=== PATIENT | female | born 1950 | race Caucasian/White ===

== ENCOUNTER → 2019-09-20 14:15 | Outpatient (BNVA) | payer MEDICARE, SELFPAY | PROVIDERS: Family Provider Nurse Practitioner; PCP Nurse Practitioner; Referring Provider Internal Medicine; Visit Provider Specialist | DX: Z86.73 Personal history of transient ischemic attack (TIA), and cerebral infarction without residual deficits (principal); F17.210 Nicotine dependence, cigarettes, uncomplicated | CPT/HCPCS: 99205; 99215 ==

== ENCOUNTER → 2019-10-05 11:17 | Outpatient (BNVA) | payer MEDICARE, SELFPAY | PROVIDERS: Family Provider Nurse Practitioner; PCP Nurse Practitioner; Visit Provider Nurse Practitioner Psychiatric/Mental Health | DX: F33.1 Major depressive disorder, recurrent, moderate (principal); F41.1 Generalized anxiety disorder; F17.210 Nicotine dependence, cigarettes, uncomplicated | CPT/HCPCS: 99213 ==

== ENCOUNTER → 2019-12-28 08:11 | Outpatient (BNVA) | payer MEDICARE, SELFPAY | PROVIDERS: Family Provider Nurse Practitioner; PCP Nurse Practitioner; Visit Provider Nurse Practitioner Psychiatric/Mental Health | DX: F33.1 Major depressive disorder, recurrent, moderate (principal); F41.1 Generalized anxiety disorder; F17.210 Nicotine dependence, cigarettes, uncomplicated | CPT/HCPCS: 99213 ==

== ENCOUNTER → 2020-02-29 12:55 | Outpatient (BNVA) | payer MEDICARE, SELFPAY | PROVIDERS: Family Provider Nurse Practitioner; PCP Nurse Practitioner; Visit Provider Nurse Practitioner Family | DX: N39.0 Urinary tract infection, site not specified (principal) | CPT/HCPCS: 81000 ==

== ENCOUNTER 2020-03-09 08:04 | Outpatient (CLI) | payer MEDICARE, SELFPAY ==
[2020-03-09] MEDS: iohexol 300 mg/mL 50 mL Btl PO (08:47)
--- NOTE | 2020-03-09 10:30 | CT_ITS ---
WS: [id number] CT ABDOMEN PELVIS TECHNIQUE: Noncontrast CT of the abdomen and pelvis with coronal and sagittal reformatted images. CLINICAL INFORMATION: prolapsed bladder COMPARISON: CTA 6 16,019 DLP: 1036.[address] scans at [facility] use at least one of these dose optimization techniques: automat ed exposure control; mA and/or kV adjustment per patient size (includes targeted exams where dose is matched to clinical indication); or iterative reconstruction. FINDINGS: Noncontrast liver is normal. Normal noncontrast gallbladder. Noncontrast spleen is normal. Lung bases are well aerated. Fatty atrophy of the pancreas. Adrenal glands are normal. No hydronephrosis in eit her kidney. Mild aortic calcification. Fat-containing umbilical hernia. A few sigmoid diverticuli. No evidence of acute diverticulitis. Scattered stool in the colon. A few prominent inguinal nodes nonspecific but likely reactive largest right inguinal region measuri ng 15 mm. Mild bladder prolapse. No significant bladder wall thickening. No evidence of bladder outle t obstruction. CT/CT abdomen pelvis wo con [id number] IMPRESSION: 1. Bladder is normal in appearance. No significant wall thickening. Minimal bl adder prolapse. No evidence of bladder outlet obstruction. 2. No other significant findings.
== END 2020-03-09 08:05 | disposition home or self-care (01) ==
LOC: RADWPI 08:07
PROVIDERS: Family Provider Family Medicine; PCP Family Medicine; Visit Provider Family Medicine
DX: N81.10 Cystocele, unspecified (principal)
CPT/HCPCS: 74176; Q9967

== ENCOUNTER → 2020-03-28 07:55 | Outpatient (BNVA) | payer MEDICARE, SELFPAY | PROVIDERS: Family Provider Family Medicine; PCP Family Medicine; Visit Provider Nurse Practitioner Psychiatric/Mental Health | DX: F33.1 Major depressive disorder, recurrent, moderate (principal); F41.1 Generalized anxiety disorder; F17.210 Nicotine dependence, cigarettes, uncomplicated | CPT/HCPCS: 99213 ==

== ENCOUNTER → 2020-04-02 13:53 | Outpatient (BNVA) | payer MEDICARE, SELFPAY | PROVIDERS: Family Provider Family Medicine; PCP Family Medicine; Visit Provider Nurse Practitioner Family | DX: Z87.440 Personal history of urinary (tract) infections (principal) | CPT/HCPCS: 81001 ==

== ENCOUNTER → 2020-04-30 09:16 | Outpatient (BNVA) | payer MEDICARE, SELFPAY | PROVIDERS: Family Provider Family Medicine; PCP Family Medicine; Visit Provider Nurse Practitioner Psychiatric/Mental Health | DX: F33.1 Major depressive disorder, recurrent, moderate (principal); F41.1 Generalized anxiety disorder; F17.210 Nicotine dependence, cigarettes, uncomplicated | CPT/HCPCS: 99213 ==

== ENCOUNTER → 2020-05-28 08:13 | Outpatient (BNVA) | payer MEDICARE, SELFPAY | PROVIDERS: Family Provider Family Medicine; PCP Family Medicine; Visit Provider Nurse Practitioner Psychiatric/Mental Health | DX: F33.1 Major depressive disorder, recurrent, moderate (principal); F41.1 Generalized anxiety disorder; F17.210 Nicotine dependence, cigarettes, uncomplicated | CPT/HCPCS: 99213 ==

== ENCOUNTER → 2020-07-18 14:12 | Outpatient (BNVA) | payer MEDICARE, SELFPAY | PROVIDERS: Family Provider Family Medicine; PCP Family Medicine; Visit Provider Family Medicine Adult Medicine | DX: H05.20 Unspecified exophthalmos (principal); I63.512 Cerebral infarction due to unspecified occlusion or stenosis of left middle cerebral artery; E11.69 Type 2 diabetes mellitus with other specified complication; E78.5 Hyperlipidemia, unspecified; E11.65 Type 2 diabetes mellitus with hyperglycemia; Z98.62 Peripheral vascular angioplasty status; I10 Essential (primary) hypertension | CPT/HCPCS: 80053; 80061; 83036; 84443; 85025 ==

== ENCOUNTER → 2020-09-20 09:09 | Outpatient (BNVA) | payer MEDICARE, SELFPAY | PROVIDERS: Family Provider Family Medicine; PCP Family Medicine; Visit Provider Nurse Practitioner Psychiatric/Mental Health | DX: F33.1 Major depressive disorder, recurrent, moderate (principal); F41.1 Generalized anxiety disorder; F17.210 Nicotine dependence, cigarettes, uncomplicated | CPT/HCPCS: 99213 ==

== ENCOUNTER → 2020-12-05 13:22 | Outpatient (BNVA) | payer MEDICARE, SELFPAY | PROVIDERS: Family Provider Family Medicine; PCP Family Medicine; Visit Provider Family Medicine Adult Medicine | DX: E11.65 Type 2 diabetes mellitus with hyperglycemia (principal); I10 Essential (primary) hypertension; R94.4 Abnormal results of kidney function studies; E11.69 Type 2 diabetes mellitus with other specified complication; E78.5 Hyperlipidemia, unspecified; I63.512 Cerebral infarction due to unspecified occlusion or stenosis of left middle cerebral artery | CPT/HCPCS: 80053; 80061; 83036 ==

== ENCOUNTER → 2021-01-02 07:29 | Outpatient (BNVA) | payer MEDICARE, SELFPAY | PROVIDERS: Family Provider Family Medicine; PCP Family Medicine; Visit Provider Nurse Practitioner Psychiatric/Mental Health | DX: F33.1 Major depressive disorder, recurrent, moderate (principal); F41.1 Generalized anxiety disorder; F17.210 Nicotine dependence, cigarettes, uncomplicated | CPT/HCPCS: 99214 ==

== ENCOUNTER 2021-02-12 06:56 | Outpatient (CLI) | payer MEDICARE, SELFPAY ==
--- NOTE | 2021-02-12 07:15 | USCV_ITS ---
Santa Baez Age: 70 Gender: F : 1950 Exam Date: 02/12/2021 07:15 Ordering Phys: Eileen Escamilla MD ([email or web address]) Technologist: HEATHER Exam Location: [facility] – [place] Indication: STENOSIS Risk Factors: Previous Vascular Surgery: Right Brachial BP: / Left Brachial BP: / Right Left Velocity (cm/s) Spectral Plaque Velocity (cm/s) Spectral Plaque Syst/Diast Broadening Syst/Diast Broadening 62.80/ 9.90 Prox CCA 77.20 / 9.90 60.60/ 15.40 Mid CCA 76.10 / 12.10 76.10/ 14.30 Distal CCA 61.70 / 17.60 95.90/ 18.70 Prox ICA 110.30/ 25.40 104.70/25.40 Mid ICA 132.30/ 25.40 99.20/ 22.10 Distal ICA 110.30/ 22.10 102.50 ECA 115.80 1.73 ICA/CCA 1.74 Antegrade Vertebral Antegrade 55.10/ 17.60 cm/s 25.10/ 4.30 cm/s Tri Subclavian Tri FINDINGS Mild to moderate heterogeneous plaques at the right bifurcation and proximal internal carotid artery Moderate heterogeneous plaques of the left bifurcation and internal carotid artery Antegrade flow in the vertebral arteries bilaterally Normal Doppler flow velocities in the external carotid and subclavian arteries bilaterally CONCLUSIONS Moderate heterogeneous plaques of the left bifurcation and internal carotid artery with the Doppler features, consistent with less than 50% stenosis Mild to moderate heterogeneous plaques at the right bifurcation and proximal internal carotid artery with Doppler features, consistent with less than 50% stenosis. Intimal thickening in the common carotid arteries bilaterally Compared to the study from 08/05/2019, there may not be a significant change Dr Ahmet Brandon MD [facility] (Electronically Signed) Final Date: 12 February 2021 23:04 S
--- NOTE | 2021-02-12 08:00 | USCV_ITS ---
Santa Baez Age: 70 Gender: F : 1950 Exam Date: 02/12/2021 07:49 Ordering Phys: Eileen Escamilla MD ([email or web address]) Technologist: HEATHER [place]am [place] [facility] [place]ication: BP: / HR: 59 Rhythm: Sinus Technical Quality: Good MEASUREMENTS (Male / Female) Normal Values 2D ECHO LV Diastolic Diameter PLAX 4.5 cm 4.2 - 5.9 / 3.9 - 5.3 cm LV Systolic Diameter PLAX 3.3 cm LV Chamber Size 4.5 cm IVS Diastolic Thickness 1.2 cm 0.6 - 1.0 / 0.6 - 0.9 cm IVS Systolic Thickness 1.4 cm LVPW Diastolic Thickness 1.2 cm 0.6 - 1.0 / 0.6 - 0.9 cm LVPW Systolic Thickness 1.5 cm RV Chamber Size 2.3 cm LVOT Diameter 2.0 cm LV Ejection Fraction 2D Teich 52.7 % LV Ejection Fraction MOD 2C 51.5 % LV Ejection Fraction 2C AL 60.1 % LA Diameter 2.4 cm LA Width 3.8 cm LA Height 4.5 cm RA Width 3.1 cm RA Height 4.4 cm M-MODE LV Diastolic Diameter MM 7.1 cm 4.2 - 5.9 / 3.9 - 5.3 cm LV Systolic Diameter MM 5.0 cm LV Ejection Fraction MM Teich 55.5 % IVS Diastolic Thickness MM 1.0 cm 0.6 - 1.0 / 0.6 - 0.9 cm IVS Systolic Thickness MM 1.3 cm LVPW Diastolic Thickness MM 0.7 cm 0.6 - 1.0 / 0.6 - 0.9 cm LVPW Systolic Thickness MM 1.3 cm Aortic Annulus Diameter 3.3 cm LA Ao Ratio MM 1.0 MV E Point Septal Separation 0.3 cm DOPPLER AV Peak Velocity 258.3 cm/s LVOT Peak Velocity 96.0 cm/s AV Area Cont Eq vti 1.3 cm squared AV Area Cont Eq pk 1.2 cm squared MV Area PHT 2.6 cm squared Mitral E to A Ratio 0.8 MV E' Velocity 36.5 cm/s Mitral E to MV E' Ratio 10.9 Mitral E to LV E' Lateral Ratio 12.3 Mitral E to LV E' Septal Ratio 9.8 TV Peak E Velocity 63.0 cm/s Right Atrial Pressure 8.0 mmHg PV Peak Velocity 67.0 cm/s RV Acceleration Time 0.1 s RV Ejection Time 0.4 s RV AcT/ET 0.4 FINDINGS Left Ventricle Normal left ventricular cavity size. Normal left ventricular systolic function. No regional wall motion abnormalities. Left ventricular ejection fraction is estimated at 55 %. Grade I/IV diastolic dysfunction (abnormal relaxation filling pattern), normal to mildly elevated filling pressures. Right Ventricle The right ventricle is normal in size and function. RVSP could not be calculated due to incomplete tricuspid regurgitation velocity profile. Right Atrium The right atrium is normal in size. Left Atrium The left atrium is normal in size. Mitral Valve Structurally normal mitral valve without significant stenosis or prolapse. There is no mitral regurgitation. Aortic Valve Moderate aortic valve calcification. Moderate aortic valve stenosis, mean gradient 12.2 mmHg, GABRIELLA 1.3 cm squared. Moderate aortic valve regurgitation. Tricuspid Valve Structurally normal tricuspid valve without significant stenosis or regurgitation. Pulmonic Valve Structurally normal pulmonic valve without significant stenosis. There is no pulmonic regurgitation. Pericardium Normal pericardium without effusion. Aorta Normal ascending aorta dimension. CONCLUSIONS 1-Normal left ventricular cavity size. Normal left ventricular systolic function. No regional wall motion abnormalities. Left ventricular ejection fraction is estimated at 55 %. Grade I/IV diastolic dysfunction (abnormal relaxation filling pattern), normal to mildly elevated filling pressures. 2-Moderate aortic valve calcification. Moderate aortic valve stenosis, mean gradient 12.2 mmHg, GABRIELLA 1.3 cm squared. Moderate aortic valve regurgitation. 3-Structurally normal mitral valve without significant stenosis or prolapse. There is no mitral regurgitation. 4-There is no pericardial effusion. 5-Right atrial pressure is around 5 mm of mercury. 6-No significant change since the prior echocardiogram study of 01/05/2019. Eileen Escamilla MD (Electronically Signed) Final Date: 13 February 2021 19:09 S
--- NOTE | 2021-02-12 08:45 | USCV_ITS ---
BaezSanta Age: 70 Gender: F : 1950 Exam Date: 02/12/2021 07:32 Ordering Phys: Eileen Escamilla MD Technologist: HEATHER Exam Location: [facility] [place] Indication: AAA HISTORY: Diameter (cm) AP x Transverse x Length Velocity (cm/s) Waveform Prox Aorta: 2.16 x 2.19 x 2.09 31.90 Mid Aorta: 1.71 x 1.97 x 1.71 57.50 Distal Aorta: 1.84 x 2.10 x 2.00 55.40 Right Iliac Prox: 0.70 x 0.88 x 70.00 Left Iliac Prox: 0.94 x 1.25 x 74.20 Stent Prox Landing x x Aneurysmal Sac Max x x Lt Lat Sac Dim Rt Lat Sac Dim Stent Dist Landing x x Right Iliac Stent x x Left Iliac Stent x x Right Renal Art Left Renal Art FINDINGS: Mild to moderate diffuse plaques in the abdominal aorta Normal Doppler flow velocities CONCLUSIONS 1. Mild to moderate diffuse plaques in the abdominal aorta. 2. Normal abdominal aortic and common iliac artery dimensions with no evidence of aneurysm 3. No significant stenosis in the aortic or proximal common iliac arteries, based on the above findings Dr Ahmet Brandon MD [facility] (Electronically Signed) Final Date: 12 February 2021 23:09 S
== END 2021-02-12 06:57 | disposition home or self-care (01) ==
LOC: RAD 06:57
PROVIDERS: PCP Family Medicine Adult Medicine; Visit Provider Internal Medicine Cardiovascular Disease
DX: I71.4 Abdominal aortic aneurysm, without rupture (principal); I35.0 Nonrheumatic aortic (valve) stenosis; I65.23 Occlusion and stenosis of bilateral carotid arteries
CPT/HCPCS: 93306; 93880; 93978

== ENCOUNTER → 2021-04-03 08:06 | Outpatient (BNVA) | payer MEDICARE, SELFPAY | PROVIDERS: PCP Family Medicine Adult Medicine; Visit Provider Nurse Practitioner Psychiatric/Mental Health | DX: F33.1 Major depressive disorder, recurrent, moderate (principal); F41.1 Generalized anxiety disorder; F17.210 Nicotine dependence, cigarettes, uncomplicated | CPT/HCPCS: 99214 ==

== ENCOUNTER → 2021-04-20 14:55 | Outpatient (BNVA) | payer MEDICARE, SELFPAY | PROVIDERS: PCP Family Medicine Adult Medicine; Visit Provider Registered Nurse Neonatal Intensive Care | DX: Z20.822 Contact with and (suspected) exposure to COVID-19 (principal); R68.83 Chills (without fever); R05 Cough; F17.210 Nicotine dependence, cigarettes, uncomplicated | CPT/HCPCS: 87635 ==

== ENCOUNTER → 2021-05-01 07:39 | Outpatient (BNVA) | payer MEDICARE, SELFPAY | PROVIDERS: PCP Family Medicine Adult Medicine; Visit Provider Nurse Practitioner Psychiatric/Mental Health | DX: F33.1 Major depressive disorder, recurrent, moderate (principal); F41.1 Generalized anxiety disorder; F17.210 Nicotine dependence, cigarettes, uncomplicated; W57.XXXA Bitten or stung by nonvenomous insect and other nonvenomous arthropods, initial encounter | CPT/HCPCS: 99214 ==

== ENCOUNTER → 2021-06-05 15:37 | Outpatient (BNVA) | payer MEDICARE, SELFPAY | PROVIDERS: PCP Family Medicine Adult Medicine; Visit Provider Family Medicine Adult Medicine | DX: E11.65 Type 2 diabetes mellitus with hyperglycemia (principal); I10 Essential (primary) hypertension; E78.5 Hyperlipidemia, unspecified | CPT/HCPCS: 80053; 83036; 85025 ==

== ENCOUNTER → 2021-06-12 07:47 | Outpatient (BNVA) | payer MEDICARE, SELFPAY | PROVIDERS: PCP Family Medicine Adult Medicine; Visit Provider Nurse Practitioner Psychiatric/Mental Health | DX: F33.1 Major depressive disorder, recurrent, moderate (principal); F41.1 Generalized anxiety disorder; F17.210 Nicotine dependence, cigarettes, uncomplicated; W57.XXXA Bitten or stung by nonvenomous insect and other nonvenomous arthropods, initial encounter | CPT/HCPCS: 99214 ==

== ENCOUNTER 2021-06-25 15:47 | Emergency (ER) | payer MEDICARE, SELFPAY ==
[2021-06-25 15:59] VITALS: BP 145/75; PULSE 83; RESP 14; TEMP 36.2; O2SAT 95; BMI 25.8
--- NOTE | 2021-06-25 17:09 | W.ED.URI ---
HPI - URI/Sore Throat General: Chief Complaint: Upper Respiratory Infection Stated Complaint: Cough, SOB, Achy Time Seen by Provider: 06/25/21 17:09 History of Present Illness: HPI Narrative: 71-year-old female comes in today with complaints of body aches, cough and nasal congestion since the end of April. Patient was first seen at the end of April at urgent care and had a Covid test that was negative. Patient was then followed by primary care physician in the middle of May and was treated with 1 round of steroids and antibiotic. Patient followed up with her primary care a little over 1 week ago and was recommended to use some Mucinex to help remove congestion from the lungs. Patient then talked to her physician today and was recommended to come to the ER due to her persistent symptoms. Patient appears well. Patient appears no acute distress. Patient reports some chest congestion and some pain with deep breathing. Patient also reports some pain into her neck and left shoulder. Patient reports some tenderness to the to her coccyx also. Patient has a history of COPD, type 2 diabetes, hypertension, hyperlipidemia, nicotine dependence, and major depression. Review of Systems General: Reports: 10 or more systems reviewed and unremarkable except in HPI and below Const: Reports: malaise Resp: Reports: dyspnea and non-productive cough Musc: Reports: other (Muscle aches) PFS ED PFSH: Medical History (Updated 06/25/21 @ 19:11 by MEGAN Haytt) Acute viral syndrome Aortic stenosis Bronchitis Bulging eyes Chest pain at rest Chronic diarrhea COPD (chronic obstructive pulmonary disease) case management patient Cramps of left lower extremity Diabetes type 2, uncontrolled Essential tremor Generalized anxiety disorder HTN (hypertension) Hyperlipidemia due to type 2 diabetes mellitus Lower abdominal pain Major depressive disorder, recurrent episode, moderate with anxious distress Mixed stress and urge urinary incontinence Nicotine dependence, cigarettes, uncomplicated Peripheral Vascular Disease Psychiatric care Vaginal atrophy Surgical History Hx of angioplasty S/P hysterectomy S/P tonsillectomy Family History Other Diabetes Hypertension Stroke Denies family history of CAD (coronary artery disease) Social History Alcohol intake: never Adopted: No Caregiver/support person: No Lives independently: No Household members: spouse Marital status: Current occupational status: retired Physical Exam Const: COMMON NORMALS: no acute distress and patient oriented x3 GENERAL APPEARANCE: cooperative HENMT: COMMON NORMALS: normocephalic, TM's normal bilaterally and Normal external nose present HEAD & SCALP: normal to inspection and normocephalic NOSE: Normal external nose present TYMPANIC MEMBRANE: TM's normal bilaterally MOUTH: Normal oral and palatal mucosa present THROAT: posterior oropharynx normal Eye: GENERAL EYE: appearance normal, both eyes and all related structures Neck/C-Spine: COMMON NORMALS: full ROM Lymph: LYMPHATIC: no lymphadenopathy noted Chest: COMMONS NORMALS: normal inspection of the chest Resp: COMMON NORMALS: normal respiratory effort EFFORT & INSPECTION: Yes able to speak in complete sentences AUSCULTATION: wheezes and diminished lung sounds Cardio: COMMON NORMALS: regular rate and regular rhythm RATE: regular rate RHYTHM: regular rhythm GI: COMMON NORMALS: non-tender : COMMON NORMALS: Yes no CVA tenderness BLADDER/KIDNEY EXAM: Yes no CVA tenderness Back/Pelvis: COMMON NORMALS: no CVA tenderness and thoracic and lumbar spine normal to inspection Extremity: COMMON NORMALS: normal to inspection Neuro: COMMON NORMALS: patient oriented x3 and moves all extremities Psych: COMMON NORMALS: mental status grossly normal and cooperative Skin: COMMON NORMALS: no rashes or lesions noted GENERAL SKIN EXAM: no rashes or lesions noted Course Vital Signs: Vital signs: Vital Signs Temperature 97.1 F L 06/25/21 15:59 Pulse Rate 83 06/25/21 15:59 Respiratory Rate 14 06/25/21 15:59 Blood Pressure 145/75 06/25/21 15:59 Pulse Oximetry 95 06/25/21 15:59 MDM - URI/Sore Throat MDM Narrative: Medical decision making narrative: Patient came in today for complaints of persistent respiratory infection. Patient reports that since the end of April she has had some cough and congestion. Patient was treated in May with a round of Bactrim and prednisone. Patient does have a history of COPD. On exam patient has some wheezing and crackles in the lung enrique throughout. Patient does continue to smoke when questioned. Skin is warm and dry. Vital signs are normal. Abdomen soft nontender. Patient does have an area of skin breakdown to the cleft of the buttock that appears to be intertrigo. Differential diagnosis includes exacerbation of COPD, pneumonia, CHF. Chest x-ray was unremarkable. CBC and CMP was unremarkable. Influenza test was negative. Patient had a Covid test in the office and it was negative. Troponin test was at 19 although patient does seem to run a slightly above normal troponin with the last one being 16. I believe patient probably has persistent COPD symptoms due to her chronic nicotine use. Discussed with her ways continue smoking cessation. Patient states that she was trying really hard. We will treat her intertrigo to the cleft of her buttocks with hydrocortisone for discomfort and Chlortrimazole to cover any fungal or yeast. Patient appeared well without any signs of significant distress and was discharged to home for follow-up with primary care. We will put patient on Levaquin to cover any Pseudomonas that may be causing persistent COPD symptoms we will also repeat a prednisone over 7 days. Patient was agreeable to plan and will follow up with primary care for further instruction. Lab Data: Labs: Lab Results 06/25/21 06/25/21 06/25/21 17:40 17:40 17:40 WBC 8.3 10^3/uL 10^3/ uL (4.0-10.0) RBC 3.85 10^6/uL L 10 ^6/uL (4.1-5.3) Hgb 12.2 g/dL g/dL (11.5-15.3) Hct 36.4 % L % (37.0-47.0) MCV 94.5 fl fl (81-99) MCH 31.7 pg pg (28.0-34.0) MCHC 33.5 g/dL g/dL (30.0-36.0) RDW 12.4 % % (12.1-15.1) Plt Count 183 10^3/cmm 10^3 /cmm (130-400) MPV 10.6 fL H fL (7.4-10.4) Neut % (Auto) 62.2 % % Lymph % (Auto) 24.6 % % [place] % (Auto) 10.5 % % Eos % (Auto) 1.6 % % Baso % (Auto) 0.7 % % Neut # (Auto) 5.15 10^3/uL 10^3 /uL (1.8-7.7) Lymph # (Auto) 2.0 10^3/uL 10^3/ uL (0.8-4.8) [place] # (Auto) 0.9 10^3/uL 10^3/ uL (0.2-0.9) Eos # (Auto) 0.1 10^3/uL 10^3/ uL (0.0-0.8) Baso # (Auto) 0.1 10^3/uL 10^3/ uL (0.0-0.1) Nucleated RBC % (a uto) 0 % % Nucleated RBCs # 0.0 /100WBC /100W BC Sodium 137 mmol/L mmol/L (136-145) Potassium 4.1 mmol/L mmol/L (3.5-5.1) Chloride 103 mmol/L mmol/L (98-107) Carbon Dioxide 25 mmol/L mmol/L (22-29) Anion Gap 13.1 (5-19) BUN 9 mg/dL mg/dL (8-23) Creatinine 0.8 mg/dL mg/dL (0.5-0.9) GFR Calculation Not Reportable Glucose 207 mg/dL H mg/dL (65-115) Calculated Osmolal ity 289 mOsm/kg mOsm/ kg (285-295) Calcium 8.1 mg/dL L mg/dL (8.5-10.5) Total Bilirubin 0.2 mg/dL mg/dL (0.15-1.2) AST 12 U/L U/L (0-32) ALT 14 U/L U/L (0-33) Alkaline Phosphata se 111 IU/L H IU/L (35-105) Troponin T Baselin e 19 ng/L H ng/L (0-10) Total Protein 5.5 g/dL L g/dL (6.6-8.7) Albumin 3.3 g/dL L g/dL (3.5-5.2) Globulin 2.2 g/dL g/dL (1.3-4.6) Influenza Type A A g Influenza Type B A g 06/25/21 17:40 WBC RBC Hgb Hct MCV MCH MCHC RDW Plt Count MPV Neut % (Auto) Lymph % (Auto) [place] % (Auto) Eos % (Auto) Baso % (Auto) Neut # (Auto) Lymph # (Auto) [place] # (Auto) Eos # (Auto) Baso # (Auto) Nucleated RBC % (a uto) Nucleated RBCs # Sodium Potassium Chloride Carbon Dioxide Anion Gap BUN Creatinine GFR Calculation Glucose Calculated Osmolal ity Calcium Total Bilirubin AST ALT Alkaline Phosphata se Troponin T Baselin e Total Protein Albumin Globulin Influenza Type A A g Negative (Negative) Influenza Type B A g Negative (Negative) EKG Data^: EKG 1: Attestation: I personally reviewed and interpreted this EKG as follows: (174, EKG shows a sinus rhythm with a regular rate of 65 bpm. Artifact is present on the EKG. No obvious ST elevation or ectopy is noted. Computer reports some moderate ST depression.) Discharge Plan Discharge Patient Disposition: Home Clinical Impression: Acute exacerbation of chronic obstructive pulmonary disease, Intertrigo Condition: Stable Prescriptions: New prednisone 20 mg tablet 20 mg PO BID 7 Days Qty: 14 RF: 0 hydrocortisone 1 % cream 1 applic topical BID PRN (Reason: skin irritation) Qty: 28.35 RF: 0 levofloxacin 500 mg tablet 500 mg PO Q24H 7 Days Qty: 7 RF: 0 clotrimazole 1 % cream 1 applic topical BID 28 Days Qty: 30 RF: 0 No Action aspirin 325 mg tablet 325 mg PO DAILY Qty: 100 RF: 3 estradiol 0.01 % (0.1 mg/gram) cream 1 appful vaginal DAILY Qty: 42.5 RF: 5 valsartan 80 mg tablet 80 mg PO DAILY Qty: 90 RF: 3 propranolol 10 mg tablet 10 mg PO BID Qty: 90 RF: 3 varenicline [Chantix] 0.5 mg tablet 0.5 mg PO BID Qty: 60 RF: 2 guaifenesin 1,200 mg tablet extended release 12hr 1,200 mg PO BID Qty: 60 RF: 5 triamcinolone acetonide 55 mcg aerosol,spray 2 spray intranasal DAILY 14 Days Qty: 16.9 RF: 0 promethazine-DM 6.25-15 mg/5 mL syrup 5 ml PO Q6H Qty: 118 RF: 0 glipizide 5 mg tablet 5 mg PO BID Qty: 60 RF: 5 albuterol sulfate [Ventolin HFA] 90 mcg/actuation HFA aerosol inhaler 2 puff INHALATION Q6H PRN (Reason: shortness of breath or wheezing) Qty: 8.5 RF: 3 budesonide-formoterol [Symbicort] 160-4.5 mcg/actuation HFA aerosol inhaler 2 puff inhalation BID Qty: 10.2 RF: 0 clonazepam 1 mg tablet 1 mg PO BID Qty: 60 RF: 3 hydroxyzine pamoate 50 mg capsule 50 mg PO BID PRN (Reason: anxiety) Qty: 60 RF: 3 mirtazapine [Remeron] 30 mg tablet 30 mg PO DIRECTED Qty: 30 RF: 6 furosemide 20 mg tablet 20 mg PO DAILY PRN (Reason: edema) Qty: 90 RF: 2 Discharge Orders: Discharge ED (Routine); Ordered 06/25/21 Ordered By: Junior Cage Referrals: Marv Andrews MD [Primary Care Provider] - Discharge Diet: Usual diet Discharge Activity: Increase activity as tolerated Patient Instructions: COPD (Chronic Obstructive Pulmonary Disease) (ED), Opioid Safety Activity Restrictions/Additional Instructions: Continue working on smoking cessation. Drink plenty of water. Take medications as directed. You will lose levofloxacin 500 mg daily for the next 7 days. You will use prednisone 20 mg twice daily for the next 7 days. Continue with inhalers as directed. To the skin irritation on the cleft of the buttocks you will use hydrocortisone twice a day as needed for skin irritation and pain, you will use clotrimazole cream twice daily for the next 4 weeks or until the area is healed. Stop the hydrocortisone when the skin irritation and pain is resolved. Follow-up with primary care in 1 week for recheck. Coding Level of Care Code ED Business Solutions Architect for Tim Fwd Exam Comprehensive
--- NOTE | 2021-06-25 17:22 | XRR_ITS ---
PROCEDURE INFORMATION: Exam: XR Chest Exam date and time: 06/25/2021 5:22 PM Age: 71 years old Clinical indication: Cough and shortness of breath; Smoker's cough; Additional info: Cough congestion TECHNIQUE: Imaging protocol: XR of the chest. Views: 2 views. COMPARISON: CR Chest 1 [place] [id number] 08/04/2019 8:10 PM FINDINGS: Lungs: Unremarkable. No consolidation. Pleural spaces: Unremarkable. No pleural effusion. No pneumothorax. Heart/Mediastinum: Unremarkable. No cardiomegaly. Bones/joints: Unremarkable. XR/XR chest 2V* [id number] IMPRESSION: No acute findings. Radiation Dose CTDIVOL = (mGy): DLP = (mGy-cm)
[2021-06-25 17:53] LABS: Basophils # 0.1 10^3/uL (0.0-0.1); Basophils % 0.7 %; Eosinophils # 0.1 10^3/uL (0.0-0.8); Eosinophils % 1.6 %; Hematocrit 36.4 % (37.0-47.0); Hemoglobin 12.2 g/dL (11.5-15.3); Lymphocytes % 24.6 %; Mean Corpuscular HGB Conc 33.5 g/dL (30.0-36.0); Mean Corpuscular Hemoglobin 31.7 pg (28.0-34.0); Mean Corpuscular Volume 94.5 fl (81-99); Mean Platelet Volume 10.6 fL (7.4-10.4); Monocytes # 0.9 10^3/uL (0.2-0.9); Monocytes % 10.5 %; Neutrophils # 5.15 10^3/uL (1.8-7.7); Neutrophils % 62.2 %; Nucleated Red Blood Cells % 0 %; Platelet Count 183 10^3/cmm (130-400); Red Blood Count 3.85 10^6/uL (4.1-5.3); Red Cell Distribution Width 12.4 % (12.1-15.1); White Blood Count 8.3 10^3/uL (4.0-10.0)
[2021-06-25 18:11] LABS: Troponin(5th) Baseline 19 ng/L (0-10)
[2021-06-25 18:12] LABS: Alanine Aminotransferase 14 U/L (0-33); Albumin Level 3.3 g/dL (3.5-5.2); Alkaline Phosphatase 111 IU/L (35-105); Anion Gap 13.1 (5-19); Aspartate Amino Transferase 12 U/L (0-32); Blood Urea Nitrogen 9 mg/dL (8-23); Calcium 8.1 mg/dL (8.5-10.5); Carbon Dioxide 25 mmol/L (22-29); Chloride 103 mmol/L (98-107); Globulin 2.2 g/dL (1.3-4.6); Glucose 207 mg/dL (65-115); Osmolality Calculated 289 mOsm/kg (285-295); Potassium 4.1 mmol/L (3.5-5.1); Sodium 137 mmol/L (136-145); Total Bilirubin 0.2 mg/dL (0.15-1.2); Total Protein 5.5 g/dL (6.6-8.7)
[2021-06-25 18:48] LABS: Influenza A by IFA Negative (Negative); Influenza B by IFA Negative (Negative)
[2021-06-25] MEDS: dexamethasone 10 mg/mL INJ IM (19:45)
[2021-06-25] MEDS: levoFLOXacin 500 mg Tablet PO (20:25)
[2021-06-25 20:26] VITALS: PULSE 82; RESP 16; O2SAT 98
== END 2021-06-25 20:30 | disposition home or self-care (01) ==
PROVIDERS: Emergency Provider Nurse Practitioner Family; PCP Family Medicine Adult Medicine
DX: J44.1 Chronic obstructive pulmonary disease with (acute) exacerbation (principal); L30.4 Erythema intertrigo; Z79.82 Long term (current) use of aspirin; F17.200 Nicotine dependence, unspecified, uncomplicated
CPT/HCPCS: 71046; 80053; 84484; 85025; 87804; 96372; 99283; J1100

== ENCOUNTER → 2021-07-31 14:05 | Outpatient (BNVA) | payer MEDICARE, SELFPAY | PROVIDERS: PCP Family Medicine Adult Medicine; Visit Provider Nurse Practitioner Psychiatric/Mental Health | DX: F33.1 Major depressive disorder, recurrent, moderate (principal); F41.1 Generalized anxiety disorder; F17.210 Nicotine dependence, cigarettes, uncomplicated; W57.XXXA Bitten or stung by nonvenomous insect and other nonvenomous arthropods, initial encounter | CPT/HCPCS: 99214 ==

== ENCOUNTER → 2021-10-23 08:11 | Outpatient (BNVA) | payer MEDICARE, SELFPAY | PROVIDERS: PCP Family Medicine Adult Medicine; Visit Provider Nurse Practitioner Psychiatric/Mental Health | DX: F33.1 Major depressive disorder, recurrent, moderate (principal); W57.XXXA Bitten or stung by nonvenomous insect and other nonvenomous arthropods, initial encounter; F41.1 Generalized anxiety disorder; F17.210 Nicotine dependence, cigarettes, uncomplicated | CPT/HCPCS: 99214 ==

== ENCOUNTER 2021-10-23 15:03 | Emergency (ER) | payer MEDICARE, SELFPAY ==
[2021-10-23 15:12] VITALS: BP 153/74; PULSE 83; RESP 18; TEMP 36.2; O2SAT 93; BMI 27.7
--- NOTE | 2021-10-23 15:29 | CTR_ITS ---
PROCEDURE INFORMATION: Exam: CT Abdomen And Pelvis With Contrast Exam date and time: 10/23/2021 3:29 PM Age: 71 years old Clinical indication: Abdominal pain; Left; Prior surgery; Surgery date: 6+ months; Surgery type: Bladder sling, hysterectomy; Patient HX: Bilateral flank pain; Additional info: Eval for infection TECHNIQUE: Imaging protocol: Computed tomography of the abdomen and pelvis with contrast. Radiation optimization: All CT scans at this facility use at least one of these dose optimization techniques: automated exposure control; mA and/or kV adjustment per patient size (includes targeted exams where dose is matched to clinical indication); or iterative reconstruction. Contrast material: OMNI 300; Contrast volume: 95 ml; Contrast route: INTRAVENOUS (IV); COMPARISON: CT abdomen pelvis wo con [id number] 03/09/2020 9:48 AM RADIATION DOSE METRICS: Total DLP (mGy-cm): 1534.25 FINDINGS: Liver: Normal. No mass. Gallbladder and bile ducts: Normal. No calcified stones. No ductal dilation. Pancreas: Normal. No ductal dilation. Spleen: Normal. No splenomegaly. Adrenal glands: Normal. No mass. Kidneys and ureters: Normal. No hydronephrosis. Stomach and bowel: Moderate stool in the proximal and transverse colon. The stomach and small bowel are unremarkable. No obstruction. Appendix: The appendix is visualized and is normal. Intraperitoneal space: Unremarkable. No free air. No significant fluid collection. Vasculature: Atherosclerotic calcifications. Lymph nodes: Unremarkable. No enlarged lymph nodes. Urinary bladder: Unremarkable as visualized. Reproductive: The uterus and ovaries are absent. Bones/joints: Degenerative lumbar spine. No fracture. Soft tissues: Unremarkable. Other findings: No aneurysm or dissection. CT/CT abdomen pelvis w con* [id number] IMPRESSION: 1. No acute abnormality identified in the abdomen or pelvis. 2. Stool burden in the proximal and transverse colon could indicate constipation in the right clinical setting.
--- NOTE | 2021-10-23 15:40 | XR_ITS ---
WS: [id number] Pelvis, AP view, 10/23/2021 Clinical Data: lateral chest pain Comparison: None. Findings: No fractures or dislocations are seen. The SI joints and pubic symphysis are intact. The soft tissues are not remarkable. There is degenerative change of the lower lumbar vertebral bodies. XR/XR pelvis 1-2V* [id number] Impression: Negative pelvis.
[2021-10-23 15:51] LABS: Basophils # 0.1 10^3/uL (0.0-0.1); Basophils % 0.9 %; Eosinophils # 0.1 10^3/uL (0.0-0.8); Hematocrit 45.6 % (37.0-47.0); Lymphocytes # 2.3 10^3/uL (0.8-4.8); Lymphocytes % 26.8 %; Mean Corpuscular HGB Conc 32.9 g/dL (30.0-36.0); Mean Corpuscular Hemoglobin 30.4 pg (28.0-34.0); Mean Corpuscular Volume 92.5 fl (81-99); Mean Platelet Volume 10.3 fL (7.4-10.4); Monocytes # 0.6 10^3/uL (0.2-0.9); Monocytes % 6.5 %; Neutrophils # 5.62 10^3/uL (1.8-7.7); Neutrophils % 64.3 %; Nucleated Red Blood Cells % 0 %; Platelet Count 204 10^3/cmm (130-400); Red Blood Count 4.93 10^6/uL (4.1-5.3); White Blood Count 8.7 10^3/uL (4.0-10.0)
[2021-10-23] MEDS: sodium chloride 0.9% 500 ML IV (15:59)
[2021-10-23] MEDS: famotidine 20 mg/2 mL INJ IVP (15:59)
[2021-10-23] MEDS: acetaminophen 500 mg Tablet PO (15:59)
--- NOTE | 2021-10-23 16:18 | ED_ITS ---
HPI - General Adult General: Chief complaint: Abdominal Pain Stated complaint: Both Sides Serious pain, sent by [employer] @[facility], [place] Time Seen by Provider: 10/23/21 15:24 History of Present Illness: Patient is a 71-year-old female with a history of prior hysterectomy aortic stenosis, diabetes, hypertension who presents emergency room with bilateral sharp flank pain radiating to the umbilicus. Patient has had pain for the last 5 days. Patient reports pain comes and goes lasting for 20 minutes this time and is sharp and pressure-like. Patient denies pain is worse with p.o. intake. Patient has no diarrhea or melena, patient is able to tolerate p.o. without any difficulty. Patient no fever or chills, no other prior abdominal surgeries. Patient denies chest pain, shortness breath, palpitation, lightheadedness nausea/vomiting, fever/chills. Onset: 5 days ago Duration: 5days Location:home Severity:moderate Associated symptoms: Deny chest pain, dyspnea, nausea, rash, palpitations or vomiting Review of Systems Const: Denies: fever(s) or chills Eyes: Denies: change in vision ENMT: Denies: mouth pain Card: Denies: chest pain or palpitations Resp: Denies: dyspnea or non-productive cough GI: Reports: abdominal pain (+b/l abd pain); Denies: nausea, vomiting or diarrhea : Denies: dysuria Musc: Denies: extremity pain Skin/Breast: Denies: rash or new lesions Neuro: Denies: weakness in extremities Psych: Reports: other (Normal mood) León/Lymph: Denies: easy bruising PFSH ED PFSH: Medical History Aortic stenosis Bronchitis Bulging eyes Chest pain at rest Chronic diarrhea COPD (chronic obstructive pulmonary disease) case management patient Cramps of left lower extremity Diabetes type 2, uncontrolled Essential tremor Generalized anxiety disorder HTN (hypertension) Hyperlipidemia due to type 2 diabetes mellitus Lower abdominal pain Major depressive disorder, recurrent episode, moderate with anxious distress Mixed stress and urge urinary incontinence Nicotine dependence, cigarettes, uncomplicated Osteoarthritis of knees, bilateral Peripheral Vascular Disease Psychiatric care Vaginal atrophy Surgical History Hx of angioplasty S/P hysterectomy S/P tonsillectomy Family History Other Diabetes Hypertension Stroke Denies family history of CAD (coronary artery disease) Social History Smoking and tobacco status: current every day smoker cigarettes Packs smoked per day: 1 Alcohol intake: never Adopted: No Caregiver/support person: No Lives independently: No Household members: spouse Marital status: Current occupational status: retired Physical Exam Const: COMMON NORMALS: alert HENMT: COMMON NORMALS: atraumatic HEAD & SCALP: atraumatic MOUTH: moist mucous membranes not abnormal Eye: COMMON NORMALS: EOMs intact bilaterally and conjunctivae normal CONJUNCTIVA: Yes conjunctivae normal Neck/C-Spine: COMMON NORMALS: full ROM and supple Resp: COMMON NORMALS: normal respiratory effort and clear to auscultation bilaterally AUSCULTATION: clear to auscultation bilaterally Cardio: COMMON NORMALS: regular rate RATE: regular rate GI: COMMON NORMALS: Soft to palpation and non-tender PALPATION: Yes Soft to palpation OTHER: No focal TTP. NO guarding rebound, guarding, rigidity. No CVA tenderness to percussion. Neg Colon/Neg McBurney's point tenderness, no suprabupic tenderness to palpation. Extremity: COMMON NORMALS: full ROM Neuro: SENSORIUM/ORIENTATION: Yes alert MOTOR EXAM: No Abnormal motor strength present and Other motor observations present (no focal motor deficits) Psych: COMMON NORMALS: speech normal SPEECH: Yes normal speech MOOD & AFFECT: Yes euthymic mood Course Vital Signs: Vital signs: Vital Signs Temperature 97.2 F L 10/23/21 15:12 Pulse Rate 88 10/23/21 17:02 Respiratory Rate 20 H 10/23/21 17:02 Blood Pressure 151/57 10/23/21 17:02 Pulse Oximetry 93 10/23/21 17:02 [facility] - General Adult Medical Decision Making Patient is 71-year-old female with a history of hypertension, aortic stenosis, diabetes who presents the emergency room with complaints of bilateral flank pain x5 days. Exam, patient has no focal tenderness palpation. Hemodynamically stab le. Age and significant bilateral pain, decision was made to evaluate with blood work and CT scan. Work-up: CBC, CMP, lipase, UA, CT abdomen pelvis Intervention: IVF, Pepcid, morphine, gi cocktial CT abd+pelvis did not show any focal findings. Patient received GI cocktail with significant improvement abdominal pain. Patient is tolerating PO without any difficulties Patient is not currently complaining of any acute pain. I have given patient follow up with our director of casework services to be seen by our outpatient primary care followup. Patient aware of a call from our director of casework services to schedule for appointment(s) and verbalizes understanding of the importance of following up. Rx tylenol PRN abd pain, maalox/pepcid PRN dyspepsia, and zofran PRN nausea/vomiting Disposition: Discharge. Patient counseled regarding diagnostic impression, treatment plan. Patient given ED strict return precautions to return for continuation, worsening, or development of new symptoms. Instructed to f/u w/ PCP regarding symptoms today. Patient verbalized understanding. Lab Data : 10/23/21 15:40 10/23/21 16:54 Radiology Impressions Abdomen/Pelvis CT 10/23/21 15:29 IMPRESSION: 1. No acute abnormality identified in the abdomen or pelvis. 2. Stool burden in the proximal and transverse colon could indicate constipation in the right clinical setting. Pelvis X-Ray 10/23/21 15:40 Impression: Negative pelvis. Laboratory Results WBC 8.7 10^3/uL (4.0-10.0) 10/23/21 15:40 RBC 4.93 10^6/uL (4.1-5.3) 10/23/21 15:40 Hgb 15.0 g/dL (11.5-15.3) 10/23/21 15:40 Hct 45.6 % (37.0-47.0) 10/23/21 15:40 MCV 92.5 fl (81-99) 10/23/21 15:40 MCH 30.4 pg (28.0-34.0) 10/23/21 15:40 MCHC 32.9 g/dL (30.0-36.0) 10/23/21 15:40 RDW 13.0 % (12.1-15.1) 10/23/21 15:40 Plt Count 204 10^3/cmm (130-400) 10/23/21 15:40 MPV 10.3 fL (7.4-10.4) 10/23/21 15:40 Neut % (Auto) 64.3 % 10/23/21 15:40 Lymph % (Auto) 26.8 % 10/23/21 15:40 [place] % (Auto) 6.5 % 10/23/21 15:40 Eos % (Auto) 1.0 % 10/23/21 15:40 Baso % (Auto) 0.9 % 10/23/21 15:40 Neut # (Auto) 5.62 10^3/uL (1.8-7.7) 10/23/21 15:40 Lymph # (Auto) 2.3 10^3/uL (0.8-4.8) 10/23/21 15:40 [place] # (Auto) 0.6 10^3/uL (0.2-0.9) 10/23/21 15:40 Eos # (Auto) 0.1 10^3/uL (0.0-0.8) 10/23/21 15:40 Baso # (Auto) 0.1 10^3/uL (0.0-0.1) 10/23/21 15:40 Nucleated RBC % (auto) 0 % 10/23/21 15:40 Nucleated RBCs # 0.0 /100WBC 10/23/21 15:40 Sodium 134 mmol/L (136-145) L 10/23/21 16:54 Potassium 3.8 mmol/L (3.5-5.1) 10/23/21 16:54 Chloride 101 mmol/L (98-107) 10/23/21 16:54 Carbon Dioxide 24 mmol/L (22-29) 10/23/21 16:54 Anion Gap 12.8 (5-19) 10/23/21 16:54 BUN 13 mg/dL (8-23) 10/23/21 16:54 Creatinine 0.7 mg/dL (0.5-0.9) 10/23/21 16:54 GFR Calculation Not Reportable 10/23/21 16:54 Glucose 148 mg/dL (65-115) H 10/23/21 16:54 Calculated Osmolality 281 mOsm/kg (285-295) L 10/23/21 16:54 Calcium 8.7 mg/dL (8.5-10.5) 10/23/21 16:54 Total Bilirubin 0.2 mg/dL (0.15-1.2) 10/23/21 16:54 AST 12 U/L (0-32) 10/23/21 16:54 ALT 9 U/L (0-33) 10/23/21 16:54 Alkaline Phosphatase 93 IU/L (35-105) 10/23/21 16:54 Total Protein 6.1 g/dL (6.6-8.7) L 10/23/21 16:54 Albumin 3.5 g/dL (3.5-5.2) 10/23/21 16:54 Globulin 2.6 g/dL (1.3-4.6) 10/23/21 16:54 Lipase 14 U/L (13-60) 10/23/21 16:54 Imaging Data Other Imaging: Radiologist's impression: [id number] [address] XRay Report Signed Patient: Santa Baez Unit #: [id number] : 1950 Age/Sex: 71 / F ADM Date: 10/23/21 Loc: ER Room/Bed: Attending Dr: Ordering Provider/Ordering MD: Cassidy Moyer MD Date of Service: 10/23/21 Procedure(s): XR pelvis 1-2V* 28388 Accession Number(s): [id number] Report Number: [id number] WS: [id number] Pelvis, AP view, 10/23/2021 Clinical Data: lateral chest pain Comparison: None. Findings: No fractures or dislocations are seen. The SI joints and pubic symphysis are intact. The soft tissues are not remarkable. There is degenerative change of the lower lumbar vertebral bodies. XR/XR pelvis 1-2V* 23448 Impression: Negative pelvis. ? Dictated By: Francesca Carroll MD Signed By: Francesca Carroll MD Signed Date/Time: 10/23/211554 DD/ 53 Discharge Plan Discharge Condition: Stable Prescriptions: No Action aspirin 325 mg tablet 325 mg PO DAILY Qty: 100 3RF valsartan 80 mg tablet 80 mg PO DAILY Qty: 90 3RF propranolol 10 mg tablet 10 mg PO BID Qty: 90 3RF montelukast [Singulair] 10 mg tablet 10 mg PO DAILY Qty: 30 5RF Rx Instructions: 340 B Medications triamcinolone acetonide 55 mcg aerosol,spray 2 spray intranasal DAILY 14 Days Qty: 16.9 0RF Rx Instructions: administer into each nostril promethazine-DM 6.25-15 mg/5 mL syrup 5 ml PO Q6H Qty: 118 0RF glipizide 5 mg tablet 5 mg PO BID Qty: 60 5RF albuterol sulfate [Ventolin HFA] 90 mcg/actuation HFA aerosol inhaler 2 puff INHALATION Q6H PRN (Reason: shortness of breath or wheezing) Qty: 8.5 3RF Rx Instructions: 340 B medications clonazepam 1 mg tablet 1 mg PO BID Qty: 60 3RF Rx Instructions: Take one tablet twice per day gabapentin 100 mg capsule 100 mg PO TID Qty: 90 3RF hydroxyzine pamoate 50 mg capsule 50 mg PO BID PRN (Reason: anxiety) Qty: 60 3RF Rx Instructions: Take one capsule twice per day as needed for anxiety mirtazapine [Remeron] 30 mg tablet 30 mg PO DIRECTED Qty: 30 6RF Rx Instructions: Take one tablet 30 minutes prior to bedtime furosemide 20 mg tablet 20 mg PO DAILY PRN (Reason: edema) Qty: 90 2RF budesonide-formoterol [Symbicort] 160-4.5 mcg/actuation HFA aerosol inhaler See Rx Instructions .ROUTE .COMPLEX Qty: 10.2 5RF Dose Instruction: INHALE 2 PUFFS BY MOUTH TWICE DAILY FOR COPD Rx Instructions: INHALE 2 PUFFS BY MOUTH TWICE DAILY FOR COPD hydrocortisone 1 % cream 1 applic topical BID PRN (Reason: skin irritation) Qty: 28.35 0RF Referrals: Marv Andrews MD [Primary Care Provider] - Coding Level of Care Code ED Fiber Optic Central Office Installer for Chg Fwd Exam Comprehensive
[2021-10-23 17:02] VITALS: BP 151/57; PULSE 88; RESP 20; O2SAT 93
[2021-10-23 17:41] LABS: Alanine Aminotransferase 9 U/L (0-33); Albumin Level 3.5 g/dL (3.5-5.2); Alkaline Phosphatase 93 IU/L (35-105); Aspartate Amino Transferase 12 U/L (0-32); Blood Urea Nitrogen 13 mg/dL (8-23); Calcium 8.7 mg/dL (8.5-10.5); Carbon Dioxide 24 mmol/L (22-29); Chloride 101 mmol/L (98-107); Globulin 2.6 g/dL (1.3-4.6); Glucose 148 mg/dL (65-115); Lipase 14 U/L (13-60); Osmolality Calculated 281 mOsm/kg (285-295); Sodium 134 mmol/L (136-145); Total Bilirubin 0.2 mg/dL (0.15-1.2); Total Protein 6.1 g/dL (6.6-8.7)
[2021-10-23 17:44] LABS: Anion Gap 12.8 (5-19); Potassium 3.8 mmol/L (3.5-5.1)
[2021-10-23] MEDS: iohexol 300 mg/mL 100 mL Btl IV (17:50)
[2021-10-23 19:43] LABS: Add Urine Microscopic? NO; Urine Appearance Clear (CLEAR); Urine Color Yellow (Yellow)
[2021-10-23 19:44] LABS: Bilirubin Urine Neg (Negative); Blood Urine Neg (Negative); Glucose Urine UA Norm (Normal); Ketones Urine Negative (Negative); Leukocyte Esterase Urine Negative (Negative); Nitrate Urine Negative (Negative); Protein Urine Neg (Negative); Specific Gravity, Urine 1.005 (1.005-1.030); Urobilinogen Urine Norm (Negative); pH Urine 7 (5-7)
[2021-10-23 19:45] LABS: Charge for UA Resulting for Rev
[2021-10-23 19:56] VITALS: BP 136/60; PULSE 68; RESP 18; O2SAT 95
[2021-10-23 20:04] VITALS: BP 136/68; PULSE 80; RESP 20; O2SAT 94
== END 2021-10-23 20:06 | disposition home or self-care (01) ==
PROVIDERS: Emergency Provider Emergency Medicine; PCP Family Medicine Adult Medicine
DX: R10.9 Unspecified abdominal pain (principal); Z79.82 Long term (current) use of aspirin; Z79.84 Long term (current) use of oral hypoglycemic drugs; J44.9 Chronic obstructive pulmonary disease, unspecified; E11.9 Type 2 diabetes mellitus without complications; I10 Essential (primary) hypertension; E78.5 Hyperlipidemia, unspecified; F17.210 Nicotine dependence, cigarettes, uncomplicated
CPT/HCPCS: 36415; 72170; 74177; 80053; 81003; 83690; 85025; 96361; 96374; 99283; J3490; J7040; Q9967

== ENCOUNTER → 2021-11-12 14:37 | Outpatient (BNVA) | payer MEDICARE, SELFPAY | PROVIDERS: PCP Family Medicine Adult Medicine; Visit Provider Internal Medicine | DX: I35.0 Nonrheumatic aortic (valve) stenosis (principal); I73.9 Peripheral vascular disease, unspecified; I10 Essential (primary) hypertension | CPT/HCPCS: 99214 ==

== ENCOUNTER → 2021-12-16 12:17 | Outpatient (BNVA) | payer MEDICARE, SELFPAY | PROVIDERS: PCP Family Medicine Adult Medicine; Visit Provider Nurse Practitioner Psychiatric/Mental Health | DX: G25.0 Essential tremor (principal); F33.1 Major depressive disorder, recurrent, moderate; F41.1 Generalized anxiety disorder; F17.210 Nicotine dependence, cigarettes, uncomplicated; W57.XXXA Bitten or stung by nonvenomous insect and other nonvenomous arthropods, initial encounter | CPT/HCPCS: 99214 ==

== ENCOUNTER → 2022-01-01 09:13 | Outpatient (BNVA) | payer MEDICARE, SELFPAY | PROVIDERS: PCP Family Medicine Adult Medicine; Visit Provider Family Medicine Adult Medicine | DX: I73.9 Peripheral vascular disease, unspecified (principal); M17.0 Bilateral primary osteoarthritis of knee; E11.69 Type 2 diabetes mellitus with other specified complication; E78.5 Hyperlipidemia, unspecified; E11.65 Type 2 diabetes mellitus with hyperglycemia; R19.09 Other intra-abdominal and pelvic swelling, mass and lump; I63.512 Cerebral infarction due to unspecified occlusion or stenosis of left middle cerebral artery; G25.0 Essential tremor; G62.9 Polyneuropathy, unspecified; I35.0 Nonrheumatic aortic (valve) stenosis; I10 Essential (primary) hypertension | CPT/HCPCS: 80053; 83036; 86900 ==

== ENCOUNTER 2022-01-10 09:09 | Outpatient (CLI) | payer MEDICARE, SELFPAY ==
--- NOTE | 2022-01-10 09:24 | USCV_ITS ---
BaezSanta Age: 71 Gender: F : 1950 Exam Date: 01/10/2022 09:41 Ordering Phys: Kenny Madrid M.D ([email or web address]) Technologist: [place] [facility] [place]: hx pefpheral artery disease Risk Factors: Previous Vascular Surgery: RIGHT LEFT Waveform Velocity (cm/s) Velocity (cm/s) Waveform Triphasic Iliac Prox Biphasic 119.0 78.6 Triphasic 109.6 Iliac Mid 83.1 Biphasic Triphasic 105.5 Iliac Distal 83.1 Biphasic Triphasic 82.5 COMMERCIAL LOAN ANALYST 76.4 Biphasic Biphasic 60.6 SFA Prox 49.7 Biphasic Biphasic 66.9 SFA Mid 83.1 Triphasic Biphasic 61.0 SFA Dist 79.6 Triphasic Biphasic 46.0 POP 49.5 Triphasic Biphasic 43.0 MANAGER FOOD 81.4 Biphasic Biphasic 37.1 DPA 26.1 Biphasic 0.8 KATHRYN 1.0 FINDINGS History KATHRYN 0.8 on the right side and 1.0 on the left side Abnormal Doppler waveforms in the infrapopliteal vessels. CONCLUSIONS 1. Abnormal resting KATHRYN on the right side, suggesting mild peripheral artery disease, possibly involving the infrapopliteal vessels. 2. Normal resting KATHRYN on the left side, suggesting no significant arterial obstruction. Dr Ahmet Brandon MD [facility] (Electronically Signed) Final Date: 10 Jan 2022 10:16 S
== END 2022-01-10 09:10 | disposition home or self-care (01) ==
LOC: RAD 09:15
PROVIDERS: PCP Family Medicine Adult Medicine; Visit Provider Internal Medicine
DX: I73.9 Peripheral vascular disease, unspecified (principal); M79.606 Pain in leg, unspecified; R93.7 Abnormal findings on diagnostic imaging of other parts of musculoskeletal system
CPT/HCPCS: 93925

== ENCOUNTER 2022-04-14 22:40 | Emergency (ER) | payer MEDICARE, SELFPAY ==
[2022-04-14 22:43] VITALS: BP 140/62; PULSE 81; RESP 18; TEMP 36.7; O2SAT 94; BMI 27.4
[2022-04-14 22:53] VITALS: BP 141/50; PULSE 76; RESP 22; O2SAT 91
--- NOTE | 2022-04-14 22:53 | CTR_ITS ---
PROCEDURE INFORMATION: Exam: CT Head Without Contrast Exam date and time: 04/14/2022 11:00 PM Age: 72 years old Clinical indication: Pain; Headache TECHNIQUE: Imaging protocol: Computed tomography of the head without contrast. Radiation optimization: All CT scans at this facility use at least one of these dose optimization techniques: automated exposure control; mA and/or kV adjustment per patient size (includes targeted exams where dose is matched to clinical indication); or iterative reconstruction. COMPARISON: CT head wo con* [id number] 08/04/2019 7:51 PM RADIATION DOSE METRICS: Total DLP (mGy-cm): 947.88 FINDINGS: Brain: Moderate diffuse white matter disease likely reflecting chronic microvascular ischemic changes. Cerebral ventricles: No ventriculomegaly. Paranasal sinuses: Paranasal sinus opacifications. Mastoid air cells: Visualized mastoid air cells are well aerated. Bones/joints: Unremarkable. No acute fracture. Soft tissues: Unremarkable. Other findings: Left frontal chronic infarct. CT/CT head wo con* [id number] IMPRESSION: 1. Negative for intracranial hemorrhage or mass effect. 2. Moderate diffuse white matter disease likely reflecting chronic microvascular ischemic changes. 3. Left frontal chronic infarct.
--- NOTE | 2022-04-14 22:54 | XRR_ITS ---
PROCEDURE INFORMATION: Exam: XR Chest Exam date and time: 04/14/2022 11:06 PM Age: 72 years old Clinical indication: Chest wall pain; Additional info: Weakness TECHNIQUE: Imaging protocol: Radiologic exam of the chest. Views: 1 view. COMPARISON: CR (CHEST, ) 06/25/2021 5:33 PM FINDINGS: Lungs: Left lower lobe atelectasis versus minimal infiltrate. Pleural spaces: Unremarkable. No pleural effusion. No pneumothorax. Heart/Mediastinum: Unremarkable. No cardiomegaly. Bones/joints: Unremarkable. XR/XR chest 1V portable [id number] IMPRESSION: Left lower lobe atelectasis versus minimal infiltrate.
--- NOTE | 2022-04-14 23:05 | ED_ITS ---
HPI - Headache General: Chief Complaint: Headache Stated Complaint: Legs collapsed Time Seen by Provider: 04/14/22 22:53 History of Present Illness: 72-year-old female comes in today with complaints of weakness this evening at around 9:00. Patient states that she was on the toilet and then her legs just did not feel like she could stand up on them. Patient has been ill for about 4 days with a headache. Patient is alert and oriented. Patient does have a history of diabetes, chronic kidney disease, CVA, PVD, essential tremor, hypertension. Associated symptoms: Deny chest pain, fever(s), nausea, rash or vomiting Review of Systems General: Reports: 10 or more systems reviewed and unremarkable except in HPI and below Const: Denies: fever(s) Card: Denies: chest pain Resp: Denies: dyspnea GI: Denies: nausea or vomiting Musc: Denies: neck pain or back pain Skin/Breast: Denies: rash Neuro: Reports: headache(s) PFS ED PFSH: Medical History (Updated 04/14/22 @ 23:57 by MEGAN Hyatt) Aortic stenosis Bladder prolapse Bronchitis Bulging eyes Chest pain at rest Chronic diarrhea CKD (chronic kidney disease) stage 2, GFR 60-89 ml/min COPD (chronic obstructive pulmonary disease) case management patient Cramps of left lower extremity Diabetes type 2, uncontrolled Dysphagia Epidermal inclusion cyst Essential tremor Generalized anxiety disorder HTN (hypertension) Hyperlipidemia due to type 2 diabetes mellitus Lower abdominal pain Major depressive disorder, recurrent episode, moderate with anxious distress Mixed stress and urge urinary incontinence Osteoarthritis of knees, bilateral Peripheral neuropathy Peripheral Vascular Disease Psychiatric care Smoker Vaginal atrophy Surgical History Hx of angioplasty S/P hysterectomy S/P tonsillectomy Family History (Updated 03/14/22 @ 14:59 by Shanae Tanner LPN) Mother Diabetes Denies family history of CAD (coronary artery disease) Hyperlipidemia Chronic kidney disease (CKD) Cancer Hypertension Thyroid disease Stroke Social History (Updated 04/02/22 @ 10:26 by Shanae Tanner LPN) Smoking and tobacco status: current every day smoker (1 ppd) Quit status (tobacco): not considering quitting Second hand smoke exposure: Yes Smoking risk assessment/counseling performed?: Yes Alcohol intake: never Caregiver/support person: No Lives independently: Yes Household members: spouse Housing: House Marital status: Number of children: 1 Highest education level completed: Some College, No Degree service: No Current occupational status: retired Pets and animals: Yes (1 cat) History of recent travel: No Current gender identity: Female Physical Exam Const: COMMON NORMALS: alert HENMT: COMMON NORMALS: normocephalic and TM's normal bilaterally HEAD & SCALP: normocephalic EXTERNAL AUDITORY CANAL: Abnormal EAC present EAC laterality: bilateral excessive cerumen TYMPANIC MEMBRANE: TM's normal bilaterally MOUTH: Normal oral and palatal mucosa present THROAT: posterior oropharynx normal Eye: GENERAL EYE: appearance normal, both eyes and all related structures Neck/C-Spine: COMMON NORMALS: full ROM Resp: COMMON NORMALS: normal respiratory effort and clear to auscultation bilaterally AUSCULTATION: clear to auscultation bilaterally Cardio: COMMON NORMALS: regular rate and regular rhythm RATE: regular rate RHYTHM: regular rhythm GI: COMMON NORMALS: Soft to palpation and non-tender PALPATION: Yes Soft to palpation Extremity: COMMON NORMALS: normal to inspection and full ROM Neuro: SENSORIUM/ORIENTATION: Yes alert Skin: COMMON NORMALS: turgor normal GENERAL SKIN EXAM: turgor normal Course Vital Signs: Vital signs: Vital Signs Temperature 98.1 F 04/14/22 22:43 Pulse Rate 76 04/14/22 22:53 Respiratory Rate 22 H 04/14/22 22:53 Blood Pressure 141/50 04/14/22 22:53 Pulse Oximetry 91 04/14/22 22:53 Oxygen Delivery Me thod 04/14/22 22:53 MDM - Headache Medical Decision Making 72-year-old female comes in today with headache for the last 4 days along with increasing weakness. Patient appears mildly unwell but not toxic. Lungs are clear to auscultation with decreased sounds in the bases bilaterally. Abdomen soft nontender. No edema is noted in the extremities. Vital signs are normal. Differential diagnosis includes but not limited to COVID-19, pneumonia, ACS, UTI. CBC and CMP were unremarkable. Troponin was at baseline for patient which appears to be in the upper teens. Chest x-ray noted some mild atelectasis in the left lower field. COVID-19 test was positive. Believe patient probably suffering some COVID 19 symptoms. I will give her a dose of Reglan for her headache, 500 mL of fluid for possible dehydration, started on azithromycin to cover for secondary pneumonia. Patient was recommended to return for worsening shortness of breath and chest pain to the ER. Patient and spouse both reported understanding. Lab Data : 04/14/22 23:10 04/14/22 23:[address] 04/14/22 22:53 IMPRESSION: 1. Negative for intracranial hemorrhage or mass effect. 2. Moderate diffuse white matter disease likely reflecting chronic microvascular ischemic changes. 3. Left frontal chronic infarct. Chest X-Ray 04/14/22 22:54 IMPRESSION: Left lower lobe atelectasis versus minimal infiltrate. Laboratory Results WBC 7.1 10^3/uL (4.0-10.0) 04/14/22 23:10 RBC 4.99 10^6/uL (4.1-5.3) 04/14/22 23:10 Hgb 15.7 g/dL (11.5-15.3) H 04/14/22 23:10 Hct 45.6 % (37.0-47.0) 04/14/22 23:10 MCV 91.4 fl (81-99) 04/14/22 23:10 MCH 31.5 pg (28.0-34.0) 04/14/22 23:10 MCHC 34.4 g/dL (30.0-36.0) 04/14/22 23:10 RDW 13.1 % (12.1-15.1) 04/14/22 23:10 Plt Count 155 10^3/cmm (130-400) 04/14/22 23:10 MPV 9.7 fL (7.4-10.4) 04/14/22 23:10 Neut % (Auto) 72.9 % 04/14/22 23:10 Lymph % (Auto) 12.0 % 04/14/22 23:10 [place] % (Auto) 13.8 % 04/14/22 23:10 Eos % (Auto) 0.3 % 04/14/22 23:10 Baso % (Auto) 0.7 % 04/14/22 23:10 Neut # (Auto) 5.19 10^3/uL (1.8-7.7) 04/14/22 23:10 Lymph # (Auto) 0.9 10^3/uL (0.8-4.8) 04/14/22 23:10 [place] # (Auto) 1.0 10^3/uL (0.2-0.9) H 04/14/22 23:10 Eos # (Auto) 0.0 10^3/uL (0.0-0.8) 04/14/22 23:10 Baso # (Auto) 0.1 10^3/uL (0.0-0.1) 04/14/22 23:10 Nucleated RBC % (auto) 0 % 04/14/22 23:10 Nucleated RBCs # 0.0 /100WBC 04/14/22 23:10 Sodium 134 mmol/L (136-145) L 04/14/22 23:10 Potassium 4.0 mmol/L (3.5-5.1) 04/14/22 23:10 Chloride 100 mmol/L (98-107) 04/14/22 23:10 Carbon Dioxide 23 mmol/L (22-29) 04/14/22 23:10 Anion Gap 15.0 (5-19) 04/14/22 23:10 BUN 11 mg/dL (8-23) 04/14/22 23:10 Creatinine 0.8 mg/dL (0.5-0.9) 04/14/22 23:10 GFR Calculation Not Reportable 04/14/22 23:10 Glucose 104 mg/dL (65-115) 04/14/22 23:10 Calculated Osmolality 278 mOsm/kg (285-295) L 04/14/22 23:10 Calcium 8.7 mg/dL (8.5-10.5) 04/14/22 23:10 Total Bilirubin 0.2 mg/dL (0.15-1.2) 04/14/22 23:10 AST 23 U/L (0-32) 04/14/22 23:10 ALT 19 U/L (0-33) 04/14/22 23:10 Alkaline Phosphatase 101 U/L (35-105) 04/14/22 23:10 Troponin T Baseline 16 ng/L (0-10) H 04/14/22 23:10 Total Protein 6.0 g/dL (6.6-8.7) L 04/14/22 23:10 Albumin 4.0 g/dL (3.5-5.2) 04/14/22 23:10 Globulin 2.0 g/dL (1.3-4.6) 04/14/22 23:10 SARS-CoV-2 Ag (Rapid) Positive (Negative) H 04/14/22 22:58 Discharge Plan Discharge Patient Disposition: Home Clinical Impression: COVID-19 Condition: Stable Prescriptions: New azithromycin 250 mg tablet 250 mg PO DAILY Qty: 4 0RF Continued Ventolin HFA 90 mcg/actuation HFA aerosol inhaler 2 puff INHALATION Q6H PRN (Reason: shortness of breath or wheezing) Qty: 8.5 3RF No Action aspirin 325 mg tablet 325 mg PO DAILY Qty: 100 3RF triamcinolone acetonide 55 mcg aerosol,spray 2 spray intranasal DAILY 14 Days Qty: 16.9 0RF Rx Instructions: administer into each nostril hydroxyzine pamoate 50 mg capsule 50 mg PO BID PRN (Reason: anxiety) Qty: 60 3RF Rx Instructions: Take one capsule twice per day as needed for anxiety glipizide 10 mg tablet 10 mg PO BID Qty: 60 5RF propranolol 10 mg tablet 10 mg PO BID Qty: 180 2RF Rx Instructions: Take one tablet twice per day mirtazapine [Remeron] 30 mg tablet 30 mg PO DIRECTED Qty: 90 2RF Rx Instructions: Take one tablet 30 minutes prior to bedtime clonazepam 1 mg tablet 1 mg PO BID Qty: 60 3RF Rx Instructions: Take one tablet twice per day budesonide-formoterol [Symbicort] 160-4.5 mcg/actuation HFA aerosol inhaler See Rx Instructions .ROUTE .COMPLEX Qty: 10.2 5RF Dose Instruction: INHALE 2 PUFFS BY MOUTH TWICE DAILY FOR COPD Rx Instructions: INHALE 2 PUFFS BY MOUTH TWICE DAILY FOR COPD Discharge Orders: Discharge ED (Routine); Ordered 04/14/22 Ordered By: Junior Cage Referrals: Marv Andrews MD [Primary Care Provider] - Discharge Diet: Usual diet Discharge Activity: Increase activity as tolerated Patient Instructions: COVID-19 (Coronavirus Disease 2019) (ED) Activity Restrictions/Additional Instructions: Drink plenty of fluids. Take medications as directed. Follow-up with primary care in 1 week for recheck. Return to ER for worsening symptoms such as increased shortness of breath, chest pain, or inability to hold fluids down. Coding Level of Care Code ED Personal Financial Representative for Chg Fwd Exam Comprehensive
[2022-04-14 23:22] LABS: SARS Covid-2 Antigen Positive (Negative)
[2022-04-14 23:23] LABS: Basophils # 0.1 10^3/uL (0.0-0.1); Basophils % 0.7 %; Eosinophils % 0.3 %; Hematocrit 45.6 % (37.0-47.0); Hemoglobin 15.7 g/dL (11.5-15.3); Lymphocytes # 0.9 10^3/uL (0.8-4.8); Mean Corpuscular HGB Conc 34.4 g/dL (30.0-36.0); Mean Corpuscular Hemoglobin 31.5 pg (28.0-34.0); Mean Corpuscular Volume 91.4 fl (81-99); Mean Platelet Volume 9.7 fL (7.4-10.4); Monocytes % 13.8 %; Neutrophils # 5.19 10^3/uL (1.8-7.7); Neutrophils % 72.9 %; Nucleated Red Blood Cells % 0 %; Platelet Count 155 10^3/cmm (130-400); Red Blood Count 4.99 10^6/uL (4.1-5.3); Red Cell Distribution Width 13.1 % (12.1-15.1); White Blood Count 7.1 10^3/uL (4.0-10.0)
--- NOTE | 2022-04-14 23:23 | ECG_ITS ---
[facility] Test Date: 2022-04-14 Pat Name: Santa Baez Department: Room: Gender: Female Public Address Announcer: : 1950 Requested By: Junior Medina Order Number: [id number] Jean MD: Kenny Madrid M.D. Measurements Intervals [place] [facility] Rate: 75 P: -2 HI: 148 QRS: 39 QRSD: 109 T: 42 QT: 392 QTc: 440 Interpretive Statements SINUS RHYTHM POSSIBLE INFERIOR MYOCARDIAL INFARCTION , PROBABLY OLD [30 ms Q WAVE IN II/aVF] Compared to ECG 08/05/2019 03:53:59 Myocardial infarct finding now present First degree AV block no longer present T-wave abnormality no longer present Electronically Signed On 04-15-2022 16:27:00 CDT by Kenny Madrid M.D. [id number]
[2022-04-14] MEDS: sodium chloride 0.9% 500 ML 999 ML IV (23:35)
[2022-04-14] MEDS: metoclopramide 5 mg/mL SDV 2 mL 10 MG IVP (23:35)
[2022-04-14 23:45] LABS: Troponin(5th) Baseline 16 ng/L (0-10)
[2022-04-14 23:48] LABS: Alanine Aminotransferase 19 U/L (0-33); Alkaline Phosphatase 101 U/L (35-105); Aspartate Amino Transferase 23 U/L (0-32); Blood Urea Nitrogen 11 mg/dL (8-23); Calcium 8.7 mg/dL (8.5-10.5); Carbon Dioxide 23 mmol/L (22-29); Chloride 100 mmol/L (98-107); Glucose 104 mg/dL (65-115); Osmolality Calculated 278 mOsm/kg (285-295); Sodium 134 mmol/L (136-145); Total Bilirubin 0.2 mg/dL (0.15-1.2)
[2022-04-15] MEDS: dexamethasone 10 mg/mL INJ IVP (00:11)
[2022-04-15] MEDS: azithromycin 250 mg Tablet 500 MG PO (00:11)
[2022-04-15 00:43] VITALS: BP 141/50; PULSE 76; RESP 22; O2SAT 91
== END 2022-04-15 00:37 | disposition home or self-care (01) ==
PROVIDERS: Emergency Provider Nurse Practitioner Family; PCP Family Medicine Adult Medicine
DX: U07.1 COVID-19 (principal); Z79.82 Long term (current) use of aspirin; Z79.84 Long term (current) use of oral hypoglycemic drugs; F17.210 Nicotine dependence, cigarettes, uncomplicated; I12.9 Hypertensive chronic kidney disease with stage 1 through stage 4 chronic kidney disease, or unspecified chronic kidney disease; E11.22 Type 2 diabetes mellitus with diabetic chronic kidney disease; N18.2 Chronic kidney disease, stage 2 (mild); J44.9 Chronic obstructive pulmonary disease, unspecified; E78.5 Hyperlipidemia, unspecified
CPT/HCPCS: 70450; 71045; 80053; 84484; 85025; 87426; 93005; 96361; 96374; 96375; 99285; J1100; J2765; J7040; Q0144

== ENCOUNTER 2022-06-11 10:23 | Outpatient (CLI) | payer MEDICARE, SELFPAY ==
--- NOTE | 2022-06-11 10:30 | FL_ITS ---
WS: [id number] : Exam: [place] barium swallow [id number] Date/Time of Exam: 06/11/2022 10:29 AM Reason For Exam: Fluoroscopy time: 2min [id number] minutes # of spot films: 15 Swallowing function at the level of the oropharynx was normal. There was no sign of esophageal strict ure or mass. There is tertiary spasm of the lower esophagus. The esophagus was not displaced. No refl ux was identified. FL/FL barium swallow [id number] IMPRESSION: 1. Spasm of the lower esophagus. 2. No sign of esophageal mass or stricture. No reflux identified.
== END 2022-06-11 10:24 | disposition home or self-care (01) ==
LOC: RAD 10:24
PROVIDERS: PCP Family Medicine Adult Medicine; Visit Provider Family Medicine Adult Medicine
DX: E11.65 Type 2 diabetes mellitus with hyperglycemia (principal); I63.512 Cerebral infarction due to unspecified occlusion or stenosis of left middle cerebral artery; R13.10 Dysphagia, unspecified; R25.2 Cramp and spasm
CPT/HCPCS: 74220

== ENCOUNTER → 2023-03-04 11:23 | Outpatient (BNVA) | payer MEDICARE, SELFPAY | PROVIDERS: PCP Family Medicine Adult Medicine; Visit Provider Family Medicine Adult Medicine | DX: N18.2 Chronic kidney disease, stage 2 (mild) (principal); E11.69 Type 2 diabetes mellitus with other specified complication; E78.5 Hyperlipidemia, unspecified; G25.0 Essential tremor; I10 Essential (primary) hypertension | CPT/HCPCS: 80053; 80061; 83036; 85025 ==

== ENCOUNTER 2023-09-04 17:28 | Emergency (ER) | payer MEDICARE, SELFPAY ==
[2023-09-04 17:35] VITALS: BP 155/77; PULSE 74; RESP 18; TEMP 36.5; O2SAT 93
[2023-09-04 19:18] LABS: Basophils # 0.1 10^3/uL (0.0-0.1); Basophils % 0.8 %; Eosinophils # 0.4 10^3/uL (0.0-0.8); Eosinophils % 3.8 %; Hematocrit 45.1 % (36-47); Lymphocytes # 3.2 10^3/uL (0.8-4.8); Lymphocytes % 33.8 %; Mean Corpuscular HGB Conc 34.4 g/dL (30-55); Mean Corpuscular Hemoglobin 32.3 pg (27-33); Monocytes # 1.1 10^3/uL (0.2-0.9); Monocytes % 11.3 %; Neutrophils # 4.77 10^3/uL (1.8-7.7); Neutrophils % 50.1 %; Nucleated Red Blood Cells % 0 %; Platelet Count 236 10^3/cmm (157-399); Red Cell Distribution Width 12.7 % (12.1-15.1); White Blood Count 9.51 10^3/uL (3.29-11.43)
[2023-09-04 19:51] LABS: Alanine Aminotransferase 10 U/L (0-33); Albumin Level 3.8 g/dL (3.5-5.2); Alkaline Phosphatase 97 U/L (35-105); Anion Gap 12.3 (5-19); Aspartate Amino Transferase 16 U/L (0-32); Blood Urea Nitrogen 12 mg/dL (8-23); Calcium 9.1 mg/dL (8.5-10.5); Carbon Dioxide 27 mmol/L (22-29); Chloride 107 mmol/L (98-107); Globulin 2.7 g/dL (1.3-4.6); Glucose 64 mg/dL (65-115); NT Pro B Type Natriuretic Pept 4747 pg/mL (0-125); Osmolality Calculated 292 mOsm/kg (285-295); Potassium 4.3 mmol/L (3.5-5.1); Sodium 142 mmol/L (136-145); Total Bilirubin 0.3 mg/dL (0.15-1.2); Total Protein 6.5 g/dL (6.6-8.7)
[2023-09-04 20:26] LABS: Glucose Point of Care 68 mg/dL (70-110)
--- NOTE | 2023-09-04 20:42 | XRR_ITS ---
PROCEDURE INFORMATION: Exam: XR Chest Exam date and time: 09/04/2023 8:57 PM Age: 73 years old Clinical indication: Shortness of breath; Prior surgery; Surgery date: 6+ months; Surgery type: Angioplasty; Patient HX: C/O SOB TECHNIQUE: Imaging protocol: Radiologic exam of the chest. Views: 1 view. COMPARISON: CR XR chest 1V portable [id number] 04/14/2022 11:06 PM FINDINGS: Lungs: Lung volumes are large. Lungs are clear. Pleural spaces: Unremarkable. No pleural effusion. No pneumothorax. Heart/Mediastinum: Heart is mildly enlarged, more prominent from prior film. Aorta is mildly tortuous and mild-moderately calcified. Bones/joints: Degenerative disc and facet disease of lower cervical spine and degenerative disc disease of mid-lower thoracic and upper lumbar spine are present. There is moderate osteoarthritis of left > right acromioclavicular joints. Inhaler external to patient projects over left lateral lower hemithorax. XR/XR chest 1V portable [id number] IMPRESSION: 1. Clear lungs. 2. More prominent, mildly enlarged heart. Atherosclerosis.
[2023-09-04 20:57] VITALS: BP 152/47; PULSE 71; RESP 20; O2SAT 94
--- NOTE | 2023-09-04 21:07 | ED_ITS ---
HPI - Extremity Problem 2 General: Chief complaint: Extremity Problem,Nontraumatic Stated complaint: swollen legs, pt states yeast infection left side Time Seen by Provider: 09/04/23 20:40 Source: patient Mode of arrival: ambulatory Limitations: no limitations History of Present Illness: 73-year-old female states that she has h ad lower extremity edema over the last 2 days. Denies any pain in her extremity she denies any shortness of breath states she also has had a rash to left lower abdomen she does have a history of intertrigo. Denies any chest pain denies any fevers. Associated symptoms: Reports rash; Deny chest pain or fever(s) Review of Systems 2 Const: Denies: fever(s), chills, body aches or change in appetite Eyes: Denies: blurry vision or eye discomfort ENMT: Denies: throat pain or dental pain Card: Denies: chest pain Resp: Denies: dyspnea GI: Denies: abdominal pain, nausea, vomiting or diarrhea Musc: Reports: extremity swelling; Denies: neck pain or back pain Skin/Breast: Reports: rash Neuro: Denies: headache(s) PFSH ED 2 PFSH: Medical History Intertrigo Diabetes mellitus type 2 in nonobese Allergic rhinitis due to allergen Acute sinusitis CKD (chronic kidney disease) stage 2, GFR 60-89 ml/min Dysphagia Smoker Peripheral neuropathy Osteoarthritis of knees, bilateral Essential tremor COPD (chronic obstructive pulmonary disease) case management patient HTN (hypertension) Hyperlipidemia due to type 2 diabetes mellitus Mixed stress and urge urinary incontinence Aortic stenosis Peripheral Vascular Disease Bladder prolapse Generalized anxiety disorder Major depressive disorder, recurrent episode, moderate with anxious distress Surgical History Hx of angioplasty S/P hysterectomy S/P tonsillectomy Family History Mother Diabetes Denies family history of CAD (coronary artery disease) Hyperlipidemia Chronic kidney disease (CKD) Cancer Hypertension Thyroid disease Stroke Social History Smoking and tobacco/nicotine status: current every day tobacco/nicotine user Quit status (tobacco/nicotine): not considering quitting Second hand smoke exposure: Yes Alcohol intake: never Substance/Drug Use: never Caregiver/support person: No Lives independently: Yes Household members: spouse Housing: House Marital status: Number of children: 1 Highest education level completed: Some College, No Degree service: No Current occupational status: retired Pets and animals: Yes (1 cat) Do you think of yourself as: Straight/Heterosexual Current gender identity: Female Physical Exam 2 Const: COMMON NORMALS: no acute distress, patient oriented x3 and healthy appearing HENMT: COMMON NORMALS: normocephalic and atraumatic HEAD & SCALP: n ormocephalic and atraumatic Eye: COMMON NORMALS: Equal, round and reactive pupils present and EOMs intact bilaterally PUPIL: Yes Equal, round and reactive pupils present Neck/C-Spine: COMMON NORMALS: full ROM and supple Chest: COMMONS NORMALS: normal inspection of the chest Resp: COMMON NORMALS: normal respiratory effort, No retractions, No use of accessory muscles and clear to auscultation bilaterally AUSCULTATION: clear to auscultation bilaterally Cardio: COMMON NORMALS: regular rate, regular rhythm and No murmurs present (Cardio) RATE: regular rate RHYTHM: regular rhythm GI: COMMON NORMALS: Soft to palpation, non-tender and no masses PALPATION: Yes Soft to palpation OTHER: Intertrigo to the abdomen Extremity: COMMON NORMALS: full ROM NARRATIVE EXTREMITY EXAM: 2+ edema noted to lower extremities Neuro: COMMON NORMALS: patient oriented x3, moves all extremities and no focal motor deficits Psych: COMMON NORMALS: mental status grossly normal, Normal thought process present and cooperative THOUGHT PROCESS: Normal thought process present Skin: COMMON NORMALS: no rashes or lesions noted and no wounds GENERAL SKIN EXAM: no rashes or lesions noted Course 2 Vital Signs: Vital signs: Vital Signs Temperature 97.7 F 09/04/23 17:35 Pulse Rate 70 09/04/23 21:55 Respiratory Rate 18 09/04/23 21:55 Blood Pressure 152/47 09/04/23 20:57 Pulse Oximetry 96 09/04/23 21:55 Oxygen Delivery Me thod Room Air 09/04/23 20:57 MDM - Extremity (Nontraumatic) Medical Decision Making Patient presents here with lower extremity edema she is no signs of pulmonary edema we will start her on Lasix at home she also has intertrigo will prescribe clotrimazole she is follow-up with PCP and return if worsening she understands agrees to plan. Medical Records I reviewed the patient's medical records. Lab Data I reviewed the patient's lab results. 09/04/23 18:55 09/04/23 18:55 Radiology Impressions Chest X-Ray 09/04/23 20:42 IMPRESSION: 1. Clear lungs. 2. More prominent, mildly enlarged heart. Atherosclerosis. Laboratory Results WBC 9.51 10^3/uL (3.29-11.43) 09/04/23 18:55 RBC 4.80 10^6/uL (3.85-5.65) 09/04/23 18:55 Hgb 15.50 g/dL (11.27-16.99) 09/04/23 18:55 Hct 45.1 % (36-47) 09/04/23 18:55 MCV 94.0 fl (85-98) 09/04/23 18:55 MCH 32.3 pg (27-33) 09/04/23 18:55 MCHC 34.4 g/dL (30-55) 09/04/23 18:55 RDW 12.7 % (12.1-15.1) 09/04/23 18:55 Plt Count 236 10^3/cmm (157-399) 09/04/23 18:55 MPV 10.0 fL (7.4-10.4) 09/04/23 18:55 Neut % (Auto) 50.1 % 09/04/23 18:55 Lymph % (Auto) 33.8 % 09/04/23 18:55 [place] % (Auto) 11.3 % 09/04/23 18:55 Eos % (Auto) 3.8 % 09/04/23 18:55 Baso % (Auto) 0.8 % 09/04/23 18:55 Neut # (Auto) 4.77 10^3/uL (1.8-7.7) 09/04/23 18:55 Lymph # (Auto) 3.2 10^3/uL (0.8-4.8) 09/04/23 18:55 [place] # (Auto) 1.1 10^3/uL (0.2-0.9) H 09/04/23 18:55 Eos # (Auto) 0.4 10^3/uL (0.0-0.8) 09/04/23 18:55 Baso # (Auto) 0.1 10^3/uL (0.0-0.1) 09/04/23 18:55 Nucleated RBC % (auto) 0 % 09/04/23 18:55 Nucleated RBCs # 0.0 /100WBC 09/04/23 18:55 Sodium 142 mmol/L (136-145) 09/04/23 18:55 Potassium 4.3 mmol/L (3.5-5.1) 09/04/23 18:55 Chloride 107 mmol/L (98-107) 09/04/23 18:55 Carbon Dioxide 27 mmol/L (22-29) 09/04/23 18:55 Anion Gap 12.3 (5-19) 09/04/23 18:55 BUN 12 mg/dL (8-23) 09/04/23 18:55 Creatinine 0.7 mg/dL (0.5-0.9) 09/04/23 18:55 GFR Calculation Not Reportable 09/04/23 18:55 Glucose 64 mg/dL (65-115) L 09/04/23 18:55 POC Glucose 91 mg/dL (70-110) 09/04/23 21:44 Calculated Osmolality 292 mOsm/kg (285-295) 09/04/23 18:55 Calcium 9.1 mg/dL (8.5-10.5) 09/04/23 18:55 Total Bilirubin 0.3 mg/dL (0.15-1.2) 09/04/23 18:55 AST 16 U/L (0-32) 09/04/23 18:55 ALT 10 U/L (0-33) 09/04/23 18:55 Alkaline Phosphatase 97 U/L (35-105) 09/04/23 18:55 NT-Pro-B Natriuret Pep 4747 pg/mL (0-125) H 09/04/23 18:55 Total Protein 6.5 g/dL (6.6-8.7) L 09/04/23 18:55 Albumin 3.8 g/dL (3.5-5.2) 09/04/23 18:55 Globulin 2.7 g/dL (1.3-4.6) 09/04/23 18:55 All radiology interpretation(s) finalized by discharge Discharge Plan Discharge Patient Disposition: Home Clinical Impression: Lower extremity edema, [place] intertrigo Condition: Stable Prescriptions: New Lasix 40 mg tablet 40 mg PO DAILY Qty: 30 0RF clotrimazole 1 % cream 1 applic topical BID 14 Days Qty: 30 0RF No Action budesonide-formoterol [Symbicort] 160-4.5 mcg/actuation HFA aerosol inhaler See Rx Instructions .ROUTE .COMPLEX Qty: 30.6 3RF Dose Instruction: INHALE TWO PUFF BY MOUTH TWICE DAILY FOR COPD Rx Instructions: INHALE TWO PUFF BY MOUTH TWICE DAILY FOR COPD aspirin 325 mg tablet 325 mg PO DAILY Qty: 100 3RF glipizide 10 mg tablet 10 mg PO BID Qty: 60 5RF hydroxyzine pamoate 50 mg capsule 50 mg PO BID PRN (Reason: anxiety) Qty: 60 3RF Rx Instructions: Take one capsule twice per day as needed for anxiety mirtazapine [Remeron] 30 mg tablet 30 mg PO DIRECTED Qty: 30 5RF Rx Instructions: Take one tablet 30 minutes prior to bedtime triamcinolone acetonide 55 mcg aerosol,spray 2 spray intranasal DAILY PRN (Reason: nasal congestion) 14 Days Qty: 16.9 2RF Rx Instructions: administer into each nostril guaifenesin 600 mg tablet extended release 12hr 600 mg PO BID Qty: 60 5RF Spiriva Respimat 2.5 mcg/actuation mist 2 puff inhalation DAILY Qty: 4 5RF rosuvastatin 10 mg tablet 10 mg PO DAILY Qty: 30 5RF cetirizine [Zyrtec] 10 mg tablet 10 mg PO DAILY PRN (Reason: allergy symptoms) Qty: 30 3RF Ventolin HFA 90 mcg/actuation HFA aerosol inhaler 2 puff INHALATION Q6H PRN (Reason: shortness of breath or wheezing) Qty: 8.5 3RF clonazepam 1 mg tablet 1 mg PO BID Qty: 60 3RF Rx Instructions: Take one tablet twice per day propranolol 10 mg tablet 10 mg PO BID Qty: 60 5RF Rx Instructions: Take one tablet twice per day Discharge Orders: Discharge ED (Routine); Ordered 09/04/23 Ordered By: Mor Red Referrals: Marv Andrews MD [Primary Care Provider] - 1-3 days Discharge Activity: Resume usual activity Patient Instructions: Skin Yeast Infection (ED), Edema (ED) Coding Level of Care Code ED Aircraft Rigging And Controls Mechanic for Tim Valle
--- NOTE | 2023-09-04 21:07 | ECG_ITS ---
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 Measurements Intervals [place] Rate: 69 P: 26 IA: 175 QRS: -4 QRSD: 115 T: 168 QT: 418 QTc: 448 Interpretive Statements SINUS RHYTHM LEFT VENTRICULAR HYPERTROPHY AND ST-T CHANGE [VOLTAGE CRITERIA PLUS ST/T ABNORMALITY] Compared to ECG 04/14/2022 23:23:28 Left ventricular hypertrophy now present ST (T wave) deviation now present Myocardial infarct finding no longer present Electronically Signed On 09-05-2023 6:05:53 NATIONAL SALES REPRESENTATIVE by Kenny Madrid M.D. [id number]
[2023-09-04 21:47] LABS: Glucose Point of Care 91 mg/dL (70-110)
[2023-09-04] MEDS: FUROsemide 10 mg/mL SDV 10mL 60 MG IVP (21:54)
[2023-09-04 21:55] VITALS: PULSE 70; RESP 18; O2SAT 96
== END 2023-09-04 22:32 | disposition home or self-care (01) ==
PROVIDERS: Emergency Provider Emergency Medicine; PCP Family Medicine Adult Medicine
DX: R60.0 Localized edema (principal); L30.4 Erythema intertrigo; Z79.82 Long term (current) use of aspirin; Z79.84 Long term (current) use of oral hypoglycemic drugs; Z72.0 Tobacco use; E11.22 Type 2 diabetes mellitus with diabetic chronic kidney disease; I12.9 Hypertensive chronic kidney disease with stage 1 through stage 4 chronic kidney disease, or unspecified chronic kidney disease; N18.2 Chronic kidney disease, stage 2 (mild); J44.9 Chronic obstructive pulmonary disease, unspecified; E78.5 Hyperlipidemia, unspecified
CPT/HCPCS: 36415; 36416; 71045; 80053; 82962; 83880; 85025; 93005; 96374; 99285; J1940

== ENCOUNTER → 2023-11-05 13:42 | Outpatient (BNVA) | payer MEDICARE, SELFPAY | PROVIDERS: PCP Family Medicine Adult Medicine; Visit Provider Physician Assistant | DX: M17.0 Bilateral primary osteoarthritis of knee (principal); M23.306 Other meniscus derangements, unspecified meniscus, right knee | CPT/HCPCS: 20610; 73560; 73565; 99203; J3301 ==

== ENCOUNTER → 2024-02-04 09:30 | Outpatient (BNVA) | payer MEDICARE, SELFPAY | PROVIDERS: PCP Family Medicine Adult Medicine; Visit Provider Physician Assistant | DX: M17.0 Bilateral primary osteoarthritis of knee (principal); M23.306 Other meniscus derangements, unspecified meniscus, right knee | CPT/HCPCS: 99214 ==

== ENCOUNTER 2024-02-10 14:10 | Emergency (ER) | payer MEDICARE, SELFPAY ==
[2024-02-10 14:28] VITALS: BP 155/53; PULSE 64; RESP 18; TEMP 36.3; O2SAT 95
--- NOTE | 2024-02-10 14:56 | ED_ITS ---
HPI - Fall General: Chief Complaint: Fall Stated Complaint: fall, arm pain, leg pain Time Seen by Provider: 02/10/24 14:45 History of Present Illness: 73-year-old female comes in today for co mplaints of injuries from fall. Patient states that she was walking out in the yard when she tripped over a root and then fell to the ground. Patient states that she grabbed a tree that was close to her which helped her control her fall. Patient sustained some abrasions and skin tears to the arm. Patient does take daily aspirin. Patient cannot recall her last tetanus. Patient appears in mild to moderate pain. Patient appears nontoxic. Review of Systems General: Reports: 10 or more systems reviewed and unremarkable except in HPI and below PFS ED PFSH: Medical History (Updated 02/10/24 @ 16:23 by MEGAN Hyatt) Snoring Somnolence, daytime Elevated blood pressure reading in office with diagnosis of hypertension Pain and swelling of left lower leg Fall (on)(from) incline, initial encounter Bilateral edema of lower extremity Dizziness and giddiness Intertrigo Diabetes mellitus type 2 in nonobese Allergic rhinitis due to allergen Acute sinusitis CKD (chronic kidney disease) stage 2, GFR 60-89 ml/min Dysphagia Smoker Peripheral neuropathy Osteoarthritis of knees, bilateral Essential tremor COPD (chronic obstructive pulmonary disease) case management patient HTN (hypertension) Hyperlipidemia due to type 2 diabetes mellitus Mixed stress and urge urinary incontinence Aortic stenosis Peripheral Vascular Disease Bladder prolapse Generalized anxiety disorder Major depressive disorder, recurrent episode, moderate with anxious distress Surgical History Hx of angioplasty S/P hysterectomy S/P tonsillectomy Family History Mother Diabetes Denies family history of CAD (coronary artery disease) Hyperlipidemia Chronic kidney disease (CKD) Cancer Hypertension Thyroid disease Stroke Social History Smoking and tobacco/nicotine status: current every day tobacco/nicotine user Quit status (tobacco/nicotine): not considering quitting Second hand smoke exposure: Yes Alcohol intake: never Substance/Drug Use: never Caregiver/support person: No Lives independently: Yes Household members: spouse Housing: House Marital status: Number of children: 1 Highest education level completed: Some College, No Degree service: No Current occupational status: retired Pets and animals: Yes (1 cat) Do you think of yourself as: Straight/Heterosexual Current gender identity: Female Physical Exam Const: COMMON NORMALS: alert HENMT: COMMON NORMALS: normocephalic HEAD & SCALP: normocephalic Neck/C-Spine: COMMON NORMALS: full ROM CERVICAL SPINE: Yes cervical ROM normal and No Paracervical muscle tenderness Chest: COMMONS NORMALS: normal palpation of entire chest wall Resp: COMMON NORMALS: clear to auscultation bilaterally EFFORT & INSPECTION: Yes able to speak in complete sentences AUSCULTATION: clear to auscultation bilaterally Cardio: COMMON NORMALS: regular rate and regular rhythm RATE: regular rate RHYTHM: regular rhythm GI: COMMON NORMALS: Soft to palpation and non-tender PALPATION: Yes Soft to palpation Back/Pelvis: COMMON NORMALS: thoracic and lumbar spine normal to inspection Extremity: NARRATIVE EXTREMITY EXAM: Skin tears and abrasions noted to the arms, that are superficial. Bruising to the right anterior knee. Neuro: SENSORIUM/ORIENTATION: Yes alert Skin: NARRATIVE SKIN EXAM: Multiple abrasions to the forearms and skin tears. Patient also has some ecchymosis. Patient has bruising with a superficial abrasion to the right anterior knee. Course Vital Signs: Vital signs: Vital Signs Temperature 97.4 F L 02/10/24 14:28 Pulse Rate 64 02/10/24 14:28 Respiratory Rate 18 02/10/24 14:28 Blood Pressure 155/53 02/10/24 14:28 Pulse Oximetry 95 02/10/24 14:28 MDM - Fall Medical Decision Making 73-year-old female comes in today for evaluation of injury secondary to a fall. Patient appears nontoxic. Patient appears no acute distress. Respirations are even lungs are clear to auscultation. Skin is warm and dry. Patient has bruising and abrasions to bilateral forearms and left upper arm. Patient also has bruising and a superficial abrasion to the right anterior knee. Patient is able to ambulate without difficulty. Palpation of the spine elicits no pain. Patient moves neck without difficulty. Patient has some muscle tenderness of the neck. CT scan of the head noted no fracture or intracranial bleeding. Abrasions were cleaned and dressed with antibiotic ointment and nonstick dressing. Reviewed exam with patient with recommendations for treatment and follow-up. Patient reported understanding and agreed to plan. Differential Diagnosis Likely syncope, compression fracture and concussion with loss of consciousness Lab Data Radiology Impressions Head CT 02/10/24 14:56 IMPRESSION: There are no acute concerning abnormalities. All radiology interpretation(s) finalized by discharge Discharge Plan Discharge Patient Disposition: Home Clinical Impression: Multiple abrasions Fall Qualifiers: Encounter type: initial encounter Qualified Code(s): W19.XXXA - Unspecified fall, initial encounter Contusion of knee, right Qualifiers: Encounter type: initial encounter Qualified Code(s): S80.01XA - Contusion of right knee, initial encounter Head injury Qualifiers: Encounter type: initial encounter Qualified Code(s): S09.90XA - Unspecified injury of head, initial encounter Condition: Stable Prescriptions: New cephalexin 500 mg capsule 500 mg PO BID 10 Days Qty: 20 0RF No Action aspirin 325 mg tablet 325 mg PO DAILY Qty: 100 3RF glipizide 10 mg tablet 10 mg PO BID Qty: 60 5RF triamcinolone acetonide 55 mcg aerosol,spray 2 spray intranasal DAILY PRN (Reason: nasal congestion) 14 Days Qty: 16.9 2RF Rx Instructions: administer into each nostril guaifenesin 600 mg tablet extended release 12hr 600 mg PO BID Qty: 60 5RF Spiriva Respimat 2.5 mcg/actuation mist 2 puff inhalation DAILY Qty: 4 5RF rosuvastatin 10 mg tablet 10 mg PO DAILY Qty: 30 5RF cetirizine [Zyrtec] 10 mg tablet 10 mg PO DAILY PRN (Reason: allergy symptoms) Qty: 30 3RF meclizine 12.5 mg tablet 12.5 mg PO TID PRN (Reason: dizziness) Qty: 60 0RF (DME) elastic stocking above knees See Rx Instructions .Route .MEDSUPPLY Qty: 2 0RF Rx Instructions: As directed daily meloxicam 15 mg tablet 15 mg PO DAILY 30 Days Qty: 30 0RF diclofenac sodium [Voltaren Arthritis Pain] 1 % gel 4 g topical QID Qty: 100 0RF Rx Instructions: apply to single knee, ankle, foot; for foot includes sole/toes/top of foot propranolol 10 mg tablet 10 mg PO BID Qty: 60 5RF Rx Instructions: Take one tablet twice per day mirtazapine [Remeron] 30 mg tablet 30 mg PO DIRECTED Qty: 30 5RF Rx Instructions: Take one tablet 30 minutes prior to bedtime clonazepam 1 mg tablet 1 mg PO BID Qty: 60 3RF Rx Instructions: Take one tablet twice per day doxycycline monohydrate 100 mg tablet 100 mg PO BID Qty: 10 2RF budesonide-formoterol [Symbicort] 160-4.5 mcg/actuation HFA aerosol inhaler See Rx Instructions .ROUTE .COMPLEX Qty: 30.6 3RF Dose Instruction: INHALE TWO PUFF BY MOUTH TWICE DAILY FOR COPD Rx Instructions: INHALE TWO PUFF BY MOUTH TWICE DAILY FOR COPD Ventolin HFA 90 mcg/actuation HFA aerosol inhaler 2 puff INHALATION Q6H PRN (Reason: shortness of breath or wheezing) Qty: 8.5 3RF Discharge Orders: Discharge ED (Routine); Ordered 02/10/24 Ordered By: Junior Cage Referrals: Marv Andrews MD [Primary Care Provider] - Discharge Diet: Usual diet Discharge Activity: Increase activity as tolerated Patient Instructions: Skin Tear (ED) Activity Restrictions/Additional Instructions: Clean wounds daily as needed with mild soap and water. Apply antibiotic ointment and recover with dressing. Take oral antibiotics cephalexin 500 mg twice a day for the next 10 days. Follow-up with primary care in 2 to 3 days for recheck. Return to ED for new concerns. Coding Level of Care Code ED Mock Up Builder for Tim Valle
--- NOTE | 2024-02-10 14:56 | CTR_ITS ---
PROCEDURE INFORMATION: Exam: CT Head Without Contrast Exam date and time: 02/10/2024 3:05 PM Age: 73 years old Clinical indication: Injury or trauma; Fall; Blunt trauma (contusions or hematomas) TECHNIQUE: Imaging protocol: Computed tomography of the head without contrast. Radiation optimization: All CT scans at this facility use at least one of these dose optimization techniques: automated exposure control; mA and/or kV adjustment per patient size (includes targeted exams where dose is matched to clinical indication); or iterative reconstruction. COMPARISON: CT head wo con* [id number] 04/14/2022 11:00 PM RADIATION DOSE METRICS: Total DLP (mGy-cm): 963.04 FINDINGS: Brain: Moderate white matter disease and volume loss are identified. There is no acute infarct or edema. No hemorrhage. There is encephalomalacia in the left frontal lobe. Cerebral ventricles: No ventriculomegaly. Paranasal sinuses: Visualized sinuses are unremarkable. No fluid levels. Mastoid air cells: Visualized mastoid air cells are well aerated. Bones: Unremarkable. No acute fracture. Soft tissues: Unremarkable. CT/CT head wo con* [id number] IMPRESSION: There are no acute concerning abnormalities.
[2024-02-10] MEDS: acetaminophen 500 mg Tablet 1000 MG PO (15:10)
[2024-02-10] MEDS: bacitracin ointment Pkt 1 EACH TOPICAL ×2 (15:10→16:08)
[2024-02-10] MEDS: tetanus-dipt-pertussis 0.5 mL SDV IM (15:24)
--- NOTE | 2024-02-10 16:14 | PC.NURSE ---
Wounds cleansed with sterile water, antibiotic ointment applied, covered with telfa and secured with coban.
[2024-02-10 16:48] VITALS: BP 141/60; PULSE 63; RESP 16; O2SAT 97
== END 2024-02-10 16:48 | disposition home or self-care (01) ==
PROVIDERS: Emergency Provider Nurse Practitioner Family; PCP Family Medicine Adult Medicine
DX: S80.01XA Contusion of right knee, initial encounter (principal); S40.812A Abrasion of left upper arm, initial encounter; S40.811A Abrasion of right upper arm, initial encounter; Z72.0 Tobacco use; E11.22 Type 2 diabetes mellitus with diabetic chronic kidney disease; I12.9 Hypertensive chronic kidney disease with stage 1 through stage 4 chronic kidney disease, or unspecified chronic kidney disease; N18.2 Chronic kidney disease, stage 2 (mild); J44.9 Chronic obstructive pulmonary disease, unspecified; E78.5 Hyperlipidemia, unspecified; W01.0XXA Fall on same level from slipping, tripping and stumbling without subsequent striking against object, initial encounter; Z23 Encounter for immunization
CPT/HCPCS: 70450; 90715; 99284

== ENCOUNTER 2024-04-21 09:21 | Inpatient (IN) | payer MEDICARE, SELFPAY ==
[2024-04-21] VITALS (16 sets, daily range): BP systolic 115–171; BP diastolic 57–107; PULSE 63–94; RESP 15–23; TEMP 36.4–36.8; O2SAT 19–99; BMI 26.6; BMI 26.2
--- NOTE | 2024-04-21 09:25 | ECG_ITS ---
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 Measurements Intervals [place] Rate: 80 P: 41 IN: 175 QRS: 56 QRSD: 122 T: 6 QT: 369 QTc: 426 Interpretive Statements SINUS RHYTHM POSSIBLE LEFT ATRIAL ENLARGEMENT [-0.1mV P-WAVE IN V1/V2] POSSIBLE ANTERIOR MYOCARDIAL INFARCTION , OF INDETERMINATE AGE [30 ms Q WAVE IN V3/V4, OR R < 0.2 mV IN V4] ST DEPRESSION, CONSIDER SUBENDOCARDIAL INJURY [0.1+ mV ST DEPRESSION] Compared to ECG 09/04/2023 21:51:20 Myocardial infarct finding now present Left ventricular hypertrophy no longer present ST (T wave) deviation still present Electronically Signed On 04-21-2024 14:43:51 CDT by Kenny Madrid M.D. [id number]
--- NOTE | 2024-04-21 09:37 | PC.NURSE ---
pt placed on 2lnc for comfort upon arrival d/t pt using accessory muscles and tachypnea.
--- NOTE | 2024-04-21 10:22 | XR_ITS ---
WS: [id number] Examination: XR chest 1V portable [id number] Reason for Exam: dyspnea/cough Date: 04/21/2024 Comparison: 09/04/2023 Findings: The heart is prominent in size. The mediastinum is not widened. The interstitial markings are increased particularly septal lines compared to the previous study. No large effusion is seen. There is no dense consolidation XR/XR chest 1V portable [id number] Impression: The heart is enlarged. There are developing septal lines and interstitial [place] n[place] which may be related to pulmonary edema. When the patient can tolerate I re commend follow-up PA and lateral study.
--- NOTE | 2024-04-21 10:32 | ED_ITS ---
HPI - SOB/Dyspnea 2 General: Chief Complaint: Shortness of Breath/Dyspnea Stated Complaint: sob Time Seen by Provider: 04/21/24 09:37 History of Present Illness: HPI Narrative: 74-year-old female presents emergency ro om with complaints of shortness of breath. She has a known history of COPD and she is on inhaled medications she has had orthopnea dating back for nearly 7 years. She does still smoke. She denies any chest pain. She has had a little bit of a productive cough of greenish tinged mucus. She denies any hemoptysis. No known history of coronary artery disease. She has noticed that with any activity or with lying flat she is much more short of breath. She is not normally on oxygen at home. She is requiring oxygen supplementation now. She has previously had some labs showing elevated BNP is 1 echo on the chart that shows an ejection fraction of 57%. Associated symptoms: Reports chest congestion and orthopnea; Deny abdominal pain, chest pain or fever(s) Related Data Home Medications Medication Instructions Recorded Confirmed budesonide-formoterol HFA 160 2 puff inhalation BID 04/21/24 04/21/24 mcg-4.5 mcg/actuation aerosol inhaler (Symbicort) diclofenac sodium 1 % topical gel 4 g topical QID PRN joint pain 04/21/24 04/21/24 (Voltaren Arthritis Pain) diphenhydramine HCl 25 mg capsule 25 mg PO TID PRN allergies 04/21/24 04/21/24 (Benadryl) guaifenesin 600 mg tablet, 600 mg PO BID PRN congestion/cough 04/21/24 04/21/24 extended release 12 hr hydroxyzine pamoate 50 mg capsule 50 mg PO DAILY PRN Anxiety 04/21/24 04/21/24 mirtazapine 30 mg tablet (Remeron) 30 mg PO BEDTIME 04/21/24 04/21/24 Previous Rx's Medication Instructions Recorded aspirin 325 mg tablet 325 mg PO DAILY #100 tabs 03/11/23 propranolol 10 mg tablet 10 mg PO BID tremor #60 tabs 09/29/23 elastic stocking above knees #2 ea 11/05/23 meclizine 12.5 mg tablet 12.5 mg PO TID PRN dizziness #60 11/05/23 tabs clonazepam 1 mg tablet 1 mg PO BID anxiety #60 tabs 01/19/24 albuterol sulfate 90 mcg/actuation 2 puff inhalation Q6H PRN 02/03/24 aerosol inhaler (Ventolin HFA) shortness of breath or wheezing #8.5 grams glipizide 10 mg tablet 10 mg PO BID diabetes #60 tabs 03/16/24 Allergies Allergy/AdvReac Type Severity Reaction Status Date / Time loratadine [From Claritin] AdvReac headache/difficulty Verified 02/10/24 14:35 breathing Review of Systems 2 Const: Denies: fever(s) or chills Card: Reports: dyspnea on exertion and orthopnea; Denies: chest pain Resp: Reports: dyspnea, productive cough, wheezing and chest congestion GI: Denies: abdominal pain : Denies: dysuria, urinary frequency or urinary urgency Musc: Denies: neck pain or back pain Skin/Breast: Denies: rash PFSH ED 2 PFSH: Medical History Snoring Somnolence, daytime Elevated blood pressure reading in office with diagnosis of hypertension Pain and swelling of left lower leg Fall (on)(from) incline, initial encounter Bilateral edema of lower extremity Dizziness and giddiness Intertrigo Diabetes mellitus type 2 in nonobese Allergic rhinitis due to allergen Acute sinusitis CKD (chronic kidney disease) stage 2, GFR 60-89 ml/min Dysphagia Smoker Peripheral neuropathy Osteoarthritis of knees, bilateral Essential tremor COPD (chronic obstructive pulmonary disease) case management patient HTN (hypertension) Hyperlipidemia due to type 2 diabetes mellitus Mixed stress and urge urinary incontinence Aortic stenosis Peripheral Vascular Disease Bladder prolapse Generalized anxiety disorder Major depressive disorder, recurrent episode, moderate with anxious distress Surgical History Hx of angioplasty S/P hysterectomy S/P tonsillectomy Family History Mother Diabetes Denies family history of CAD (coronary artery disease) Hyperlipidemia Chronic kidney disease (CKD) Cancer Hypertension Thyroid disease Stroke Social History Smoking and tobacco/nicotine status: current every day tobacco/nicotine user Quit status (tobacco/nicotine): not considering quitting Second hand smoke exposure: Yes Alcohol intake: never Substance/Drug Use: never Caregiver/support person: No Lives independently: Yes Household members: spouse Housing: House Marital status: Number of children: 1 Highest education level completed: Some College, No Degree service: No Current occupational status: retired Pets and animals: Yes (1 cat) Do you think of yourself as: Straight/Heterosexual Current gender identity: Female Physical Exam 2 Const: GENERAL APPEARANCE: cooperative ORIENTATION/CONSCIOUSNESS: Yes awake, Yes oriented to person, Yes oriented to place and Yes oriented to time HENMT: COMMON NORMALS: normocephalic, atraumatic and hearing grossly normal bilaterally HEAD & SCALP: normocephalic and atraumatic Resp: AUSCULTATION: crackles Laterality: left (Base posteriorly) and rhonchi Cardio: COMMON NORMALS: regular rate, regular rhythm and No murmurs present (Cardio) RATE: regular rate RHYTHM: regular rhythm GI: COMMON NORMALS: Soft to palpation and No hepatosplenomegaly present A USCULTATION: Yes normoactive bowel sounds PALPATION: Yes Soft to palpation, No Tenderness to palpation present (GI), No Guarding due to palpation present (GI) and Yes No hepatosplenomegaly present Extremity: OTHER: Small splinter earlier lower leg just above the ankle laterally on the left. No sign of infection. 1+ edema bilateral lower extremities Neuro: SENSORIUM/ORIENTATION: Yes oriented to person, Yes oriented to place and Yes oriented to time Course 2 Vital Signs: Vital signs: Vital Signs Temperature 97.9 F 04/21/24 16:00 Pulse Rate 75 04/21/24 16:00 Respiratory Rate 17 04/21/24 16:00 Blood Pressure 171/67 04/21/24 16:00 Pulse Oximetry 93 04/21/24 16:00 Oxygen Delivery Me thod Room Air 04/21/24 16:00 Oxygen Flow Rate 3 04/21/24 12:53 MDM - SOB/Dyspnea Medical Decision Making Decompensated congestive heart failure. First troponin showed a significant bump as well although patient continues states she has no chest pain EKG reviewed. There is an interventricular conduction delay with Q waves. There is some mild ST Depression noted initially however patient had no chest pain at that time. Persistent on the other EKGs however patient continues states she has no chest discomfort. Reviewed with Dr. Mega he is ordered Lovenox given the initial positive delta troponin. Will admit echocardiogram done in the department showed significantly decreased ejection fraction from previous echo done several years ago. Medical Records I reviewed the patient's medical records. Lab Data I reviewed the patient's lab results. 04/21/24 10:40 04/21/24 10:40 Labs/Radiology: Radiology Impressions Chest X-Ray 04/21/24 10:22 Impression: The heart is enlarged. There are developing septal lines and interstitial markings which may be related to pulmonary edema. When the patient can tolerate I recommend follow-up PA and lateral study. Laboratory Results WBC 9.92 10^3/uL (3.29-11.43) 04/21/24 10:40 RBC 4.91 10^6/uL (3.85-5.65) 04/21/24 10:40 Hgb 15.10 g/dL (11.27-16.99) 04/21/24 10:40 Hct 46.3 % (36-47) 04/21/24 10:40 MCV 94.3 fl (85-98) 04/21/24 10:40 MCH 30.8 pg (27-33) 04/21/24 10:40 MCHC 32.6 g/dL (30-55) 04/21/24 10:40 RDW 13.6 % (12.1-15.1) 04/21/24 10:40 Plt Count 195 10^3/cmm (157-399) 04/21/24 10:40 MPV 10.2 fL (7.4-10.4) 04/21/24 10:40 Neut % (Auto) 72.0 % 04/21/24 10:40 Lymph % (Auto) 18.2 % 04/21/24 10:40 [place] % (Auto) 6.9 % 04/21/24 10:40 Eos % (Auto) 1.7 % 04/21/24 10:40 Baso % (Auto) 0.8 % 04/21/24 10:40 Neut # (Auto) 7.14 10^3/uL (1.8-7.7) 04/21/24 10:40 Lymph # (Auto) 1.8 10^3/uL (0.8-4.8) 04/21/24 10:40 [place] # (Auto) 0.7 10^3/uL (0.2-0.9) 04/21/24 10:40 Eos # (Auto) 0.2 10^3/uL (0.0-0.8) 04/21/24 10:40 Baso # (Auto) 0.1 10^3/uL (0.0-0.1) 04/21/24 10:40 Nucleated RBC % (auto) 0 % 04/21/24 10:40 Nucleated RBCs # 0.0 /100WBC 04/21/24 10:40 D-Dimer 0.98 ug/mLFEU (0-0.59) H 04/21/24 10:40 Specimen Type Arterial 04/21/24 10:46 Sample Site Brachial, left 04/21/24 10:46 ABG pH 7.36 (7.35-7.45) 04/21/24 10:46 ABG pCO2 43.7 mmHg (35-45) 04/21/24 10:46 ABG pO2 96.1 mmHg (80.0-100.0) 04/21/24 10:46 ABG PO2/FiO2 Ratio 343 04/21/24 10:46 ABG HCO3 24.8 mmol/L (22-26) 04/21/24 10:46 ABG O2 Saturation 97.7 04/21/24 10:46 ABG Base Excess -0.8 mmol/L (-2.0-2.0) 04/21/24 10:46 John Test Pos 04/21/24 10:46 A-a O2 Gradient 6.5 mmHg (5-10) 04/21/24 10:46 Hematocrit 46.4 % (37-47) 04/21/24 10:46 Hgb O2 Saturation 94.8 % (95-100) L 04/21/24 10:46 Carboxyhemoglobin 2.7 %THgb (0.4-20.1) 04/21/24 10:46 Methemoglobin 0.3 % (0.4-1.5) L 04/21/24 10:46 Total Hemoglobin 15.1 g/dL (12-16) 04/21/24 10:46 Sodium 140.0 mmol/L (131-143) 04/21/24 10:46 Potassium 4.2 mmol/L (3.5-5.0) 04/21/24 10:46 Glucose 149.0 mg/dL (70-115) H 04/21/24 10:46 Ionized Calcium 1.2 mmol/L (1.1-1.4) 04/21/24 10:46 O2 Delivery Device Nc 04/21/24 10:46 O2 Liters/Min 2.0 % 04/21/24 10:46 FiO2 28.0 % 04/21/24 10:46 Criminal Justice Department Chair ID glc 04/21/24 10:46 Sodium 141 mmol/L (136-145) 04/21/24 10:40 Potassium 4.2 mmol/L (3.5-5.1) 04/21/24 10:40 Chloride 102 mmol/L (98-107) 04/21/24 10:40 Carbon Dioxide 31 mmol/L (22-29) H 04/21/24 10:40 Anion Gap 12.2 (5-19) 04/21/24 10:40 BUN 13 mg/dL (8-23) 04/21/24 10:40 Creatinine 0.8 mg/dL (0.5-0.9) 04/21/24 10:40 GFR Calculation Not Reportable 04/21/24 10:40 Glucose 158 mg/dL (65-115) H 04/21/24 10:40 Calculated Osmolality 295 mOsm/kg (285-295) 04/21/24 10:40 Calcium 8.8 mg/dL (8.5-10.5) 04/21/24 10:40 Iron 89 ug/dL (37-145) 04/21/24 10:40 TIBC 351 mcg/dl 04/21/24 10:40 % Saturation 25.3 % (20-50) 04/21/24 10:40 Unsat Iron Binding 262 ug/dL (112-347) 04/21/24 10:40 Total Bilirubin 0.3 mg/dL (0.15-1.2) 04/21/24 10:40 AST 21 U/L (0-32) 04/21/24 10:40 ALT 14 U/L (0-33) 04/21/24 10:40 Alkaline Phosphatase 75 U/L (35-105) 04/21/24 10:40 Troponin T Baseline 84 ng/L (0-10) H 04/21/24 10:40 Troponin T 120 Minute 150.5 ng/L (0-10) H 04/21/24 12:20 Delta Troponin T 66.5 ABS# (0-10) H* 04/21/24 12:20 NT-Pro-B Natriuret Pep 9532 pg/mL (0-125) H 04/21/24 10:40 Total Protein 5.9 g/dL (6.6-8.7) L 04/21/24 10:40 Albumin 4.0 g/dL (3.5-5.2) 04/21/24 10:40 Globulin 1.9 g/dL (1.3-4.6) 04/21/24 10:40 Vitamin B12 216 pg/mL (232-1245) L 04/21/24 10:40 Procalcitonin 0.04 ng/mL (0-0.5) 04/21/24 10:40 TSH 2.11 uIU/mL (0.27-4.20) 04/21/24 10:40 Coronavirus 229E (PCR) Not detected (NOT DETECT) 04/21/24 09:30 Influenza Type A Ag negative (Negative) 04/21/24 09:30 Influenza Type B Ag negative (Negative) 04/21/24 09:30 SARS-CoV-2 (PCR) Not detected (NOT DETECT) 04/21/24 09:30 All radiology interpretation(s) finalized by discharge Discharge Plan Discharge Patient Disposition: Admitted As Inpatient Admit Provider: Luis Bowman Clinical Impression: Congestive heart failure, Non-ST elevation [place] (NSTEMI), HTN (hypertension), CKD (chronic kidney disease) stage 2, GFR 60-89 ml/min, Diabetes mellitus type 2 in nonobese Condition: Stable Coding Level of Care Code ED Clear Coat Sprayer for Tim Valle
[2024-04-21] MEDS: ipratropium-albuterol 3 mL Neb INHALATION (10:34)
[2024-04-21 10:46] LABS: Basophils # 0.1 10^3/uL (0.0-0.1); Basophils % 0.8 %; Eosinophils # 0.2 10^3/uL (0.0-0.8); Eosinophils % 1.7 %; Hematocrit 46.3 % (36-47); Lymphocytes # 1.8 10^3/uL (0.8-4.8); Lymphocytes % 18.2 %; Mean Corpuscular HGB Conc 32.6 g/dL (30-55); Mean Corpuscular Hemoglobin 30.8 pg (27-33); Mean Corpuscular Volume 94.3 fl (85-98); Mean Platelet Volume 10.2 fL (7.4-10.4); Monocytes # 0.7 10^3/uL (0.2-0.9); Monocytes % 6.9 %; Neutrophils # 7.14 10^3/uL (1.8-7.7); Nucleated Red Blood Cells % 0 %; Platelet Count 195 10^3/cmm (157-399); Red Blood Count 4.91 10^6/uL (3.85-5.65); Red Cell Distribution Width 13.6 % (12.1-15.1); White Blood Count 9.92 10^3/uL (3.29-11.43)
[2024-04-21 10:58] LABS: ABG PCO2 43.7 mmHg (35-45); ABG PH Result 7.36 (7.35-7.45); Alveolar-Arterial Oxygen Gradi 6.5 mmHg (5-10); Arterial Blood Gas Hematocrit 46.4 % (37-47); Base Excess ABG -0.8 mmol/L (-2.0-2.0); Blood Gas Allen Test Pos; Blood Gas Operator Identificat glc; Blood Gas Sample Site Brachial, left; Blood Gas Sample Type Arterial; Carboxyhemoglobin 2.7 %THgb (0.4-20.1); HCO3 ABG 24.8 mmol/L (22-26); HGB O2 Sat 94.8 % (95-100); Ionized Calcium Level - ABG 1.2 mmol/L (1.1-1.4); Methemoglobin 0.3 % (0.4-1.5); Oxygen Device NC; Oxygen Saturation ABG 97.7; PO2 ABG 96.1 mmHg (80.0-100.0); PO2 FiO2 Ratio Arterial Blood 343; Potassium Level - ABG 4.2 mmol/L (3.5-5.0); Total Hemoglobin 15.1 g/dL (12-16)
[2024-04-21 11:01] LABS: Influenza A by IFA negative (Negative); Influenza B by IFA negative (Negative)
[2024-04-21 11:04] LABS: Troponin(5th) Baseline 84 ng/L (0-10)
[2024-04-21] MEDS: methylPREDNISolone sod succ 125 mg/2 mL INJ IVP (11:05)
[2024-04-21 11:14] LABS: Alanine Aminotransferase 14 U/L (0-33); Alkaline Phosphatase 75 U/L (35-105); Anion Gap 12.2 (5-19); Aspartate Amino Transferase 21 U/L (0-32); Blood Urea Nitrogen 13 mg/dL (8-23); Calcium 8.8 mg/dL (8.5-10.5); Carbon Dioxide 31 mmol/L (22-29); Chloride 102 mmol/L (98-107); Globulin 1.9 g/dL (1.3-4.6); Glucose 158 mg/dL (65-115); NT Pro B Type Natriuretic Pept 9532 pg/mL (0-125); Osmolality Calculated 295 mOsm/kg (285-295); Potassium 4.2 mmol/L (3.5-5.1); Sodium 141 mmol/L (136-145); Total Bilirubin 0.3 mg/dL (0.15-1.2); Total Protein 5.9 g/dL (6.6-8.7)
--- NOTE | 2024-04-21 12:22 | ECG_ITS ---
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 Measurements Intervals [place] Rate: 74 P: 25 [place]: 165 QRS: 15 QRSD: 114 T: -22 QT: 390 QTc: 433 Interpretive Statements SINUS RHYTHM POSSIBLE LEFT ATRIAL ENLARGEMENT [-0.1mV P-WAVE IN V1/V2] LEFT VENTRICULAR HYPERTROPHY AND ST-T CHANGE [VOLTAGE CRITERIA PLUS ST/T ABNORMALITY] PROBABLE INFERIOR MYOCARDIAL INFARCTION , OF INDETERMINATE AGE [35 ms Q WAVE IN II/aVF] Compared to ECG 04/21/2024 12:25:49 Left ventricular hypertrophy now present ST (T wave) deviation now present Myocardial infarct finding now present Intraventricular conduction delay no longer present T-wave abnormality no longer present Possible ischemia no longer present Electronically Signed On 04-21-2024 14:45:12 CDT by Kenny Madrid M.D. [id number]
--- NOTE | 2024-04-21 12:25 | ECG_ITS ---
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 Measurements Intervals [place] Rate: 69 P: 28 [place]: 176 QRS: 7 QRSD: 118 T: 58 QT: 387 QTc: 415 Interpretive Statements SINUS RHYTHM POSSIBLE LEFT ATRIAL ENLARGEMENT [-0.1mV P-WAVE IN V1/V2] MODERATE INTRAVENTRICULAR CONDUCTION DELAY [105+ ms QRS DURATION, 80+ ms Q/S IN V1/V2, NO Q AND 60+ ms R IN I/aVL/V5/V6] ST DEVIATION AND MODERATE T-WAVE ABNORMALITY, CONSIDER INFERIOR ISCHEMIA [-0.1+ mV T-WAVE IN II/aVF] Compared to ECG 04/21/2024 09:24:48 Intraventricular conduction delay now present T-wave abnormality now present Possible ischemia now present Myocardial infarct finding no longer present ST (T wave) deviation no longer present Electronically Signed On 04-21-2024 14:46:30 CDT by Kenny Madrid M.D. [id number]
[2024-04-21 12:39] LABS: Adenovirus Not Detected (NOT DETECT); Chlamydia Pneumoniae Not Detected (NOT DETECT); Coronavirus 229E,HKU1,NL63,OC4 Not Detected (NOT DETECT); Human Metapneumovirus Not Detected (NOT DETECT); Human Rhinovirus/Enterovirus Not Detected (NOT DETECT); Influenza A Not Detected (NOT DETECT); Influenza A H1 Not Detected (NOT DETECT); Influenza A H1-2009 Not Detected (NOT DETECT); Influenza A H3 Not Detected (NOT DETECT); Influenza B Not Detected (NOT DETECT); Mycoplasma Pneumoniae Not Detected (NOT DETECT); Parainfluenza Virus Type 1 Not Detected (NOT DETECT); Parainfluenza Virus Type 2 Not Detected (NOT DETECT); Parainfluenza Virus Type 3 Not Detected (NOT DETECT); Parainfluenza Virus Type 4 Not Detected (NOT DETECT); Respiratory Syncytial Virus A Not Detected (NOT DETECT); Respiratory Syncytial Virus B Not Detected (NOT DETECT); SARS-COV-2 Not Detected (NOT DETECT)
[2024-04-21 13:04] LABS: Troponin 5 2HR 150.5 ng/L (0-10); Troponin 5 2HR Delta 66.5 ABS# (0-10)
[2024-04-21] MEDS: FUROsemide 10 mg/mL SDV 4mL 40 MG IVP ×2 (13:07→22:23)
--- NOTE | 2024-04-21 13:11 | USCV_ITS ---
Santa Baez Age: 74 Gender: F : 1950 Exam Date: 04/21/2024 13:56 Ordering Phys: Luis Bowman MD Technologist: Exam Location: [facility] [place] Indication: cp sob BP: 161 / 94 HR: 84 Rhythm: Sinus Technical Quality: Adequate MEASUREMENTS (Male / Female) Normal Values 2D ECHO LV Diastolic Diameter PLAX 5.7 cm 4.2 - 5.9 / 3.9 - 5.3 cm LV Systolic Diameter PLAX 4.8 cm IVS Diastolic Thickness 1.5 cm 0.6 - 1.0 / 0.6 - 0.9 cm IVS Systolic Thickness 1.5 cm LVPW Diastolic Thickness 1.3 cm 0.6 - 1.0 / 0.6 - 0.9 cm LVPW Systolic Thickness 1.5 cm LVOT Diameter 2.1 cm LV Ejection Fraction 2D Teich 32.4 % LV Ejection Fraction MOD 4C 12.7 % LV Ejection Fraction MOD 2C 37.2 % LV Ejection Fraction 2C AL 39.8 % LA Diameter 4.3 cm RA Systolic Volume 4C AL 38.7 ml RA Systolic Volume 4C MOD 36.6 ml Aorta at Sinotubular Diameter 3.5 cm IVC Diameter 2.1 cm M-MODE LA Ao Ratio MM 1.1 AV Cusp Separation MM 1.2 cm DOPPLER AV Peak Velocity 360.3 cm/s LVOT Peak Velocity 61.0 cm/s AV Area Cont Eq vti 1.0 cm squared AV Area Cont Eq pk 0.6 cm squared MV Peak Velocity 133.0 cm/s MV Area PHT 3.8 cm squared Mitral E to A Ratio 0.8 TR Peak Velocity 305.0 cm/s TR Peak Gradient 37.2 mmHg TV Peak E Velocity 108.0 cm/s Right Atrial Pressure 3.0 mmHg Pulmonary Artery Systolic Pressu 40.2 mmHg FINDINGS Left Ventricle Mildly dilated LV cavity. Diffuse hypokinesis left ventricular ejection fraction of 38% Right Ventricle Normal right ventricular size and systolic function. Right Atrium Normal right atrial size. Left Atrium Mildly dilated left atrium Mitral Valve Thickened mitral valve. Moderate mitral valve regurgitation. Aortic Valve Moderately severe aortic valve regurgitation. Severe low gradient aortic valve stenosis with a peak velocity 2.8 m/s with a peak gradient of 32 and a mean gradient of 14 mmHg . The aortic valve area was calculated to be 0.98 cm squared. Tricuspid Valve Trace tricuspid valve regurgitation. Estimated pulmonary artery peak systolic pressure 40 mmHg Pulmonic Valve Pulmonic valve not well visualized. Pericardium Normal pericardium without effusion. Aorta Normal ascending aorta dimension. IVC Normal inferior vena cava. CONCLUSIONS Diffuse hypokinesis left ventricular ejection fraction of 38%. Mildly dilated LV cavity. Mildly dilated left atrium. Moderate mitral valve regurgitation. Thickened mitral valve. Moderately severe aortic valve regurgitation. Severe low gradient aortic valve stenosis with a peak velocity 2.8 m/s with a peak gradient of 32 and a mean gradient of 14 mmHg . The aortic valve area was calculated to be 0.98 cm squared. Trace tricuspid valve regurgitation. Estimated pulmonary artery peak systolic pressure 40 mmHg. There is no pericardial effusion. There are no intracardiac masses. Compared to the study from 02/11/2021, there is significant drop in the LV ejection fraction and some worsening of the aortic valve stenosis. Dr Ahmet Brandon MD [facility] (Electronically Signed) Final Date: 21 April 2024 17:03 S
--- NOTE | 2024-04-21 13:11 | PC.NURSE ---
PATIENT UP AD NORA TO BATHROOM. CHECKED PATIENT O2 ON RA, UP TO 95%.
--- NOTE | 2024-04-21 13:12 | P.HP_ITS ---
Providers/Chief Complaint 2 Admitting Physician: Luis Bowman MD Primary Care Provider: Marv Andrews MD Chief Complaint: sob History of Present Illness Santa Baez is a 74 year old female with past medical history of chronic smoking, COPD on regular inhalers, peripheral vascular disease with stent in bilateral lower limb, type 2 diabetes mellitus patient to the ER today because of acute shortness of breath which started today morning not being relieved by her regular inhalers. Shortness of breath is getting worse on exertion. Patient has been complaining of on and off mild chest pain. Denies any nausea, vomiting, headache, dizziness, palpitations. Denies any fevers cough or sick contacts or recent travels. Review of Systems 2 General: Reports: 10 or more systems reviewed and unremarkable except in HPI and below Const: Denies: fever(s), chills, body aches, change in appetite, change in weight, malaise, night sweats, diaphoresis, change in sleep pattern, daytime sleepiness or snoring Eyes: Denies: change in vision, blurry vision, photophobia, eye discomfort or eye discharge ENMT: Denies: throat pain, enlarged tonsils, hoarseness, mouth pain, oral sores, dry mouth, tinnitus, nasal congestion or post nasal drip Card: Denies: chest pain, palpitations, irregular heart rhythm, edema, swelling of feet/ankles, lightheadedness, syncope, pre-syncope, dyspnea on exertion, orthopnea, leg pain with exertion or acrocyanosis Resp: Denies: dyspnea, productive cough, non-productive cough, wheezing, stridor, pain on inspiration, change in phlegm color, hemoptysis or chest congestion GI: Denies: abdominal pain, nausea, vomiting, hematemesis, coffee ground emesis, dysphagia, heartburn, diarrhea, constipation, bloating, GI cramping, change in bowel habits, pain on defecation, hematochezia or melena : Denies: flank pain, dysuria, urinary frequency, urinary urgency, urinary hesitancy, nocturia or hematuria Musc: Denies: neck pain, back pain, extremity pain, joint pain, joint swelling, joint redness, joint stiffness or limited range of motion Neuro: Denies: headache(s), numbness in extremities, weakness in extremities, sensory changes, lack of coordination, difficulty walking, frequent falls, dizziness, vertigo, confusion, Slurred speech present, difficulty communicating thoughts or seizure-like activity Psych: Denies: anxiety, depression, mood swings, panic attacks, hopelessness or irritability Endo: Denies: polyuria, polydipsia, tired all the time, cold intolerance, excessive sweating, flushing or heat intolerance León/Lymph: Denies: easy bruising or easy bleeding All/Imm: Denies: tongue swelling, facial swelling or acute wheezing Medications/Allergies Home Medications Medication Instructions Recorded Confirmed Last Taken Type aspirin 325 mg tablet 325 mg PO DAILY #100 tabs 03/11/23 04/21/24 04/21/24 Rx propranolol 10 mg tablet 10 mg PO BID tremor #60 tabs 09/29/23 04/21/24 04/21/24 Rx elastic stocking above knees #2 ea 11/05/23 04/21/24 Unknown Rx meclizine 12.5 mg tablet 12.5 mg PO TID PRN dizziness #60 11/05/23 04/21/24 Unknown Rx tabs clonazepam 1 mg tablet 1 mg PO BID anxiety #60 tabs 01/19/24 04/21/24 04/21/24 Rx albuterol sulfate 90 mcg/actuation 2 puff inhalation Q6H PRN 02/03/24 04/21/24 04/21/24 Rx aerosol inhaler (Ventolin HFA) shortness of breath or wheezing #8.5 grams glipizide 10 mg tablet 10 mg PO BID diabetes #60 tabs 03/16/24 04/21/24 04/21/24 Rx budesonide-formoterol HFA 160 2 puff inhalation BID 04/21/24 04/21/24 04/21/24 History mcg-4.5 mcg/actuation aerosol inhaler (Symbicort) diclofenac sodium 1 % topical gel 4 g topical QID PRN joint pain 04/21/24 04/21/24 Unknown History (Voltaren Arthritis Pain) diphenhydramine HCl 25 mg capsule 25 mg PO TID PRN allergies 04/21/24 04/21/24 Unknown History (Benadryl) guaifenesin 600 mg tablet, 600 mg PO BID PRN congestion/cough 04/21/24 04/21/24 Unknown History extended release 12 hr hydroxyzine pamoate 50 mg capsule 50 mg PO DAILY PRN Anxiety 04/21/24 04/21/24 Unknown History mirtazapine 30 mg tablet (Remeron) 30 mg PO BEDTIME 04/21/24 04/21/24 04/20/24 History Allergies Allergy/AdvReac Type Severity Reaction Status Date / Time loratadine [From Claritin] AdvReac headache/difficulty Verified 02/10/24 14:35 breathing PFSH Acute 2 PFSH: Medical History (Updated 04/21/24 @ 16:28 by Luis Bowman MD) Snoring Somnolence, daytime Elevated blood pressure reading in office with diagnosis of hypertension Pain and swelling of left lower leg Fall (on)(from) incline, initial encounter Bilateral edema of lower extremity Dizziness and giddiness Intertrigo Diabetes mellitus type 2 in nonobese Allergic rhinitis due to allergen Acute sinusitis CKD (chronic kidney disease) stage 2, GFR 60-89 ml/min Dysphagia Smoker Peripheral neuropathy Osteoarthritis of knees, bilateral Essential tremor COPD (chronic obstructive pulmonary disease) case management patient HTN (hypertension) Hyperlipidemia due to type 2 diabetes mellitus Mixed stress and urge urinary incontinence Aortic stenosis Peripheral Vascular Disease Bladder prolapse Generalized anxiety disorder Major depressive disorder, recurrent episode, moderate with anxious distress Surgical History Hx of angioplasty S/P hysterectomy S/P tonsillectomy Family History Mother Diabetes Denies family history of CAD (coronary artery disease) Hyperlipidemia Chronic kidney disease (CKD) Cancer Hypertension Thyroid disease Stroke Social History Smoking and tobacco/nicotine status: current every day tobacco/nicotine user Quit status (tobacco/nicotine): not considering quitting Second hand smoke exposure: Yes Alcohol intake: never Substance/Drug Use: never Caregiver/support person: No Lives independently: Yes Household members: spouse Housing: House Marital status: Number of children: 1 Highest education level completed: Some College, No Degree service: No Current occupational status: retired Pets and animals: Yes (1 cat) Do you think of yourself as: Straight/Heterosexual Current gender identity: Female Vitals/I&O/Wt Last Vital Signs Temp 97.5 F L 09/05/24 09:33 Pulse 78 04/21/24 13:10 Resp 20 H 04/21/24 13:10 BP 128/107 04/21/24 13:10 Pulse Ox 94 04/21/24 13:10 O2 Del Method Room Air 04/21/24 13:10 O2 Flow Rate 3 04/21/24 12:53 Weight last 48 hrs Weight 74.843 kg Physical Exam 2 Narrative: General: No acute distress, AO x3, pleasant HEENT: PERRLA, pupils bilaterally equal and reactive Chest: Bilateral bronchial breath sounds all over lung enrique with occasional rhonchi y CVS: S1-S2 regular, ejection systolic murmur at aortic region grade 2 carotids 2/6, early diastolic murmur grade 2 pericardium, S3 gallop, no tachycardia, Abdomen: Soft, nontender, no organomegaly, bowel sounds present Neuro: No focal deficits, no facial deformity, AO x3, power 5/5 in all limbs Data 04/21/24 10:40 04/21/24 10:40 A&P Assessment and plan (1) Shortness of breath: Most likely in setting of combination of congestive heart failure and COPD exacerbation. Oxygen supplementation keeping saturation 90%. Check D-dimer, sputum culture, urine Legionella, bacterial antigen, MRSA swab. Appreciate chest x-ray. (2) Congestive heart failure: History of diastolic heart failure in setting of aortic regurgitation and stenosis. Concern for cardiomegaly on chest x-ray. proBNP elevated. Fluid restriction to less than 1500 cc. IV Lasix 40 mg daily. Estrella catheterization. Monitor BMP and potassium. Strict input output charting, daily weights. Echocardiogram. Cycle troponins. (3) Non-ST elevation [place] (NSTEMI): Baseline troponin of 84 with delta of 66 in 2-hour. Check echocardiogram as above. Check A1c, lipid panel. Aspirin 81 mg daily, statin, beta-yaz as above. Full dose Lovenox 1 mg/kg body weight every 12 hourly. Depending on the echocardiogram we will plan for Lexiscan stress test in next 24 hours. Patient is currently chest pain-free. (4) COPD (chronic obstructive pulmonary disease) case management patient: With mild exacerbation. DuoNeb every 6 hours, Pulmicort twice daily. Start on prednisone 40 mg oral daily. (5) Nonrheumatic aortic valve stenosis with regurgitation: Echocardiogram as above. (6) Peripheral Vascular Disease: Check A1c, lipid panel. Aspirin 81 mg daily, start on statin 20 mg daily for now. (7) HTN (hypertension): Goal blood pressure less than 140/90 mmHg. Continue with home dose of propranolol for now which she also takes for essential tremors. Will uptitrate medications as per goal blood pressure. Qualifiers: Hypertension type: essential hypertension Qualified Code(s): I10 - Essential (primary) hypertension (8) Diabetes mellitus type 2 in nonobese: Insulin sliding scale. Carb consistent diet. Plan Chronic smoker. Smokes up to 12 cigarettes/day. Counseled in detail to quit smoking. Not requesting nicotine patch for now. Vitamin B12 deficiency: Start on cyanocobalamin 1000 mcg IM daily. Continue other chronic medications. CODE STATUS: Discussed today with the patient. He does not want any heroic measures. DNR/DNI. Carb consistent diet, n.p.o. after midnight. Protonix for PUD prophylaxis Heparin 5000 Q12 hourly for DVT prophylaxis Attestations 2 Medical Necessity Statement*: Admission for more than 2 midnights for management of shortness of breath in setting of congestive heart failure, COPD exacerbation in a patient with history of AAS and aortic regurgitation, [id number] [place] Diagnoses Shortness of breath R06.02 Congestive heart failure I50.9 Non-ST elevation [place] (NSTEMI) I21.4 COPD (chronic obstructive pulmonary disease) case management patient J44.9 Nonrheumatic aortic valve stenosis with regurgitation I35.2 Peripheral Vascular Disease I73.9 Essential hypertension I10 Hypertension type: essential hypertension Diabetes mellitus type 2 in nonobese E11.9
[2024-04-21] MEDS: aspirin 325 mg Tablet PO (13:28)
[2024-04-21] MEDS: enoxaparin 80 mg/0.8 mL Syringe 70 MG SUBCUT (13:28)
[2024-04-21 13:42] LABS: D Dimer 0.98 ug/mLFEU (0-0.59)
[2024-04-21 13:55] LABS: Procalcitonin 0.04 ng/mL (0-0.5)
[2024-04-21 15:23] LABS: Iron 89 ug/dL (37-145); Percent Saturation 25.3 % (20-50); Thyroid Stimulating Hormone 2.11 uIU/mL (0.27-4.20); Total Iron Binding Capacity 351 mcg/dl; Unsaturated Iron Binding 262 ug/dL (112-347); Vitamin B12 216 pg/mL (232-1245)
[2024-04-21] MEDS: levalbuterol 0.63 mg/3 mL Neb INHALATION ×2 (15:50→20:45)
[2024-04-21 15:58] LABS: Amphetamines Screen Urine Negative (Negative); Barbiturates Screen Urine Negative (Negative); Benzodiazepines Screen Urine Negative (Negative); Cocaine Screen Urine Negative (Negative); Opiate Screen Urine Negative (Negative); PCP Screen Urine Negative (Negative); THC Screen Urine Negative (Negative)
--- NOTE | 2024-04-21 16:33 | ECG_ITS ---
[facility] Test Date: 2024-04-22 Pat Name: Santa Baez Department: Room: 103 Gender: Female Sanipractic Physician: Darren Acharya : 1950 Requested By: Luis Bowman Order Number: [id number] Reading MD: Ahmet Brandon M.D. Interpretive Statements NAME OF STUDY: LEXISCAN SESTAMIBI STRESS TEST INDICATION: NSTEMI, PROCEDURE: At the baseline, the EKG revealed normal sinus rhythm with a poor R wave progression. Diffuse nonspecific ST changes.. The baseline heart was 61 bpm with a blood pressue of 148/59 mm of Hg Lexiscan was infused over a period of 20 seconds. A total of 0.4 milligrams of Lexiscan was infused. The stress phase was continued for a total of 5 minutes. Heart rate at the end of the stress phase was 88 bpm with a blood pressure 40/60 mm of Hg. The EKG at the peak infusion revealed more prominent ST-T changes. Sestamibi was injected 20 seconds after the Lexiscan infusion. Heart rate at the end of the recovery phase was 89 bpm with a blood pressure of 131/61 mm of Hg. CONCLUSION: 1. Nonspecific EKG changes with the LexiScan infusion 2. No LexiScan induced chest pain or cardiac arrhythmia 3. Normal blood pressure and heart rate response 4. Sestamibi/sestamibi perfusion scan pending; see separate report. Electronically Signed On 04-22-2024 13:26:58 CDT by Ahmet Brandon M.D. [email or web address]
--- NOTE | 2024-04-21 16:47 | P.CONIM_ITS ---
Providers/Reason For Consult 2 Consulting Physician/Specialty*: TALI Brandon MD/cardiology Reason for Consult*: Patient with congestive heart failure, severely systolic dysfunction and markedly elevated BNP Requesting Physician: Dr. Bowman Attending Physician: Luis Bowman MD Primary Care Provider: Marv Andrews MD History of Present Illness History of Present Illness Santa Baez is a 74 year old female, is admitted to the hospital through the emergency room where she presented with a progressive shortness of breath. Patient was found to be in congestive heart failure with a markedly elevated BNP. She also was found to have diminished LVEF based on the echocardiogram, a significant change from the previous study. Cardiology consult is requested for further cardiac evaluation recommendations. This patient is known to have diabetes, peripheral artery disease, aortic valve stenosis and severe COPD. For the last 3 months her shortness of breath has been getting worse. Has been taking a bronchodilator treatment with increasing frequency. According to the patient, this has not been helping her much. Today her shortness of breath became acutely worse. She tried the inhalers but was not of much help. Because of the worsening of her symptoms, she was brought to the emergency room. She has no chest pain. No fever or chills. She has a chronic cough. Denies any palpitation, dizziness or syncopal episodes. She was found to have moderate aortic valve stenosis by echocardiogram in 2020. She underwent balloon angioplasty of the peroneal and posterior tibial artery of the left side in [address] Escamilla. Her diabetes has been fairly under control. She used to smoke 2 pack a day for more than 40 years. For the last 3 years, she been trying to cut down. Currently she smokes 12 to 15 cigarettes a day. No alcohol abuse or any other substance abuse. Her mother had heart problems and a heart attack in her 60s. No other relevant family history. He has not had any chest pain or palpitations. She denies wheezing orthopnea and PND. She also has been noticing swelling of both lower extremities for the last few weeks. She has been using 2 or 3 pillows at home for the last year or so. Review of Systems 2 Narrative: CONSTITUTIONAL: No fever or chills. Increasing shortness of breath as mentioned above EYES: No blurring of vision or other visual disturbances lately. ENT: No hoarseness of voice, auditory disturbances or sore throat. CARDIOVASCULAR: As mentioned above. RESPIRATORY: Has chronic cough. Worsening shortness of breath over the last 3 months. GASTROINTESTINAL: No hematemesis or melena. GENITOURINARY: No dysuria or hematuria. INTEGUMENTARY: No skin rashes or history of skin cancer. NEURO: Has been having frequent falls lately because of the unsteady gait. PSYCHIATRIC: No history of psychosis or major depression. HEMATOLOGIC: No bleeding disorders or significant anemia. ENDOCRINE: History of type 2 diabetes. MUSCULOSKELETAL: No recent joint pain or swelling. ALLERGY/IMMUNOLOGY: As mentioned above. Medications/Allergies Home Medications Medication Instructions Recorded Confirmed Last Taken Type aspirin 325 mg tablet 325 mg PO DAILY #100 tabs 03/11/23 04/21/24 04/21/24 Rx propranolol 10 mg tablet 10 mg PO BID tremor #60 tabs 09/29/23 04/21/24 04/21/24 Rx elastic stocking above knees #2 ea 11/05/23 04/21/24 Unknown Rx meclizine 12.5 mg tablet 12.5 mg PO TID PRN dizziness #60 11/05/23 04/21/24 Unknown Rx tabs clonazepam 1 mg tablet 1 mg PO BID anxiety #60 tabs 01/19/24 04/21/24 04/21/24 Rx albuterol sulfate 90 mcg/actuation 2 puff inhalation Q6H PRN 02/03/24 04/21/24 04/21/24 Rx aerosol inhaler (Ventolin HFA) shortness of breath or wheezing #8.5 grams glipizide 10 mg tablet 10 mg PO BID diabetes #60 tabs 03/16/24 04/21/24 04/21/24 Rx budesonide-formoterol HFA 160 2 puff inhalation BID 04/21/24 04/21/24 04/21/24 History mcg-4.5 mcg/actuation aerosol inhaler (Symbicort) diclofenac sodium 1 % topical gel 4 g topical QID PRN joint pain 04/21/24 04/21/24 Unknown History (Voltaren Arthritis Pain) diphenhydramine HCl 25 mg capsule 25 mg PO TID PRN allergies 04/21/24 04/21/24 Unknown History (Benadryl) guaifenesin 600 mg tablet, 600 mg PO BID PRN congestion/cough 04/21/24 04/21/24 Unknown History extended release 12 hr hydroxyzine pamoate 50 mg capsule 50 mg PO DAILY PRN Anxiety 04/21/24 04/21/24 Unknown History mirtazapine 30 mg tablet (Remeron) 30 mg PO BEDTIME 04/21/24 04/21/24 04/20/24 History Allergies Allergy/AdvReac Type Severity Reaction Status Date / Time loratadine [From Claritin] AdvReac headache/difficulty Verified 02/10/24 14:35 breathing Current Medications Generic Name Dose Route Start Last Admin Trade Name Freq PRN Reason Stop Dose Admin Enoxaparin Sodium 70 mg 04/21/24 13:15 04/21/24 13:28 Enoxaparin 80 Mg/0.8 Ml Syringe SUBCUT 70 mg Q12H GILBERTO Administration PFSH Acute 2 PFSH: Medical History Snoring Somnolence, daytime Elevated blood pressure reading in office with diagnosis of hypertension Pain and swelling of left lower leg Fall (on)(from) incline, initial encounter Bilateral edema of lower extremity Dizziness and giddiness Intertrigo Diabetes mellitus type 2 in nonobese Allergic rhinitis due to allergen Acute sinusitis CKD (chronic kidney disease) stage 2, GFR 60-89 ml/min Dysphagia Smoker Peripheral neuropathy Osteoarthritis of knees, bilateral Essential tremor COPD (chronic obstructive pulmonary disease) case management patient HTN (hypertension) Hyperlipidemia due to type 2 diabetes mellitus Mixed stress and urge urinary incontinence Aortic stenosis Peripheral Vascular Disease Bladder prolapse Generalized anxiety disorder Major depressive disorder, recurrent episode, moderate with anxious distress Surgical History Hx of angioplasty S/P hysterectomy S/P tonsillectomy Family History Mother Diabetes Denies family history of CAD (coronary artery disease) Hyperlipidemia Chronic kidney disease (CKD) Cancer Hypertension Thyroid disease Stroke Social History Smoking and tobacco/nicotine status: current every day tobacco/nicotine user Quit status (tobacco/nicotine): not considering quitting Second hand smoke exposure: Yes Alcohol intake: never Substance/Drug Use: never Caregiver/support person: No Lives independently: Yes Household members: spouse Housing: House Marital status: Number of children: 1 Highest education level completed: Some College, No Degree service: No Current occupational status: retired Pets and animals: Yes (1 cat) Do you think of yourself as: Straight/Heterosexual Current gender identity: Female Vitals/I&O/Wt Last Vital Signs Temp 97.9 F 04/21/24 16:00 Pulse 75 04/21/24 16:00 Resp 17 04/21/24 16:00 BP 171/67 04/21/24 16:00 Pulse Ox 93 04/21/24 16:00 O2 Del Method Room Air 04/21/24 16:00 O2 Flow Rate 3 04/21/24 12:53 Weight last 48 hrs Weight 165 lb Physical Exam 2 Narrative: GENERAL: The patient is alert and oriented times three. Not in any acute distress. Slightly tachypneic HEENT: No significant pallor, icterus or lymphadenopathy.Oral cavity: There are no mucous membrane lesions. Bilateral carotid bruit. NECK: Trachea appears to be central. No masses noted. No JVD or thyromegaly appreciated. RESPIRATORY: Chest is symmetrical. No intercostals muscle retraction or any accessory muscle activation. There is no chest wall tenderness. Breath sounds are heard bilaterally. Occasional expiratory wheeze. No evidence of any consolidation. BREASTS: Deferred. HEART: The heart sounds are normal. No S3 or S4. Ejection systolic murmur of grade 4 out of 6 in aortic area. Early diastolic murmur grade 3 or 6 in the second aortic area.. No pericardial rub ABDOMEN: No vessel pulsations or distention. No tenderness. No organomegaly appreciated. Bowel sounds are normally heard. : Deferred. RECTAL: Deferred. LYMPHATIC: No lymphadenopathy noted in the neck. EXTREMITIES: 1+ edema of both lower extremities. Peripheral pulses are weak bilaterally. No cyanosis. MUSCULOSKELETAL: No acute joint deformities or swelling SKIN: There are no significant rashes or ecchymosis NEUROPSYCHIATRIC: The patient is alert and oriented x3. Appears to be in a good mood. No tremors or rigidity noted. Data 04/21/24 10:40 04/21/24 17:12 Other Labs: Laboratory Last Values WBC 9.92 10^3/uL (3.29-11.43) 04/21/24 10:40 RBC 4.91 10^6/uL (3.85-5.65) 04/21/24 10:40 Hgb 15.10 g/dL (11.27-16.99) 04/21/24 10:40 Hct 46.3 % (36-47) 04/21/24 10:40 MCV 94.3 fl (85-98) 04/21/24 10:40 MCH 30.8 pg (27-33) 04/21/24 10:40 MCHC 32.6 g/dL (30-55) 04/21/24 10:40 RDW 13.6 % (12.1-15.1) 04/21/24 10:40 Plt Count 195 10^3/cmm (157-399) 04/21/24 10:40 MPV 10.2 fL (7.4-10.4) 04/21/24 10:40 Neut % (Auto) 72.0 % 04/21/24 10:40 Lymph % (Auto) 18.2 % 04/21/24 10:40 [place] % (Auto) 6.9 % 04/21/24 10:40 Eos % (Auto) 1.7 % 04/21/24 10:40 Baso % (Auto) 0.8 % 04/21/24 10:40 Neut # (Auto) 7.14 10^3/uL (1.8-7.7) 04/21/24 10:40 Lymph # (Auto) 1.8 10^3/uL (0.8-4.8) 04/21/24 10:40 [place] # (Auto) 0.7 10^3/uL (0.2-0.9) 04/21/24 10:40 Eos # (Auto) 0.2 10^3/uL (0.0-0.8) 04/21/24 10:40 Baso # (Auto) 0.1 10^3/uL (0.0-0.1) 04/21/24 10:40 Nucleated RBC % (auto) 0 % 04/21/24 10:40 Nucleated RBCs # 0.0 /100WBC 04/21/24 10:40 D-Dimer 0.98 ug/mLFEU (0-0.59) H 04/21/24 10:40 Specimen Type Arterial 04/21/24 10:46 Sample Site Brachial, left 04/21/24 10:46 ABG pH 7.36 (7.35-7.45) 04/21/24 10:46 ABG pCO2 43.7 mmHg (35-45) 04/21/24 10:46 ABG pO2 96.1 mmHg (80.0-100.0) 04/21/24 10:46 ABG PO2/FiO2 Ratio 343 04/21/24 10:46 ABG HCO3 24.8 mmol/L (22-26) 04/21/24 10:46 ABG O2 Saturation 97.7 04/21/24 10:46 ABG Base Excess -0.8 mmol/L (-2.0-2.0) 04/21/24 10:46 John Test Pos 04/21/24 10:46 A-a O2 Gradient 6.5 mmHg (5-10) 04/21/24 10:46 Hematocrit 46.4 % (37-47) 04/21/24 10:46 Hgb O2 Saturation 94.8 % (95-100) L 04/21/24 10:46 Carboxyhemoglobin 2.7 %THgb (0.4-20.1) 04/21/24 10:46 Methemoglobin 0.3 % (0.4-1.5) L 04/21/24 10:46 Total Hemoglobin 15.1 g/dL (12-16) 04/21/24 10:46 Sodium 140.0 mmol/L (131-143) 04/21/24 10:46 Potassium 4.2 mmol/L (3.5-5.0) 04/21/24 10:46 Glucose 149.0 mg/dL (70-115) H 04/21/24 10:46 Ionized Calcium 1.2 mmol/L (1.1-1.4) 04/21/24 10:46 O2 Delivery Device Nc 04/21/24 10:46 O2 Liters/Min 2.0 % 04/21/24 10:46 FiO2 28.0 % 04/21/24 10:46 Geoint Analyst ID glc 04/21/24 10:46 Sodium 141 mmol/L (136-145) 04/21/24 10:40 Potassium 4.2 mmol/L (3.5-5.1) 04/21/24 10:40 Chloride 102 mmol/L (98-107) 04/21/24 10:40 Carbon Dioxide 31 mmol/L (22-29) H 04/21/24 10:40 Anion Gap 12.2 (5-19) 04/21/24 10:40 BUN 13 mg/dL (8-23) 04/21/24 10:40 Creatinine 0.8 mg/dL (0.5-0.9) 04/21/24 10:40 GFR Calculation Not Reportable 04/21/24 10:40 Glucose 158 mg/dL (65-115) H 04/21/24 10:40 POC Glucose 208 mg/dL (70-110) H 04/21/24 16:31 Calculated Osmolality 295 mOsm/kg (285-295) 04/21/24 10:40 Calcium 8.8 mg/dL (8.5-10.5) 04/21/24 10:40 Iron 89 ug/dL (37-145) 04/21/24 10:40 TIBC 351 mcg/dl 04/21/24 10:40 % Saturation 25.3 % (20-50) 04/21/24 10:40 Unsat Iron Binding 262 ug/dL (112-347) 04/21/24 10:40 Total Bilirubin 0.3 mg/dL (0.15-1.2) 04/21/24 10:40 AST 21 U/L (0-32) 04/21/24 10:40 ALT 14 U/L (0-33) 04/21/24 10:40 Alkaline Phosphatase 75 U/L (35-105) 04/21/24 10:40 Troponin T Baseline 84 ng/L (0-10) H 04/21/24 10:40 Troponin T 120 Minute 150.5 ng/L (0-10) H 04/21/24 12:20 Delta Troponin T 66.5 ABS# (0-10) H* 04/21/24 12:20 NT-Pro-B Natriuret Pep 9532 pg/mL (0-125) H 04/21/24 10:40 Total Protein 5.9 g/dL (6.6-8.7) L 04/21/24 10:40 Albumin 4.0 g/dL (3.5-5.2) 04/21/24 10:40 Globulin 1.9 g/dL (1.3-4.6) 04/21/24 10:40 Vitamin B12 216 pg/mL (232-1245) L 04/21/24 10:40 Procalcitonin 0.04 ng/mL (0-0.5) 04/21/24 10:40 TSH 2.11 uIU/mL (0.27-4.20) 04/21/24 10:40 Urine Color Yellow (Yellow) 04/21/24 15:01 Urine Appearance Clear (CLEAR) 04/21/24 15:01 Urine pH 6.5 (5-7) 04/21/24 15:01 Ur Specific [place] 1.005 (1.005-1.030) 04/21/24 15:01 Urine Protein Negative (Negative) 04/21/24 15:01 Urine Glucose (UA) Negative (Normal) 04/21/24 15:01 Urine Ketones Negative (Negative) 04/21/24 15:01 Urine Blood Negative (Negative) 04/21/24 15:01 Urine Nitrate Negative (Negative) 04/21/24 15:01 Urine Bilirubin Negative (Negative) 04/21/24 15:01 Urine Urobilinogen 0.2 mg/dL (Negative) 04/21/24 15:01 Ur Leukocyte Esterase Negative (Negative) 04/21/24 15:01 Amorphous Sediment Not Reportable 04/21/24 15:01 Urine Opiates Screen Negative ng/mL (Negative) 04/21/24 15:01 Ur Barbiturates Screen Negative ng/mL (Negative) 04/21/24 15:01 Ur Phencyclidine Scrn Negative ng/mL (Negative) 04/21/24 15:01 Ur Amphetamines Screen Negative ng/mL (Negative) 04/21/24 15:01 U Benzodiazepines Scrn Negative ng/mL (Negative) 04/21/24 15:01 Urine Cocaine Screen Negative ng/mL (Negative) 04/21/24 15:01 U Marijuana (THC) Screen Negative ng/mL (Negative) 04/21/24 15:01 Coronavirus 229E (PCR) Not detected (NOT DETECT) 04/21/24 09:30 Influenza Type A Ag negative (Negative) 04/21/24 09:30 Influenza Type B Ag negative (Negative) 04/21/24 09:30 SARS-CoV-2 (PCR) Not detected (NOT DETECT) 04/21/24 09:30 EKG 1: My Interpretation: Normal sinus rhythm. Possible left atrial enlargement. Poor R wave progression suggesting old anteroseptal MD. Nonspecific IVCD. Diffuse nonspecific ST-T changes. Other data: Echocardiogram for today Diffuse hypokinesis left ventricular ejection fraction of 38%. Mildly dilated LV cavity. Mildly dilated left atrium. Moderate mitral valve regurgitation. Thickened mitral valve. Moderately severe aortic valve regurgitation. Severe low gradient aortic valve stenosis with a peak velocity 2.8 m/s with a peak gradient of 32 and a mean gradient of 14 mmHg . The aortic valve area was calculated to be 0.98 cm squared. Trace tricuspid valve regurgitation. Estimated pulmonary artery peak systolic pressure 40 mmHg. There is no pericardial effusion. There are no intracardiac masses. Compared to the study from 02/11/2021, there is significant drop in the LV ejection fraction and some worsening of the aortic valve stenosis. A&P Assessment and plan (1) Elevated troponin: In view of the patient's multiple factors, possibility of a type I non-ST relation myocardial infarction causing the elevated troponin T is a strong consideration. Hemodynamically she is stable. EKG changes are nonspecific. She is currently having no chest pain. She may be treated with subcu Lovenox, beta-yaz, aspirin, Plavix and statin. (2) Acute on chronic systolic heart failure: Patient may be carefully due to the diuretics. The LV ejection fraction was found to be 38% by echocardiogram. This is a significant drop from the previous echocardiogram in 2020. The patient may be carefully treated with IV diuretics and other symptomatic measures. (3) Severe aortic valve stenosis: Patient seems to have a low gradient severe aortic valve stenosis. This may further need to be evaluated after treating the heart failure appropriately. (4) Left ventricular systolic dysfunction (LVSD): I may start the patient on a losartan 25 mg p.o. daily. The dose may be gradually increased. May consider Entresto later on (5) Peripheral arterial disease: Will go ahead and do an arterial Doppler examination and KATHRYN of the lower extremities. Based on the results, further recommendations will be made. (6) HTN (hypertension): Currently the blood pressure seems to be in the normal range. May continue on the current medications. Qualifiers: Hypertension type: essential hypertension Qualified Code(s): I10 - Essential (primary) hypertension (7) Hyperlipidemia due to type 2 diabetes mellitus: May be started on a lipid-lowering agent namely Lipitor 40 mg p.o. now and daily. (8) Smoker: The patient strongly advised to quit smoking. Cardiovascular implications were discussed. (9) Carotid artery stenosis, asymptomatic: The carotid duplex examination be appropriate to further evaluate the carotid artery disease. Based on the results, further recommendations will be made. Qualifiers: Laterality: bilateral Qualified Code(s): I65.23 - Occlusion and stenosis of bilateral carotid arteries Plan May be continued on the current medications. Will go ahead and order for carotid Doppler examination and lower extremity arterial Doppler examination with KATHRYN Lasix 40 mg p.o. every 8 hours Potassium 20 mg p.o. every 12 hours Losartan 25 mg p.o. daily Based on the patient's clinical progress, further recommendations will be made Thank you for the opportunity to evaluate this patient and make these recommendations Consult Attestations 2 Medical Necessity Statement: Patient requires continued hospital stay for close monitoring and further management Coding Level of Care Code 99347 Diagnoses Elevated troponin R79.89 Acute on chronic systolic heart failure I50.23 Severe aortic valve stenosis I35.0 Left ventricular systolic dysfunction (LVSD) I51.9 Peripheral arterial disease I73.9 Essential hypertension I10 Hypertension type: essential hypertension Hyperlipidemia due to type 2 diabetes mellitus E11.69; E78.5 Smoker F17.200 Asymptomatic bilateral carotid artery stenosis I65.23 Laterality: bilateral
[2024-04-21 16:49] LABS: Glucose Point of Care 208 mg/dL (70-110)
[2024-04-21 17:20] LABS: Charge for UA Resulting for Rev
[2024-04-21 17:27] LABS: Bilirubin Urine Negative (Negative); Blood Urine Negative (Negative); Glucose Urine UA Negative (Normal); Ketones Urine Negative (Negative); Leukocyte Esterase Urine Negative (Negative); Nitrate Urine Negative (Negative); Protein Urine Negative (Negative); Specific Gravity, Urine 1.005 (1.005-1.030); Urine Appearance Clear (CLEAR); Urine Color Yellow (Yellow); Urobilinogen Urine 0.2 mg/dL (Negative); pH Urine 6.5 (5-7)
[2024-04-21] MEDS: propranolol 20 mg Tablet 10 MG PO (17:30)
[2024-04-21] MEDS: CLONazepam 1 mg Tablet PO (17:30)
[2024-04-21] MEDS: morphine 4 mg/mL SDV 1 mL 2 MG IVP (17:54)
--- NOTE | 2024-04-21 17:55 | USCV_ITS ---
Nestor Santa Age: 74 Gender: F : 1950 Exam Date: 04/21/2024 22:35 Ordering Phys: Ahmet Brandon MD ([email or web address]) Technologist: MELY [place]am Location: [facility] [place] [facility] [place]ication: long-term smoker continues smoking, hx COPD, DM2, SOB. Risk Factors: long-term smoker continues smoking, hx COPD, DM2, SOB. Previous Vascular Surgery: Hx PAD s/p stenting in RIGHT groin and LEFT calf 2018 Right Brachial BP: 126 / 57 Left Brachial BP: / Right Left Velocity (cm/s) Spectral Plaque Velocity (cm/s) Spectral Plaque Syst/Diast Broadening Syst/Diast Broadening 84.10/ 5.10 Min Homo Prox CCA 77.50 / 8.60 Min Homo 64.60/ 8.90 Mod Hetro Mid CCA 58.90 / 6.40 Mod Hetro 43.10/ 5.50 Min Feroz Distal CCA 72.00 / 6.40 Min Feroz 76.50/ 8.90 Min Feroz Prox ICA 86.90 / 10.70 Mod Feroz 69.20/ 7.10 Mod Hetro Mid ICA 80.40 / 15.00 Mod Hetro 102.00/12.60 Mod Homo Distal ICA 71.70 / 10.70 Mod Homo 122.10 Mod Feroz ECA 134.80 Mod Feroz 2.40 ICA/CCA 1.20 Antegrade Vertebral Antegrade 47.30/ 7.10 cm/s 77.00/ 11.30 cm/s Tri Subclavian Tri 54.50 55.50 FINDINGS Comparison: 02/12/21 Diffuse bilateral scattered calcified plaque and intimal thickening throughout the common carotid arteries and extending through the bifurcation. Mild elevation of velocities but no progression. Antegrade vertebral arteries. CONCLUSIONS Bilateral ICA stenosis less than 50%. Mild bilateral carotid atherosclerosis. Dr. Sierra Rodriguez DO (Electronically Signed) Final Date: 22 April 2024 07:50 S
--- NOTE | 2024-04-21 17:56 | USCV_ITS ---
Santa Baez Age: 74 Gender: F : 1950 Exam Date: 04/21/2024 21:22 Ordering Phys: Ahmet Brandon MD ([email or web address]) Technologist: MELY Exam Location: [facility] [place] Indication: History of RT groin and LEFT calf stenting 2019. long-term smoker, continues smoking. COPD, DM2, SOB. Risk Factors: History of RT groin and LEFT calf stenting 2019. long-term smoker, continues smoking. COPD, DM2, SOB. Non-healing ulcer on the lateral aspect of the distal LEFT calf Previous Vascular Surgery: 2019 stenting in RIGHT groin and in LEFT calf. RIGHT LEFT BP: 126.0 / 75.00 BP: 125.0/ 75.00 0 0 Waveform Velocity (cm/s) Velocity (cm/s) Waveform Triphasic 124.0 Iliac Prox 139.0 Triphasic Triphasic 138.0 Iliac Mid 134.0 Triphasic Triphasic 112.0 Iliac Distal 121.0 Triphasic Triphasic 100.0 NUCLEAR MEDICINE OFFICER 160.0 Triphasic Triphasic 77.0 SFA Prox 79.0 Triphasic Triphasic 108.0 SFA Mid 89.0 Triphasic Triphasic 144.0 SFA Dist 117.0 Triphasic Triphasic 97.0 POP 180.0 Triphasic Biphasic 61.0 SYSTEM ADMIN 18.0 Biphasic Biphasic 16.0 DPA 15.0 Monophasic 1.1 KATHRYN 1.5 FINDINGS Resting KATHRYN of 1.1 on the right side and 1.5 on the left side. Abnormal Doppler waveforms and velocities in the infrapopliteal vessels bilaterally CONCLUSIONS 1. Normal resting ABIs bilaterally suggesting no significant arterial obstruction in the major inflow vessels. 2. Abnormal arterial Doppler waveforms and velocities in the infrapopliteal vessels, suggesting obstructive disease in the dorsalis pedis and posttibial arteries on the left side and dorsalis pedis artery on the right side. Compared to the study from 01/10/2022, there is seems to be some progression of disease in the infrapopliteal vessels bilaterally Dr Ahmet Brandon MD [facility] (Electronically Signed) Final Date: 22 April 2024 10:50 S
[2024-04-21 18:19] LABS: Troponin 5 6HR 332.5 ng/L (0-10); Troponin 5 6HR Delta 248.5 ng/L (0-12)
--- NOTE | 2024-04-21 18:23 | PC.NURSE ---
Nurse noted patient switched back and forth between SR and afib. Also, patient refused all needles.
[2024-04-21 18:45] LABS: Blood Urea Nitrogen 13 mg/dL (8-23); Calcium 9.2 mg/dL (8.5-10.5); Carbon Dioxide 24 mmol/L (22-29); Chloride 97 mmol/L (98-107); Glucose 215 mg/dL (65-115); Osmolality Calculated 287 mOsm/kg (285-295); Sodium 135 mmol/L (136-145)
[2024-04-21 18:49] LABS: Anion Gap 17.9 (5-19); Potassium 3.9 mmol/L (3.5-5.1)
[2024-04-21] MEDS: budesonide 0.5 mg/2 mL Neb INHALATION (20:44)
[2024-04-21] MEDS: ipratropium 0.5 mg/2.5 mL Neb INHALATION (20:45)
[2024-04-21 20:49] LABS: Glucose Point of Care 291 mg/dL (70-110)
[2024-04-21] MEDS: potassium chloride ER 20 mEq Tablet PO (22:23)
[2024-04-21] MEDS: losartan 50 mg Tablet 25 MG PO (22:23)
[2024-04-21] MEDS: insulin lispro 100 unit/1 mL SUBCUT (22:24)
[2024-04-22] VITALS (15 sets, daily range): BP systolic 110–149; BP diastolic 48–71; PULSE 63–91; RESP 16–23; TEMP 36.4–36.8; O2SAT 91–95; BMI 26.4; BMI 26.1
[2024-04-22] MEDS: morphine 4 mg/mL SDV 1 mL 2 MG IVP (00:52)
[2024-04-22] MEDS: enoxaparin 80 mg/0.8 mL Syringe 70 MG SUBCUT ×2 (00:52→12:54)
[2024-04-22 04:22] LABS: Basophils % 0.2 %; Hematocrit 42.1 % (36-47); Lymphocytes # 0.9 10^3/uL (0.8-4.8); Lymphocytes % 9.3 %; Mean Corpuscular HGB Conc 33.7 g/dL (30-55); Mean Corpuscular Hemoglobin 31.1 pg (27-33); Mean Corpuscular Volume 92.1 fl (85-98); Mean Platelet Volume 10.9 fL (7.4-10.4); Monocytes # 0.4 10^3/uL (0.2-0.9); Monocytes % 3.9 %; Neutrophils # 8.29 10^3/uL (1.8-7.7); Neutrophils % 86.3 %; Nucleated Red Blood Cells % 0 %; Platelet Count 189 10^3/cmm (157-399); Red Blood Count 4.57 10^6/uL (3.85-5.65); Red Cell Distribution Width 13.2 % (12.1-15.1)
[2024-04-22 04:48] LABS: Alanine Aminotransferase 12 U/L (0-33); Albumin Level 3.6 g/dL (3.5-5.2); Alkaline Phosphatase 61 U/L (35-105); Anion Gap 15.7 (5-19); Aspartate Amino Transferase 23 U/L (0-32); Blood Urea Nitrogen 18 mg/dL (8-23); Calcium 8.4 mg/dL (8.5-10.5); Carbon Dioxide 25 mmol/L (22-29); Chloride 100 mmol/L (98-107); Creatinine Clr Calc Pharmacy 63.4047; Globulin 2.3 g/dL (1.3-4.6); Glucose 101 mg/dL (65-115); Magnesium 1.9 mg/dL (1.7-2.3); Osmolality Calculated 286 mOsm/kg (285-295); Phosphorus 2.6 mg/dL (2.5-4.5); Potassium 3.7 mmol/L (3.5-5.1); Sodium 137 mmol/L (136-145); Total Bilirubin 0.5 mg/dL (0.15-1.2); Total Protein 5.9 g/dL (6.6-8.7)
[2024-04-22 04:49] LABS: Chol HDL Ratio 3.31 mg/dL (0.0-4.40); Cholesterol 225 mg/dL (0-200); HDL Cholesterol 68 mg/dL (60-100); LDL Cholesterol Calculated 142 mg/dL (50-129); LDL HDL Ratio 2.09 RATIO (0.00-3.22); Procalcitonin 0.04 ng/mL (0-0.5); Triglycerides 75 mg/dL (0-150)
[2024-04-22 04:55] LABS: Estmated Average Glucose 151; Hemoglobin A1C 6.9 % (4.0-6.0)
[2024-04-22 05:01] LABS: Folate Level 3.6 ng/mL (4.8-37.3)
[2024-04-22] MEDS: FUROsemide 10 mg/mL SDV 4mL 40 MG IVP ×3 (05:40→21:38)
[2024-04-22 06:43] LABS: Glucose Point of Care 164 mg/dL (70-110)
[2024-04-22] MEDS: regadenoson 0.4 Mg/5 ml Syringe IVP (07:45)
--- NOTE | 2024-04-22 09:04 | P.PN_ITS ---
Subjective 2 Medications: Medication Review Details: Current Medications Acetaminophen (Acetaminophen 325 Mg Tablet) 650 mg PO Q6H PRN PRN Reason: Mild/Mod Pain Or Temp >/= 101 Aminophylline (Aminophylline 25 Mg/Ml Sdv 10 Ml) 25 mg IVP Q2M PRN PRN Reason: see dose instructions Stop: 04/23/24 06:26 Aspirin (Aspirin 81 Mg Ec Tablet) 81 mg PO DAILY GILBERTO Atorvastatin Calcium (Atorvastatin 40 Mg Tablet) 40 mg PO DAILY GILBERTO Bisacodyl (Bisacodyl 5 Mg Tablet) 10 mg PO DAILY PRN; Protocol PRN Reason: Constipation (see protocol) Budesonide (Budesonide 0.5 Mg/2 Ml Neb) 0.5 mg INHALATION BID.RESPIRATORY GILBERTO Last Admin: 04/22/24 08:28 Dose: Not Given Clonazepam (Clonazepam 1 Mg Tablet) 1 mg PO BID GILBERTO Last Admin: 04/21/24 17:30 Dose: 1 mg Cyanocobalamin (Cyanocobalamin 1,000 Mcg/Ml Sdv) 1,000 mcg IM DAILY GILBERTO Last Admin: 04/21/24 17:32 Dose: Not Given Enoxaparin Sodium (Enoxaparin 80 Mg/0.8 Ml Syringe) 70 mg SUBCUT Q12H GILBERTO Last Admin: 04/22/24 00:52 Dose: 70 mg Furosemide (Furosemide 10 Mg/Ml Sdv 4ml) 40 mg IVP Q8H GILBERTO Last Admin: 04/22/24 05:40 Dose: 40 mg Glucagon (Glucagon 1 Mg/Ml Kit 1 Ml) 1 mg IM ONCE PRN; Protocol PRN Reason: Adult Acute Hypoglycemia Nursing Prot. Dextrose (D5w) 500 mls @ 0 mls/hr IV ONCE PRN; Protocol PRN Reason: Adult Acute Hypoglycemia Prot Dextrose (D10w) 125 mls @ 750 mls/hr IV PRN PRN; Protocol PRN Reason: Adult Acute Hypoglycemia Nursing Protocol Dextrose (D10w) 250 mls @ 1,000 mls/hr IV PRN PRN; Protocol PRN Reason: Adult Acute Hypoglycemia Nursing Protocol Insulin Human Lispro (Insulin Lispro 100 Unit/1 Ml) 0 unit SUBCUT WM&BEDTIME GILBERTO; Protocol Last Admin: 04/21/24 22:24 Dose: 8 unit Ipratropium Smock (Ipratropium 0.5 Mg/2.5 Ml Neb) 0.5 mg INHALATION Q6H.RESP [facility] Last Admin: 04/22/24 08:28 Dose: Not Given Lactulose (Lactulose Oral Liq 20 Gm/30 Ml Udc) 10 gm PO DAILY PRN; Protocol PRN Reason: Constipation (see protocol) Levalbuterol HCl (Levalbuterol 0.63 Mg/3 Ml Neb) 0.63 mg INHALATION Q6H.RESP [facility] Last Admin: 04/22/24 08:28 Dose: Not Given Losartan Potassium (Losartan 50 Mg Tablet) 25 mg PO DAILY [facility] Last Admin: 04/21/24 22:23 Dose: 25 mg Magnesium Hydroxide (Magnesium Hydroxide 30 Ml Udc) 30 ml PO DAILY PRN; Protocol PRN Reason: Constipation (see protocol) Mirtazapine (Mirtazapine 30 Mg Tablet) 30 mg PO DAILY [facility] Morphine Sulfate (Morphine 4 Mg/Ml Sdv 1 Ml) 2 mg IVP Q4H PRN PRN Reason: SEVERE PAIN Last Admin: 04/22/24 00:52 Dose: 2 mg Nitroglycerin (Nitroglycerin 0.4 Mg Sublingual Tablet) 0.4 mg SUBLINGUAL Q5M PRN PRN Reason: CHEST PAIN Stop: 04/23/24 06:26 Ondansetron HCl (Ondansetron 2 Mg/Ml Sdv 2 Ml) 4 mg IVP Q8H PRN PRN Reason: vomiting, or N/V if npo Ondansetron HCl (Ondansetron 2 Mg/Ml Sdv 2 Ml) 4 mg IVP Q2M PRN PRN Reason: NAUSEA Potassium Chloride (Potassium Chloride Er 20 Meq Tablet) 20 meq PO Q12H [facility] Last Admin: 04/21/24 22:23 Dose: 20 meq Propranolol HCl (Propranolol 20 Mg Tablet) 10 mg PO BID [facility] Last Admin: 04/21/24 17:30 Dose: 10 mg Vitals/I&O/Wt Last Vital Signs Temp 98.2 F 04/22/24 04:02 Pulse 91 04/22/24 07:59 Resp 21 H 04/22/24 04:02 BP 131/61 04/22/24 07:59 Pulse Ox 94 04/22/24 04:02 O2 Del Method Room Air 04/21/24 20:45 O2 Flow Rate 3 04/21/24 12:53 09/01/0704/22/24 04/22/24 22:59 06:59 14:59 Output Total 2220 / 2220 400 / 2620 Balance -2220 / -2220 -400 / -2620 Weight last 48 hrs Weight 163 lb 9.328 oz Weight 162 lb 11.218 oz Weight 165 lb Physical Exam 2 Narrative: GENERAL: The patient is alert and oriented times three. Not in any acute distress. Slightly tachypneic HEENT: No significant pallor, icterus or lymphadenopathy.Oral cavity: There are no mucous membrane lesions. Bilateral carotid bruit. NECK: Trachea appears to be central. No masses noted. No JVD or thyromegaly appreciated. RESPIRATORY: Chest is symmetrical. No intercostals muscle retraction or any accessory muscle activation. There is no chest wall tenderness. Breath sounds are heard bilaterally. Occasional expiratory wheeze. No evidence of any consolidation. BREASTS: Deferred. HEART: The heart sounds are normal. No S3 or S4. Ejection systolic murmur of grade 4 out of 6 in aortic area. Early diastolic murmur grade 3 or 6 in the second aortic area.. No pericardial rub ABDOMEN: No vessel pulsations or distention. No tenderness. No organomegaly appreciated. Bowel sounds are normally heard. : Deferred. RECTAL: Deferred. LYMPHATIC: No lymphadenopathy noted in the neck. EXTREMITIES: 1+ edema of both lower extremities. Peripheral pulses are weak bilaterally. No cyanosis. MUSCULOSKELETAL: No acute joint deformities or swelling SKIN: There are no significant rashes or ecchymosis NEUROPSYCHIATRIC: The patient is alert and oriented x3. Appears to be in a good mood. No tremors or rigidity noted. Urinary Catheter Management: Estrella: Cath Placed During This Visit: yes Reason for Continuing Indwelling Catheter: Other Urinary Catheter Date of Insertion: 04/21/24 Urinary Catheter Time of Insertion: 14:30 Data 04/22/24 03:30 04/22/24 03:30 Other Labs: Laboratory Last Values WBC 9.60 10^3/uL (3.29-11.43) 04/22/24 03:30 RBC 4.57 10^6/uL (3.85-5.65) 04/22/24 03:30 Hgb 14.20 g/dL (11.27-16.99) 04/22/24 03:30 Hct 42.1 % (36-47) 04/22/24 03:30 MCV 92.1 fl (85-98) 04/22/24 03:30 MCH 31.1 pg (27-33) 04/22/24 03:30 MCHC 33.7 g/dL (30-55) 04/22/24 03:30 RDW 13.2 % (12.1-15.1) 04/22/24 03:30 Plt Count 189 10^3/cmm (157-399) 04/22/24 03:30 MPV 10.9 fL (7.4-10.4) H 04/22/24 03:30 Neut % (Auto) 86.3 % 04/22/24 03:30 Lymph % (Auto) 9.3 % 04/22/24 03:30 [place] % (Auto) 3.9 % 04/22/24 03:30 Eos % (Auto) 0.0 % 04/22/24 03:30 Baso % (Auto) 0.2 % 04/22/24 03:30 Neut # (Auto) 8.29 10^3/uL (1.8-7.7) H 04/22/24 03:30 Lymph # (Auto) 0.9 10^3/uL (0.8-4.8) 04/22/24 03:30 [place] # (Auto) 0.4 10^3/uL (0.2-0.9) 04/22/24 03:30 Eos # (Auto) 0.0 10^3/uL (0.0-0.8) 04/22/24 03:30 Baso # (Auto) 0.0 10^3/uL (0.0-0.1) 04/22/24 03:30 Nucleated RBC % (auto) 0 % 04/22/24 03:30 Nucleated RBCs # 0.0 /100WBC 04/22/24 03:30 D-Dimer 0.98 ug/mLFEU (0-0.59) H 04/21/24 10:40 Specimen Type Arterial 04/21/24 10:46 Sample Site Brachial, left 04/21/24 10:46 ABG pH 7.36 (7.35-7.45) 04/21/24 10:46 ABG pCO2 43.7 mmHg (35-45) 04/21/24 10:46 ABG pO2 96.1 mmHg (80.0-100.0) 04/21/24 10:46 ABG PO2/FiO2 Ratio 343 04/21/24 10:46 ABG HCO3 24.8 mmol/L (22-26) 04/21/24 10:46 ABG O2 Saturation 97.7 04/21/24 10:46 ABG Base Excess -0.8 mmol/L (-2.0-2.0) 04/21/24 10:46 John Test Pos 04/21/24 10:46 A-a O2 Gradient 6.5 mmHg (5-10) 04/21/24 10:46 Hematocrit 46.4 % (37-47) 04/21/24 10:46 Hgb O2 Saturation 94.8 % (95-100) L 04/21/24 10:46 Carboxyhemoglobin 2.7 %THgb (0.4-20.1) 04/21/24 10:46 Methemoglobin 0.3 % (0.4-1.5) L 04/21/24 10:46 Total Hemoglobin 15.1 g/dL (12-16) 04/21/24 10:46 Sodium 140.0 mmol/L (131-143) 04/21/24 10:46 Potassium 4.2 mmol/L (3.5-5.0) 04/21/24 10:46 Glucose 149.0 mg/dL (70-115) H 04/21/24 10:46 Ionized Calcium 1.2 mmol/L (1.1-1.4) 04/21/24 10:46 O2 Delivery Device Nc 04/21/24 10:46 O2 Liters/Min 2.0 % 04/21/24 10:46 FiO2 28.0 % 04/21/24 10:46 Machine Pecan Gat[employer]r ID glc 04/21/24 10:46 Sodium 137 mmol/L (136-145) 04/22/24 03:30 Potassium 3.7 mmol/L (3.5-5.1) 04/22/24 03:30 Chloride 100 mmol/L (98-107) 04/22/24 03:30 Carbon Dioxide 25 mmol/L (22-29) 04/22/24 03:30 Anion Gap 15.7 (5-19) 04/22/24 03:30 BUN 18 mg/dL (8-23) 04/22/24 03:30 Creatinine 0.8 mg/dL (0.5-0.9) 04/22/24 03:30 GFR Calculation Not Reportable 04/22/24 03:30 Glucose 101 mg/dL (65-115) 04/22/24 03:30 POC Glucose 164 mg/dL (70-110) H 04/22/24 06:37 Estimat Average Glucose 151 04/22/24 03:30 Hemoglobin A1c 6.9 % (4.0-6.0) H 04/22/24 03:30 Calculated Osmolality 286 mOsm/kg (285-295) 04/22/24 03:30 Calcium 8.4 mg/dL (8.5-10.5) L 04/22/24 03:30 Phosphorus 2.6 mg/dL (2.5-4.5) 04/22/24 03:30 Magnesium 1.9 mg/dL (1.7-2.3) 04/22/24 03:30 Iron 89 ug/dL (37-145) 04/21/24 10:40 TIBC 351 mcg/dl 04/21/24 10:40 % Saturation 25.3 % (20-50) 04/21/24 10:40 Unsat Iron Binding 262 ug/dL (112-347) 04/21/24 10:40 Total Bilirubin 0.5 mg/dL (0.15-1.2) 04/22/24 03:30 AST 23 U/L (0-32) 04/22/24 03:30 ALT 12 U/L (0-33) 04/22/24 03:30 Alkaline Phosphatase 61 U/L (35-105) 04/22/24 03:30 Troponin T Baseline 84 ng/L (0-10) H 04/21/24 10:40 Troponin T 120 Minute 150.5 ng/L (0-10) H 04/21/24 12:20 Delta Troponin T 66.5 ABS# (0-10) H* 04/21/24 12:20 Troponin T Hi Sens 6Hr 332.5 ng/L (0-10) H 04/21/24 17:12 Troponin T Hi Sens 6Hr Delta 248.5 ng/L (0-12) H* 04/21/24 17:12 NT-Pro-B Natriuret Pep 9532 pg/mL (0-125) H 04/21/24 10:40 Total Protein 5.9 g/dL (6.6-8.7) L 04/22/24 03:30 Albumin 3.6 g/dL (3.5-5.2) 04/22/24 03:30 Globulin 2.3 g/dL (1.3-4.6) 04/22/24 03:30 Triglycerides 75 mg/dL (0-150) 04/22/24 03:30 Cholesterol 225 mg/dL (0-200) H 04/22/24 03:30 LDL Cholesterol, Calc 142 mg/dL (50-129) H 04/22/24 03:30 HDL Cholesterol 68 mg/dL (60-100) 04/22/24 03:30 LDL/HDL Ratio 2.09 RATIO (0.00-3.22) 04/22/24 03:30 Cholesterol/HDL Ratio 3.31 mg/dL (0.0-4.40) 04/22/24 03:30 Vitamin B12 216 pg/mL (232-1245) L 04/21/24 10:40 Folate 3.6 ng/mL (4.8-37.3) L 04/22/24 03:30 Procalcitonin 0.04 ng/mL (0-0.5) 04/22/24 03:30 TSH 2.11 uIU/mL (0.27-4.20) 04/21/24 10:40 Urine Color Yellow (Yellow) 04/21/24 15:01 Urine Appearance Clear (CLEAR) 04/21/24 15:01 Urine pH 6.5 (5-7) 04/21/24 15:01 Ur Specific [place] 1.005 (1.005-1.030) 04/21/24 15:01 Urine Protein Negative (Negative) 04/21/24 15:01 Urine Glucose (UA) Negative (Normal) 04/21/24 15:01 Urine Ketones Negative (Negative) 04/21/24 15:01 Urine Blood Negative (Negative) 04/21/24 15:01 Urine Nitrate Negative (Negative) 04/21/24 15:01 Urine Bilirubin Negative (Negative) 04/21/24 15:01 Urine Urobilinogen 0.2 mg/dL (Negative) 04/21/24 15:01 Ur Leukocyte Esterase Negative (Negative) 04/21/24 15:01 Amorphous Sediment Not Reportable 04/21/24 15:01 Urine Opiates Screen Negative ng/mL (Negative) 04/21/24 15:01 Ur Barbiturates Screen Negative ng/mL (Negative) 04/21/24 15:01 Ur Phencyclidine Scrn Negative ng/mL (Negative) 04/21/24 15:01 Ur Amphetamines Screen Negative ng/mL (Negative) 04/21/24 15:01 U Benzodiazepines Scrn Negative ng/mL (Negative) 04/21/24 15:01 Urine Cocaine Screen Negative ng/mL (Negative) 04/21/24 15:01 U Marijuana (THC) Screen Negative ng/mL (Negative) 04/21/24 15:01 Coronavirus 229E (PCR) Not detected (NOT DETECT) 04/21/24 09:30 Influenza Type A Ag negative (Negative) 04/21/24 09:30 Influenza Type B Ag negative (Negative) 04/21/24 09:30 SARS-CoV-2 (PCR) Not detected (NOT DETECT) 04/21/24 09:30 Micro: Microbiology 04/21/24 15:01 Legionella Urinary Antigen - Final Unknown Source Other data: Myocardial perfusion imaging from today 1. Abnormal myocardial perfusion imaging with large sized area of prior infarct with minimal jacquie-infarct ischemia seen in the left circumflex artery territory 2. Medium to large sized area of prior infarct with small to medium sized area of jacquie-infarct ischemia seen in RCA territory. 3. LV systolic function is severely reduced with EF of 23%. 4. TID ratio is elevated. This may represent multivessel coronary artery disease/ subendocardial ischemia. Arterial Doppler examination of the lower extremities 1. Normal resting ABIs bilaterally suggesting no significant arterial obstruction in the major inflow vessels. 2. Abnormal arterial Doppler waveforms and velocities in the infrapopliteal vessels, suggesting obstructive disease in the dorsalis pedis and posttibial arteries on the left side and dorsalis pedis artery on the right side. Compared to the study from 01/10/2022, there is seems to be some progression of disease in the infrapopliteal vessels bilaterally Carotid duplex examination Bilateral ICA stenosis less than 50%. Mild bilateral carotid atherosclerosis. A&P Assessment and plan (1) Elevated troponin: In view of the patient's multiple factors, possibility of a type I non-ST relation myocardial infarction causing the elevated troponin T is a strong consideration. Hemodynamically she is stable. EKG changes are nonspecific. She is currently having no chest pain. Patient has significant delta at 2 hours and 6 hours. At this point, she may be continued on the Lovenox and aspirin. I also start her on Plavix 300 mg p.o. today followed by 75 mg p.o. daily (2) Acute on chronic systolic heart failure: Patient may be carefully due to the diuretics. The LV ejection fraction was found to be 38% by echocardiogram. This is a significant drop from the previous echocardiogram in 2020. The patient may be carefully treated with IV diuretics and other symptomatic measures. Patient is diuresing appropriately. She seems to have improvement of the shortness of breath with the diuresis. (3) Severe aortic valve stenosis: Patient seems to have a low gradient severe aortic valve stenosis. This may further need to be evaluated after treating the heart failure appropriately. Patient may benefit from a right and left heart catheterization to better evaluate the valve function. (4) Left ventricular systolic dysfunction (LVSD): I may start the patient on a losartan 25 mg p.o. daily. The dose may be gradually increased. May consider Entresto later on (5) Peripheral arterial disease: A duplex done revealed an KATHRYN of 1.1 on the right side and 1.52 on the left side. At this point, the patient will require any specific intervention. (6) HTN (hypertension): Currently the blood pressure seems to be getting into the normal range. May continue on the current medications. Qualifiers: Hypertension type: essential hypertension Qualified Code(s): I10 - Essential (primary) hypertension (7) Hyperlipidemia due to type 2 diabetes mellitus: May be continue on the current medications. (8) Smoker: The patient strongly advised to quit smoking. Cardiovascular implications were discussed. (9) Carotid artery stenosis, asymptomatic: The Doppler exam revealed less than 50% stenosis bilaterally. Qualifiers: Laterality: bilateral Qualified Code(s): I65.23 - Occlusion and stenosis of bilateral carotid arteries Plan Patient had a Myocardial perfusion imaging today which revealed large areas of fixed defect with a small areas of reversible defects. In view of the patient's abnormal valve function it may be appropriate to do a right and left heart catheterization with coronary angiogram to further evaluate the coronary arteries and the valves. This was discussed with the patient and her fianc? in detail which is understood well Patient may start on Plavix 300 mg p.o. now followed by 75 mg p.o. daily Based on the clinical progress and the results of the above, further management decisions will be made. Attestations 2 Medical Necessity Statement*: Patient requires continued hospital stay for close monitoring and further management Coding Level of Care Code 04484 Diagnoses Elevated troponin R79.89 Acute on chronic systolic heart failure I50.23 Severe aortic valve stenosis I35.0 Left ventricular systolic dysfunction (LVSD) I51.9 Peripheral arterial disease I73.9 Essential hypertension I10 Hypertension type: essential hypertension Hyperlipidemia due to type 2 diabetes mellitus E11.69; E78.5 Smoker F17.200 Asymptomatic bilateral carotid artery stenosis I65.23 Laterality: bilateral
[2024-04-22] MEDS: atorvastatin 40 mg Tablet PO (10:20)
[2024-04-22] MEDS: CLONazepam 1 mg Tablet PO ×2 (10:20→18:10)
[2024-04-22] MEDS: aspirin 81 mg EC Tablet PO (10:21)
[2024-04-22] MEDS: insulin lispro 100 unit/1 mL SUBCUT ×4 (10:21→21:38)
[2024-04-22] MEDS: losartan 50 mg Tablet 25 MG PO (10:25)
[2024-04-22] MEDS: propranolol 20 mg Tablet 10 MG PO ×2 (10:30→18:10)
[2024-04-22] MEDS: potassium chloride ER 20 mEq Tablet PO ×2 (10:37→21:41)
--- NOTE | 2024-04-22 11:12 | PC.SOCIAL ---
IMM Update pg 2 of IMM updated and reviewed w/ patient. Copy provided and copy dated, initialed and placed in chart.
[2024-04-22] MEDS: clopidogrel 300 mg Tablet PO (11:34)
[2024-04-22 12:01] LABS: Glucose Point of Care 227 mg/dL (70-110)
[2024-04-22] MEDS: ipratropium 0.5 mg/2.5 mL Neb INHALATION ×2 (13:16→20:50)
[2024-04-22] MEDS: levalbuterol 0.63 mg/3 mL Neb INHALATION ×2 (13:16→20:50)
--- NOTE | 2024-04-22 14:33 | P.PN_ITS ---
Subjective 2 Subjective: Patient complaining of shortness of breath today. Seen after stress test. She states she is feeling pretty well ~stress test but since then has been having difficulty in breathing. Denies any nausea vomiting, headache or chest pain. Has remained hemodynamically stable and afebrile. On 1 L of oxygen supplementation saturating more than 92%. Vitals/I&O/Wt Last Vital Signs Temp 97.8 F 04/22/24 12:00 Pulse 73 04/22/24 13:16 Resp 18 04/22/24 13:16 BP 139/56 04/22/24 12:00 Pulse Ox 94 04/22/24 13:19 O2 Del Method Nasal Cannula 04/22/24 13:19 O2 Flow Rate 0.5 04/22/24 13:16 04/21/24 04/22/24 04/22/24 22:59 06:59 14:59 Intake Total 240 / 240 Output Total 2220 / 2220 400 / 2620 700 / 700 Balance -2220 / -2220 -400 / -2620 -460 / -460 Weight last 48 hrs Weight 74.2 kg Weight 73.8 kg Weight 74.843 kg Physical Exam 2 Narrative: General: No acute distress, AO x3, pleasant HEENT: PERRLA, pupils bilaterally equal and reactive Chest: Bilateral bronchial breath sounds all over lung enrique with occasional rhonchi y CVS: S1-S2 regular, ejection systolic murmur at aortic region grade 2 carotids 2/6, early diastolic murmur grade 2 pericardium, S3 gallop, no tachycardia, Abdomen: Soft, nontender, no organomegaly, bowel sounds present Neuro: No focal deficits, no facial deformity, AO x3, power 5/5 in all limbs Urinary Catheter Management: Estrella: Cath Placed During This Visit: yes Reason for Continuing Indwelling Catheter: Other Urinary Catheter Date of Insertion: 04/21/24 Urinary Catheter Time of Insertion: 14:30 Data 04/22/24 03:30 04/22/24 03:30 Micro: Microbiology 04/21/24 15:01 Bacterial Antigens - Final Urine Kidney 04/21/24 15:01 Legionella Urinary Antigen - Final Unknown Source A&P Assessment and plan (1) Shortness of breath: Most likely in setting of combination of congestive heart failure and COPD exacerbation. Oxygen supplementation keeping saturation 90%. Urine Legionella, bacterial antigen negative. MRSA swab pending. D-dimer slightly elevated. (2) Congestive heart failure: History of diastolic heart failure in setting of aortic regurgitation and stenosis. Concern for cardiomegaly on chest x-ray. proBNP elevated. Echocardiogram done shows EF of 38% with dilated LV cavity, dilated LA with moderate MR, moderate to severe aortic regurgitation with severe low gradient aortic stenosis with aortic valve area of 0.98, tricuspid regurgitation with PASP of 40 mmHg. Fluid restriction to less than 1500 cc. Appreciate cardiology recommendations. Continue with aggressive IV diuresis with 40 mg every 8 hourly. Estrella catheterization. Monitor BMP and potassium. Strict input output charting, daily weights. Troponin cycle shows elevation. Concerns for non-ST elevation [place]. Start on treatment for congestive heart failure with dilated to medical therapy. Continue on losartan 25 mg oral daily. Patient already on propranolol for tremors. Discussed about probably switching propranolol to metoprolol. For now patient is hesitant in changing the medication. (3) Non-ST elevation [place] (NSTEMI): Troponin cycle elevated. Appreciate echocardiogram with new low EF and direct LV cavity. Stress test done today shows large area of prior infarct with minimal jacquie- infarct ischemia in LCx territory and RCA territory. Appreciate cardiology recommendations. N.p.o. after midnight for cardiac angiogram. Appreciate A1c, lipid panel. Continue with full dose Lovenox 1 mg/kg body weight every 12 hourly. Continue with aspirin 81 mg daily, statin and Plavix as per cardiology team. (4) COPD (chronic obstructive pulmonary disease) case management patient: With mild exacerbation. DuoNeb every 6 hours, Pulmicort twice daily. Start on prednisone 40 mg oral daily. (5) Nonrheumatic aortic valve stenosis with regurgitation: Echocardiogram as above. Discussed with the patient with possible need of surgical management for aortic valve disease. Discussed about possible CABG plus aortic valve replacement depending on the finding of angiogram. Patient is agreeable for the treatment plan for now. (6) Peripheral Vascular Disease: Appreciate A1c, lipid panel. Appreciate lower limb KATHRYN. Aspirin 81 mg daily, start on statin 20 mg daily for now. (7) HTN (hypertension): Goal blood pressure less than 140/90 mmHg. Continue with home dose of propranolol for now which she also takes for essential tremors. Continue with low-dose losartan for now. Uptitrate as per goal blood pressure. Will uptitrate medications as per goal blood pressure. Qualifiers: Hypertension type: essential hypertension Qualified Code(s): I10 - Essential (primary) hypertension (8) Diabetes mellitus type 2 in nonobese: Insulin sliding scale. Carb consistent diet. Plan Chronic smoker. Smokes up to 12 cigarettes/day. Counseled in detail to quit smoking. Not requesting nicotine patch for now. Vitamin B12 deficiency: patient does not want to get vitamin B12 shots. Will start on oral vitamin B12 supplementation. Continue other chronic medications. CODE STATUS: Discussed today with the patient. He does not want any heroic measures. DNR/DNI. Carb consistent diet, n.p.o. after midnight. Protonix for PUD prophylaxis Heparin 5000 Q12 hourly for DVT prophylaxis Attestations 2 Medical Necessity Statement*: Requires further hospitalization for management of new onset congestive heart failure in setting of moderate and severe AR, non-ST elevation [place] in a patient with history of COPD Diagnoses Shortness of breath R06.02 Congestive heart failure I50.9 Non-ST elevation [place] (NSTEMI) I21.4 COPD (chronic obstructive pulmonary disease) case management patient J44.9 Nonrheumatic aortic valve stenosis with regurgitation I35.2 Peripheral Vascular Disease I73.9 Essential hypertension I10 Hypertension type: essential hypertension Diabetes mellitus type 2 in nonobese E11.9
[2024-04-22 15:38] LABS: Anion Gap 17.7 (5-19); Blood Urea Nitrogen 22 mg/dL (8-23); Calcium 8.6 mg/dL (8.5-10.5); Carbon Dioxide 26 mmol/L (22-29); Chloride 99 mmol/L (98-107); Creatinine Clr Calc Pharmacy 56.4982; Glucose 107 mg/dL (65-115); Osmolality Calculated 292 mOsm/kg (285-295); Potassium 3.7 mmol/L (3.5-5.1); Sodium 139 mmol/L (136-145)
--- NOTE | 2024-04-22 16:33 | NMCV_ITS ---
NM peggy perf SPECT r/s* [id number] Santa Baez Age: 74 Gender: F : 1950 Exam Date: 04/22/2024 16:33 Ordering Phys: Luis Bowman MD Technologist: GIO Nevarez Exam Location: [facility] Indications: NSTEMI STRESS TEST Please see separate stress test report in [facility] for full findings IMAGE PROTOCOL Rest/Stress 1 Day Radiopharmaceutical Dose (mCi) Administration Site Administered by Rest: Tc-99m 10.7 IV GIO Nevarez Sestamibi Stress:Tc-99m 32.9 IV GIO Nevarez Sestamibi Rest: 22-Apr-2024 60 Discovery 630 Stress: 22-Apr-2024 30 Discovery 630 Supine position only as patient was unable to lay prone. 0.4mg Lexiscan. SPECT RESULTS Technical Quality: Good Raw Data Analysis: Breast attenuation Image Corrections: No attenuation or motion correction applied Summed Stress Score: 10 Summed Rest Score: 16 Summed Difference Score: 1 PERFUSION FINDINGS There is a large area of mostly fixed perfusion defect noted in the inferolateral wall. This is consistent with large area of prior infarct with minimal jacquie-infarct ischemia in left circumflex artery territory. There is of medium to large sized area of partially reversible perfusion defect seen in inferior wall. This is consistent with medium to large sized area of prior infarct with small to medium sized area of jacquie-infarct ischemia in RCA territory. FUNCTIONAL RESULTS (calculated via Gated SPECT) Stress Image LV EF (%): 23 Stress EDV (mL):241 TID: 1.2 Stress ESV (mL):186 FUNCTIONAL FINDINGS: LV systolic function is severely reduced with EF of 23%. TID ratio is elevated. IMPRESSIONS 1. Abnormal myocardial perfusion imaging with large sized area of prior infarct with minimal jacquie-infarct ischemia seen in the left circumflex artery territory 2. Medium to large sized area of prior infarct with small to medium sized area of jacquie-infarct ischemia seen in RCA territory. 3. LV systolic function is severely reduced with EF of 23%. 4. TID ratio is elevated. This may represent multivessel coronary artery disease/ subendocardial ischemia. Kenny Madrid MD (Electronically Signed) Final Date: 22 April 2024 10:08 S
[2024-04-22] MEDS: cyanocobalamin 1,000 mcg Tablet 1000 MCG PO (16:53)
[2024-04-22 17:06] LABS: Glucose Point of Care 169 mg/dL (70-110)
--- NOTE | 2024-04-22 19:26 | PC.NURSE ---
at 1842 pt had a [address] Bowman and Dr. Espino both notified via Voalte. Patient asymptomatic. No response from either provider at this time.
[2024-04-22 20:16] LABS: Glucose Point of Care 187 mg/dL (70-110)
--- NOTE | 2024-04-22 20:29 | ECG_ITS ---
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: : 1950 Requested By: aJylen Espino Order Number: [id number] Reading MD: STEVEN JOHNSON Measurements Intervals [place] Rate: 65 P: 2 WI: 153 QRS: 17 QRSD: 113 T: 161 QT: 431 QTc: 449 Interpretive Statements SINUS RHYTHM LEFT VENTRICULAR HYPERTROPHY AND ST-T CHANGE [VOLTAGE CRITERIA PLUS ST/T ABNORMALITY] PROBABLE INFERIOR MYOCARDIAL INFARCTION , PROBABLY OLD [35 ms Q WAVE IN II/aVF] Compared to ECG 04/21/2024 13:11:45 No significant changes Electronically Signed On 04-24-2024 18:54:22 CDT by STEVEN JOHNSON [id number]
[2024-04-22 20:34] LABS: Anion Gap 18.7 (5-19); Blood Urea Nitrogen 25 mg/dL (8-23); Calcium 8.4 mg/dL (8.5-10.5); Carbon Dioxide 24 mmol/L (22-29); Chloride 99 mmol/L (98-107); Creatinine Clr Calc Pharmacy 56.2558; Glucose 191 mg/dL (65-115); Magnesium 1.9 mg/dL (1.7-2.3); Osmolality Calculated 296 mOsm/kg (285-295); Potassium 3.7 mmol/L (3.5-5.1); Sodium 138 mmol/L (136-145)
[2024-04-22 20:37] LABS: Troponin(5th) Baseline 313 ng/L (0-10)
[2024-04-22] MEDS: budesonide 0.5 mg/2 mL Neb INHALATION (20:50)
--- NOTE | 2024-04-22 22:08 | ECG_ITS ---
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: : 1950 Requested By: Jaylen Espino Order Number: [id number] Reading MD: STEVEN JOHNSON Measurements Intervals [place] Rate: 57 P: 22 CT: 177 QRS: 56 QRSD: 116 T: 154 QT: 463 QTc: 454 Interpretive Statements SINUS BRADYCARDIA LEFT VENTRICULAR HYPERTROPHY AND ST-T CHANGE [VOLTAGE CRITERIA PLUS ST/T ABNORMALITY] ANTERIOR MYOCARDIAL INFARCTION , PROBABLY indeterminate [40+ ms Q WAVE AND/OR ST/T ABNORMALITY IN V3/V4] Compared to ECG 04/22/2024 20:29:34 Sinus rhythm no longer present ST (T wave) deviation still present Myocardial infarct finding still present Electronically Signed On 04-24-2024 19:00:40 CDT by STEVEN JOHNSON [id number]
[2024-04-22 22:10] LABS: Troponin 5 2HR 289.8 ng/L (0-10); Troponin 5 2HR Delta -23.2 ABS# (0-10)
[2024-04-23] VITALS (14 sets, daily range): BP systolic 110–150; BP diastolic 40–54; PULSE 0–74; RESP 14–21; TEMP 36.5–37; O2SAT 90–98
[2024-04-23] MEDS: enoxaparin 80 mg/0.8 mL Syringe 70 MG SUBCUT ×2 (01:28→13:32)
--- NOTE | 2024-04-23 01:56 | ECG_ITS ---
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: : 1950 Requested By: Jaylen Espino Order Number: [id number] Jean MD: STEVEN JOHNSON Measurements Intervals [place] Rate: 53 P: 57 CT: 177 QRS: 76 QRSD: 114 T: 164 QT: 473 QTc: 445 Interpretive Statements SINUS BRADYCARDIA MODERATE INTRAVENTRICULAR CONDUCTION DELAY [110+ ms QRS DURATION] ST DEVIATION AND MODERATE T-WAVE ABNORMALITY, CONSIDER ANTEROLATERAL ISCHEMIA [-0.1+ mV T-WAVE IN V3-V6] ST DEVIATION AND MODERATE T-WAVE ABNORMALITY, CONSIDER INFERIOR ISCHEMIA [-0.1+ mV T-WAVE IN II/aVF] Compared to ECG 04/22/2024 22:08:45 Intraventricular conduction delay now present T-wave abnormality now present Possible ischemia now present Left ventricular hypertrophy no longer present ST (T wave) deviation no longer present Myocardial infarct finding no longer present Electronically Signed On 04-24-2024 18:57:46 CDT by STEVEN JOHNSON [id number]
[2024-04-23 03:21] LABS: Basophils # 0.1 10^3/uL (0.0-0.1); Basophils % 0.6 %; Eosinophils # 0.1 10^3/uL (0.0-0.8); Eosinophils % 0.7 %; Hematocrit 44.9 % (36-47); Lymphocytes # 2.8 10^3/uL (0.8-4.8); Lymphocytes % 25.9 %; Mean Corpuscular HGB Conc 33.9 g/dL (30-55); Mean Corpuscular Hemoglobin 31.3 pg (27-33); Mean Corpuscular Volume 92.6 fl (85-98); Mean Platelet Volume 10.3 fL (7.4-10.4); Monocytes % 8.7 %; Neutrophils # 7.01 10^3/uL (1.8-7.7); Neutrophils % 63.8 %; Nucleated Red Blood Cells % 0 %; Platelet Count 196 10^3/cmm (157-399); Red Blood Count 4.85 10^6/uL (3.85-5.65); Red Cell Distribution Width 13.6 % (12.1-15.1); White Blood Count 10.98 10^3/uL (3.29-11.43)
[2024-04-23 03:43] LABS: Troponin 5 6HR Delta -2.3 ng/L (0-12)
[2024-04-23 03:44] LABS: Alanine Aminotransferase 10 U/L (0-33); Albumin Level 3.8 g/dL (3.5-5.2); Alkaline Phosphatase 77 U/L (35-105); Anion Gap 16.1 (5-19); Aspartate Amino Transferase 13 U/L (0-32); Blood Urea Nitrogen 27 mg/dL (8-23); Calcium 8.4 mg/dL (8.5-10.5); Carbon Dioxide 27 mmol/L (22-29); Chloride 99 mmol/L (98-107); Creatinine Clr Calc Pharmacy 56.2558; Glucose 135 mg/dL (65-115); Osmolality Calculated 293 mOsm/kg (285-295); Potassium 4.1 mmol/L (3.5-5.1); Sodium 138 mmol/L (136-145); Total Bilirubin 0.4 mg/dL (0.15-1.2); Total Protein 5.8 g/dL (6.6-8.7); Troponin 5 6HR 310.7 ng/L (0-10)
[2024-04-23] MEDS: FUROsemide 10 mg/mL SDV 4mL 40 MG IVP (03:49)
[2024-04-23 06:27] LABS: Glucose Point of Care 131 mg/dL (70-110)
[2024-04-23] MEDS: morphine 4 mg/mL SDV 1 mL 2 MG IVP (06:53)
[2024-04-23] MEDS: levalbuterol 0.63 mg/3 mL Neb INHALATION ×3 (07:51→22:00)
[2024-04-23] MEDS: budesonide 0.5 mg/2 mL Neb INHALATION ×2 (07:51→22:00)
[2024-04-23] MEDS: ipratropium 0.5 mg/2.5 mL Neb INHALATION ×3 (07:52→22:00)
[2024-04-23] MEDS: CLONazepam 1 mg Tablet PO ×2 (07:57→17:24)
[2024-04-23] MEDS: atorvastatin 40 mg Tablet PO (07:58)
[2024-04-23] MEDS: losartan 50 mg Tablet 25 MG PO (07:58)
[2024-04-23] MEDS: potassium chloride ER 20 mEq Tablet PO ×2 (07:58→22:27)
[2024-04-23] MEDS: clopidogrel 75 mg Tablet PO (07:58)
[2024-04-23] MEDS: aspirin 81 mg EC Tablet PO (07:59)
[2024-04-23] MEDS: cyanocobalamin 1,000 mcg Tablet 1000 MCG PO (07:59)
--- NOTE | 2024-04-23 11:05 | PC.NURSE ---
to cardiac lab pack chemist at this time
--- NOTE | 2024-04-23 12:04 | PM.PN ---
Subjective Subjective: Patient was taken to the Humanities And Languages Professor today to rule out ischemic component of severely depressed ejection fraction and possible preop left and right heart catheterization before referring her for TAVR however on the table patient was not feeling good she was bradycardic systolic blood pressure dropped down to 70s she was complaining of right lower quadrant and back pain. She was taken off of the table as under the circumstances there is no urgency or emergency to do left heart catheterization she may need of further tune up and to rule out causes for hypotension right lower abdominal and back pain, will also ask for UA, ultrasound. Will hold beta-yaz, losartan, Lasix and potassium. Will give patient IV fluid Vitals/I&O/Wt Last Vital Signs Temp 98.3 F 04/23/24 07:54 Pulse 54 L 04/23/24 08:08 Resp 16 04/23/24 07:52 BP 140/52 04/23/24 07:58 Pulse Ox 90 04/23/24 07:54 O2 Del Method Nasal Cannula 04/23/24 07:54 O2 Flow Rate 0.5 04/22/24 13:16 04/22/24 04/23/24 04/23/24 22:59 06:59 14:59 Intake Total 240 / 480 Output Total 1600 / 2300 1200 / 3500 Balance -1360 / -1820 -1200 / -3020 Weight last 48 hrs Weight 160 lb 0.889 oz Weight 162 lb 0.636 oz Weight 163 lb 9.328 oz Weight 162 lb 11.218 oz Physical Exam Const: OTHER: GENERAL: Patient is alert, awake and oriented x3. Patient is mild distress nauseated not feeling good HEART: Regular S1 and S2. 2 x 6 systolic murmur, rub or gallop. LUNGS: Clear to auscultate bilaterally. ABDOMEN: Right inguinal region tenderness no abdominal rebound CENTRAL NERVOUS SYSTEM: Grossly nonfocal. EXTREMITIES: Lower extremities without edema bilaterally. Urinary Catheter Management: Estrella: Cath Placed During This Visit: yes Reason for Continuing Indwelling Catheter: Accurate Measurement of Urinary Output in Critically Ill Patients Urinary Catheter Date of Insertion: 04/21/24 Urinary Catheter Time of Insertion: 14:30 Data 04/23/24 03:06 04/23/24 03:06 Micro: Microbiology 04/21/24 15:01 Bacterial Antigens - Final Urine Kidney A&P Assessment and plan (1) Left ventricular systolic dysfunction (LVSD): New onset of left ventricle failure dysfunction may further require exploration with right and left heart catheterization however today we tried to perform left heart cath but patient was nauseated with abdominal pain and hypotensive would like to rule out urinary tract infection or abdominal etiology for now we will cancel left heart catheterization further plan will be advised once patient's current condition will improve (2) Severe aortic valve stenosis: Moderate to severe aortic valve stenosis she is not a candidate for open valve replacement May requiring TAVR before that we will perform right and left heart catheterization (3) Elevated troponin: Could be secondary to underlying obstructive coronary artery disease however demand ischemia is another possibility left heart cath is planned as above (4) Hypotension: Hypotension could be multifactorial including diuresis, infection sepsis. Will start patient on IV fluid urinalysis will be performed, abdominal pain will be evaluated by medicine colleagues. For now hold beta-yaz losartan and diuretics. (5) Abdominal pain: As per medicine Attestations Medical Necessity Statement*: Patient require continuation hospitalization for above defined care Coding Level of Care Code Acute Code for [facility] Diagnoses Left ventricular systolic dysfunction (LVSD) I51.9 Severe aortic valve stenosis I35.0 Elevated troponin R79.89 Hypotension I95.9 Abdominal pain R10.9
[2024-04-23 12:13] LABS: Glucose Point of Care 129 mg/dL (70-110)
--- NOTE | 2024-04-23 12:48 | PC.NURSE ---
received call from cardiac odd job laborer with pt update.Procedure was not able to be performed due to drop in heart rate (30's)..and drop in bp.returned to room via bed at 1150.250 cc ns bolus given and ivf's..ns started at 100 cc/hr as ordered.coreg and lasix held as ordered.pt appears drowsy..but oriented x 3.maew.hr in 50's and bp 120/40.will attempt cardiac angiogram tomorrow.
--- NOTE | 2024-04-23 13:24 | CTR_ITS ---
PROCEDURE INFORMATION: Exam: CT Abdomen And Pelvis Without Contrast Exam date and time: 04/23/2024 2:59 PM Age: 74 years old Clinical indication: Abdominal pain; Generalized; Additional info: Right lower quad pain TECHNIQUE: Imaging protocol: Computed tomography of the abdomen and pelvis without contrast. Radiation optimization: All CT scans at this facility use at least one of these dose optimization techniques: automated exposure control; mA and/or kV adjustment per patient size (includes targeted exams where dose is matched to clinical indication); or iterative reconstruction. COMPARISON: CT abdomen pelvis w con* [id number] 10/23/2021 5:51 PM RADIATION DOSE METRICS: Total DLP (mGy-cm): 627.7 FINDINGS: Lungs: There has been development of mild linear bilateral lower lobe atelectasis. Liver: Normal. No mass. Gallbladder and biliary ducts: Normal. No calcified stones. No ductal dilation. Pancreas: Normal. No ductal dilation. Spleen: Normal. No splenomegaly. Adrenal glands: Normal. No mass. Kidneys and ureters: Normal. No hydronephrosis. Stomach and bowel: There is moderate retained fecal material noted throughout the colon. No bowel obstruction. No abnormal bowel wall thickening. Appendix: No evidence of appendicitis. Intraperitoneal space: Unremarkable. No free air. No significant fluid collection. Vasculature: Fepyhqss-tf-dhudmi atherosclerotic vascular calcifications are noted.. No abdominal aortic aneurysm. Lymph nodes: Unremarkable. No enlarged lymph nodes. Urinary bladder: A Estrella catheter decompresses the urinary bladder. Reproductive: Unremarkable as visualized. Bones/joints: There are degenerative changes of the lumbar spine. No acute fractures Soft tissues: Scattered foci of subcutaneous gas within the soft tissues of the anterior abdominal wall likely reflect prior subcutaneous injection sites. CT/CT abdomen pelvis wo con [id number] IMPRESSION: 1. Constipation 2. No evidence of urinary tract calculus or obstruction or acute abdominal or pelvic inflammatory process
[2024-04-23 13:26] LABS: Methicillin-Resist S.aureu PCR NOT DETECTED (NOT DETECTED)
[2024-04-23 15:40] LABS: Anion Gap 14.3 (5-19); Blood Urea Nitrogen 31 mg/dL (8-23); Calcium 8.9 mg/dL (8.5-10.5); Carbon Dioxide 29 mmol/L (22-29); Chloride 99 mmol/L (98-107); Glucose 189 mg/dL (65-115); Osmolality Calculated 298 mOsm/kg (285-295); Potassium 4.3 mmol/L (3.5-5.1); Sodium 138 mmol/L (136-145)
[2024-04-23 15:42] LABS: Creatinine Clr Calc Pharmacy 45.7725
--- NOTE | 2024-04-23 16:54 | P.PN_ITS ---
Subjective 2 Subjective: Overnight patient had episode of nonsustained V. tach with mild chest pressure. Troponin cycled was done which was elevated but flat. Today morning patient remains on nasal cannula. States breathing is stable. Plan to undergo cardiac angiogram for evaluation of right and left heart pressure along with workup for ACS Vitals/I&O/Wt Last Vital Signs Temp 98.3 F 04/23/24 16:00 Pulse 67 04/23/24 16:00 Resp 14 04/23/24 16:00 BP 119/54 04/23/24 16:00 Pulse Ox 97 04/23/24 16:00 O2 Del Method Nasal Cannula 04/23/24 16:00 O2 Flow Rate 0.5 04/22/24 13:16 04/23/24 04/23/24 04/23/24 06:59 14:59 22:59 Output Total 1200 / 3500 Balance -1200 / -3020 Weight last 48 hrs Weight 72.6 kg Weight 73.5 kg Weight 74.2 kg Weight 73.8 kg Physical Exam 2 Narrative: General: No acute distress, AO x3, pleasant HEENT: PERRLA, pupils bilaterally equal and reactive Chest: Bilateral bronchial breath sounds all over lung enrique with occasional rhonchi y CVS: S1-S2 regular, ejection systolic murmur at aortic region grade 2 carotids 2/6, early diastolic murmur grade 2 pericardium, S3 gallop, no tachycardia, Abdomen: Soft, nontender, no organomegaly, bowel sounds present Neuro: No focal deficits, no facial deformity, AO x3, power 5/5 in all limbs Urinary Catheter Management: Estrella: Cath Placed During This Visit: yes Reason for Continuing Indwelling Catheter: Accurate Measurement of Urinary Output in Critically Ill Patients Urinary Catheter Date of Insertion: 04/21/24 Urinary Catheter Time of Insertion: 14:30 Data 04/23/24 03:06 04/23/24 14:43 A&P Assessment and plan (1) Shortness of breath: Most likely in setting of combination of congestive heart failure and COPD exacerbation. Oxygen supplementation keeping saturation 90%. Urine Legionella, bacterial antigen negative. MRSA swab pending. D-dimer slightly elevated. (2) Congestive heart failure: History of diastolic heart failure in setting of aortic regurgitation and stenosis. Concern for cardiomegaly on chest x-ray. proBNP elevated. Echocardiogram done shows EF of 38% with dilated LV cavity, dilated LA with moderate MR, moderate to severe aortic regurgitation with severe low gradient aortic stenosis with aortic valve area of 0.98, tricuspid regurgitation with PASP of 40 mmHg. Fluid restriction to less than 1500 cc. Appreciate cardiology recommendations. Continue with aggressive IV diuresis with 40 mg every 8 hourly. Estrella catheterization. Monitor BMP and potassium. Repeat BMP in evening. Strict input output charting, daily weights. Troponin cycle shows elevation. Concerns for non-ST elevation PR. Start on treatment for congestive heart failure with dilated to medical therapy. Continue on losartan 25 mg oral daily. Patient did have episode of nonsustained V. tach overnight. Will stop propranolol and add low-dose metoprolol succinate 12.5 mg oral daily. (3) Non-ST elevation PR (NSTEMI): Troponin cycle elevated. Appreciate echocardiogram with new low EF and direct LV cavity. Stress test done today shows large area of prior infarct with minimal jacquie- infarct ischemia in LCx territory and RCA territory. Appreciate cardiology recommendations. Appreciate A1c, lipid panel. Continue with full dose Lovenox 1 mg/kg body weight every 12 hourly. Continue with aspirin 81 mg daily, statin and Plavix as per cardiology team. Plan for cardiac angiogram today. (4) COPD (chronic obstructive pulmonary disease) case management patient: With mild exacerbation. DuoNeb every 6 hours, Pulmicort twice daily. Start on prednisone 40 mg oral daily. (5) Nonrheumatic aortic valve stenosis with regurgitation: Echocardiogram as above. Discussed with the patient with possible need of surgical management for aortic valve disease. Discussed about possible CABG plus aortic valve replacement depending on the finding of angiogram. Patient is agreeable for the treatment plan for now. (6) Peripheral Vascular Disease: Appreciate A1c, lipid panel. Appreciate lower limb KATHRYN. Aspirin 81 mg daily, statin 40 mg daily for now. (7) HTN (hypertension): Goal blood pressure less than 140/90 mmHg. Continue low-dose losartan. Adding low-dose metoprolol succinate as above. Stop propranolol. Uptitrate as per goal blood pressure. Will uptitrate medications as per goal blood pressure. Qualifiers: Hypertension type: essential hypertension Qualified Code(s): I10 - Essential (primary) hypertension (8) Diabetes mellitus type 2 in nonobese: Insulin sliding scale. Carb consistent diet. Plan Chronic smoker. Smokes up to 12 cigarettes/day. Counseled in detail to quit smoking. Not requesting nicotine patch for now. Vitamin B12 deficiency: patient does not want to get vitamin B12 shots. Will start on oral vitamin B12 supplementation. Continue other chronic medications. CODE STATUS: Discussed today with the patient. He does not want any heroic measures. DNR/DNI. Carb consistent diet, n.p.o. after midnight. Protonix for PUD prophylaxis Heparin 5000 Q12 hourly for DVT prophylaxis Attestations 2 Medical Necessity Statement*: Requires further hospitalization for management of congestive heart failure with non-ST elevation PR in setting of moderate , severe AI as patient requires further workup Diagnoses Shortness of breath R06.02 Congestive heart failure I50.9 Non-ST elevation PR (NSTEMI) I21.4 COPD (chronic obstructive pulmonary disease) case management patient J44.9 Nonrheumatic aortic valve stenosis with regurgitation I35.2 Peripheral Vascular Disease I73.9 Essential hypertension I10 Hypertension type: essential hypertension Diabetes mellitus type 2 in nonobese E11.9
[2024-04-23 17:10] LABS: Glucose Point of Care 150 mg/dL (70-110)
[2024-04-23] MEDS: predniSONE 20 mg Tablet 40 MG PO (17:24)
[2024-04-23] MEDS: bisacodyl 5 mg Tablet 10 MG PO (17:24)
[2024-04-23] MEDS: insulin lispro 100 unit/1 mL SUBCUT ×2 (17:59→22:28)
[2024-04-23 21:27] LABS: Glucose Point of Care 199 mg/dL (70-110)
[2024-04-23] MEDS: mirtazapine 30 mg Tablet PO (22:27)
[2024-04-24] VITALS (15 sets, daily range): BP systolic 108–139; BP diastolic 44–98; PULSE 64–96; RESP 16–25; TEMP 36.3–36.7; O2SAT 90–95
--- NOTE | 2024-04-24 02:09 | PC.NURSE ---
Patient possibly going for cath procedure in morning. Dr Escamilla gave order to hold lovenox
[2024-04-24 04:04] LABS: Basophils % 0.4 %; Hematocrit 50.2 % (36-47); Lymphocytes # 0.9 10^3/uL (0.8-4.8); Lymphocytes % 8.7 %; Mean Corpuscular HGB Conc 32.7 g/dL (30-55); Mean Corpuscular Hemoglobin 31.7 pg (27-33); Mean Corpuscular Volume 96.9 fl (85-98); Mean Platelet Volume 10.4 fL (7.4-10.4); Monocytes # 0.2 10^3/uL (0.2-0.9); Monocytes % 2.1 %; Neutrophils # 9.58 10^3/uL (1.8-7.7); Neutrophils % 88.2 %; Nucleated Red Blood Cells % 0 %; Platelet Count 220 10^3/cmm (157-399); Red Blood Count 5.18 10^6/uL (3.85-5.65); Red Cell Distribution Width 13.8 % (12.1-15.1); White Blood Count 10.85 10^3/uL (3.29-11.43)
[2024-04-24] MEDS: ipratropium 0.5 mg/2.5 mL Neb INHALATION ×4 (04:18→21:15)
[2024-04-24] MEDS: levalbuterol 0.63 mg/3 mL Neb INHALATION ×4 (04:19→21:15)
[2024-04-24 04:26] LABS: Alanine Aminotransferase 10 U/L (0-33); Alkaline Phosphatase 68 U/L (35-105); Blood Urea Nitrogen 32 mg/dL (8-23); Calcium 9.2 mg/dL (8.5-10.5); Carbon Dioxide 25 mmol/L (22-29); Chloride 101 mmol/L (98-107); Creatinine Clr Calc Pharmacy 50.3498; Globulin 2.6 g/dL (1.3-4.6); Glucose 157 mg/dL (65-115); Osmolality Calculated 298 mOsm/kg (285-295); Sodium 139 mmol/L (136-145); Total Bilirubin 0.4 mg/dL (0.15-1.2); Total Protein 6.6 g/dL (6.6-8.7)
[2024-04-24 04:33] LABS: Anion Gap 18.3 (5-19); Aspartate Amino Transferase 14 U/L (0-32); Potassium 5.3 mmol/L (3.5-5.1)
[2024-04-24] MEDS: Fleet Enema 133 mL Enema PR (04:34)
[2024-04-24] MEDS: ondansetron 2 mg/ML SDV 2 mL 4 MG IVP (04:58)
[2024-04-24 06:26] LABS: Glucose Point of Care 146 mg/dL (70-110)
[2024-04-24] MEDS: budesonide 0.5 mg/2 mL Neb INHALATION ×2 (07:40→21:15)
[2024-04-24] MEDS: clopidogrel 75 mg Tablet PO (08:25)
[2024-04-24] MEDS: aspirin 81 mg EC Tablet PO (08:25)
[2024-04-24] MEDS: predniSONE 20 mg Tablet 40 MG PO (08:25)
[2024-04-24] MEDS: atorvastatin 40 mg Tablet PO (08:25)
[2024-04-24] MEDS: CLONazepam 1 mg Tablet PO ×2 (08:25→18:04)
[2024-04-24] MEDS: diphenhydrAMINE 50 mg Capsule PO (08:26)
[2024-04-24] MEDS: cyanocobalamin 1,000 mcg Tablet 1000 MCG PO (08:26)
--- NOTE | 2024-04-24 08:26 | W.PM.OPSUD ---
Surgery/Procedure H&P Update DATE OF PROCEDURE: April 24, 2024 DATE H&P PERFORMED: 04/21/24 H&P UPDATE INFORMATION: I have reviewed H&P completed within last 30 days, I have examined patient prior to procedure and No changes to prior documentation PREOP DIAGNOSIS: New onset of heart failure, LV dysfunction, preop PLANNED PROCEDURE: Operation Date: 04/23/24 11:00 Proposed Procedures p Cardiac Catheterization(Not Applicable) - Eileen Escamilla MD PATIENT REASSESSED PRIOR TO SEDATION, WITH NO CHANGE NOTED: Yes PHYSICAL EXAM: alert, oriented x 3, clear to auscultation bilaterally, regular rate & rhythm and operative site marked AIRWAY EVAL/ANESTHESIA PLAN: ASA II, Risks, benefits & alternatives of sedation and/or procedure discussed and Patient agrees to continue as planned
--- NOTE | 2024-04-24 08:45 | XACV_ITS ---
Exam Room: [facility] Ht: 168 cm Wt: 73 kg BSA: 1.85 m2 Gender: Female : 1950 Any Known Allergies: Other Exam Priority: Routine Procedure(s): Procedure Description: Diagnostic procedure Procedure Description: Left Heart Catheterization Procedure Description: Right Heart Catheterization Procedure Description: Left ventriculography Procedure Description: O2 saturation Procedure Description: Coronary Angiography Andi CERRATO; Diagnostic Cath Status: Urgent Conclusions 1. 1. Left main is normal #2 LAD has luminal irregularities without significant stenosis, diagonal branch has luminal irregularities with doubt significant stenosis #3 left circumflex is nondominant mid groove left circumflex 70 to 80% lesion in the absence of chest pain non-STEMI can be treated medically #4 RCA is dominant vessel which is chronically occluded in the mid with [id number]-kzxml collaterals. 2. Right heart catheterizationPulmonary capillary wedge 15 mm Hg PA mean 23 mmHg RV 36/0 mmHg RA mean 6 mm HgNo significant intracardiac shunt or step-off noted. Recommendations * Usual post cath care. * Statin and aspirin 81mg lifelong, if tolerated. * Follow up with Dr. Brandon in four weeks and primary care physician in 10 days. * Guideline medical therapy for heart failure and LV dysfunction. Diagnostic RX Recommendation: medical therapy and/or counseling Ventriculography Ejection Fraction: 30.0 % Pressures Phase:Rest AO : 144 / 52 ( 85 ) @ 11:02:00 AM 112 / 53 ( 78 ) @ 11:03:00 AM 163 / 59 ( 97 ) @ 11:12:00 AM LV : 170 / 3 / 17 @ 11:10:00 AM 170 / 2 / 17 @ 11:12:00 AM 169 / 2 / 16 @ 11:12:00 AM RV : 36 / 0 / 8 @ 10:50:00 AM PA : 39 / 17 ( 23 ) @ 10:48:00 AM RA : a wave = 10 v wave = 7 mean = 6 @ 10:51:00 AM PCW : a wave = 16 v wave = 16 mean = 15 @ 10:49:00 AM O2 Content Phase:Rest PA : O2 Content O2: 62.5 @ 11:12:00 AM Saturations Phase:Rest AO : 85 @ 11:10:00 AM RA : 66 @ 11:03:00 AM RV : 61 @ 11:02:00 AM PA : 63 @ 11:12:00 AM Cardiac Output Phase:Rest Alden : 3 @ 10:22:29 AM Alden Cardiac Index: 2 @ 10:22:29 AM Flow Phase:Rest Qp : 3 @ 10:22:29 AM Qs : 4 @ 10:22:29 AM Valves Phase:DefaultPhase AV : 6.0 @ 10:22:29 AM AV Mean Gradient: 19.0 @ 10:22:29 AM AV Flow: 181 @ 10:22:29 AM AV Area: 0.9 @ 10:22:29 AM AV Area Index: 0.52 @ 10:22:29 AM Clinical Evaluation EBL: 5mL-10mL Procedural Details Procedure Consent Obtained. Hemodynamic formulas in Rest were re-calculated based on hemoglobin value from 04/24/2024 12:00:00 AM. Pre-Procedure Time Out. Identified patient by full name and date of as verbalized by the patient/guarantor. Does the consent match the physician's order: Yes. Accurate & Complete Informed Consent: Yes. Inpatient/Outpatient History & Physical on Chart: Yes. If H&P is completed, is and addenduem needed: No; If yes, is the addendum complete: N/A. Visualize and Verify Site with Patient/Guarantor: N/A. Relevant Radiology Images available: Yes. Pre-op teaching completed and patient verbalized understanding. The risks, benefits, and alternatives of sedation and/or procedure were discussed by physician. The patient agrees to continue. Procedure started. Physician arrived. [facility] Clinical Fraility Score: 4: Vulnerable. User Experience Designer Indications: Other. Chest Pain Symptom Assessment: Atypical Angina. Correct patient, site and procedure confirmed by cath team. PERRLA. Strong, equal hand rubber stamp die inspector bilaterally. Lungs clear x 5 lobes. IV Site on Arrival: 18 gauge in the right anticubital. IV Fluids: 0.9% NaCl at KVO. 800 mL infused prior to laboratory chemical assistant. right groin was prepped with chloroprep then draped in the usual sterile fashion. right radial was prepped with chloroprep then draped in the usual sterile fashion. right brachial was prepped with chloroprep then draped in the usual sterile fashion. Baseline sample Acquired. HR: 81 BPM. A 20 gauge IV was started in the left anticubital using aseptic technique. Physician scrubbed in. Immediate Pre-Procedure Time Out. Correct Patient: Yes; Correct Procedure: Yes; Correct Site: Yes; Correct Patient Position: Yes; Correct Supplies: Yes; Dried Flammable Prep: Yes; Blood Products Available: N/A;. Lidocaine 1% infiltrated to the right brachial. Sheath wire inserted through the IV catheter. IV catheter removed OTW. Stroud-Mariela MON catheter inserted. Oximetry samples were obtained. Normal venous range: 60-85%. Normal arterial range: 95-100%. Pressure measurements obtained. Stroud-Mariela out. Lidocaine 1% infiltrated to the right radial. Arterial access obtained. Lidocaine 1% infiltrated to the right radial. Oxygen started at 2liters/min via nasal canula. A 5 kiswahili TIG catheter in over wire. Marcell Price scrubbed out. Olivia Lerma scrubbed in. Multiple views taken of left coronary artery. Catheter redirected to the RCA. Multiple views taken of right coronary artery. Catheter removed over the exchange wire. A 5 kiswahili Angled Pig catheter in over wire. EDP Sample taken: LV 170/3,17; HR: 81 BPM; SpO2: 95%. LV gram performed in MORENO @ 10 mL/second for a total of 20 mL. Patient EF: Abnormal. EDP Sample taken: LV 170/2,17; HR: 77 BPM; SpO2: 96%. Pullback taken: LV 169/2,16; AO 163/59(97); Mean: 19mmHg, Peak to Peak: 6mmHg, SEP: 19sec/min; HR: 78 BPM; SpO2: 96%. Catheter removed over the exchange wire. A TR Band was successful obtaining hemostatsis at the Right Radial artery insertion site. A Manual Compression was successful obtaining hemostatsis at the Right Brachial Vein insertion site. Post Procedure: Pulses reassessed and unchanged. PERRLA. Strong, equal hand rubber stamp die inspector bilaterally. No VTE prophylaxis required. Medication's Wasted: Lidocaine 1% = 15 mL. Medication's Wasted: Nitro = 49.8 mcg. Medication's Wasted: Heparin = 1000 units. Medication's Wasted: Other = Fentanyl 50 mcg. Vital chart was stopped. Total IV fluids: 25 mL. Complications: None. Estimated blood loss: 5mL-10mL. Responsiveness - Normal response to verbal stimuli; alert and oriented, PERRLA. Airway - Unaffected, no intervention required; spontaneous ventilation. Circulation: W/N/L, pulses unchanged. Nausea/Vomiting: No. Procedure completed. Patient transferred by bed to 1st floor. Access Site Site: Right Brachial Vein Sheath Size: 6 Fr Hemostasis Method: Manual Compression Hemostasis Success: Successful Site: Right Radial artery Sheath Size: 6 Fr Hemostasis Method: TR Band Hemostasis Success: Successful Procedure Medications Start: 9:28 AM Stop: 9:28 AM Medication: Versed Amount: 1 mg Route: I.V. Start: 9:38 AM Stop: 9:38 AM Medication: Fentanyl Amount: 25 mcg Start: 9:43 AM Stop: 9:43 AM Medication: Versed Amount: 1 mg Route: I.V. Start: 9:57 AM Stop: 9:57 AM Medication: Fentanyl Amount: 25 mcg Start: 10:00 AM Stop: 10:00 AM Medication: Nitrogylcerin Amount: 200 mcg Route: I.A. Start: 10:02 AM Stop: 10:02 AM Medication: Heparin Amount: 5000 units Route: I.V. I, the attending physician, have reviewed and verified all procedure medications. Yes, all medications given per verbal order History/Risk Factors Hypertension: Yes Dyslipidemia: No Peripheral Arterial Disease (PAD): Yes Myocardial Infarction (DC): No Obesity: No Renal Disease: No Tobacco Use: Current/Recent(w/in 1 year) Prior Interventions PCI: No CABG: No Valve Surgery: No Report Signatures Finalized by Eileen Escamilla MD on 04/24/2024 10:41 AM
[2024-04-24 10:03] LABS: Alveolar-Arterial Oxygen Gradi 6.6 mmHg (5-10); Arterial Blood Gas Hematocrit 48.6 % (37-47); Blood Gas Operator Identificat WALCI; Blood Gas Sample Type Arterial; Carboxyhemoglobin 1.3 %THgb (0.4-20.1); Methemoglobin 1.1 % (0.4-1.5); Total Hemoglobin 15.9 g/dL (12-16)
[2024-04-24 10:05] LABS: Arterial Blood Gas Hematocrit 48.6 % (37-47); Blood Gas Operator Identificat WALCI; Blood Gas Sample Type Not specified; Carboxyhemoglobin 1.3 %THgb (0.4-20.1); HGB O2 Sat 61.1 % (95-100); Total Hemoglobin 15.9 g/dL (12-16)
[2024-04-24 10:07] LABS: Blood Gas Operator Identificat WALCI; Blood Gas Sample Type Not specified; Carboxyhemoglobin 1.3 %THgb (0.4-20.1)
[2024-04-24 10:09] LABS: Arterial Blood Gas Hematocrit 49.2 % (37-47); HGB O2 Sat 59.6 % (95-100); Total Hemoglobin 16.1 g/dL (12-16)
--- NOTE | 2024-04-24 11:43 | P.PN_ITS ---
Subjective 2 Subjective: No acute events overnight. Patient has remained hemodynamically stable and afebrile. She is on 2 L of oxygen supplementation saturating more than 95%. Has tolerated IV fluids well overnight. Today morning she again underwent angiogram which she was able to tolerate safely. After procedure she denies any nausea, vomiting, headache. Denies any difficulty in breathing. Seen comfortably having her meal. Vitals/I&O/Wt Last Vital Signs Temp 98.1 F 04/24/24 07:50 Pulse 79 04/24/24 07:54 Resp 16 04/24/24 07:41 BP 138/49 04/24/24 07:50 Pulse Ox 94 04/24/24 07:50 O2 Del Method Room Air 04/24/24 07:50 O2 Flow Rate 2 04/23/24 21:50 04/23/24 04/24/24 04/24/24 22:59 06:59 14:59 Output Total 500 / 500 400 / 900 Balance -500 / -500 -400 / -900 Weight last 48 hrs Weight 75.6 kg Weight 72.6 kg Weight 73.5 kg Physical Exam 2 Narrative: General: No acute distress, AO x3, pleasant HEENT: PERRLA, pupils bilaterally equal and reactive Chest: Bilateral bronchial breath sounds all over lung enrique with occasional rhonchi y CVS: S1-S2 regular, ejection systolic murmur at aortic region grade 2 carotids 2/6, early diastolic murmur grade 2 pericardium, S3 gallop, no tachycardia, Abdomen: Soft, nontender, no organomegaly, bowel sounds present Neuro: No focal deficits, no facial deformity, AO x3, power 5/5 in all limbs Urinary Catheter Management: Estrella: Cath Placed During This Visit: yes Reason for Continuing Indwelling Catheter: Accurate Measurement of Urinary Output in Critically Ill Patients Urinary Catheter Date of Insertion: 04/21/24 Urinary Catheter Time of Insertion: 14:30 Data 04/24/24 03:05 04/24/24 03:05 Micro: Microbiology 04/23/24 12:40 Urine Culture - Preliminary Urine Catheterized Gram Negative Rods A&P Assessment and plan (1) Shortness of breath: Most likely in setting of combination of congestive heart failure and COPD exacerbation. Oxygen supplementation keeping saturation 90%. Urine Legionella, bacterial antigen negative. MRSA swab pending. D-dimer slightly elevated. (2) Congestive heart failure: History of diastolic heart failure in setting of aortic regurgitation and stenosis. Concern for cardiomegaly on chest x-ray. proBNP elevated. Echocardiogram done shows EF of 38% with dilated LV cavity, dilated LA with moderate MR, moderate to severe aortic regurgitation with severe low gradient aortic stenosis with aortic valve area of 0.98, tricuspid regurgitation with PASP of 40 mmHg. Fluid restriction to less than 1500 cc. Appreciate cardiology recommendations. Continue with IV hydration postprocedure for now. Will start on oral Bumex 1 mg daily from a.m. tomorrow. Patient so far is overall around 5 L negative though intake output is not regularly properly charted Estrella catheterization. Monitor BMP and potassium. Strict input output charting, daily weights. Start on treatment for congestive heart failure with dilated to medical therapy. Restart losartan 25 mg oral daily from tomorrow along with metoprolol 12.5 mg daily. (3) Non-ST elevation [place] (NSTEMI): Troponin cycle elevated. Appreciate echocardiogram with new low EF and direct LV cavity. Stress test done today shows large area of prior infarct with minimal jacquie- infarct ischemia in LCx territory and RCA territory. Underwent cardiac angiogram on 04/24 where she was found to have 70 to 80% lesion in LCx. As patient did not have any chest pain decision was to treat medically. Appreciate A1c, lipid panel. Continue with full dose Lovenox 1 mg/kg body weight every 12 hourly for overall 72 hours. Continue with aspirin 81 mg daily, statin and Plavix as per cardiology team. (4) COPD (chronic obstructive pulmonary disease) case management patient: With mild exacerbation. DuoNeb every 6 hours, Pulmicort twice daily. Continue with prednisone 40 mg daily for 5 days. (5) Nonrheumatic aortic valve stenosis with regurgitation: Echocardiogram as above. Discussed with the patient with possible need of surgical management for aortic valve disease. Discussed about possible CABG plus aortic valve replacement depending on the finding of angiogram. Patient is agreeable for the treatment plan for now. (6) Peripheral Vascular Disease: Appreciate A1c, lipid panel. Appreciate lower limb KATHRYN. Aspirin 81 mg daily, statin 40 mg daily for now. (7) HTN (hypertension): Goal blood pressure less than 140/90 mmHg. Continue low-dose losartan. Adding low-dose metoprolol succinate as above. Stop propranolol. Uptitrate as per goal blood pressure. Will uptitrate medications as per goal blood pressure. Qualifiers: Hypertension type: essential hypertension Qualified Code(s): I10 - Essential (primary) hypertension (8) Diabetes mellitus type 2 in nonobese: Insulin sliding scale. Carb consistent diet. Plan Chronic smoker. Smokes up to 12 cigarettes/day. Counseled in detail to quit smoking. Not requesting nicotine patch for now. Vitamin B12 deficiency: patient does not want to get vitamin B12 shots. Will start on oral vitamin B12 supplementation. Abdominal pain: CT abdomen pelvis yesterday consistent with constipation. Continue with aggressive bowel regimen with senna Colace and milk of magnesia daily. Continue other chronic medications. CODE STATUS: Discussed today with the patient. He does not want any heroic measures. DNR/DNI. Carb consistent diet, n.p.o. after midnight. Protonix for PUD prophylaxis Heparin 5000 Q12 hourly for DVT prophylaxis Attestations 2 Medical Necessity Statement*: Requires further hospitalization for management of congestive heart failure in setting of moderate AAS, severe AI, non-ST ovation IL with single-vessel disease to LCx while medical management is optimized Diagnoses Shortness of breath R06.02 Congestive heart failure I50.9 Non-ST elevation IL (NSTEMI) I21.4 COPD (chronic obstructive pulmonary disease) case management patient J44.9 Nonrheumatic aortic valve stenosis with regurgitation I35.2 Peripheral Vascular Disease I73.9 Essential hypertension I10 Hypertension type: essential hypertension Diabetes mellitus type 2 in nonobese E11.9
[2024-04-24 11:49] LABS: Glucose Point of Care 223 mg/dL (70-110)
[2024-04-24] MEDS: insulin lispro 100 unit/1 mL SUBCUT ×3 (13:52→21:03)
[2024-04-24] MEDS: enoxaparin 80 mg/0.8 mL Syringe 70 MG SUBCUT (13:52)
[2024-04-24] MEDS: guaiFENesin 600 mg Tablet PO ×2 (14:16→18:04)
--- NOTE | 2024-04-24 15:09 | PM.PN ---
Subjective Subjective: Patient finally had stool after enema abdominal pain improved IV fluid improved blood pressure as well This morning underwent left heart catheterization showed chronically occluded RCA with [id number] collateral and distal groove circumflex 70 to 80% stenosis thought to be managed medically however large obtuse marginal LAD has luminal irregularity without significant stenosis. Medications: Medication Review Details: Current Medications Acetaminophen (Acetaminophen 325 Mg Tablet) 650 mg PO Q6H PRN PRN Reason: Mild/Mod Pain Or Temp >/= 101 Aminophylline (Aminophylline 25 Mg/Ml Sdv 10 Ml) 25 mg IVP Q2M PRN PRN Reason: see dose instructions Stop: 04/23/24 06:26 Aspirin (Aspirin 81 Mg Ec Tablet) 81 mg PO DAILY GILBERTO Atorvastatin Calcium (Atorvastatin 40 Mg Tablet) 40 mg PO DAILY GILBERTO Bisacodyl (Bisacodyl 5 Mg Tablet) 10 mg PO DAILY PRN; Protocol PRN Reason: Constipation (see protocol) Budesonide (Budesonide 0.5 Mg/2 Ml Neb) 0.5 mg INHALATION BID.RESPIRATORY GILBERTO Last Admin: 04/22/24 08:28 Dose: Not Given Clonazepam (Clonazepam 1 Mg Tablet) 1 mg PO BID GILBERTO Last Admin: 04/21/24 17:30 Dose: 1 mg Cyanocobalamin (Cyanocobalamin 1,000 Mcg/Ml Sdv) 1,000 mcg IM DAILY GILBERTO Last Admin: 04/21/24 17:32 Dose: Not Given Enoxaparin Sodium (Enoxaparin 80 Mg/0.8 Ml Syringe) 70 mg SUBCUT Q12H GILBERTO Last Admin: 04/22/24 00:52 Dose: 70 mg Furosemide (Furosemide 10 Mg/Ml Sdv 4ml) 40 mg IVP Q8H GILBERTO Last Admin: 04/22/24 05:40 Dose: 40 mg Glucagon (Glucagon 1 Mg/Ml Kit 1 Ml) 1 mg IM ONCE PRN; Protocol PRN Reason: Adult Acute Hypoglycemia Nursing Prot. Dextrose (D5w) 500 mls @ 0 mls/hr IV ONCE PRN; Protocol PRN Reason: Adult Acute Hypoglycemia Prot Dextrose (D10w) 125 mls @ 750 mls/hr IV PRN PRN; Protocol PRN Reason: Adult Acute Hypoglycemia Nursing Protocol Dextrose (D10w) 250 mls @ 1,000 mls/hr IV PRN PRN; Protocol PRN Reason: Adult Acute Hypoglycemia Nursing Protocol Insulin Human Lispro (Insulin Lispro 100 Unit/1 Ml) 0 unit SUBCUT WM&BEDTIME GILBERTO; Protocol Last Admin: 04/21/24 22:24 Dose: 8 unit Ipratropium [place] (Ipratropium 0.5 Mg/2.5 Ml Neb) 0.5 mg INHALATION Q6H.RESP [facility] Last Admin: 04/22/24 08:28 Dose: Not Given Lactulose (Lactulose Oral Liq 20 Gm/30 Ml Udc) 10 gm PO DAILY PRN; Protocol PRN Reason: Constipation (see protocol) Levalbuterol HCl (Levalbuterol 0.63 Mg/3 Ml Neb) 0.63 mg INHALATION Q6H.RESP [facility] Last Admin: 04/22/24 08:28 Dose: Not Given Losartan Potassium (Losartan 50 Mg Tablet) 25 mg PO DAILY [facility] Last Admin: 04/21/24 22:23 Dose: 25 mg Magnesium Hydroxide (Magnesium Hydroxide 30 Ml Udc) 30 ml PO DAILY PRN; Protocol PRN Reason: Constipation (see protocol) Mirtazapine (Mirtazapine 30 Mg Tablet) 30 mg PO DAILY [facility] Morphine Sulfate (Morphine 4 Mg/Ml Sdv 1 Ml) 2 mg IVP Q4H PRN PRN Reason: SEVERE PAIN Last Admin: 04/22/24 00:52 Dose: 2 mg Nitroglycerin (Nitroglycerin 0.4 Mg Sublingual Tablet) 0.4 mg SUBLINGUAL Q5M PRN PRN Reason: CHEST PAIN Stop: 04/23/24 06:26 Ondansetron HCl (Ondansetron 2 Mg/Ml Sdv 2 Ml) 4 mg IVP Q8H PRN PRN Reason: vomiting, or N/V if npo Ondansetron HCl (Ondansetron 2 Mg/Ml Sdv 2 Ml) 4 mg IVP Q2M PRN PRN Reason: NAUSEA Potassium Chloride (Potassium Chloride Er 20 Meq Tablet) 20 meq PO Q12H [facility] Last Admin: 04/21/24 22:23 Dose: 20 meq Propranolol HCl (Propranolol 20 Mg Tablet) 10 mg PO BID [facility] Last Admin: 04/21/24 17:30 Dose: 10 mg Vitals/I&O/Wt Last Vital Signs Temp 97.8 F 04/24/24 11:55 Pulse 83 04/24/24 13:27 Resp 18 04/24/24 13:27 BP 139/95 04/24/24 11:55 Pulse Ox 93 04/24/24 13:27 O2 Del Method Nasal Cannula 04/24/24 13:27 O2 Flow Rate 1 04/24/24 13:27 04/24/24 04/24/24 04/24/24 06:59 14:59 22:59 Intake Total 480 / 480 Output Total 400 / 900 Balance -400 / -900 480 / 480 Weight last 48 hrs Weight 166 lb 10.711 oz Weight 160 lb 0.889 oz Weight 162 lb 0.636 oz Physical Exam Const: COMMON NORMALS: alert OTHER: Alert awake oriented x3 Heart regular S1-S2 1/6 sys ejection murmur Lungs clear to auscultate DATA PROGRAMMER gross normal Resp: COMMON NORMALS: clear to auscultation bilaterally AUSCULTATION: clear to auscultation bilaterally Neuro: SENSORIUM/ORIENTATION: Yes alert Urinary Catheter Management: Estrella: Cath Placed During This Visit: yes Reason for Continuing Indwelling Catheter: Accurate Measurement of Urinary Output in Critically Ill Patients Urinary Catheter Date of Insertion: 04/21/24 Urinary Catheter Time of Insertion: 14:30 Data 04/24/24 03:05 04/24/24 03:05 Micro: Microbiology 04/23/24 12:40 Urine Culture - Preliminary Urine Catheterized Gram Negative Rods A&P Assessment and plan (1) Left ventricular systolic dysfunction (LVSD): Left and right heart cath was performed. Patient wedge PA pressure and right-sided heart pressures were within normal limit. LAD left main and obtuse marginal was free of disease, groove circumflex has moderate distal lesion while RCA is chronically present middle with [id number] collaterals. Medical management is suggested as this pattern of coronary artery disease does not explain drop in ejection fraction most likely it is secondary to nonischemic etiology. Add Entresto Continue aspirin statin beta-yaz (2) Severe aortic valve stenosis: Stable moderate aortic stenosis continue to monitor (3) Elevated troponin: Due to underlying chronic load RCA with [id number] collaterals and moderate lesion in the distal circumflex being in A-fib RVR heart failure although his factor will lead to demand ischemia though it was not true or type I (4) Hypotension: Continue holding diuretics IV fluid improved hypertension, LVEDP was within normal limit Continue current regimen (5) Abdominal pain: Possible due to stool impaction after enema and production of some stool patient abdominal pain has improved Attestations Medical Necessity Statement*: Patient require continuation hospitalization for above defined care Coding Level of Care Code Acute Code for Chg Fwd Diagnoses Left ventricular systolic dysfunction (LVSD) I51.9 Severe aortic valve stenosis I35.0 Elevated troponin R79.89 Hypotension I95.9 Abdominal pain R10.9
[2024-04-24 17:39] LABS: Glucose Point of Care 244 mg/dL (70-110)
[2024-04-24 20:09] LABS: Glucose Point of Care 200 mg/dL (70-110)
[2024-04-24] MEDS: mirtazapine 30 mg Tablet PO (21:04)
[2024-04-25] VITALS (13 sets, daily range): BP systolic 113–150; BP diastolic 46–81; PULSE 65–86; RESP 16–23; TEMP 36.6–36.8; O2SAT 90–98
[2024-04-25] MEDS: enoxaparin 80 mg/0.8 mL Syringe 70 MG SUBCUT ×2 (01:08→13:00)
[2024-04-25] MEDS: ipratropium 0.5 mg/2.5 mL Neb INHALATION ×4 (03:27→21:11)
[2024-04-25] MEDS: levalbuterol 0.63 mg/3 mL Neb INHALATION ×4 (03:27→21:10)
[2024-04-25 04:11] LABS: Basophils % 0.2 %; Eosinophils % 0.1 %; Hematocrit 46.4 % (36-47); Lymphocytes # 2.1 10^3/uL (0.8-4.8); Lymphocytes % 14.3 %; Mean Corpuscular HGB Conc 32.5 g/dL (30-55); Mean Corpuscular Hemoglobin 31.1 pg (27-33); Mean Corpuscular Volume 95.5 fl (85-98); Mean Platelet Volume 10.5 fL (7.4-10.4); Monocytes # 1.2 10^3/uL (0.2-0.9); Monocytes % 8.4 %; Neutrophils # 11.01 10^3/uL (1.8-7.7); Neutrophils % 76.6 %; Nucleated Red Blood Cells % 0 %; Platelet Count 197 10^3/cmm (157-399); Red Blood Count 4.86 10^6/uL (3.85-5.65); Red Cell Distribution Width 13.4 % (12.1-15.1); White Blood Count 14.38 10^3/uL (3.29-11.43)
[2024-04-25 04:43] LABS: Alanine Aminotransferase 12 U/L (0-33); Albumin Level 3.8 g/dL (3.5-5.2); Alkaline Phosphatase 70 U/L (35-105); Anion Gap 15.6 (5-19); Aspartate Amino Transferase 16 U/L (0-32); Blood Urea Nitrogen 27 mg/dL (8-23); Calcium 8.8 mg/dL (8.5-10.5); Carbon Dioxide 29 mmol/L (22-29); Chloride 102 mmol/L (98-107); Creatinine Clr Calc Pharmacy 56.9831; Globulin 2.3 g/dL (1.3-4.6); Glucose 126 mg/dL (65-115); Osmolality Calculated 301 mOsm/kg (285-295); Potassium 4.6 mmol/L (3.5-5.1); Sodium 142 mmol/L (136-145); Total Bilirubin 0.5 mg/dL (0.15-1.2); Total Protein 6.1 g/dL (6.6-8.7)
[2024-04-25 06:55] LABS: Glucose Point of Care 147 mg/dL (70-110)
[2024-04-25] MEDS: metoprolol succinate ER (24 HR) 25 mg Tablet 12.5 MG PO (08:21)
[2024-04-25] MEDS: clopidogrel 75 mg Tablet PO (08:21)
[2024-04-25] MEDS: guaiFENesin 600 mg Tablet PO ×2 (08:21→17:42)
[2024-04-25] MEDS: CLONazepam 1 mg Tablet PO (08:22)
[2024-04-25] MEDS: bumetanide 1 mg Tablet PO (08:22)
[2024-04-25] MEDS: predniSONE 20 mg Tablet 40 MG PO (08:22)
[2024-04-25] MEDS: cyanocobalamin 1,000 mcg Tablet 1000 MCG PO (08:22)
[2024-04-25] MEDS: magnesium hydroxide 30 mL UDC PO (08:22)
[2024-04-25] MEDS: aspirin 81 mg EC Tablet PO (08:22)
[2024-04-25] MEDS: atorvastatin 40 mg Tablet PO (08:22)
[2024-04-25] MEDS: budesonide 0.5 mg/2 mL Neb INHALATION ×2 (09:27→21:11)
--- NOTE | 2024-04-25 09:35 | USCV_ITS ---
Santa Baez Age: 74 Gender: F : 1950 Exam Date: 04/25/2024 10:14 Ordering Phys: Ahmet Brandon MD ([email or web address]) Technologist: [place] [facility] [place]: chf BP: / HR: Rhythm: Sinus Technical Quality: Adequate MEASUREMENTS (Male / Female) Normal Values 2D ECHO LV Diastolic Diameter PLAX 5.6 cm 4.2 - 5.9 / 3.9 - 5.3 cm IVS Diastolic Thickness 1.3 cm 0.6 - 1.0 / 0.6 - 0.9 cm IVS Systolic Thickness 1.6 cm LVPW Diastolic Thickness 1.1 cm 0.6 - 1.0 / 0.6 - 0.9 cm LVPW Systolic Thickness 1.5 cm LVOT Diameter 2.0 cm LV Ejection Fraction 2D Teich 39.7 % LV Ejection Fraction MOD 4C 14.5 % LV Ejection Fraction MOD 2C 58.2 % LV Ejection Fraction 2C AL 58.6 % LA Diameter 3.2 cm RA Systolic Volume 4C AL 51.2 ml RA Systolic Volume 4C MOD 47.4 ml Aorta at Sinotubular Diameter 2.7 cm FINDINGS Left Ventricle Diffuse hypokinesia of left ventricule with an ejection fraction of 25 to 30%. Mildly dilated LV cavity. Right Ventricle Right ventricle is of normal size and ejection fraction. Right Atrium Possibly of normal size Left Atrium Appears to be of normal size Mitral Valve Mildly thickened mitral valve. Mild mitral annular calcification. Aortic Valve Thickened aortic valve. Tricuspid Valve No gross abnormalities noted Pulmonic Valve Pulmonic valve not well visualized. Pericardium No pericardial effusion. Aorta Normal aortic annulus size. IVC Inferior vena cava not visualized. CONCLUSIONS Diffuse hypokinesia of left ventricule with an ejection fraction of 25 to 30%. Mildly dilated LV cavity. Mildly thickened mitral valve. Mild mitral annular calcification. Thickened aortic valve. No pericardial effusion. No intracardiac masses Compared to the previous study from 04/21/2024, there seems to be a slight drop in the LV ejection fraction Dr Ahmet Brandon MD [facility] (Electronically Signed) Final Date: 25 April 2024 17:24 S
[2024-04-25] MEDS: losartan 50 mg Tablet 25 MG PO (09:37)
--- NOTE | 2024-04-25 11:42 | PC.SOCIAL ---
IMM Updated Updated pt on IMM. No questions voiced. Provided pt a copy. Initialed, dated, & timed copy in chart.
[2024-04-25 12:02] LABS: Glucose Point of Care 255 mg/dL (70-110)
[2024-04-25] MEDS: insulin lispro 100 unit/1 mL SUBCUT ×3 (12:05→20:34)
--- NOTE | 2024-04-25 14:02 | PM.PN ---
Subjective Subjective: She denies chest pain or pressure. She has been seen by cardiology, tells me they are further adjusting her medications. She additionally expresses concern regarding returning to her current living conditions. She states that they [place] and that she is concerned about getting appropriate care. Additionally has been feeling weak/deconditioned, concerned about her functional capacity. Vitals/I&O/Wt Last Vital Signs Temp 97.9 F 04/25/24 13:15 Pulse 83 04/25/24 13:15 Resp 16 04/25/24 09:28 BP 133/54 04/25/24 13:15 Pulse Ox 91 04/25/24 13:15 O2 Del Method Room Air 04/25/24 09:41 O2 Flow Rate 1 04/25/24 03:25 04/24/24 04/25/24 04/25/24 22:59 06:59 14:59 Intake Total 240 / 240 Output Total 450 / 450 275 / 275 Balance -450 / 30 -35 / -35 Weight last 48 hrs Weight 75.024 kg Weight 75.6 kg Weight 75.6 kg Physical Exam Narrative: Sitting up in bed. Const: COMMON NORMALS: patient oriented x3 and alert GENERAL APPEARANCE: cooperative ORIENTATION/CONSCIOUSNESS: Yes awake HENMT: COMMON NORMALS: oropharynx normal Neck/C-Spine: COMMON NORMALS: no JVD Resp: COMMON NORMALS: normal respiratory effort and clear to auscultation bilaterally AUSCULTATION: clear to auscultation bilaterally Cardio: COMMON NORMALS: no JVD, regular rhythm, S1 normal heart sound present, S2 normal heart sound present and No murmurs present (Cardio) RHYTHM: regular rhythm HEART SOUNDS: S1 normal heart sound present and S2 normal heart sound present GI: COMMON NORMALS: Normal to inspection, nondistended, normoactive bowel sounds present, Soft to palpation and non-tender PALPATION: Yes Soft to palpation Extremity: COMMON NORMALS: no joint enlargement and no pedal edema Neuro: COMMON NORMALS: patient oriented x3 and moves all extremities SENSORIUM/ORIENTATION: Yes alert Skin: COMMON NORMALS: no rashes or lesions noted GENERAL SKIN EXAM: no rashes or lesions noted Urinary Catheter Management: Estrella: Cath Placed During This Visit: yes Reason for Continuing Indwelling Catheter: Accurate Measurement of Urinary Output in Critically Ill Patients Urinary Catheter Date of Insertion: 04/21/24 Urinary Catheter Time of Insertion: 14:30 Data 04/25/24 03:56 04/25/24 03:56 Micro: Microbiology 04/23/24 12:40 Urine Culture - Preliminary Urine Catheterized Gram Negative Rods A&P Assessment and plan (1) Congestive heart failure: Reviewed with vitals, CBC, CMP, discussed with dental hygiene professor. Cardiology obtained repeat echocardiogram, reviewed results. As per discussion with cardiology EF is down to 25 to 30%. Will need LifeVest. Losartan is added. Reassess blood pressure. Recheck kidney function. Continue bumetanide. With significant deconditioning would benefit from rehabilitation, discussed with correctional case records supervisor, arrangements underway for her to go to SNF. History of diastolic heart failure in setting of aortic regurgitation and stenosis. Concern for cardiomegaly on chest x-ray. proBNP elevated. Prior echocardiogram EF of 38% with dilated LV cavity, dilated LA with moderate MR, moderate to severe aortic regurgitation with severe low gradient aortic stenosis with aortic valve area of 0.98, tricuspid regurgitation with PASP of 40 mmHg. Fluid restriction to less than 1500 cc. Estrella catheterization. Recheck BMP and potassium. Strict input output charting, daily weights. Losartan 25 mg oral daily from tomorrow along with metoprolol 12.5 mg daily. (2) Shortness of breath: Most likely in setting of combination of congestive heart failure and COPD exacerbation. Oxygen supplementation keeping saturation 90%. Urine Legionella, bacterial antigen negative. MRSA swab pending. D-dimer slightly elevated. (3) Non-ST elevation [place] (NSTEMI): Stop therapeutic Lovenox. Switch to Prophylactic. Troponin cycle elevated. Continue aspirin, Plavix atorvastatin, metoprolol. Appreciate echocardiogram with new low EF and direct LV cavity. Stress test shows large area of prior infarct with minimal jacquie-infarct ischemia in LCx territory and RCA territory. Underwent cardiac angiogram on 04/24 where she was found to have 70 to 80% lesion in LCx. As patient did not have any chest pain decision was to treat medically. Appreciate A1c, lipid panel. Continue with aspirin 81 mg daily, statin and Plavix as per cardiology team. (4) COPD (chronic obstructive pulmonary disease) case management patient: With mild exacerbation. DuoNeb every 6 hours, Pulmicort twice daily. Continue with prednisone 40 mg daily for 5 days. (5) Nonrheumatic aortic valve stenosis with regurgitation: Echocardiogram as above. Discussed with the patient with possible need of surgical management for aortic valve disease. Discussed about possible CABG plus aortic valve replacement depending on the finding of angiogram. Patient is agreeable for the treatment plan for now. (6) Peripheral Vascular Disease: Aspirin 81 mg daily, statin 40 mg daily (7) HTN (hypertension): Goal blood pressure less than 140/90 mmHg. Continue low-dose losartan. Adding low-dose metoprolol succinate as above. Stop propranolol. Uptitrate as per goal blood pressure. Will uptitrate medications as per goal blood pressure. Qualifiers: Hypertension type: essential hypertension Qualified Code(s): I10 - Essential (primary) hypertension (8) Diabetes mellitus type 2 in nonobese: Insulin sliding scale. Carb consistent diet. Plan Chronic smoker. Smokes up to 12 cigarettes/day. Counseled in detail to quit smoking. Not requesting nicotine patch for now. Vitamin B12 deficiency: patient does not want to get vitamin B12 shots. On oral vitamin B12 supplementation. Abdominal pain: CT abdomen pelvis yesterday consistent with constipation. Has had a BM. Continue bowel regimen. Continue with aggressive bowel regimen with senna Colace and milk of magnesia daily. Continue other chronic medications. CODE STATUS: Discussed today with the patient. He does not want any heroic measures. DNR/DNI. Carb consistent diet Protonix for PUD prophylaxis Heparin 5000 Q12 hourly for DVT prophylaxis Attestations Medical Necessity Statement*: Continue admission for assessment management of new cardiomyopathy, congestive heart failure, NSTEMI, post discharge planning and arrangements. and High MDM includes amount and/or complexity of data reviewed/ordered [ resulted lab(s)/test(s), ordered lab(s)/test(s) and other healthcare professional discussion] as documented Diagnoses Congestive heart failure I50.9 Shortness of breath R06.02 Non-ST elevation [place] (NSTEMI) I21.4 COPD (chronic obstructive pulmonary disease) case management patient J44.9 Nonrheumatic aortic valve stenosis with regurgitation I35.2 Peripheral Vascular Disease I73.9 Essential hypertension I10 Hypertension type: essential hypertension Diabetes mellitus type 2 in nonobese E11.9
[2024-04-25] MEDS: acetaminophen 325 mg Tablet 650 MG PO (14:07)
--- NOTE | 2024-04-25 16:30 | PM.PN ---
Subjective Subjective: Patient is feeling okay. She has no chest pain. Events of the weekend are noted. She had a cardiac catheterization and was found to have no significant obstructive coronary artery disease. A repeat echocardiogram was done to reevaluate the LV function. The LV ejection fraction was found to be around 25 to 30%. Medications: Medication Review Details: Current Medications Acetaminophen (Acetaminophen 325 Mg Tablet) 650 mg PO Q6H PRN PRN Reason: Mild/Mod Pain Or Temp >/= 101 Last Admin: 04/25/24 14:07 Dose: 650 mg Al Hydrox/Mg Hydrox/Simethicone (Rpkt-Pzy-Borcafyzz-Suzy 30 Ml Udc) 30 ml PO Q15M PRN PRN Reason: INDIGESTION Aspirin (Aspirin 81 Mg Ec Tablet) 81 mg PO DAILY [facility] Last Admin: 04/25/24 08:22 Dose: 81 mg Atorvastatin Calcium (Atorvastatin 40 Mg Tablet) 40 mg PO DAILY [facility] Last Admin: 04/25/24 08:22 Dose: 40 mg Atropine Sulfate (Atropine 1 Mg/Ml Sdv 1 Ml) 0.5 mg IVP PRN PRN PRN Reason: Symptomatic bradycardia Bisacodyl (Bisacodyl 5 Mg Tablet) 10 mg PO DAILY PRN; Protocol PRN Reason: Constipation (see protocol) Last Admin: 04/23/24 17:24 Dose: 10 mg Budesonide (Budesonide 0.5 Mg/2 Ml Neb) 0.5 mg INHALATION BID.RESPIRATORY [facility] Last Admin: 04/25/24 09:27 Dose: 0.5 mg Bumetanide (Bumetanide 1 Mg Tablet) 1 mg PO DAILY [facility] Last Admin: 04/25/24 08:22 Dose: 1 mg Clonazepam (Clonazepam 1 Mg Tablet) 1 mg PO BID [facility] Last Admin: 04/25/24 08:22 Dose: 1 mg Clopidogrel Bisulfate (Clopidogrel 75 Mg Tablet) 75 mg PO DAILY [facility] Last Admin: 04/25/24 08:21 Dose: 75 mg Cyanocobalamin (Cyanocobalamin 1,000 Mcg Tablet) 1,000 mcg PO DAILY [facility] Last Admin: 04/25/24 08:22 Dose: 1,000 mcg Enoxaparin Sodium (Enoxaparin 80 Mg/0.8 Ml Syringe) 70 mg SUBCUT Q12H [facility] Last Admin: 04/25/24 13:00 Dose: 70 mg Glucagon (Glucagon 1 Mg/Ml Kit 1 Ml) 1 mg IM ONCE PRN; Protocol PRN Reason: Adult Acute Hypoglycemia Nursing Prot. Guaifenesin (Guaifenesin 600 Mg Tablet) 600 mg PO BID [facility] Last Admin: 04/25/24 08:21 Dose: 600 mg Dextrose (D5w) 500 mls @ 0 mls/hr IV ONCE PRN; Protocol PRN Reason: Adult Acute Hypoglycemia Prot Dextrose (D10w) 125 mls @ 750 mls/hr IV PRN PRN; Protocol PRN Reason: Adult Acute Hypoglycemia Nursing Protocol Dextrose (D10w) 250 mls @ 1,000 mls/hr IV PRN PRN; Protocol PRN Reason: Adult Acute Hypoglycemia Nursing Protocol Insulin Human Lispro (Insulin Lispro 100 Unit/1 Ml) 0 unit SUBCUT WM&BEDTIME [facility]; Protocol Last Admin: 04/25/24 12:05 Dose: 6 unit Ipratropium [place] (Ipratropium 0.5 Mg/2.5 Ml Neb) 0.5 mg INHALATION Q6H.RESP [facility] Last Admin: 04/25/24 15:16 Dose: 0.5 mg Lactulose (Lactulose Oral Liq 20 Gm/30 Ml Udc) 10 gm PO DAILY PRN; Protocol PRN Reason: Constipation (see protocol) Levalbuterol HCl (Levalbuterol 0.63 Mg/3 Ml Neb) 0.63 mg INHALATION Q6H.RESP [facility] Last Admin: 04/25/24 15:16 Dose: 0.63 mg Losartan Potassium (Losartan 50 Mg Tablet) 25 mg PO DAILY [facility] Last Admin: 04/25/24 09:37 Dose: 25 mg Magnesium Hydroxide (Magnesium Hydroxide 30 Ml Udc) 30 ml PO DAILY [facility]; Protocol Last Admin: 04/25/24 08:22 Dose: 30 ml Metoprolol Succinate (Metoprolol Succinate Er (24 Hr) 25 Mg Tablet) 12.5 mg PO DAILY [facility] Last Admin: 04/25/24 08:21 Dose: 12.5 mg Mirtazapine (Mirtazapine 30 Mg Tablet) 30 mg PO BEDTIME [facility] Last Admin: 04/24/24 21:04 Dose: 30 mg Morphine Sulfate (Morphine 4 Mg/Ml Sdv 1 Ml) 2 mg IVP Q4H PRN PRN Reason: SEVERE PAIN Last Admin: 04/23/24 06:53 Dose: 2 mg Naloxone HCl (Naloxone 0.4 Mg/Ml Sdv) 0.1 mg IVP Q2M PRN PRN Reason: RESPIRATORY RATE < 8/MIN Nitroglycerin (Nitroglycerin 0.4 Mg Sublingual Tablet) 0.4 mg SUBLINGUAL Q5M PRN PRN Reason: CHEST PAIN Ondansetron HCl (Ondansetron 2 Mg/Ml Sdv 2 Ml) 4 mg IVP Q8H PRN PRN Reason: vomiting, or N/V if npo Last Admin: 04/24/24 04:58 Dose: 4 mg Prednisone (Prednisone 20 Mg Tablet) 40 mg PO DAILY [facility] Stop: 04/28/24 16:59 Last Admin: 04/25/24 08:22 Dose: 40 mg Temazepam (Temazepam 15 Mg Capsule) 15 mg PO BEDTIME PRN PRN Reason: INSOMNIA Vitals/I&O/Wt Last Vital Signs Temp 97.9 F 04/25/24 13:15 Pulse 77 04/25/24 15:17 Resp 16 04/25/24 15:17 BP 133/54 04/25/24 13:15 Pulse Ox 93 04/25/24 15:17 O2 Del Method Room Air 04/25/24 15:17 O2 Flow Rate 1 04/25/24 03:25 04/25/24 04/25/24 04/25/24 06:59 14:59 22:59 Intake Total 240 / 240 Output Total 275 / 275 Balance -35 / -35 Weight last 48 hrs Weight 165 lb 6.4 oz Weight 166 lb 10.711 oz Weight 166 lb 10.711 oz Physical Exam Narrative: GENERAL: The patient is alert and oriented times three. Not in any acute distress. Slightly tachypneic HEENT: No significant pallor, icterus or lymphadenopathy.Oral cavity: There are no mucous membrane lesions. Bilateral carotid bruit. NECK: Trachea appears to be central. No masses noted. No JVD or thyromegaly appreciated. RESPIRATORY: Chest is symmetrical. No intercostals muscle retraction or any accessory muscle activation. There is no chest wall tenderness. Breath sounds are heard bilaterally. Occasional expiratory wheeze. No evidence of any consolidation. BREASTS: Deferred. HEART: The heart sounds are normal. No S3 or S4. Ejection systolic murmur of grade 4 out of 6 in aortic area. Early diastolic murmur grade 3 or 6 in the second aortic area.. No pericardial rub ABDOMEN: No vessel pulsations or distention. No tenderness. No organomegaly appreciated. Bowel sounds are normally heard. : Deferred. RECTAL: Deferred. LYMPHATIC: No lymphadenopathy noted in the neck. EXTREMITIES: No edema or cyanosis. The radial arterial puncture site has no hematoma bleeding. Superficial ecchymosis is present MUSCULOSKELETAL: No acute joint deformities or swelling SKIN: There are no significant rashes or ecchymosis NEUROPSYCHIATRIC: The patient is alert and oriented x3. Appears to be in a good mood. No tremors or rigidity noted. Urinary Catheter Management: Estrella: Cath Placed During This Visit: yes Reason for Continuing Indwelling Catheter: Accurate Measurement of Urinary Output in Critically Ill Patients Urinary Catheter Date of Insertion: 04/21/24 Urinary Catheter Time of Insertion: 14:30 Data 04/26/24 03:20 04/26/24 03:20 Micro: Microbiology 04/23/24 12:40 Urine Culture - Final Urine Catheterized Klebsiella pneumoniae A&P Assessment and plan (1) Elevated troponin: Most likely the patient had type II myocardial infarction, based on the angiogram findings (2) Acute on chronic systolic heart failure: The heart failure seems to be fairly treated at this point. May continue the current medications. (3) Severe aortic valve stenosis: Patient had a cardiac catheterization. The mean gradient across aortic valve was found to be 19 mmHg. The peak to peak was 6 mmHg. (4) Left ventricular systolic dysfunction (LVSD): We may go ahead and do start the patient on Entresto. (5) Peripheral arterial disease: A duplex done revealed an KATHRYN of 1.1 on the right side and 1.52 on the left side. At this point, the patient will require any specific intervention. (6) HTN (hypertension): Currently the blood pressure seems to be getting into the normal range. May continue on the current medications. Qualifiers: Hypertension type: essential hypertension Qualified Code(s): I10 - Essential (primary) hypertension (7) Hyperlipidemia due to type 2 diabetes mellitus: May be continue on the current medications. (8) Smoker: The patient strongly advised to quit smoking. Cardiovascular implications were discussed. (9) Carotid artery stenosis, asymptomatic: The Doppler exam revealed less than 50% stenosis bilaterally. Qualifiers: Laterality: bilateral Qualified Code(s): I65.23 - Occlusion and stenosis of bilateral carotid arteries Plan Discussed with the patient about LifeVest. Patient is willing to go for this. Will make the arrangements to have it done. Also will try to optimize her medications. Attestations Medical Necessity Statement*: Disposition as per the primary Coding Level of Care Code 45745 Diagnoses Elevated troponin R79.89 Acute on chronic systolic heart failure I50.23 Severe aortic valve stenosis I35.0 Left ventricular systolic dysfunction (LVSD) I51.9 Peripheral arterial disease I73.9 Essential hypertension I10 Hypertension type: essential hypertension Hyperlipidemia due to type 2 diabetes mellitus E11.69; E78.5 Smoker F17.200 Asymptomatic bilateral carotid artery stenosis I65.23 Laterality: bilateral
[2024-04-25 17:30] LABS: Glucose Point of Care 410 mg/dL (70-110)
[2024-04-25 20:21] LABS: Glucose Point of Care 380 mg/dL (70-110)
[2024-04-25] MEDS: mirtazapine 30 mg Tablet PO (20:34)
[2024-04-26] VITALS (13 sets, daily range): BP systolic 112–170; BP diastolic 41–67; PULSE 59–78; RESP 18–27; TEMP 36.6–36.8; O2SAT 89–100; BMI 26.6
[2024-04-26 03:49] LABS: Basophils % 0.2 %; Eosinophils % 0.1 %; Lymphocytes % 14.1 %; Mean Corpuscular HGB Conc 33.3 g/dL (30-55); Mean Corpuscular Hemoglobin 31.2 pg (27-33); Mean Corpuscular Volume 93.9 fl (85-98); Mean Platelet Volume 10.4 fL (7.4-10.4); Monocytes # 1.3 10^3/uL (0.2-0.9); Monocytes % 9.2 %; Neutrophils # 10.51 10^3/uL (1.8-7.7); Neutrophils % 75.8 %; Nucleated Red Blood Cells % 0 %; Platelet Count 195 10^3/cmm (157-399); Red Blood Count 4.58 10^6/uL (3.85-5.65); Red Cell Distribution Width 13.5 % (12.1-15.1); White Blood Count 13.86 10^3/uL (3.29-11.43)
[2024-04-26 04:12] LABS: Anion Gap 12.5 (5-19); Blood Urea Nitrogen 27 mg/dL (8-23); Calcium 8.5 mg/dL (8.5-10.5); Carbon Dioxide 27 mmol/L (22-29); Chloride 101 mmol/L (98-107); Creatinine Clr Calc Pharmacy 39.3117; Glucose 101 mg/dL (65-115); Osmolality Calculated 287 mOsm/kg (285-295); Potassium 4.5 mmol/L (3.5-5.1); Sodium 136 mmol/L (136-145)
[2024-04-26 06:21] LABS: Glucose Point of Care 130 mg/dL (70-110)
[2024-04-26] MEDS: levalbuterol 0.63 mg/3 mL Neb INHALATION ×3 (07:45→19:34)
[2024-04-26] MEDS: budesonide 0.5 mg/2 mL Neb INHALATION ×2 (07:45→19:34)
[2024-04-26] MEDS: ipratropium 0.5 mg/2.5 mL Neb INHALATION ×3 (07:45→19:34)
[2024-04-26] MEDS: guaiFENesin 600 mg Tablet PO ×2 (08:40→17:32)
[2024-04-26] MEDS: metoprolol succinate ER (24 HR) 25 mg Tablet 12.5 MG PO (08:40)
[2024-04-26] MEDS: aspirin 81 mg EC Tablet PO (08:40)
[2024-04-26] MEDS: cyanocobalamin 1,000 mcg Tablet 1000 MCG PO (08:40)
[2024-04-26] MEDS: losartan 50 mg Tablet 25 MG PO (08:40)
[2024-04-26] MEDS: predniSONE 20 mg Tablet 40 MG PO (08:40)
[2024-04-26] MEDS: atorvastatin 40 mg Tablet PO (08:40)
[2024-04-26] MEDS: bumetanide 1 mg Tablet PO (08:40)
[2024-04-26] MEDS: clopidogrel 75 mg Tablet PO (08:41)
[2024-04-26] MEDS: acetaminophen 325 mg Tablet 650 MG PO (08:41)
[2024-04-26] MEDS: magnesium hydroxide 30 mL UDC PO (08:41)
[2024-04-26] MEDS: morphine 4 mg/mL SDV 1 mL 2 MG IVP ×2 (11:01→15:36)
[2024-04-26 11:42] LABS: Glucose Point of Care 278 mg/dL (70-110)
[2024-04-26] MEDS: insulin lispro 100 unit/1 mL SUBCUT ×3 (12:03→21:29)
--- NOTE | 2024-04-26 13:58 | PM.PN ---
Subjective Subjective: The patient seems to doing okay. The LifeVest was ordered. Denies any fever or chills. The shortness of breath seems to be improving. The kidney function is stable. Medications: Medication Review Details: Current Medications Acetaminophen (Acetaminophen 325 Mg Tablet) 650 mg PO Q6H PRN PRN Reason: Mild/Mod Pain Or Temp >/= 101 Last Admin: 04/26/24 08:41 Dose: 650 mg Al Hydrox/Mg Hydrox/Simethicone (Cvpc-Ber-Ufidwksat-Suzy 30 Ml Udc) 30 ml PO Q15M PRN PRN Reason: INDIGESTION Aspirin (Aspirin 81 Mg Ec Tablet) 81 mg PO DAILY [facility] Last Admin: 04/26/24 08:40 Dose: 81 mg Atorvastatin Calcium (Atorvastatin 40 Mg Tablet) 40 mg PO DAILY [facility] Last Admin: 04/26/24 08:40 Dose: 40 mg Atropine Sulfate (Atropine 1 Mg/Ml Sdv 1 Ml) 0.5 mg IVP PRN PRN PRN Reason: Symptomatic bradycardia Bisacodyl (Bisacodyl 5 Mg Tablet) 10 mg PO DAILY PRN; Protocol PRN Reason: Constipation (see protocol) Last Admin: 04/23/24 17:24 Dose: 10 mg Budesonide (Budesonide 0.5 Mg/2 Ml Neb) 0.5 mg INHALATION BID.RESPIRATORY [facility] Last Admin: 04/26/24 07:45 Dose: 0.5 mg Bumetanide (Bumetanide 1 Mg Tablet) 1 mg PO DAILY [facility] Last Admin: 04/26/24 08:40 Dose: 1 mg Clopidogrel Bisulfate (Clopidogrel 75 Mg Tablet) 75 mg PO DAILY [facility] Last Admin: 04/26/24 08:41 Dose: 75 mg Cyanocobalamin (Cyanocobalamin 1,000 Mcg Tablet) 1,000 mcg PO DAILY [facility] Last Admin: 04/26/24 08:40 Dose: 1,000 mcg Glucagon (Glucagon 1 Mg/Ml Kit 1 Ml) 1 mg IM ONCE PRN; Protocol PRN Reason: Adult Acute Hypoglycemia Nursing Prot. Guaifenesin (Guaifenesin 600 Mg Tablet) 600 mg PO BID [facility] Last Admin: 04/26/24 08:40 Dose: 600 mg Dextrose (D5w) 500 mls @ 0 mls/hr IV ONCE PRN; Protocol PRN Reason: Adult Acute Hypoglycemia Prot Dextrose (D10w) 125 mls @ 750 mls/hr IV PRN PRN; Protocol PRN Reason: Adult Acute Hypoglycemia Nursing Protocol Dextrose (D10w) 250 mls @ 1,000 mls/hr IV PRN PRN; Protocol PRN Reason: Adult Acute Hypoglycemia Nursing Protocol Insulin Human Lispro (Insulin Lispro 100 Unit/1 Ml) 0 unit SUBCUT WM&BEDTIME [facility]; Protocol Last Admin: 04/26/24 12:03 Dose: 8 unit Ipratropium [place] (Ipratropium 0.5 Mg/2.5 Ml Neb) 0.5 mg INHALATION Q6H.RESP [facility] Last Admin: 04/26/24 07:45 Dose: 0.5 mg Lactulose (Lactulose Oral Liq 20 Gm/30 Ml Udc) 10 gm PO DAILY PRN; Protocol PRN Reason: Constipation (see protocol) Levalbuterol HCl (Levalbuterol 0.63 Mg/3 Ml Neb) 0.63 mg INHALATION Q6H.RESP [facility] Last Admin: 04/26/24 07:45 Dose: 0.63 mg Magnesium Hydroxide (Magnesium Hydroxide 30 Ml Udc) 30 ml PO DAILY [facility]; Protocol Last Admin: 04/26/24 08:41 Dose: 30 ml Metoprolol Succinate (Metoprolol Succinate Er (24 Hr) 25 Mg Tablet) 12.5 mg PO DAILY [facility] Last Admin: 04/26/24 08:40 Dose: 12.5 mg Mirtazapine (Mirtazapine 30 Mg Tablet) 30 mg PO BEDTIME [facility] Last Admin: 04/25/24 20:34 Dose: 30 mg Morphine Sulfate (Morphine 4 Mg/Ml Sdv 1 Ml) 2 mg IVP Q4H PRN PRN Reason: SEVERE PAIN Last Admin: 04/26/24 11:01 Dose: 2 mg Naloxone HCl (Naloxone 0.4 Mg/Ml Sdv) 0.1 mg IVP Q2M PRN PRN Reason: RESPIRATORY RATE < 8/MIN Nitroglycerin (Nitroglycerin 0.4 Mg Sublingual Tablet) 0.4 mg SUBLINGUAL Q5M PRN PRN Reason: CHEST PAIN Ondansetron HCl (Ondansetron 2 Mg/Ml Sdv 2 Ml) 4 mg IVP Q8H PRN PRN Reason: vomiting, or N/V if npo Last Admin: 04/24/24 04:58 Dose: 4 mg Prednisone (Prednisone 20 Mg Tablet) 40 mg PO DAILY [facility] Stop: 04/28/24 16:59 Last Admin: 04/26/24 08:40 Dose: 40 mg Sacubitril/Valsartan (Sacubitril/Valsartan 24-26 Mg Tablet) 1 each PO BID [facility] Temazepam (Temazepam 15 Mg Capsule) 15 mg PO BEDTIME PRN PRN Reason: INSOMNIA Vitals/I&O/Wt Last Vital Signs Temp 98.0 F 04/26/24 11:15 Pulse 71 04/26/24 11:15 Resp 18 04/26/24 11:15 BP 133/55 04/26/24 11:15 Pulse Ox 89 L 04/26/24 11:15 O2 Del Method Room Air 04/26/24 11:15 O2 Flow Rate 1 04/25/24 03:25 04/25/24 04/26/24 04/26/24 22:59 06:59 14:59 Intake Total 240 / 240 Output Total 3200 / 3475 400 / 3875 Balance -3200 / -3235 -400 / -3635 240 / 240 Weight last 48 hrs Weight 165 lb 6.4 oz Weight 165 lb 6.4 oz Weight 165 lb 6.4 oz Weight 166 lb 10.711 oz Physical Exam Narrative: GENERAL: The patient is alert and oriented times three. Not in any acute distress. Slightly tachypneic HEENT: No significant pallor, icterus or lymphadenopathy.Oral cavity: There are no mucous membrane lesions. Bilateral carotid bruit. NECK: Trachea appears to be central. No masses noted. No JVD or thyromegaly appreciated. RESPIRATORY: Chest is symmetrical. No intercostals muscle retraction or any accessory muscle activation. There is no chest wall tenderness. Breath sounds are heard bilaterally. Occasional expiratory wheeze. No evidence of any consolidation. BREASTS: Deferred. HEART: The heart sounds are normal. No S3 or S4. Ejection systolic murmur of grade 4 out of 6 in aortic area. Early diastolic murmur grade 3 or 6 in the second aortic area.. No pericardial rub ABDOMEN: No vessel pulsations or distention. No tenderness. No organomegaly appreciated. Bowel sounds are normally heard. : Deferred. RECTAL: Deferred. LYMPHATIC: No lymphadenopathy noted in the neck. EXTREMITIES: No edema or cyanosis. The radial arterial puncture site has no hematoma bleeding. Superficial ecchymosis is present MUSCULOSKELETAL: No acute joint deformities or swelling SKIN: There are no significant rashes or ecchymosis NEUROPSYCHIATRIC: The patient is alert and oriented x3. Appears to be in a good mood. No tremors or rigidity noted. Urinary Catheter Management: Estrella: Cath Placed During This Visit: yes Reason for Continuing Indwelling Catheter: Accurate Measurement of Urinary Output in Critically Ill Patients Urinary Catheter Date of Insertion: 04/21/24 Urinary Catheter Time of Insertion: 14:30 Data 04/26/24 03:20 04/26/24 03:20 Other Labs: Laboratory Last Values WBC 13.86 10^3/uL (3.29-11.43) H 04/26/24 03:20 RBC 4.58 10^6/uL (3.85-5.65) 04/26/24 03:20 Hgb 14.30 g/dL (11.27-16.99) 04/26/24 03:20 Hct 43.0 % (36-47) 04/26/24 03:20 MCV 93.9 fl (85-98) 04/26/24 03:20 MCH 31.2 pg (27-33) 04/26/24 03:20 MCHC 33.3 g/dL (30-55) 04/26/24 03:20 RDW 13.5 % (12.1-15.1) 04/26/24 03:20 Plt Count 195 10^3/cmm (157-399) 04/26/24 03:20 MPV 10.4 fL (7.4-10.4) 04/26/24 03:20 Neut % (Auto) 75.8 % 04/26/24 03:20 Lymph % (Auto) 14.1 % 04/26/24 03:20 [place] % (Auto) 9.2 % 04/26/24 03:20 Eos % (Auto) 0.1 % 04/26/24 03:20 Baso % (Auto) 0.2 % 04/26/24 03:20 Neut # (Auto) 10.51 10^3/uL (1.8-7.7) H 04/26/24 03:20 Lymph # (Auto) 2.0 10^3/uL (0.8-4.8) 04/26/24 03:20 [place] # (Auto) 1.3 10^3/uL (0.2-0.9) H 04/26/24 03:20 Eos # (Auto) 0.0 10^3/uL (0.0-0.8) 04/26/24 03:20 Baso # (Auto) 0.0 10^3/uL (0.0-0.1) 04/26/24 03:20 Nucleated RBC % (auto) 0 % 04/26/24 03:20 Nucleated RBCs # 0.0 /100WBC 04/26/24 03:20 D-Dimer 0.98 ug/mLFEU (0-0.59) H 04/21/24 10:40 Specimen Type Arterial 04/24/24 10:00 Specimen Type Not specified 04/24/24 10:00 Specimen Type Not specified 04/24/24 10:00 Sample Site Not Reportable 04/24/24 10:00 Sample Site Not Reportable 04/24/24 10:00 Sample Site netting inspector 04/24/24 10:00 ABG pH 7.36 (7.35-7.45) 04/21/24 10:46 ABG pCO2 43.7 mmHg (35-45) 04/21/24 10:46 ABG pO2 96.1 mmHg (80.0-100.0) 04/21/24 10:46 ABG PO2/FiO2 Ratio 343 04/21/24 10:46 ABG HCO3 24.8 mmol/L (22-26) 04/21/24 10:46 ABG O2 Saturation 97.7 04/21/24 10:46 ABG Base Excess -0.8 mmol/L (-2.0-2.0) 04/21/24 10:46 John Test N/a 04/24/24 10:00 John Test N/a 04/24/24 10:00 John Test N/a 04/24/24 10:00 A-a O2 Gradient 6.6 mmHg (5-10) 04/24/24 10:00 A-a O2 Gradient Not Reportable 04/24/24 10:00 A-a O2 Gradient Not Reportable 04/24/24 10:00 Hematocrit 48.6 % (37-47) H 04/24/24 10:00 Hematocrit 48.6 % (37-47) H 04/24/24 10:00 Hematocrit 49.2 % (37-47) H 04/24/24 10:00 Hgb O2 Saturation 59.6 % (95-100) L 04/24/24 10:00 Hgb O2 Saturation 61.1 % (95-100) L 04/24/24 10:00 Hgb O2 Saturation 83.0 % (95-100) L 04/24/24 10:00 Carboxyhemoglobin 1.3 %THgb (0.4-20.1) 04/24/24 10:00 Carboxyhemoglobin 1.3 %THgb (0.4-20.1) 04/24/24 10:00 Carboxyhemoglobin 1.3 %THgb (0.4-20.1) 04/24/24 10:00 Methemoglobin 1.0 % (0.4-1.5) 04/24/24 10:00 Methemoglobin 1.0 % (0.4-1.5) 04/24/24 10:00 Methemoglobin 1.1 % (0.4-1.5) 04/24/24 10:00 Total Hemoglobin 15.9 g/dL (12-16) 04/24/24 10:00 Total Hemoglobin 15.9 g/dL (12-16) 04/24/24 10:00 Total Hemoglobin 16.1 g/dL (12-16) H 04/24/24 10:00 Sodium 140.0 mmol/L (131-143) 04/21/24 10:46 Potassium 4.2 mmol/L (3.5-5.0) 04/21/24 10:46 Glucose 149.0 mg/dL (70-115) H 04/21/24 10:46 Ionized Calcium 1.2 mmol/L (1.1-1.4) 04/21/24 10:46 O2 Delivery Device Not Reportable 04/24/24 10:00 O2 Delivery Device Not Reportable 04/24/24 10:00 O2 Delivery Device Not Reportable 04/24/24 10:00 O2 Liters/Min 2.0 % 04/21/24 10:46 FiO2 28.0 % 04/21/24 10:46 Logistics Account Manager ID [place] 04/24/24 10:00 Logistics Account Manager ID [place] 04/24/24 10:00 Logistics Account Manager ID [place] 04/24/24 10:00 Sodium 136 mmol/L (136-145) 04/26/24 03:20 Potassium 4.5 mmol/L (3.5-5.1) 04/26/24 03:20 Chloride 101 mmol/L (98-107) 04/26/24 03:20 Carbon Dioxide 27 mmol/L (22-29) 04/26/24 03:20 Anion Gap 12.5 (5-19) 04/26/24 03:20 BUN 27 mg/dL (8-23) H 04/26/24 03:20 Creatinine 1.3 mg/dL (0.5-0.9) H 04/26/24 03:20 GFR Calculation Not Reportable 04/26/24 03:20 Glucose 101 mg/dL (65-115) 04/26/24 03:20 POC Glucose 278 mg/dL (70-110) H 04/26/24 11:13 Estimat Average Glucose 151 04/22/24 03:30 Hemoglobin A1c 6.9 % (4.0-6.0) H 04/22/24 03:30 Calculated Osmolality 287 mOsm/kg (285-295) 04/26/24 03:20 Calcium 8.5 mg/dL (8.5-10.5) 04/26/24 03:20 Phosphorus 2.6 mg/dL (2.5-4.5) 04/22/24 03:30 Magnesium 1.9 mg/dL (1.7-2.3) 04/22/24 20:03 Iron 89 ug/dL (37-145) 04/21/24 10:40 TIBC 351 mcg/dl 04/21/24 10:40 % Saturation 25.3 % (20-50) 04/21/24 10:40 Unsat Iron Binding 262 ug/dL (112-347) 04/21/24 10:40 Total Bilirubin 0.5 mg/dL (0.15-1.2) 04/25/24 03:56 AST 16 U/L (0-32) 04/25/24 03:56 ALT 12 U/L (0-33) 04/25/24 03:56 Alkaline Phosphatase 70 U/L (35-105) 04/25/24 03:56 Troponin T Baseline 313 ng/L (0-10) H* 04/22/24 20:03 Troponin T 120 Minute 289.8 ng/L (0-10) H 04/22/24 21:29 Delta Troponin T -23.2 ABS# (0-10) L 04/22/24 21:29 Troponin T Hi Sens 6Hr 310.7 ng/L (0-10) H 04/23/24 03:06 Troponin T Hi Sens 6Hr Delta -2.3 ng/L (0-12) L 04/23/24 03:06 NT-Pro-B Natriuret Pep 9532 pg/mL (0-125) H 04/21/24 10:40 Total Protein 6.1 g/dL (6.6-8.7) L 04/25/24 03:56 Albumin 3.8 g/dL (3.5-5.2) 04/25/24 03:56 Globulin 2.3 g/dL (1.3-4.6) 04/25/24 03:56 Triglycerides 75 mg/dL (0-150) 04/22/24 03:30 Cholesterol 225 mg/dL (0-200) H 04/22/24 03:30 LDL Cholesterol, Calc 142 mg/dL (50-129) H 04/22/24 03:30 HDL Cholesterol 68 mg/dL (60-100) 04/22/24 03:30 LDL/HDL Ratio 2.09 RATIO (0.00-3.22) 04/22/24 03:30 Cholesterol/HDL Ratio 3.31 mg/dL (0.0-4.40) 04/22/24 03:30 Vitamin B12 216 pg/mL (232-1245) L 04/21/24 10:40 Folate 3.6 ng/mL (4.8-37.3) L 04/22/24 03:30 Procalcitonin 0.04 ng/mL (0-0.5) 04/22/24 03:30 TSH 2.11 uIU/mL (0.27-4.20) 04/21/24 10:40 Urine Color Yellow (Yellow) 04/21/24 15:01 Urine Appearance Clear (CLEAR) 04/21/24 15:01 Urine pH 6.5 (5-7) 04/21/24 15:01 Ur Specific [place] 1.005 (1.005-1.030) 04/21/24 15:01 Urine Protein Negative (Negative) 04/21/24 15:01 Urine Glucose (UA) Negative (Normal) 04/21/24 15:01 Urine Ketones Negative (Negative) 04/21/24 15:01 Urine Blood Negative (Negative) 04/21/24 15:01 Urine Nitrate Negative (Negative) 04/21/24 15:01 Urine Bilirubin Negative (Negative) 04/21/24 15:01 Urine Urobilinogen 0.2 mg/dL (Negative) 04/21/24 15:01 Ur Leukocyte Esterase Negative (Negative) 04/21/24 15:01 Amorphous Sediment Not Reportable 04/21/24 15:01 Urine Opiates Screen Negative ng/mL (Negative) 04/21/24 15:01 Ur Barbiturates Screen Negative ng/mL (Negative) 04/21/24 15:01 Ur Phencyclidine Scrn Negative ng/mL (Negative) 04/21/24 15:01 Ur Amphetamines Screen Negative ng/mL (Negative) 04/21/24 15:01 U Benzodiazepines Scrn Negative ng/mL (Negative) 04/21/24 15:01 Urine Cocaine Screen Negative ng/mL (Negative) 04/21/24 15:01 U Marijuana (THC) Screen Negative ng/mL (Negative) 04/21/24 15:01 Coronavirus 229E (PCR) Not detected (NOT DETECT) 04/21/24 09:30 Influenza Type A Ag negative (Negative) 04/21/24 09:30 Influenza Type B Ag negative (Negative) 04/21/24 09:30 SARS-CoV-2 (PCR) Not detected (NOT DETECT) 04/21/24 09:30 MRSA (PCR) Not detected (NOT DETECTED) 04/21/24 20:00 Micro: Microbiology 04/23/24 12:40 Urine Culture - Final Urine Catheterized Klebsiella pneumoniae A&P Assessment and plan (1) Acute on chronic systolic heart failure: The heart failure seems to be fairly treated at this point. May continue the current medications. She has features of a nonischemic cardiomyopathy. She is started on Entresto. This is not the dose of this medication needs to be gradually titrated up. (2) Severe aortic valve stenosis: Patient had a cardiac catheterization. The mean gradient across aortic valve was found to be 19 mmHg. The peak to peak was 6 mmHg. At this point, patient will be continued on the current medications. (3) Left ventricular systolic dysfunction (LVSD): Will continue on the current medications. Patient also may be started on the Jardiance as an outpatient. (4) Peripheral arterial disease: A duplex done revealed an KATHRYN of 1.1 on the right side and 1.52 on the left side. At this point, the patient will require any specific intervention. (5) HTN (hypertension): Currently the blood pressure seems to be getting into the normal range. May continue on the current medications. Qualifiers: Hypertension type: essential hypertension Qualified Code(s): I10 - Essential (primary) hypertension (6) Hyperlipidemia due to type 2 diabetes mellitus: May be continue on the current medications. (7) Smoker: The patient strongly advised to quit smoking. Cardiovascular implications were discussed. (8) Carotid artery stenosis, asymptomatic: The Doppler exam revealed less than 50% stenosis bilaterally. Qualifiers: Laterality: bilateral Qualified Code(s): I65.23 - Occlusion and stenosis of bilateral carotid arteries Plan Will continue on the GDMT for the heart failure. The LifeVest is pending. May continue on the current measures Attestations Medical Necessity Statement*: Disposition as per the primary Coding Level of Care Code 70415 Diagnoses Acute on chronic systolic heart failure I50.23 Severe aortic valve stenosis I35.0 Left ventricular systolic dysfunction (LVSD) I51.9 Peripheral arterial disease I73.9 Essential hypertension I10 Hypertension type: essential hypertension Hyperlipidemia due to type 2 diabetes mellitus E11.69; E78.5 Smoker F17.200 Asymptomatic bilateral carotid artery stenosis I65.23 Laterality: bilateral
[2024-04-26 15:59] LABS: Glucose Point of Care 352 mg/dL (70-110)
--- NOTE | 2024-04-26 16:44 | P.PN_ITS ---
Subjective 2 Subjective: She is doing okay today. Denies chest pain or pressure. Has not been more short of breath. States that she has been overwhelmed by her new diagnoses and information associated with them that she needs to keep in mind, with congestive heart failure in particular. She states she used to drink about a gallon of water a day. Used to be told that drinking a lot of water is healthier for her. We spent about an hour discussing congestive heart failure, potential dissipated complications, further discussion regarding LifeVest, touchtone diet, lifestyle, as well as what to watch for and when to seek help. She will need further education, requesting education be provided additionally by nursing staff, requesting also educational booklet. Requesting also in feather curling machine operator consultation. Vitals/I&O/Wt Last Vital Signs Temp 97.9 F 04/26/24 16:00 Pulse 78 04/26/24 16:00 Resp 27 H 04/26/24 16:00 BP 119/48 04/26/24 16:00 Pulse Ox 100 04/26/24 16:00 O2 Del Method Room Air 04/26/24 16:00 O2 Flow Rate 1 04/25/24 03:25 04/26/24 04/26/24 04/26/24 06:59 14:59 22:59 Intake Total 480 / 480 Output Total 400 / 3875 1600 / 1600 Balance -400 / -3635 480 / 480 -1600 / -1120 Weight last 48 hrs Weight 75.024 kg Weight 75.024 kg Weight 75.024 kg Weight 75.6 kg Physical Exam 2 Narrative: Sitting up in chair accompanied by her . Const: COMMON NORMALS: patient oriented x3 and alert GENERAL APPEARANCE: c ooperative ORIENTATION/CONSCIOUSNESS: Yes awake HENMT: COMMON NORMALS: oropharynx normal Neck/C-Spine: COMMON NORMALS: no JVD Resp: COMMON NORMALS: normal respiratory effort and clear to auscultation bilaterally AUSCULTATION: clear to auscultation bilaterally Cardio: COMMON NORMALS: no JVD, regular rhythm, S1 normal heart sound present, S2 normal heart sound present and No murmurs present (Cardio) RHYTHM: regular rhythm HEART SOUNDS: S1 normal heart sound present and S2 normal heart sound present GI: COMMON NORMALS: Normal to inspection, nondistended, normoactive bowel sounds present, Soft to palpation and non-tender PALPATION: Yes Soft to palpation Extremity: COMMON NORMALS: no joint enlargement and no pedal edema Neuro: COMMON NORMALS: patient oriented x3 and moves all extremities S ENSORIUM/ORIENTATION: Yes alert Skin: COMMON NORMALS: no rashes or lesions noted GENERAL SKIN EXAM: no rashes or lesions noted Urinary Catheter Management: Estrella: Cath Placed During This Visit: yes Reason for Continuing Indwelling Catheter: Accurate Measurement of Urinary Output in Critically Ill Patients Urinary Catheter Date of Insertion: 04/21/24 Urinary Catheter Time of Insertion: 14:30 Data 04/26/24 03:20 04/26/24 03:20 Micro: Microbiology 04/23/24 12:40 Urine Culture - Final Urine Catheterized Klebsiella pneumoniae A&P Assessment and plan (1) Congestive heart failure: Reviewed vitals, intake and output, and negative balance. Reviewed CBC, potassium, BUN, creatinine. Continues on oral diuretic. Monitor electrolytes with risk of deficiency. Repeat chemistry. With cardiomyopathy, EF 25-30%, discussed with cardiology further, they have ordered LifeVest for. Discussed with residential case manager, LifeVest has to be set up and ready before she can go to residential facility. Updated acid wash operator. Pending LifeVest arrangements, could not be done today. Discussed further with her and her . Additionally spent about an hour on education on congestive heart failure. She will need further education as she has felt quite overwhelmed with the amount of information. We are trying to keep it simpler for her. I am requesting education with nursing staff, feather curling machine operator as well as well as educational pamphlet for reference. Discussed smoking cessation for 5 minutes. Add nicotine patch, lozenges as needed. Continue to encourage. With significant deconditioning would benefit from rehabilitation, discussed with residential case manager, arrangements underway for her to go to SNF. History of diastolic heart failure in setting of aortic regurgitation and stenosis. Concern for cardiomegaly on chest x-ray. proBNP elevated. Prior echocardiogram EF of 38% with dilated LV cavity, dilated LA with moderate MR, moderate to severe aortic regurgitation with severe low gradient aortic stenosis with aortic valve area of 0.98, tricuspid regurgitation with PASP of 40 mmHg. Fluid restriction to less than 1500 cc. Estrella catheterization. Recheck BMP and potassium. Strict input output charting, daily weights. Losartan 25 mg oral daily from tomorrow along with metoprolol 12.5 mg daily. (2) Shortness of breath: Most likely in setting of combination of congestive heart failure and COPD exacerbation. Still some mild cough. Overall improved. Down to room air on oxygen requirement. Saturation 100%. Oxygen supplementation keeping saturation 90%. Urine Legionella, bacterial antigen negative. MRSA swab pending. D-dimer slightly elevated. (3) Non-ST elevation MO (NSTEMI): Stop therapeutic Lovenox. Switch to Prophylactic. Troponin cycle elevated. Continue aspirin, Plavix atorvastatin, metoprolol. Appreciate echocardiogram with new low EF and direct LV cavity. Stress test shows large area of prior infarct with minimal jacquie-infarct ischemia in LCx territory and RCA territory. Underwent cardiac angiogram on 04/24 where she was found to have 70 to 80% lesion in LCx. As patient did not have any chest pain decision was to treat medically. Appreciate A1c, lipid panel. Continue with aspirin 81 mg daily, statin and Plavix as per cardiology team. (4) COPD (chronic obstructive pulmonary disease) case management patient: With mild exacerbation. Continue to encourage smoking cessation.Continue prednisone for 1 more day. DuoNeb every 6 hours, Pulmicort twice daily. (5) Nonrheumatic aortic valve stenosis with regurgitation: Echocardiogram as above. Discussed with the patient with possible need of surgical management for aortic valve disease. Discussed about possible CABG plus aortic valve replacement depending on the finding of angiogram. Patient is agreeable for the treatment plan for now. (6) Peripheral Vascular Disease: Aspirin 81 mg daily, statin 40 mg daily (7) HTN (hypertension): Goal blood pressure less than 140/90 mmHg. Continue low-dose losartan. Adding low-dose metoprolol succinate as above. Stop propranolol. Uptitrate as per goal blood pressure. Will uptitrate medications as per goal blood pressure. Qualifiers: Hypertension type: essential hypertension Qualified Code(s): I10 - Essential (primary) hypertension (8) Diabetes mellitus type 2 in nonobese: Insulin sliding scale. Carb consistent diet. Plan Chronic smoker. Discuss smoking cessation for 5 minutes. Continue to encourage cessation. Add nicotine patch to which she is agreeable, but we may discontinue it if she gets itching. Nicotine lozenges requested as well. She has previously tried Chantix and Wellbutrin without success. She finds that keeping busy helps her getting distracted. Smokes up to 12 cigarettes/day. Counseled in detail to quit smoking. Not requesting nicotine patch for now. Vitamin B12 deficiency: patient does not want to get vitamin B12 shots. On oral vitamin B12 supplementation. Abdominal pain: CT abdomen pelvis yesterday consistent with constipation. Has had a BM. Continue bowel regimen. Continue with aggressive bowel regimen with senna Colace and milk of magnesia daily. Continue other chronic medications. CODE STATUS: Discussed today with the patient. He does not want any heroic measures. DNR/DNI. Carb consistent diet Protonix for PUD prophylaxis Heparin 5000 Q12 hourly for DVT prophylaxis Attestations 2 Medical Necessity Statement*: Continue admission for assessment management of new cardiomyopathy, congestive heart failure, NSTEMI, post discharge planning and arrangements. , High MDM includes amount and/or complexity of data reviewed/ordered [ resulted lab(s)/test(s), ordered lab(s)/test(s) and other healthcare professional discussion] as documented and High Time for a total of 70 minutes, includes reviewing past or interval history, examining/interviewing patient, placing orders, counseling patient/family/other support, discussing plan of care with staff, communicating with other healthcare providers, documenting encounter and coordinating care Diagnoses Congestive heart failure I50.9 Shortness of breath R06.02 Non-ST elevation MO (NSTEMI) I21.4 COPD (chronic obstructive pulmonary disease) case management patient J44.9 Nonrheumatic aortic valve stenosis with regurgitation I35.2 Peripheral Vascular Disease I73.9 Essential hypertension I10 Hypertension type: essential hypertension Diabetes mellitus type 2 in nonobese E11.9
[2024-04-26] MEDS: sacubitril/valsartan 24-26 mg Tablet 1 EACH PO (17:32)
[2024-04-26] MEDS: nicotine 21 mg Patch 1 PATCH TRANSDERMA (17:39)
[2024-04-26 19:58] LABS: Glucose Point of Care 260 mg/dL (70-110)
[2024-04-26] MEDS: mirtazapine 30 mg Tablet PO (21:29)
[2024-04-27] VITALS (9 sets, daily range): BP systolic 116–140; BP diastolic 48–66; PULSE 65–86; RESP 13–26; TEMP 36.6–37.1; O2SAT 90–99; BMI 26.6
[2024-04-27 04:36] LABS: Basophils % 0.1 %; Eosinophils # 0.1 10^3/uL (0.0-0.8); Eosinophils % 0.3 %; Hematocrit 43.7 % (36-47); Lymphocytes # 2.1 10^3/uL (0.8-4.8); Lymphocytes % 13.9 %; Mean Corpuscular Hemoglobin 30.6 pg (27-33); Mean Platelet Volume 10.2 fL (7.4-10.4); Monocytes # 1.4 10^3/uL (0.2-0.9); Monocytes % 8.8 %; Neutrophils # 11.69 10^3/uL (1.8-7.7); Neutrophils % 76.2 %; Nucleated Red Blood Cells % 0 %; Platelet Count 190 10^3/cmm (157-399); Red Cell Distribution Width 13.4 % (12.1-15.1); White Blood Count 15.36 10^3/uL (3.29-11.43)
[2024-04-27 04:55] LABS: Anion Gap 13.3 (5-19); Blood Urea Nitrogen 31 mg/dL (8-23); Calcium 8.2 mg/dL (8.5-10.5); Carbon Dioxide 26 mmol/L (22-29); Chloride 100 mmol/L (98-107); Creatinine Clr Calc Pharmacy 63.8815; Glucose 145 mg/dL (65-115); Osmolality Calculated 289 mOsm/kg (285-295); Potassium 4.3 mmol/L (3.5-5.1); Sodium 135 mmol/L (136-145)
[2024-04-27 06:38] LABS: Glucose Point of Care 134 mg/dL (70-110)
[2024-04-27] MEDS: morphine 4 mg/mL SDV 1 mL 2 MG IVP ×2 (07:49→12:22)
[2024-04-27] MEDS: magnesium hydroxide 30 mL UDC PO (07:49)
[2024-04-27] MEDS: metoprolol succinate ER (24 HR) 25 mg Tablet 12.5 MG PO (07:49)
[2024-04-27] MEDS: predniSONE 20 mg Tablet 40 MG PO (07:50)
[2024-04-27] MEDS: clopidogrel 75 mg Tablet PO (07:50)
[2024-04-27] MEDS: guaiFENesin 600 mg Tablet PO (07:50)
[2024-04-27] MEDS: sacubitril/valsartan 24-26 mg Tablet 1 EACH PO (07:50)
[2024-04-27] MEDS: nicotine 21 mg Patch 1 PATCH TRANSDERMA (07:50)
[2024-04-27] MEDS: bumetanide 1 mg Tablet PO (07:50)
[2024-04-27] MEDS: aspirin 81 mg EC Tablet PO (07:50)
[2024-04-27] MEDS: cyanocobalamin 1,000 mcg Tablet 1000 MCG PO (07:50)
[2024-04-27] MEDS: atorvastatin 40 mg Tablet PO (07:50)
[2024-04-27] MEDS: levalbuterol 0.63 mg/3 mL Neb INHALATION ×2 (08:25→13:36)
[2024-04-27] MEDS: ipratropium 0.5 mg/2.5 mL Neb INHALATION ×2 (08:25→13:36)
[2024-04-27] MEDS: budesonide 0.5 mg/2 mL Neb INHALATION (08:25)
--- NOTE | 2024-04-27 11:16 | PC.SOCIAL ---
IMM Updated Updated pt on IMM. No questions voiced. Provided pt a copy. Initialed, dated, & timed copy in chart.
[2024-04-27 11:29] LABS: Glucose Point of Care 278 mg/dL (70-110)
[2024-04-27] MEDS: insulin lispro 100 unit/1 mL SUBCUT (12:17)
--- NOTE | 2024-04-27 14:02 | P.DS_ITS ---
Discharge Providers Date of Admission: 04/21/24 12:59 Date of Discharge: April 27, 2024 Attending Provider at Admission: Luis Bowman MD Attending Provider at Discharge: Aris Orozco Primary Care Provider: Marv Andrews MD Diagnoses at Discharge Discharge Diagnosis (1) Congestive heart failure: Status: Acute (2) Shortness of breath: Status: Acute (3) Non-ST elevation GA (NSTEMI): Status: Acute (4) COPD (chronic obstructive pulmonary disease) case management patient: Status: Acute (5) Nonrheumatic aortic valve stenosis with regurgitation: Status: Acute (6) Peripheral Vascular Disease: Status: Acute (7) HTN (hypertension): Status: Acute Qualifiers: Hypertension type: essential hypertension Qualified Code(s): I10 - Essential (primary) hypertension (8) Diabetes mellitus type 2 in nonobese: Status: Acute Reason for Visit Reason for Visit: sob Hospital Course Hospital Course Pleasant 74-year-old lady with history of COPD, smoking, diabetes, HLD, HTN, CKD, other medical problems, living off grid with her presented due to acute shortness of breath, with lower extremity edema, exertional dyspnea, mild chest pain, on presentation found to be in decompensated new congestive heart failure, with cardiomegaly on chest x-ray, elevated BNP, with NSTEMI with troponin elevation, was started on treatment for both with anticoagulation, aspirin, beta-yaz, IV Lasix, oxygen support, fluid restriction, as well as found in COPD with exacerbation, started on prednisone, DuoNebs. Echocardiogram showed new diffuse hypokinesis with left ventricular ejection fraction 38%, mildly dilated LV cavity, mildly dilated left atrium, moderate MVR, moderately severe aortic regurgitation, severe low gradient valve stenosis with peak velocity 2.8 m/s with peak gradient 32 and mean gradient 14. Valve area 0.98 cm?. Trace TVR. Estimated pulmonary pressure 40 mmHg. No effusion. She was seen by cardiology, CHF medications uptitrated with gradually improving and resolving decompensated CHF. Underwent coronary angiography after initial attempt aborted due to vasovagal episode possibly with at that point some hypovolemia. Received gentle hydration, coronary angiography with right and left heart cath, with PA pressure and right-sided heart pressure within normal limits. LAD left main and obtuse marginal free of disease, circumflex with moderate distal lesion with RCA CARDIAC CARE NURSE mid lesion with [id number] collaterals. Continued on medical therapy with aspirin, Plavix, statin, metoprolol, although requested to restart propranolol due to chronic bothersome tremor. Education provided regarding CHF. Repeat echocardiogram with out improvement of ejection fraction with EF 25-30%, on reassessment by cardiology was set up also with LifeVest due to risk of life-threatening arrhythmia. Was initiated on Entresto, however, cannot afford medications which she pays for [id number], so could not continue on any of the newer medications. Switch to losartan. Continue to optimize hypertension. Continue to optimize diabetes. Counseled extensively regarding smoking cessation. Continue to support quitting, she previously did not have success with Chantix, Wellbutrin, continues with nicotine patches, lozenges, feels that staying busy helps her get distracted and not need to smoke. She additionally is in need of rehabilitation and is progressing to SNF. She is otherwise also submitting application for penitentiary apartment due to difficulties continuing to live off grid. Continue fluid restriction 1500 mL. Continue Bumex, consider de-escalating to as needed if maintaining volume well. Continue to optimize cardiovascular risk factors. She is asked to follow-up with cardiology for reassessment, continuing LifeVest at current time. COPD exacerbation with improvement. She is doing well on room air. Improved air entry. Improved cough. Will complete a brief course of prednisone with additional 3 more days at 20 mg. Continue follow-up with regards to carotid artery disease, peripheral artery disease, KATHRYN 1.1 on the right side, 1.52 on the left side. Once no longer needing dual antiplatelets consider addition of anticoagulant to aspirin. Valvular heart disease. Education provided several times as she has felt somewhat overwhelmed by the amount of information related to her conditions, continue to revisit and educate, she was seen by dietitian here continue dietitian consultation on outpatient side as well. Physical Exam Narrative: Sitting up in bed. Const: COMMON NORMALS: patient oriented x3 and alert GENERAL APPEARANCE: cooperative ORIENTATION/CONSCIOUSNESS: Yes awake HENMT: COMMON NORMALS: oropharynx normal Neck/C-Spine: COMMON NORMALS: no JVD Resp: AUSCULTATION: wheezes right lower (Minimal) Cardio: COMMON NORMALS: no JVD, regular rhythm, S1 normal heart sound present, S2 normal heart sound present and No murmurs present (Cardio) RHYTHM: regular rhythm HEART SOUNDS: S1 normal heart sound present and S2 normal heart sound present GI: COMMON NORMALS: Normal to inspection, nondistended, normoactive bowel soun ds present, Soft to palpation and non-tender PALPATION: Yes Soft to palpation Extremity: COMMON NORMALS: no joint enlargement and no pedal edema Neuro: COMMON NORMALS: patient oriented x3 and moves all extremities SENSORIUM/ORIENTATION: Yes alert Skin: COMMON NORMALS: no rashes or lesions noted GENERAL SKIN EXAM: no rashes or lesions noted and ecchymosis Urinary Catheter Management: Estrella: Cath Placed During This Visit: yes Reason for Continuing Indwelling Catheter: Accurate Measurement of Urinary Output in Critically Ill Patients Urinary Catheter Date of Insertion: 04/21/24 Urinary Catheter Time of Insertion: 14:30 Discharge Data Studies Completed and Pending Completed Studies During Hospitalization Category Date Time Status CT abdomen pelvis wo con [id number] Routine Cat Scan 04/23/24 13:24 Completed CORPORATE TRAFFIC MANAGER request for service Routine Exams 04/24/24 08:45 Completed Sestamibi Stress Test Request Routine Exams 04/21/24 16:33 Completed XR chest 1V portable [id number] Stat Exams 04/21/24 10:22 Completed NM peggy perf SPECT r/s* [id number] Routine Nuc Med 04/22/24 16:33 [place] [id number] Routine Ultrasound 04/21/24 17:56 Completed CV carotid duplex BI* [id number] Routine Ultrasound 04/21/24 17:55 Completed CV. echo complete* [id number] Routine Ultrasound 04/21/24 13:11 Completed CV. echo limited [id number] Routine Ultrasound 04/25/24 09:35 Completed Pending at discharge Category Date Time Status Basic Metabolic Panel AM LABS Lab 04/28/24 04:00 Ordered Complete Blood Count w/Auto AM LABS Lab 04/28/24 04:00 Ordered Sputum Culture and Gram Stain Stat Lab 04/21/24 13:12 Uncollected Radiology Impressions Chest X-Ray 04/21/24 10:22 Impression: The heart is enlarged. There are developing septal lines and interstitial markings which may be related to pulmonary edema. When the patient can tolerate I recommend follow-up PA and lateral study. Abdomen/Pelvis CT 04/23/24 13:24 IMPRESSION: 1. Constipation 2. No evidence of urinary tract calculus or obstruction or acute abdominal or pelvic inflammatory process Laboratory Results WBC 15.36 10^3/uL (3.29-11.43) H 04/27/24 04:28 RBC 4.70 10^6/uL (3.85-5.65) 04/27/24 04:28 Hgb 14.40 g/dL (11.27-16.99) 04/27/24 04:28 Hct 43.7 % (36-47) 04/27/24 04:28 MCV 93.0 fl (85-98) 04/27/24 04:28 MCH 30.6 pg (27-33) 04/27/24 04:28 MCHC 33.0 g/dL (30-55) 04/27/24 04:28 RDW 13.4 % (12.1-15.1) 04/27/24 04:28 Plt Count 190 10^3/cmm (157-399) 04/27/24 04:28 MPV 10.2 fL (7.4-10.4) 04/27/24 04:28 Neut % (Auto) 76.2 % 04/27/24 04:28 Lymph % (Auto) 13.9 % 04/27/24 04:28 Republic % (Auto) 8.8 % 04/27/24 04:28 Eos % (Auto) 0.3 % 04/27/24 04:28 Baso % (Auto) 0.1 % 04/27/24 04:28 Neut # (Auto) 11.69 10^3/uL (1.8-7.7) H 04/27/24 04:28 Lymph # (Auto) 2.1 10^3/uL (0.8-4.8) 04/27/24 04:28 Republic # (Auto) 1.4 10^3/uL (0.2-0.9) H 04/27/24 04:28 Eos # (Auto) 0.1 10^3/uL (0.0-0.8) 04/27/24 04:28 Baso # (Auto) 0.0 10^3/uL (0.0-0.1) 04/27/24 04:28 Nucleated RBC % (auto) 0 % 04/27/24 04:28 Nucleated RBCs # 0.0 /100WBC 04/27/24 04:28 D-Dimer 0.98 ug/mLFEU (0-0.59) H 04/21/24 10:40 Specimen Type Arterial 04/24/24 10:00 Specimen Type Not specified 04/24/24 10:00 Specimen Type Not specified 04/24/24 10:00 Sample Site Not Reportable 04/24/24 10:00 Sample Site Not Reportable 04/24/24 10:00 Sample Site instructional technology teacher 04/24/24 10:00 ABG pH 7.36 (7.35-7.45) 04/21/24 10:46 ABG pCO2 43.7 mmHg (35-45) 04/21/24 10:46 ABG pO2 96.1 mmHg (80.0-100.0) 04/21/24 10:46 ABG PO2/FiO2 Ratio 343 04/21/24 10:46 ABG HCO3 24.8 mmol/L (22-26) 04/21/24 10:46 ABG O2 Saturation 97.7 04/21/24 10:46 ABG Base Excess -0.8 mmol/L (-2.0-2.0) 04/21/24 10:46 John Test N/a 04/24/24 10:00 John Test N/a 04/24/24 10:00 John Test N/a 04/24/24 10:00 A-a O2 Gradient 6.6 mmHg (5-10) 04/24/24 10:00 A-a O2 Gradient Not Reportable 04/24/24 10:00 A-a O2 Gradient Not Reportable 04/24/24 10:00 Hematocrit 48.6 % (37-47) H 04/24/24 10:00 Hematocrit 48.6 % (37-47) H 04/24/24 10:00 Hematocrit 49.2 % (37-47) H 04/24/24 10:00 Hgb O2 Saturation 59.6 % (95-100) L 04/24/24 10:00 Hgb O2 Saturation 61.1 % (95-100) L 04/24/24 10:00 Hgb O2 Saturation 83.0 % (95-100) L 04/24/24 10:00 Carboxyhemoglobin 1.3 %THgb (0.4-20.1) 04/24/24 10:00 Carboxyhemoglobin 1.3 %THgb (0.4-20.1) 04/24/24 10:00 Carboxyhemoglobin 1.3 %THgb (0.4-20.1) 04/24/24 10:00 Methemoglobin 1.0 % (0.4-1.5) 04/24/24 10:00 Methemoglobin 1.0 % (0.4-1.5) 04/24/24 10:00 Methemoglobin 1.1 % (0.4-1.5) 04/24/24 10:00 Total Hemoglobin 15.9 g/dL (12-16) 04/24/24 10:00 Total Hemoglobin 15.9 g/dL (12-16) 04/24/24 10:00 Total Hemoglobin 16.1 g/dL (12-16) H 04/24/24 10:00 Sodium 140.0 mmol/L (131-143) 04/21/24 10:46 Potassium 4.2 mmol/L (3.5-5.0) 04/21/24 10:46 Glucose 149.0 mg/dL (70-115) H 04/21/24 10:46 Ionized Calcium 1.2 mmol/L (1.1-1.4) 04/21/24 10:46 O2 Delivery Device Not Reportable 04/24/24 10:00 O2 Delivery Device Not Reportable 04/24/24 10:00 O2 Delivery Device Not Reportable 04/24/24 10:00 O2 Liters/Min 2.0 % 04/21/24 10:46 FiO2 28.0 % 04/21/24 10:46 Clinical Nursing Coordinator ID Yajairamartin 04/24/24 10:00 Clinical Nursing Coordinator ID Yajairamartin 04/24/24 10:00 Clinical Nursing Coordinator ID Walci 04/24/24 10:00 Sodium 135 mmol/L (136-145) L 04/27/24 04:28 Potassium 4.3 mmol/L (3.5-5.1) 04/27/24 04:28 Chloride 100 mmol/L (98-107) 04/27/24 04:28 Carbon Dioxide 26 mmol/L (22-29) 04/27/24 04:28 Anion Gap 13.3 (5-19) 04/27/24 04:28 BUN 31 mg/dL (8-23) H 04/27/24 04:28 Creatinine 0.8 mg/dL (0.5-0.9) 04/27/24 04:28 GFR Calculation Not Reportable 04/27/24 04:28 Glucose 145 mg/dL (65-115) H 04/27/24 04:28 POC Glucose 278 mg/dL (70-110) H 04/27/24 11:10 Estimat Average Glucose 151 04/22/24 03:30 Hemoglobin A1c 6.9 % (4.0-6.0) H 04/22/24 03:30 Calculated Osmolality 289 mOsm/kg (285-295) 04/27/24 04:28 Calcium 8.2 mg/dL (8.5-10.5) L 04/27/24 04:28 Phosphorus 2.6 mg/dL (2.5-4.5) 04/22/24 03:30 Magnesium 1.9 mg/dL (1.7-2.3) 04/22/24 20:03 Iron 89 ug/dL (37-145) 04/21/24 10:40 TIBC 351 mcg/dl 04/21/24 10:40 % Saturation 25.3 % (20-50) 04/21/24 10:40 Unsat Iron Binding 262 ug/dL (112-347) 04/21/24 10:40 Total Bilirubin 0.5 mg/dL (0.15-1.2) 04/25/24 03:56 AST 16 U/L (0-32) 04/25/24 03:56 ALT 12 U/L (0-33) 04/25/24 03:56 Alkaline Phosphatase 70 U/L (35-105) 04/25/24 03:56 Troponin T Baseline 313 ng/L (0-10) H* 04/22/24 20:03 Troponin T 120 Minute 289.8 ng/L (0-10) H 04/22/24 21:29 Delta Troponin T -23.2 ABS# (0-10) L 04/22/24 21:29 Troponin T Hi Sens 6Hr 310.7 ng/L (0-10) H 04/23/24 03:06 Troponin T Hi Sens 6Hr Delta -2.3 ng/L (0-12) L 04/23/24 03:06 NT-Pro-B Natriuret Pep 9532 pg/mL (0-125) H 04/21/24 10:40 Total Protein 6.1 g/dL (6.6-8.7) L 04/25/24 03:56 Albumin 3.8 g/dL (3.5-5.2) 04/25/24 03:56 Globulin 2.3 g/dL (1.3-4.6) 04/25/24 03:56 Triglycerides 75 mg/dL (0-150) 04/22/24 03:30 Cholesterol 225 mg/dL (0-200) H 04/22/24 03:30 LDL Cholesterol, Calc 142 mg/dL (50-129) H 04/22/24 03:30 HDL Cholesterol 68 mg/dL (60-100) 04/22/24 03:30 LDL/HDL Ratio 2.09 RATIO (0.00-3.22) 04/22/24 03:30 Cholesterol/HDL Ratio 3.31 mg/dL (0.0-4.40) 04/22/24 03:30 Vitamin B12 216 pg/mL (232-1245) L 04/21/24 10:40 Folate 3.6 ng/mL (4.8-37.3) L 04/22/24 03:30 Procalcitonin 0.04 ng/mL (0-0.5) 04/22/24 03:30 TSH 2.11 uIU/mL (0.27-4.20) 04/21/24 10:40 Urine Color Yellow (Yellow) 04/21/24 15:01 Urine Appearance Clear (CLEAR) 04/21/24 15:01 Urine pH 6.5 (5-7) 04/21/24 15:01 Ur Specific [place] 1.005 (1.005-1.030) 04/21/24 15:01 Urine Protein Negative (Negative) 04/21/24 15:01 Urine Glucose (UA) Negative (Normal) 04/21/24 15:01 Urine Ketones Negative (Negative) 04/21/24 15:01 Urine Blood Negative (Negative) 04/21/24 15:01 Urine Nitrate Negative (Negative) 04/21/24 15:01 Urine Bilirubin Negative (Negative) 04/21/24 15:01 Urine Urobilinogen 0.2 mg/dL (Negative) 04/21/24 15:01 Ur Leukocyte Esterase Negative (Negative) 04/21/24 15:01 Amorphous Sediment Not Reportable 04/21/24 15:01 Urine Opiates Screen Negative ng/mL (Negative) 04/21/24 15:01 Ur Barbiturates Screen Negative ng/mL (Negative) 04/21/24 15:01 Ur Phencyclidine Scrn Negative ng/mL (Negative) 04/21/24 15:01 Ur Amphetamines Screen Negative ng/mL (Negative) 04/21/24 15:01 U Benzodiazepines Scrn Negative ng/mL (Negative) 04/21/24 15:01 Urine Cocaine Screen Negative ng/mL (Negative) 04/21/24 15:01 U Marijuana (THC) Screen Negative ng/mL (Negative) 04/21/24 15:01 Coronavirus 229E (PCR) Not detected (NOT DETECT) 04/21/24 09:30 Influenza Type A Ag negative (Negative) 04/21/24 09:30 Influenza Type B Ag negative (Negative) 04/21/24 09:30 SARS-CoV-2 (PCR) Not detected (NOT DETECT) 04/21/24 09:30 MRSA (PCR) Not detected (NOT DETECTED) 04/21/24 20:00 Vitals Last Vital Signs Temp 98.7 F 04/27/24 11:11 Pulse 71 04/27/24 13:38 Resp 13 04/27/24 13:38 BP 128/64 04/27/24 13:38 Pulse Ox 93 04/27/24 13:37 O2 Del Method Room Air 04/27/24 13:37 O2 Flow Rate 1 04/25/24 03:25 Discharge Plan Discharge Patient Disposition: Xfer SNF Condition: Stable Prescriptions: New prednisone 20 mg Tablet 20 mg PO DAILY Qty: 3 0RF clopidogrel 75 mg Tablet 75 mg PO DAILY Qty: 90 0RF aspirin 81 mg Tablet,Delayed Release (Dr/Ec) 81 mg PO DAILY Qty: 90 0RF nicotine 21 mg/24 hr Patch 24 Hour 1 patch transdermal DAILY Qty: 90 0RF bumetanide 1 mg Tablet 1 mg PO DAILY Qty: 90 0RF nicotine (polacrilex) 4 mg Lozenge 4 mg mucous membrane Q2H PRN (Reason: Nicotine Cravings) Qty: 90 0RF valsartan 40 mg tablet 20 mg PO BID Qty: 180 0RF Vitamin B-12 1,000 mcg Tablet 1,000 mcg PO DAILY Qty: 90 0RF Continued meclizine 12.5 mg tablet 12.5 mg PO TID PRN (Reason: dizziness) Qty: 60 0RF (DME) elastic stocking above knees See Rx Instructions .Route .MEDSUPPLY Qty: 2 0RF Rx Instructions: As directed daily propranolol 10 mg tablet 10 mg PO BID Qty: 60 5RF clonazepam 1 mg tablet 1 mg PO BID Qty: 60 3RF Ventolin HFA 90 mcg/actuation HFA aerosol inhaler 2 puff INHALATION Q6H PRN (Reason: shortness of breath or wheezing) Qty: 8.5 3RF glipizide 10 mg tablet 10 mg PO BID Qty: 60 5RF hydroxyzine pamoate 50 mg capsule 50 mg PO DAILY PRN (Reason: Anxiety) Remeron 30 mg tablet 30 mg PO BEDTIME Symbicort 160-4.5 mcg/actuation HFA aerosol inhaler 2 puff inhalation BID guaifenesin 600 mg tablet extended release 12hr 600 mg PO BID PRN (Reason: congestion/cough) Benadryl 25 mg Capsule 25 mg PO TID PRN (Reason: allergies) Discontinued aspirin 325 mg tablet 325 mg PO DAILY Qty: 100 3RF diclofenac sodium [Voltaren Arthritis Pain] 1 % gel 4 g topical QID PRN (Reason: joint pain) Rx Instructions: apply to single knee, ankle, foot; for foot includes sole/toes/top of foot Discharge Orders: Discharge Order (Routine); Ordered 04/27/24 Ordered By: Aris Orozco Referrals: [facility] [Outside] Marv Andrews MD [Primary Care Provider] - 4-7 days Yanni Rolle FNP [Nurse Practitioner] - 1 week Discharge Diet: As Directed, Cardiac and Diabetic Discharge Activity: Increase activity as tolerated and As per PT/OT instructions Patient Instructions: Diabetes and Diet, Bumetanide (By mouth), Prednisone (By mouth), Nicotine (Into the mouth), Nicotine (Absorbed through the skin), Valsartan (By mouth), Clopidogrel (By mouth), Heart Failure (GEN), How to Stop Smoking (GEN), Abdominal Pain (DC), Vitamin B12 Deficiency (GEN), Coronary Artery Disease in Women (GEN), Prevent Cardiovascular Disease (GEN) Activity Restrictions/Additional Instructions: As per discussion, follow-up with cardiology and your primary provider with regards to severe cardiomyopathy/severely weakened heart with risk of congestive heart failure, reduce fluid intake to less than 1.5 L/day total. Maintain low- sodium diet as discussed (aim to keep sodium intake below 2000 mg in a day). Continue diuretic, diuretic dose may need to be increased in case of further fluid retention with lower extremity edema, worsening dyspnea on exertion, or shortness of breath when lying flat. In case of the symptoms seek medical attention. Similarly seek medical attention in case of any chest pain or pressure, feeling faint or any other concerning symptoms. Continue LifeVest due to increased risk of life-threatening arrhythmia and follow-up with cardiology for reassessment of function of your heart. Please follow-up with your primary provider and cardiology with regards to significant coronary artery disease, continue medical treatment for coronary disease and stop smoking. Continue aspirin, Plavix, atorvastatin. You may b enefit from continuing metoprolol if you are able to discontinue propranolol. Please stop smoking, continue smoking increases your risk of further heart attack, stroke, worsening congestive heart failure, worsening lung disease with COPD, as well as risk of lung, stomach or other cancer. Continue to optimize blood pressure control. Target blood pressure 120/80. You are started on valsartan, you would benefit from Entresto if at some point you get insurance which may help you pay for medications. Continue to optimize diabetes control. Continue glipizide, consistent carbohydrate diet. Follow-up with your primary doctor for reassessment of all of the above, as well as for reassessment after COPD exacerbation. Complete brief course of prednisone. Continue inhaler. Please make sure to stop smoking. Please follow-up with cardiology and your primary provider also regarding severe narrowing of the main heart valve (aortic valve). Avoid overexertion, avoid heat exposure. Continue light physical activity as tolerated. If you get lightheaded or faint to sit down or lie down immediately. Follow-up with heart doctors for reassessment. Follow-up with your primary provider and heart doctors regarding carotid artery atherosclerosis with narrowing of less than 50% on both sides, as well as peripheral arterial disease with atherosclerosis of the arteries in your legs. Again please make sure to quit smoking as smoking will lead to further progression of atherosclerosis, and continue to optimize other cardiovascular risk factors including high blood pressure and diabetes. Add fiber to your diet, continue bowel regimen to help avoid constipation. Seek medical attention in case of any worsening or new concerning symptoms. Discharge Attestations Time Spent in Discharge Care*: greater than 30 min Quality Metrics Clinical Quality Measures [ Acute Myocardial Infaction { Clinical Trial Participant: No; Contraindication to aspirin: None; Aspirin prescribed; Contraindication to statin: None; Statin prescribed;}] Coding Level of Care Code Critical Care >/= 30 minutes Critical care time (in minutes): 60 The high probability of a clinically significant, sudden or life threatening deterioration, as referenced in this documentation, required my full and direct attention, intervention and personal management. The critical care time shown is in addition to time spent performing any reported separately billable procedures and includes the following: [x] Data and vital sign review and interpretation [x ] Patient assessment, examination and intervention [x] Medication orders and management [x] Patient/Family updates as able [x] Care Coordination and Documentation. Diagnoses Congestive heart failure I50.9 Shortness of breath R06.02 Non-ST elevation GA (NSTEMI) I21.4 COPD (chronic obstructive pulmonary disease) case management patient J44.9 Nonrheumatic aortic valve stenosis with regurgitation I35.2 Peripheral Vascular Disease I73.9 Essential hypertension I10 Hypertension type: essential hypertension Diabetes mellitus type 2 in nonobese E11.9
[2024-04-27 16:39] LABS: Glucose Point of Care 261 mg/dL (70-110)
--- NOTE | 2024-04-27 16:50 | PC.NURSE ---
Discharge Note Patient discharged to [facility] via ready transport accompanied by ready patient transport orderly. Discharge instructions reviewed with patient and/or community health representative. Mobile pharmacy medications and/or prescriptions provided. Belongings/home medications returned.
== END 2024-04-27 16:53 | disposition skilled nursing facility (03) | DRG 280 ==
LOC: ER 10:37 → CSU 13:00
PROVIDERS: Family Medicine; Internal Medicine Cardiovascular Disease; Admitting Provider Student in an Organized Health Care Education/Training Program; Emergency Provider Family Medicine; PCP Family Medicine Adult Medicine; Visit Provider Internal Medicine
PROC: B2111ZZ Fluoroscopy of Multiple Coronary Arteries using Low Osmolar Contrast (ICD-10-PCS; principal; 2024-04-24 09:00)
DX: I21.4 Non-ST elevation (NSTEMI) myocardial infarction (principal); I50.23 Acute on chronic systolic (congestive) heart failure; J44.1 Chronic obstructive pulmonary disease with (acute) exacerbation; I13.0 Hypertensive heart and chronic kidney disease with heart failure and stage 1 through stage 4 chronic kidney disease, or unspecified chronic kidney disease; F33.9 Major depressive disorder, recurrent, unspecified; I47.20 Ventricular tachycardia, unspecified; I25.10 Atherosclerotic heart disease of native coronary artery without angina pectoris; Z11.52 Encounter for screening for COVID-19; F17.210 Nicotine dependence, cigarettes, uncomplicated; E11.42 Type 2 diabetes mellitus with diabetic polyneuropathy; E11.51 Type 2 diabetes mellitus with diabetic peripheral angiopathy without gangrene; Z95.820 Peripheral vascular angioplasty status with implants and grafts; Z79.82 Long term (current) use of aspirin; Z79.84 Long term (current) use of oral hypoglycemic drugs; E11.22 Type 2 diabetes mellitus with diabetic chronic kidney disease; N18.2 Chronic kidney disease, stage 2 (mild); M19.90 Unspecified osteoarthritis, unspecified site; G25.0 Essential tremor; E78.5 Hyperlipidemia, unspecified; I08.3 Combined rheumatic disorders of mitral, aortic and tricuspid valves; F41.1 Generalized anxiety disorder; K59.00 Constipation, unspecified; E53.8 Deficiency of other specified B group vitamins; I95.9 Hypotension, unspecified; R00.1 Bradycardia, unspecified; Z66 Do not resuscitate; Z82.49 Family history of ischemic heart disease and other diseases of the circulatory system
CPT/HCPCS: 36415; 36416; 36600; 51702; 71045; 74176; 78452; 80048; 80051; 80053; 80061; 80306; 81003; 81015; 82330; 82607; 82746; 82805; 82810; 82962; 83036; 83540; 83550; 83735; 83880; 84100; 84145; 84443; 84484; 85025; 85378; 86403; 87077; 87086; 87186; 87449; 87635; 87641; 87804; 93005; 93017; 93306; 93308; 93460; 93880; 93925; 94640; 94664; 96372; 96374; 96375; 96376; 99152; 99153; 99285; A9500; C1751; C1769; C1887; C1894; J1644; J1650; J1815; J1940; J2250; J2270; J2405; J2785; J2919; J3010; J3490; J7030; J7512; J7614; J7626; J7644; Q0163; Q9967

== ENCOUNTER → 2024-05-05 14:41 | Outpatient (BNVA) | payer MEDICARE, SELFPAY | PROVIDERS: PCP Family Medicine Adult Medicine; Visit Provider Nurse Practitioner Family | DX: I42.0 Dilated cardiomyopathy (principal); I35.0 Nonrheumatic aortic (valve) stenosis; I50.21 Acute systolic (congestive) heart failure; I73.9 Peripheral vascular disease, unspecified | CPT/HCPCS: 99214 ==

== ENCOUNTER 2024-07-04 10:39 | Inpatient (IN) | payer MEDICARE, SELFPAY ==
[2024-07-04] VITALS (9 sets, daily range): BP systolic 86–171; BP diastolic 47–89; PULSE 58–113; RESP 18–36; TEMP 35.7–37.3; O2SAT 92–98; BMI 29.2
--- NOTE | 2024-07-04 11:52 | XR_ITS ---
WS: [id number] Exam: XR chest 1V portable [id number] Date/Time of Exam: 07/04/2024 12:09 PM Reason For Exam: Shortness of breath Comparison 04/21/2024. The lungs are fully inflated and clear. Heart size top limits normal. No pleural effusions. The media stinum is normal in contour. Bony structures are intact. Numerous monitoring leads superimpose the ch est. XR/XR chest 1V portable [id number] IMPRESSION: 1. No acute cardiopulmonary finding.
--- NOTE | 2024-07-04 11:52 | ECG_ITS ---
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 Measurements Intervals [place] Rate: 70 P: 42 [place]: 171 QRS: 30 QRSD: 114 T: 70 QT: 409 QTc: 442 Interpretive Statements SINUS RHYTHM MODERATE INTRAVENTRICULAR CONDUCTION DELAY [110+ ms QRS DURATION] NONSPECIFIC ST & T-WAVE ABNORMALITY Compared to ECG 04/23/2024 01:56:07 Sinus bradycardia no longer present Possible ischemia no longer present T-wave abnormality still present Electronically Signed On 07-04-2024 19:28:08 CLINICAL MANAGER by Ahmet Brandon M.D. [email or web address]
[2024-07-04 12:39] LABS: Basophils # 0.1 10^3/uL (0.0-0.1); Basophils % 1.2 %; Eosinophils # 0.9 10^3/uL (0.0-0.8); Eosinophils % 8.2 %; Lymphocytes # 2.3 10^3/uL (0.8-4.8); Lymphocytes % 21.2 %; Mean Corpuscular HGB Conc 33.8 g/dL (30-55); Mean Corpuscular Hemoglobin 31.7 pg (27-33); Mean Corpuscular Volume 93.8 fl (85-98); Mean Platelet Volume 9.5 fL (7.4-10.4); Monocytes # 0.8 10^3/uL (0.2-0.9); Monocytes % 7.6 %; Neutrophils # 6.56 10^3/uL (1.8-7.7); Neutrophils % 61.4 %; Nucleated Red Blood Cells % 0 %; Platelet Count 231 10^3/cmm (157-399); Red Blood Count 4.48 10^6/uL (3.85-5.65); Red Cell Distribution Width 13.2 % (12.1-15.1); White Blood Count 10.68 10^3/uL (3.29-11.43)
[2024-07-04 12:57] LABS: Troponin(5th) Baseline 30 ng/L (0-10)
[2024-07-04 13:11] LABS: Alanine Aminotransferase 10 U/L (0-33); Albumin Level 4.2 g/dL (3.5-5.2); Alkaline Phosphatase 84 U/L (35-105); Anion Gap 15.4 (5-19); Aspartate Amino Transferase 17 U/L (0-32); Blood Urea Nitrogen 16 mg/dL (8-23); Calcium 9.7 mg/dL (8.5-10.5); Carbon Dioxide 26 mmol/L (22-29); Chloride 99 mmol/L (98-107); Creatinine Clr Calc Pharmacy 66.6382; Globulin 2.5 g/dL (1.3-4.6); Glucose 115 mg/dL (65-115); NT Pro B Type Natriuretic Pept 4214 pg/mL (0-125); Osmolality Calculated 284 mOsm/kg (285-295); Potassium 4.4 mmol/L (3.5-5.1); Sodium 136 mmol/L (136-145); Total Bilirubin 0.4 mg/dL (0.15-1.2); Total Protein 6.7 g/dL (6.6-8.7)
--- NOTE | 2024-07-04 14:36 | W.ED.SOB ---
HPI - SOB/Dyspnea General: Chief Complaint: Shortness of Breath/Dyspnea Stated Complaint: SOB Time Seen by Provider: 07/04/24 14:35 History of Present Illness: HPI Narrative: 74-year-old female presents emergency room with severe shortness of breath. She first arrived here heart rate was in the 70s. She is complaining of being increasingly short of breath doctor increasing orthopnea I went in to see the patient he had a chest pain but her heart rate had gone up from 70-1 upper 130s was irregular and now requiring more oxygen than usual. We had her up to 5 L. She typically is on 2 to 3 L. She denies chest pain. Denies any productive cough fever sweats or chills Associated symptoms: Reports chest congestion; Deny abdominal pain, chest pain or fever(s) Related Data Home Medications Medication Instructions Recorded Confirmed budesonide-formoterol HFA 160 2 puff inhalation BID 04/21/24 05/05/24 mcg-4.5 mcg/actuation aerosol inhaler (Symbicort) diphenhydramine HCl 25 mg capsule 25 mg PO TID PRN allergies 04/21/24 05/05/24 (Benadryl) guaifenesin 600 mg tablet, 600 mg PO BID PRN congestion/cough 04/21/24 05/05/24 extended release 12 hr hydroxyzine pamoate 50 mg capsule 50 mg PO DAILY PRN Anxiety 04/21/24 05/05/24 mirtazapine 30 mg tablet (Remeron) 30 mg PO BEDTIME 04/21/24 05/05/24 Previous Rx's Medication Instructions Recorded propranolol 10 mg tablet 10 mg PO BID tremor #60 tabs 09/29/23 elastic stocking above knees #2 ea 11/05/23 meclizine 12.5 mg tablet 12.5 mg PO TID PRN dizziness #60 11/05/23 tabs clonazepam 1 mg tablet 1 mg PO BID anxiety #60 tabs 01/19/24 glipizide 10 mg tablet 10 mg PO BID diabetes #60 tabs 03/16/24 aspirin 81 mg tablet,delayed 81 mg PO DAILY #90 tabs 04/27/24 release bumetanide 1 mg tablet 1 mg PO DAILY #90 tabs 04/27/24 clopidogrel 75 mg tablet 75 mg PO DAILY #90 tabs 04/27/24 cyanocobalamin (vitamin B-12) 1,000 mcg PO DAILY #90 tabs 04/27/24 1,000 mcg tablet (Vitamin B-12) nicotine (polacrilex) 4 mg buccal 4 mg mucous membrane Q2H PRN 04/27/24 lozenge Nicotine Cravings #90 ea nicotine 21 mg/24 hr daily 1 patch transdermal DAILY #90 ea 04/27/24 transdermal patch prednisone 20 mg tablet 20 mg PO DAILY #3 tabs 04/27/24 valsartan 40 mg tablet 20 mg (1/2 x 40 mg) PO BID #180 04/27/24 tabs albuterol sulfate 90 mcg/actuation 2 puff inhalation Q6H PRN 06/27/24 aerosol inhaler (Ventolin HFA) shortness of breath or wheezing #8.5 grams Allergies Allergy/AdvReac Type Severity Reaction Status Date / Time loratadine [From Claritin] AdvReac headache/difficulty Verified 05/05/24 14:53 breathing Review of Systems Const: Denies: fever(s) or chills Card: Denies: chest pain Resp: Reports: dyspnea and chest congestion GI: Denies: abdominal pain : Denies: dysuria, urinary frequency or urinary urgency Musc: Denies: neck pain or back pain Skin/Breast: Denies: rash PFSH ED PFSH: Medical History Snoring Somnolence, daytime Elevated blood pressure reading in office with diagnosis of hypertension Pain and swelling of left lower leg Fall (on)(from) incline, initial encounter Bilateral edema of lower extremity Dizziness and giddiness Intertrigo Diabetes mellitus type 2 in nonobese Allergic rhinitis due to allergen Acute sinusitis CKD (chronic kidney disease) stage 2, GFR 60-89 ml/min Dysphagia Smoker Peripheral neuropathy Osteoarthritis of knees, bilateral Essential tremor COPD (chronic obstructive pulmonary disease) case management patient HTN (hypertension) Hyperlipidemia due to type 2 diabetes mellitus Mixed stress and urge urinary incontinence Aortic stenosis Peripheral Vascular Disease Bladder prolapse Generalized anxiety disorder Major depressive disorder, recurrent episode, moderate with anxious distress Surgical History Hx of angioplasty S/P hysterectomy S/P tonsillectomy Family History Mother Diabetes Denies family history of CAD (coronary artery disease) Hyperlipidemia Chronic kidney disease (CKD) Cancer Hypertension Thyroid disease Stroke Social History Smoking and tobacco/nicotine status: current every day tobacco/nicotine user Quit status (tobacco/nicotine): not considering quitting Second hand smoke exposure: Yes Alcohol intake: never Substance/Drug Use: never Caregiver/support person: No Lives independently: Yes Household members: spouse Housing: House Marital status: Number of children: 1 Highest education level completed: Some College, No Degree service: No Current occupational status: retired Pets and animals: Yes (1 cat) Do you think of yourself as: Straight/Heterosexual Current gender identity: Female Physical Exam Const: GENERAL APPEARANCE: cooperative ORIENTATION/CONSCIOUSNESS: Yes awake HENMT: COMMON NORMALS: normocephalic, atraumatic and hearing grossly normal bilaterally HEAD & SCALP: normocephalic and atraumatic Resp: COMMON NORMALS: normal respiratory effort, No retractions and No use of accessory muscles AUSCULTATION: crackles and diminished lung sounds Cardio: RATE: tachycardic RHYTHM: abnormal rhythm irregularly irregular HEART SOUNDS: Murmur heart sound present systolic Location: right sternal border Intensity: III/ GI: COMMON NORMALS: Soft to palpation and No hepatosplenomegaly present AUSCULTATION: Yes normoactive bowel sounds PALPATION: Yes Soft to palpation, No Tenderness to palpation present (GI), No Guarding due to palpation present (GI) and Yes No hepatosplenomegaly present Extremity: COMMON NORMALS: normal to inspection, capillary refill normal and no calf tenderness OTHER: 2+ edema lower extremities Skin: COMMON NORMALS: no rashes or lesions noted GENERAL SKIN EXAM: no rashes or lesions noted Course Vital Signs: Vital signs: Vital Signs Temperature 97.8 F 07/04/24 11:01 Pulse Rate 98 07/04/24 16:52 Respiratory Rate 18 07/04/24 11:01 Blood Pressure 159/89 07/04/24 16:52 Pulse Oximetry 94 07/04/24 16:52 Oxygen Delivery Me thod Nasal Cannula 07/04/24 15:20 Oxygen Flow Rate 3 07/04/24 15:20 MDM - SOB/Dyspnea Medical Decision Making Patient tachycardic on exam and sounds like she is in A-fib her rate is really significantly increase started on amiodarone initial bolus and 1/2 mg an hour she had significant improvement of her rate. Her oxygen need remain the same however. She was able answer few questions she denies chest pain at this time. Discussed with hospitalist he is requesting a D-dimer which did come back elevated he was going to get a CTA. She does appear to be in mildly decompensated heart failure as well. She has severe cardiomyopathy. Consult Dr. Card. Medical Records I reviewed the patient's medical records. Lab Data I reviewed the patient's lab results. 07/04/24 12:07/04/24 12:27 Labs/Radiology: Radiology Impressions Chest X-Ray 07/04/24 11:52 IMPRESSION: 1. No acute cardiopulmonary finding. Laboratory Results WBC 10.68 10^3/uL (3.29-11.43) 07/04/24 12: RBC 4.48 10^6/uL (3.85-5.65) 07/04/24 12:27 Hgb 14.20 g/dL (11.27-16.99) 07/04/24 12:27 Hct 42.0 % (36-47) 07/04/24 12:27 MCV 93.8 fl (85-98) 07/04/24 12:27 MCH 31.7 pg (27-33) 07/04/24 12:27 MCHC 33.8 g/dL (30-55) 07/04/24 12: RDW 13.2 % (12.1-15.1) 07/04/24 12:27 Plt Count 231 10^3/cmm (157-399) 07/04/24 12:27 MPV 9.5 fL (7.4-10.4) 07/04/24 12:27 Neut % (Auto) 61.4 % 07/04/24 12:27 Lymph % (Auto) 21.2 % 07/04/24 12:27 [place] % (Auto) 7.6 % 07/04/24 12:27 Eos % (Auto) 8.2 % 07/04/24 12: Baso % (Auto) 1.2 % 07/04/24 12:27 Neut # (Auto) 6.56 10^3/uL (1.8-7.7) 07/04/24 12: Lymph # (Auto) 2.3 10^3/uL (0.8-4.8) 07/04/24 12:27 [place] # (Auto) 0.8 10^3/uL (0.2-0.9) 07/04/24 12:27 Eos # (Auto) 0.9 10^3/uL (0.0-0.8) H 07/04/24 12:27 Baso # (Auto) 0.1 10^3/uL (0.0-0.1) 07/04/24 12:27 Nucleated RBC % (auto) 0 % 07/04/24 12:27 Nucleated RBCs # 0.0 /100WBC 07/04/24 12:27 D-Dimer 4.89 ug/mLFEU (0-0.59) H 07/04/24 12:27 Sodium 136 mmol/L (136-145) 07/04/24 12:27 Potassium 4.4 mmol/L (3.5-5.1) 07/04/24 12:27 Chloride 99 mmol/L (98-107) 07/04/24 12:27 Carbon Dioxide 26 mmol/L (22-29) 07/04/24 12:27 Anion Gap 15.4 (5-19) 07/04/24 12:27 BUN 16 mg/dL (8-23) 07/04/24 12:27 Creatinine 0.7 mg/dL (0.5-0.9) 07/04/24 12:27 GFR Calculation Not Reportable 07/04/24 12:27 Glucose 115 mg/dL (65-115) 07/04/24 12:27 Calculated Osmolality 284 mOsm/kg (285-295) L 07/04/24 12:27 Calcium 9.7 mg/dL (8.5-10.5) 07/04/24 12:27 Total Bilirubin 0.4 mg/dL (0.15-1.2) 07/04/24 12:27 AST 17 U/L (0-32) 07/04/24 12:27 ALT 10 U/L (0-33) 07/04/24 12:27 Alkaline Phosphatase 84 U/L (35-105) 07/04/24 12:27 Troponin T Baseline 30 ng/L (0-10) H 07/04/24 12:27 Troponin T 120 Minute 28.86 ng/L (0-10) H 07/04/24 14:34 Delta Troponin T -1.14 ABS# (0-10) L 07/04/24 14:34 NT-Pro-B Natriuret Pep 4214 pg/mL (0-125) H 07/04/24 12:27 Total Protein 6.7 g/dL (6.6-8.7) 07/04/24 12:27 Albumin 4.2 g/dL (3.5-5.2) 07/04/24 12:27 Globulin 2.5 g/dL (1.3-4.6) 07/04/24 12:27 TSH 2.57 uIU/mL (0.27-4.20) 07/04/24 12:27 All radiology interpretation(s) finalized by discharge Discharge Plan Discharge Patient Disposition: Admitted As Inpatient Admit Provider: Aris Orozco Clinical Impression: Congestive heart failure, Aortic stenosis, D-dimer, elevated Condition: Stable Coding Level of Care Code ED Presser Automatic for Tim Valle
--- NOTE | 2024-07-04 14:46 | ECG_ITS ---
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 Measurements Intervals [place] Rate: 132 P: 101 OK: 167 QRS: 36 QRSD: 126 T: 30 QT: 297 QTc: 441 Interpretive Statements SINUS TACHYCARDIA WITH OCCASIONAL VENTRICULAR PREMATURE COMPLEXES ANTEROSEPTAL MYOCARDIAL INFARCTION , OF INDETERMINATE AGE [40+ ms Q WAVE IN V1-V4] Compared to ECG 07/04/2024 10:57:36 Ventricular premature complex(es) now present Myocardial infarct finding now present Sinus rhythm no longer present Intraventricular conduction delay no longer present T-wave abnormality no longer present Heavy baseline artifacts; Need to repeat the study. Electronically Signed On 07-04-2024 21:13:47 CUSTOMER ACCOUNT ADMINISTRATOR by Ahmet Brandon M.D. [id number]
[2024-07-04] MEDS: amiodarone 150 MG/100 ML PREMIX 400 MG IV (14:53)
[2024-07-04 15:04] LABS: Troponin 5 2HR 28.86 ng/L (0-10)
[2024-07-04 15:06] LABS: Troponin 5 2HR Delta -1.14 ABS# (0-10)
[2024-07-04 15:31] LABS: Thyroid Stimulating Hormone 2.57 uIU/mL (0.27-4.20)
[2024-07-04 15:46] LABS: D Dimer 4.89 ug/mLFEU (0-0.59)
--- NOTE | 2024-07-04 16:36 | P.HP_ITS ---
Providers/Chief Complaint 2 Admitting Physician: Aris Orozco Primary Care Provider: Marv Andrews MD Chief Complaint: SOB History of Present Illness Pleasant 74-year-old lady with history of HFrEF, in April EF 25-30%, with LifeVest, aortic stenosis, COPD, CKD, DM 2, smoking, other medical problems admitted undergoing rehabilitation at SNF after recent hospitalization with CHF and COPD exacerbation was going to have a follow-up appointment with cardiology today, but has been getting short of breath and was too short of breath/weak today to attend her appointment. Was brought into ER for evaluation. In the ER she is found newly requiring 3 L nasal cannula oxygen. Dyspnea, generally weak. Also found to have tachycardia up into 130s found to be atrial flutter/atrial fibrillation. Has been started on amiodarone drip. Patient and Her deny any AICD discharge. She has been having some runny nose and sneezing. Denies having much cough. Does occasionally choke up on food. Has been followed by speech therapy at the assisted. Review of Systems 2 Const: Reports: fatigue; Denies: fever(s), chills, body aches or malaise ENMT: Denies: throat pain Card: Reports: dyspnea on exertion; Denies: chest pain, edema or pre-syncope Resp: Reports: dyspnea; Denies: productive cough, change in phlegm color or hemoptysis GI: Denies: abdominal pain, nausea, vomiting, diarrhea, constipation, hematochezia or melena : Denies: flank pain, urinary frequency or hematuria Musc: Denies: back pain, joint swelling or joint redness Skin/Breast: Denies: rash Neuro: Denies: headache(s), numbness in extremities, weakness in extremities, dizziness, confusion or seizure-like activity Medications/Allergies Home Medications Medication Instructions Recorded Confirmed Last Taken Type propranolol 10 mg tablet 10 mg PO BID tremor #60 tabs 09/29/23 05/05/24 04/21/24 Rx elastic stocking above knees #2 ea 11/05/23 05/05/24 Unknown Rx meclizine 12.5 mg tablet 12.5 mg PO TID PRN dizziness #60 11/05/23 05/05/24 Unknown Rx tabs clonazepam 1 mg tablet 1 mg PO BID anxiety #60 tabs 01/19/24 05/05/24 04/21/24 Rx glipizide 10 mg tablet 10 mg PO BID diabetes #60 tabs 03/16/24 05/05/24 04/21/24 Rx budesonide-formoterol HFA 160 2 puff inhalation BID 04/21/24 05/05/24 04/21/24 History mcg-4.5 mcg/actuation aerosol inhaler (Symbicort) diphenhydramine HCl 25 mg capsule 25 mg PO TID PRN allergies 04/21/24 05/05/24 Unknown History (Benadryl) guaifenesin 600 mg tablet, 600 mg PO BID PRN congestion/cough 04/21/24 05/05/24 Unknown History extended release 12 hr hydroxyzine pamoate 50 mg capsule 50 mg PO DAILY PRN Anxiety 04/21/24 05/05/24 Unknown History mirtazapine 30 mg tablet (Remeron) 30 mg PO BEDTIME 04/21/24 05/05/24 04/20/24 History aspirin 81 mg tablet,delayed 81 mg PO DAILY #90 tabs 04/27/24 05/05/24 Unknown Rx release bumetanide 1 mg tablet 1 mg PO DAILY #90 tabs 04/27/24 05/05/24 Unknown Rx clopidogrel 75 mg tablet 75 mg PO DAILY #90 tabs 04/27/24 05/05/24 Unknown Rx cyanocobalamin (vitamin B-12) 1,000 mcg PO DAILY #90 tabs 04/27/24 05/05/24 Unknown Rx 1,000 mcg tablet (Vitamin B-12) nicotine (polacrilex) 4 mg buccal 4 mg mucous membrane Q2H PRN 04/27/24 05/05/24 Unknown Rx lozenge Nicotine Cravings #90 ea nicotine 21 mg/24 hr daily 1 patch transdermal DAILY #90 ea 04/27/24 05/05/24 Unknown Rx transdermal patch prednisone 20 mg tablet 20 mg PO DAILY #3 tabs 04/27/24 05/05/24 Unknown Rx valsartan 40 mg tablet 20 mg (1/2 x 40 mg) PO BID #180 04/27/24 05/05/24 Unknown Rx tabs albuterol sulfate 90 mcg/actuation 2 puff inhalation Q6H PRN 06/27/24 Unknown Rx aerosol inhaler (Ventolin HFA) shortness of breath or wheezing #8.5 grams Allergies Allergy/AdvReac Type Severity Reaction Status Date / Time loratadine [From Claritin] AdvReac headache/difficulty Verified 05/05/24 14:53 breathing PFSH Acute 2 PFSH: Medical History Snoring Somnolence, daytime Elevated blood pressure reading in office with diagnosis of hypertension Pain and swelling of left lower leg Fall (on)(from) incline, initial encounter Bilateral edema of lower extremity Dizziness and giddiness Intertrigo Diabetes mellitus type 2 in nonobese Allergic rhinitis due to allergen Acute sinusitis CKD (chronic kidney disease) stage 2, GFR 60-89 ml/min Dysphagia Smoker Peripheral neuropathy Osteoarthritis of knees, bilateral Essential tremor COPD (chronic obstructive pulmonary disease) case management patient HTN (hypertension) Hyperlipidemia due to type 2 diabetes mellitus Mixed stress and urge urinary incontinence Aortic stenosis Peripheral Vascular Disease Bladder prolapse Generalized anxiety disorder Major depressive disorder, recurrent episode, moderate with anxious distress Surgical History Hx of angioplasty S/P hysterectomy S/P tonsillectomy Family History Mother Diabetes Denies family history of CAD (coronary artery disease) Hyperlipidemia Chronic kidney disease (CKD) Cancer Hypertension Thyroid disease Stroke Social History Smoking and tobacco/nicotine status: current every day tobacco/nicotine user Quit status (tobacco/nicotine): not considering quitting Second hand smoke exposure: Yes Alcohol intake: never Substance/Drug Use: never Caregiver/support person: No Lives independently: Yes Household members: spouse Housing: House Marital status: Number of children: 1 Highest education level completed: Some College, No Degree service: No Current occupational status: retired Pets and animals: Yes (1 cat) Do you think of yourself as: Straight/Heterosexual Current gender identity: Female Vitals/I&O/Wt Last Vital Signs Temp 97.8 F 07/04/24 11:01 Pulse 103 H 07/04/24 15:20 Resp 18 07/04/24 11:01 BP 159/83 07/04/24 15:20 Pulse Ox 93 07/04/24 15:20 O2 Del Method Nasal Cannula 07/04/24 15:20 O2 Flow Rate 3 07/04/24 15:20 07/04/24 07/04/24 07/04/24 06:59 14:59 22:59 Intake Total 0.556 / 0.556 Balance 0.556 / 0.556 Weight last 48 hrs Weight 82.1 kg Physical Exam 2 Narrative: Accompanied by her . Const: COMMON NORMALS: patient oriented x3 and alert GENERAL APPEARANCE: c ooperative ORIENTATION/CONSCIOUSNESS: Yes awake HENMT: COMMON NORMALS: oropharynx normal Resp: COMMON NORMALS: normal respiratory effort and clear to auscultation bilaterally AUSCULTATION: clear to auscultation bilaterally OTHER: Shallow breaths. Cardio: COMMON NORMALS: no JVD, regular rhythm, S1 normal heart sound present, S2 normal heart sound present and No murmurs present (Cardio) RHYTHM: regular rhythm HEART SOUNDS: S1 normal heart sound present and S2 normal heart sound present GI: COMMON NORMALS: Normal to inspection, nondistended, normoactive bowel sounds present, Soft to palpation and non-tender PALPATION: Yes Soft to palpation Extremity: COMMON NORMALS: no joint enlargement GENERAL: Yes edema (1+) Neuro: COMMON NORMALS: patient oriented x3 and moves all extremities S ENSORIUM/ORIENTATION: Yes alert Skin: COMMON NORMALS: no rashes or lesions noted GENERAL SKIN EXAM: no rashes or lesions noted Data 07/04/24 12:27 07/04/24 12:27 A&P Assessment and plan (1) Respiratory failure: Acute respiratory failure with hypoxia and hypercapnia, dyspnea on presentation, shallow breaths, tachypnea, denies chest pain. But noted tachycardia, heart rate transiently up in 130s with a possible atrial flutter/fibrillation, was started on amiodarone. Reviewed vitals, CBC, D-dimer, ABG, CMP, EKG, chest x- ray, ER note, discussed with ER provider, discussed with decorator consultant. With concern for decompensated systolic CHF, last EF 25-30%, she is given 60 mg IV Lasix, BiPAP is requested with acute hypercapnic respiratory failure. Monitor intake and output. Chest x-ray not suggestive of infection. She has been having some sneezing, will check respiratory viral panel. Monitor for risk of electrolyte deficiency, kidney dysfunction with IV diuretics. Complete troponin EKG series. Assess limited TTE. With elevated D-dimer pending CT assessment for PE, assess venous duplex. Clear liquid diet for now. Reported occasional episodes of aspiration, although no suggestion of aspiration pneumonia at current time. Has been seeing ST at assisted. Continue speech therapy assessment and follow-up. DuoNebs scheduled and as needed for COPD. Budesonide nebs. Currently BiPAP. Discussed with RT. Hold clonazepam for now. (2) D-dimer, elevated: Follow-up CTA, venous duplex. May be related to atrial flutter/fibrillation as noted on presentation, or, with respiratory failure further assessments as per former. (3) Tachycardia: Tachycardia up to 130s in ER, with finding of suspected atrial flutter/fibrillation prescription with ER physician on insulin monitor. Continue amiodarone for now. Check magnesium. Monitor on telemetry. Continue propranolol. Plan AICD: Continue CKD: Reviewed renal function, monitor. DM2: SSI. Consistent carb diet HTN: Continue propranolol, receiving Lasix. Monitor blood pressures. Continue valsartan. Smoking: Nicotine replacement as needed. Other medical problems Attestations 2 Medical Necessity Statement*: Admission over 2 midnights anticipated for assessment management of respiratory failure with hypoxia and hypercapnia. Diagnoses Respiratory failure J96.90 D-dimer, elevated R79.89 Tachycardia R00.0
--- NOTE | 2024-07-04 16:52 | CTR_ITS ---
PROCEDURE INFORMATION: Exam: CTA Chest With Contrast Exam date and time: 07/04/2024 9:57 PM Age: 74 years old Clinical indication: Shortness of breath; Prior surgery; Surgery date: 6+ months; Surgery type: Angioplasty; Additional info: Elevated d-dimer TECHNIQUE: Imaging protocol: Computed tomographic angiography of the chest with contrast. Exam focused on the arteries. 3D rendering (Not supervised by radiologist): MIP and/or 3D reconstructed images were created by the technologist. Radiation optimization: All CT scans at this facility use at least one of these dose optimization techniques: automated exposure control; mA and/or kV adjustment per patient size (includes targeted exams where dose is matched to clinical indication); or iterative reconstruction. Contrast material: OMNI 350; Contrast volume: 100 ml; Contrast route: INTRAVENOUS (IV); COMPARISON: CR XR chest 1V portable [id number] 07/04/2024 12:03 PM RADIATION DOSE METRICS: Total DLP (mGy-cm): 398.29 FINDINGS: Pulmonary arteries: Mild enlargement of the main pulmonary artery suggesting pulmonary arterial hypertension. Aorta: Limited assessment due to non-opacification. Mild ectasia of the ascending segment. Lungs: Moderate centrilobular emphysema. No bullous formation. Mild bandlike scarring in the left greater than right lung bases. Mild interlobular septal thickening. Pleural spaces: Unremarkable. No pneumothorax. No pleural effusion. Heart: [id number] cardiomegaly. Coronary arteries: Moderately extensive coronary calcification. Lymph nodes: Unremarkable. No enlarged lymph nodes. Bones/joints: Mild multilevel degenerative thoracic spondylosis. Soft tissues: Unremarkable. CT/CT angio chest PE protcl [id number] IMPRESSION: 1. No evidence of pulmonary embolism. 2. [id number] cardiomegaly and interlobular septal thickening may indicate a component of CHF. 3. Moderate emphysema . Diffuse bronchial wall thickening/inflammation without focal consolidation. Please correlate clinically for any evidence of COPD exacerbation. Other chronic findings detailed above. COMMENTS: The presence of pulmonary emphysema on CT is an independent risk factor for lung cancer. In the absence of a history or active diagnosis of lung cancer, it is recommended that this patient with emphysema be evaluated for enrollment in a low dose CT lung cancer screening program.
--- NOTE | 2024-07-04 17:04 | P.CONIM_ITS ---
Providers/Reason For Consult 2 Consulting Physician/Specialty*: Eileen Escamilla MD Reason for Consult*: Atrial fibrillation Respiratory failure CHF exacerbation COPD exacerbation Requesting Physician: Dr. Orozco and Dr. Mosley Attending Physician: Aris Orozco Primary Care Provider: Marv Andrews MD History of Present Illness History of Present Illness Santa Baez is a 74 year old female past medical history significant for nonischemic cardiomyopathy severely depressed ejection fraction 30%, mild to moderate aortic valve stenosis COPD systolic heart failure presented with worsening of shortness of breath orthopnea along with palpitation. She was noted to be in atrial fibrillation with rapid ventricular response. She was started on amiodarone in the ER and converted to sinus rhythm. I saw the patient on the floor she was struggling to breathe denies any chest pain. Recently patient underwent left heart catheterization which did not show any significant stenosis in left main LAD or RCA, groove circumflex was nondominant vessel with 70 to 80% stenosis thought to be managed medically. Patient denies fever chills. Twelve-lead EKG shows sinus rhythm now and repolarization abnormality Review of Systems 2 Const: Reports: fatigue; Denies: fever(s), chills, body aches or malaise Eyes: Denies: photophobia ENMT: Denies: throat pain or enlarged tonsils Card: Reports: dyspnea on exertion; Denies: chest pain, edema or pre-syncope Resp: Reports: dyspnea; Denies: productive cough, change in phlegm color or hemoptysis GI: Denies: abdominal pain, nausea, vomiting, diarrhea, constipation, hematochezia or melena : Denies: flank pain, dysuria, urinary frequency, urinary urgency or hematuria Musc: Denies: neck pain, back pain, joint swelling or joint redness Skin/Breast: Denies: rash Neuro: Denies: headache(s), numbness in extremities, weakness in extremities, dizziness, confusion or seizure-like activity All/Imm: Denies: acute wheezing Medications/Allergies Home Medications Medication Instructions Recorded Confirmed Last Taken Type propranolol 10 mg tablet 10 mg PO BID tremor #60 tabs 09/29/23 05/05/24 04/21/24 Rx elastic stocking above knees #2 ea 11/05/23 05/05/24 Unknown Rx meclizine 12.5 mg tablet 12.5 mg PO TID PRN dizziness #60 11/05/23 05/05/24 Unknown Rx tabs clonazepam 1 mg tablet 1 mg PO BID anxiety #60 tabs 01/19/24 05/05/24 04/21/24 Rx glipizide 10 mg tablet 10 mg PO BID diabetes #60 tabs 03/16/24 05/05/24 04/21/24 Rx budesonide-formoterol HFA 160 2 puff inhalation BID 04/21/24 05/05/24 04/21/24 History mcg-4.5 mcg/actuation aerosol inhaler (Symbicort) diphenhydramine HCl 25 mg capsule 25 mg PO TID PRN allergies 04/21/24 05/05/24 Unknown History (Benadryl) guaifenesin 600 mg tablet, 600 mg PO BID PRN congestion/cough 04/21/24 05/05/24 Unknown History extended release 12 hr hydroxyzine pamoate 50 mg capsule 50 mg PO DAILY PRN Anxiety 04/21/24 05/05/24 Unknown History mirtazapine 30 mg tablet (Remeron) 30 mg PO BEDTIME 04/21/24 05/05/24 04/20/24 History aspirin 81 mg tablet,delayed 81 mg PO DAILY #90 tabs 04/27/24 05/05/24 Unknown Rx release bumetanide 1 mg tablet 1 mg PO DAILY #90 tabs 04/27/24 05/05/24 Unknown Rx clopidogrel 75 mg tablet 75 mg PO DAILY #90 tabs 04/27/24 05/05/24 Unknown Rx cyanocobalamin (vitamin B-12) 1,000 mcg PO DAILY #90 tabs 04/27/24 05/05/24 Unknown Rx 1,000 mcg tablet (Vitamin B-12) nicotine (polacrilex) 4 mg buccal 4 mg mucous membrane Q2H PRN 04/27/24 05/05/24 Unknown Rx lozenge Nicotine Cravings #90 ea nicotine 21 mg/24 hr daily 1 patch transdermal DAILY #90 ea 04/27/24 05/05/24 Unknown Rx transdermal patch prednisone 20 mg tablet 20 mg PO DAILY #3 tabs 04/27/24 05/05/24 Unknown Rx valsartan 40 mg tablet 20 mg (1/2 x 40 mg) PO BID #180 04/27/24 05/05/24 Unknown Rx tabs albuterol sulfate 90 mcg/actuation 2 puff inhalation Q6H PRN 06/27/24 Unknown Rx aerosol inhaler (Ventolin HFA) shortness of breath or wheezing #8.5 grams Allergies Allergy/AdvReac Type Severity Reaction Status Date / Time loratadine [From Claritin] AdvReac headache/difficulty Verified 05/05/24 14:53 breathing Current Medications Generic Name Dose Route Start Last Admin Trade Name Freq PRN Reason Stop Dose Admin Amiodarone HCl/Dextrose 360 mg in 200 mls @ 0 mls/hr 07/04/24 14:43 07/04/24 15:19 Nexterone IV 0.5 mg/min .Q0M GILBERTO 16.67 mls/hr Titration Protocol Per Protocol PFSH Acute 2 PFSH: Medical History (Updated 07/04/24 @ 23:36 by Eileen Escamilla MD) Aortic stenosis Cardiomyopathy Snoring Somnolence, daytime Elevated blood pressure reading in office with diagnosis of hypertension Pain and swelling of left lower leg Fall (on)(from) incline, initial encounter Bilateral edema of lower extremity Dizziness and giddiness Intertrigo Diabetes mellitus type 2 in nonobese Allergic rhinitis due to allergen Acute sinusitis CKD (chronic kidney disease) stage 2, GFR 60-89 ml/min Dysphagia Smoker Peripheral neuropathy Osteoarthritis of knees, bilateral Essential tremor COPD (chronic obstructive pulmonary disease) case management patient HTN (hypertension) Hyperlipidemia due to type 2 diabetes mellitus Mixed stress and urge urinary incontinence Aortic stenosis Peripheral Vascular Disease Bladder prolapse Generalized anxiety disorder Major depressive disorder, recurrent episode, moderate with anxious distress Surgical History Hx of angioplasty S/P hysterectomy S/P tonsillectomy Family History Mother Diabetes Denies family history of CAD (coronary artery disease) Hyperlipidemia Chronic kidney disease (CKD) Cancer Hypertension Thyroid disease Stroke Social History Smoking and tobacco/nicotine status: current every day tobacco/nicotine user Quit status (tobacco/nicotine): not considering quitting Second hand smoke exposure: Yes Alcohol intake: never Substance/Drug Use: never Caregiver/support person: No Lives independently: Yes Household members: spouse Housing: House Marital status: Number of children: 1 Highest education level completed: Some College, No Degree service: No Current occupational status: retired Pets and animals: Yes (1 cat) Do you think of yourself as: Straight/Heterosexual Current gender identity: Female Dietary Habits: Current diet type/program: regular and diabetic Vitals/I&O/Wt Last Vital Signs Temp 97.8 F 07/04/24 11:01 Pulse 98 07/04/24 16:52 Resp 18 07/04/24 11:01 BP 159/89 07/04/24 16:52 Pulse Ox 94 07/04/24 16:52 O2 Del Method Nasal Cannula 07/04/24 15:20 O2 Flow Rate 3 07/04/24 15:20 07/04/24 07/04/24 07/04/24 06:59 14:59 22:59 Intake Total 0.556 / 0.556 Balance 0.556 / 0.556 Weight last 48 hrs Weight 181 lb Physical Exam 2 Const: OTHER: GENERAL: Patient is anxious cold and clammy HEART: Regular but tachycardic S1-S2. LUNGS: C reduced breath sounds bilaterally. CENTRAL NERVOUS SYSTEM: Grossly nonfocal. EXTREMITIES: Lower extremities with out edema bilaterally. Data 07/04/24 12:27 07/04/24 12:27 A&P Assessment and plan (1) Respiratory failure: Combination of COPD exacerbation with decompensated systolic heart failure, will move patient to ICU, advise BiPAP IV Lasix 60 mg time 1 and breathing treatment. Check ABG, D-dimer was high CTA to rule out pulmonary embolism Qualifiers: Chronicity: acute on chronic Respiratory failure complication: h ypercapnia Qualified Code(s): J96.22 - Acute and chronic respiratory failure with hypercapnia (2) Atrial fibrillation: Continue amiodarone and switch to p.o. amiodarone 200 mg once converted to sinus rhythm. Will cover with Lovenox for atrial fibrillation Qualifiers: Atrial fibrillation type: paroxysmal Qualified Code(s): I48.0 - Paroxysmal atrial fibrillation (3) CHF exacerbation: IV Lasix was given continue to monitor, start start IV Lasix 40 mg once a day from tomorrow, replace potassium as per lab Qualifiers: Heart failure type: systolic Qualified Code(s): I50.23 - Acute on chronic systolic (congestive) heart failure (4) COPD exacerbation: As per medicine colleague (5) Cardiomyopathy: Patient has nonischemic cardiomyopathy with severely depressed left ventricular ejection fraction we will optimize medications such as guideline medical therapy for heart failure may require Entresto to be started once euvolemic continue IV Lasix for now Qualifiers: Cardiomyopathy type: dilated Qualified Code(s): I42.0 - Dilated cardiomyopathy (6) Aortic stenosis: By echocardiogram performed today patient aortic stenosis is mild to moderate 1.4 cm care will continue to monitor every 6-month in the clinic by exam and yearly echo Qualifiers: Cardiac valve disease etiology: nonrheumatic Qualified Code(s): I35.0 - Nonrheumatic aortic (valve) stenosis Consult Attestations 2 Medical Necessity Statement: Patient require continuation hospitalization for above defined care and expecting her stay to cross more than 2 midnights Coding Level of Care Code Acute Code for [facility] Fwd Diagnoses Acute on chronic respiratory failure with hypercapnia J96.22 Chronicity: acute on chronic Respiratory failure complication: hypercapnia Paroxysmal atrial fibrillation I48.0 Atrial fibrillation type: paroxysmal Acute on chronic systolic congestive heart failure I50.23 Heart failure type: systolic COPD exacerbation J44.1 Dilated cardiomyopathy I42.0 Cardiomyopathy type: dilated Nonrheumatic aortic valve stenosis I35.0 Cardiac valve disease etiology: nonrheumatic
[2024-07-04 17:13] LABS: Alveolar-Arterial Oxygen Gradi 9.8 mmHg (5-10); Arterial Blood Gas Hematocrit 46.2 % (37-47); Blood Gas Allen Test Pos; Blood Gas Operator Identificat AMH; Blood Gas Sample Site Radial, left; Blood Gas Sample Type Arterial; Carboxyhemoglobin 0.9 %THgb (0.4-20.1); HCO3 ABG 24.2 mmol/L (22-26); HGB O2 Sat 91.3 % (95-100); Ionized Calcium Level - ABG 1.3 mmol/L (1.1-1.4); Oxygen Device NC; Oxygen Saturation ABG 93.1; PO2 ABG 86.4 mmHg (80.0-100.0); PO2 FiO2 Ratio Arterial Blood 240; Potassium Level - ABG 5.5 mmol/L (3.5-5.0); Total Hemoglobin 15.1 g/dL (12-16)
[2024-07-04] MEDS: albuterol 2.5 mg/3 mL Neb INHALATION (17:42)
--- NOTE | 2024-07-04 17:52 | ECG_ITS ---
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 Measurements Intervals [place] Rate: 69 P: 56 MO: 159 QRS: 74 QRSD: 119 T: 239 QT: 441 QTc: 475 Interpretive Statements SINUS RHYTHM MODERATE INTRAVENTRICULAR CONDUCTION DELAY [105+ ms QRS DURATION, 80+ ms Q/S IN V1/V2, NO Q AND 60+ ms R IN I/aVL/V5/V6] ST DEVIATION AND MODERATE T-WAVE ABNORMALITY, CONSIDER ANTEROLATERAL ISCHEMIA [-0.1+ mV T-WAVE IN V3-V6] ST DEVIATION AND MODERATE T-WAVE ABNORMALITY, CONSIDER INFERIOR ISCHEMIA [-0.1+ mV T-WAVE IN II/aVF] Compared to ECG 07/04/2024 14:46:34.Intraventricular conduction delay now present.T-wave abnormality now present.Possible ischemia now present. Sinus tachycardia no longer present .Ventricular premature complex(es) no longer present. Myocardial infarct finding no longer present Electronically Signed On 07-04-2024 21:13:32 CHILD AND FAMILY THERAPIST by Ahmet Brandon M.D. [email or web address]
--- NOTE | 2024-07-04 18:10 | USCV_ITS ---
Santa Baez Age: 74 Gender: F : 1950 Exam Date: 07/04/2024 20:22 Ordering Phys: Aris Orozco MD Technologist: MELY Exam Location: [facility] – [place] Indication: respiratory failure. Patient is on BIPAP in CSU- 108 BP: 171 / 85 HR: 57 Rhythm: Sinus Technical Quality: Adequate MEASUREMENTS (Male / Female) Normal Values 2D ECHO LV Diastolic Diameter PLAX 4.0 cm 4.2 - 5.9 / 3.9 - 5.3 cm IVS Diastolic Thickness 2.2 cm 0.6 - 1.0 / 0.6 - 0.9 cm IVS Systolic Thickness 2.3 cm LVPW Diastolic Thickness 1.8 cm 0.6 - 1.0 / 0.6 - 0.9 cm LVPW Systolic Thickness 2.0 cm LVOT Diameter 2.6 cm LV Ejection Fraction 2D Teich 41.1 % LV Ejection Fraction MOD 4C 29.1 % LV Ejection Fraction MOD 2C 20.9 % LV Ejection Fraction 2C AL 19.9 % LA Diameter 3.6 cm Aorta at Sinotubular Diameter 3.0 cm IVC Diameter 1.6 cm M-MODE LA Ao Ratio MM 1.1 AV Cusp Separation MM 1.1 cm DOPPLER AV Peak Velocity 251.0 cm/s LVOT Peak Velocity 64.0 cm/s AV Area Cont Eq vti 1.4 cm squared AV Area Cont Eq pk 1.4 cm squared MV Peak Velocity 73.0 cm/s MV Area PHT 3.9 cm squared Mitral E to A Ratio 0.7 TR Peak Velocity 225.0 cm/s TR Peak Gradient 20.3 mmHg TV Peak E Velocity 40.0 cm/s Right Atrial Pressure 3.0 mmHg Pulmonary Artery Systolic Pressu 23.3 mmHg PV Peak Velocity 70.0 cm/s FINDINGS Left Ventricle Mildly increased left ventricular cavity size. Severely decreased left ventricular systolic function. Global left ventricular hypokinesis. Left ventricular ejection fraction is estimated at 30 %. Right Ventricle Right Atrium Left Atrium Mitral Valve Moderately thickened mitral valve.no mitral valve stenosis. Trace mitral valve regurgitation. Aortic Valve Severe aortic valve calcification. Moderate aortic valve stenosis, mean gradient 12.8 mmHg, GABRIELLA 1.4 cm squared. Mild aortic valve regurgitation. Tricuspid Valve Pulmonic Valve Moderate pulmonary valve regurgitation. Pericardium Aorta IVC CONCLUSIONS Please note that this is a limited echo Mildly increased left ventricular cavity size. Severely decreased left ventricular systolic function. Global left ventricular hypokinesis. Left ventricular ejection fraction is estimated at 30 %. Severe aortic valve calcification. Moderate aortic valve stenosis, mean gradient 12.8 mmHg, GABRIELLA 1.4 cm squared. Mild aortic valve regurgitation. Moderately thickened mitral valve.no mitral valve stenosis. Trace mitral valve regurgitation. Moderate pulmonary valve regurgitation. There is no pericardial effusion. Right atrial pressure is around 5 mm of mercury. Eileen Escamilla MD (Electronically Signed) Final Date: 04 July 2024 21:32 S
--- NOTE | 2024-07-04 18:10 | USCV_ITS ---
Santa Baez Age: 74 Gender: F : 1950 Exam Date: 07/04/2024 20:01 Ordering Phys: Aris Orozco MD Technologist: MELY Exam Location: [facility] – [place] Indication: assess for DVT Patient is on BIPAP in CSU-108 HISTORY: assess for DVT Patient is on BIPAP in CSU-108 PROCEDURES: Venous duplex imaging was performed in bilateral lower extremities. The following venous structures were evaluated: common femoral vein, profunda vein, proximal portion of the greater saphenous vein, superficial femoral vein, and the popliteal vein. In addition, the posterior tibial veins were evaluated. FINDINGS: Normal 2-D Doppler and augmentation and compressibility throughout the lower extremity venous structures. Additional imaging through the proximal calf veins also reveals no thrombus. Limited evaluation of the greater saphenous vein is patent with no thrombus. CONCLUSIONS No DVT bilateral lower extremities. Dr. Sierra Rodriguez DO (Electronically Signed) Final Date: 05 July 2024 09:44 S
[2024-07-04] MEDS: FUROsemide 10 mg/mL SDV 10mL 60 MG IVP (18:11)
--- NOTE | 2024-07-04 18:14 | PC.NURSE ---
Patient unable to speak, cannot finish admission
[2024-07-04] MEDS: pantoprazole 40 mg SDV IVP (18:23)
[2024-07-04] MEDS: enoxaparin 40 mg/0.4 mL Syringe SUBCUT (18:24)
[2024-07-04 18:41] LABS: ABG PCO2 75.1 mmHg (35-45); ABG PH Result 7.12 (7.35-7.45)
--- NOTE | 2024-07-04 19:17 | PC.NURSE ---
Patient arrived from ER via stretcher. Patient lethargic, pale, with labored breathing. Air Tube Releaser at bedside. Orders for Bipap, ABG, Estrella, and Lasix were given. Patient vital signs stable upon arrival however blood pressure has started to trend down with a mean MAP of 60. Patient will be transferred to ICU
[2024-07-04 19:21] LABS: Magnesium 2.2 mg/dL (1.7-2.3)
[2024-07-04 19:23] LABS: Troponin 5 6HR 90.69 ng/L (0-10)
[2024-07-04 19:26] LABS: Troponin 5 6HR Delta 60.69 ng/L (0-12)
[2024-07-04] MEDS: ipratropium-albuterol 3 mL Neb INHALATION (20:46)
[2024-07-04] MEDS: budesonide 0.5 mg/2 mL Neb INHALATION (20:46)
[2024-07-04] MEDS: hydrocortisone 100 mg/2 mL SDV IVP (20:55)
[2024-07-04 21:23] LABS: ABG PCO2 50.6 mmHg (35-45); ABG PH Result 7.32 (7.35-7.45); Arterial Blood Gas Hematocrit 41.5 % (37-47); Blood Gas Operator Identificat SAM; Blood Gas Sample Site Brachial, right; Blood Gas Sample Type Arterial; HCO3 ABG 25.8 mmol/L (22-26); Oxygen Device BIPAP; PO2 ABG 85.6 mmHg (80.0-100.0); PO2 FiO2 Ratio Arterial Blood 244
[2024-07-04] MEDS: iohexol 350 mg/mL 500 mL Btl (per mL) IV (21:58)
[2024-07-04] MEDS: mirtazapine 30 mg Tablet PO (23:37)
[2024-07-05] VITALS (75 sets, daily range): BP systolic 90–167; BP diastolic 41–82; PULSE 56–108; RESP 11–35; TEMP 36.3–37.3; O2SAT 90–99
[2024-07-05] MEDS: hydrocortisone 100 mg/2 mL SDV IVP ×4 (01:57→15:56)
[2024-07-05] MEDS: ipratropium-albuterol 3 mL Neb INHALATION ×4 (02:47→20:59)
[2024-07-05 03:28] LABS: Basophils % 0.3 %; Eosinophils % 0.2 %; Hematocrit 41.2 % (36-47); Lymphocytes # 1.1 10^3/uL (0.8-4.8); Lymphocytes % 9.1 %; Mean Corpuscular Hemoglobin 31.1 pg (27-33); Mean Corpuscular Volume 94.3 fl (85-98); Mean Platelet Volume 9.8 fL (7.4-10.4); Monocytes # 0.2 10^3/uL (0.2-0.9); Monocytes % 1.8 %; Neutrophils # 10.69 10^3/uL (1.8-7.7); Neutrophils % 88.3 %; Nucleated Red Blood Cells % 0 %; Platelet Count 177 10^3/cmm (157-399); Red Blood Count 4.37 10^6/uL (3.85-5.65); Red Cell Distribution Width 13.3 % (12.1-15.1); White Blood Count 12.11 10^3/uL (3.29-11.43)
[2024-07-05 03:44] LABS: Blood Urea Nitrogen 24 mg/dL (8-23); Calcium 8.2 mg/dL (8.5-10.5); Carbon Dioxide 21 mmol/L (22-29); Chloride 100 mmol/L (98-107); Creatinine Clr Calc Pharmacy 41.0081; Glucose 152 mg/dL (65-115); Osmolality Calculated 283 mOsm/kg (285-295); Sodium 133 mmol/L (136-145)
[2024-07-05] MEDS: bumetanide 0.25 mg/mL SDV 10 mL 2 MG IVP (04:31)
[2024-07-05] MEDS: clopidogrel 75 mg Tablet PO (08:18)
[2024-07-05] MEDS: aspirin 81 mg EC Tablet PO (08:18)
[2024-07-05] MEDS: budesonide 0.5 mg/2 mL Neb INHALATION ×2 (08:25→20:59)
[2024-07-05 10:24] LABS: Adenovirus Not Detected (NOT DETECT); Chlamydia Pneumoniae Not Detected (NOT DETECT); Coronavirus 229E,HKU1,NL63,OC4 Not Detected (NOT DETECT); Human Metapneumovirus Not Detected (NOT DETECT); Human Rhinovirus/Enterovirus Not Detected (NOT DETECT); Influenza A Not Detected (NOT DETECT); Influenza A H1 Not Detected (NOT DETECT); Influenza A H1-2009 Not Detected (NOT DETECT); Influenza A H3 Not Detected (NOT DETECT); Influenza B Not Detected (NOT DETECT); Mycoplasma Pneumoniae Not Detected (NOT DETECT); Parainfluenza Virus Type 1 Not Detected (NOT DETECT); Parainfluenza Virus Type 2 Not Detected (NOT DETECT); Parainfluenza Virus Type 3 Not Detected (NOT DETECT); Parainfluenza Virus Type 4 Not Detected (NOT DETECT); Respiratory Syncytial Virus A Not Detected (NOT DETECT); Respiratory Syncytial Virus B Not Detected (NOT DETECT); SARS-COV-2 Not Detected (NOT DETECT)
[2024-07-05] MEDS: metoprolol succinate ER (24 HR) 25 mg Tablet 12.5 MG PO (12:56)
--- NOTE | 2024-07-05 13:05 | PC.NURSE ---
Report called to dennis kaur. Will transfer patient to room 107 when patient is done eating.
--- NOTE | 2024-07-05 13:50 | PC.NURSE ---
Transferred to U RM 107 via wheelchair.
--- NOTE | 2024-07-05 14:38 | P.PN_ITS ---
Subjective 2 Subjective: She feels she is improving. Has come down on oxygen requirement. Feels stronger, more energetic, more alert today. Denies chest pain or pressure. Vitals/I&O/Wt Last Vital Signs Temp 97.4 F L 07/05/24 12:00 Pulse 84 07/05/24 14:18 Resp 18 07/05/24 14:18 BP 135/56 07/05/24 12:00 Pulse Ox 92 07/05/24 14:18 O2 Del Method Room Air 07/05/24 14:18 O2 Flow Rate 1 07/05/24 12:00 FiO2 35 07/05/24 03:00 07/04/24 07/05/24 07/05/24 22:59 06:59 14:59 Intake Total 220.556 / 220.556 700 / 700 Output Total 975 / 975 975 / 1950 625 / 625 Balance -754.444 / -754.444 -975 / -1729.444 75 / 75 Weight last 48 hrs Weight 77.5 kg Weight 82.1 kg Weight 82.1 kg Physical Exam 2 Narrative: Accompanied by her . Const: COMMON NORMALS: patient oriented x3 and alert GENERAL APPEARANCE: c ooperative ORIENTATION/CONSCIOUSNESS: Yes awake HENMT: COMMON NORMALS: oropharynx normal Neck/C-Spine: COMMON NORMALS: no JVD Resp: COMMON NORMALS: normal respiratory effort and clear to auscultation bilaterally AUSCULTATION: clear to auscultation bilaterally Cardio: COMMON NORMALS: no JVD, regular rhythm, S1 normal heart sound present, S2 normal heart sound present and No murmurs present (Cardio) RHYTHM: regular rhythm HEART SOUNDS: S1 normal heart sound present and S2 normal heart sound present GI: COMMON NORMALS: Normal to inspection, nondistended, normoactive bowel sounds present, Soft to palpation and non-tender PALPATION: Yes Soft to palpation Extremity: COMMON NORMALS: no joint enlargement GENERAL: Yes edema (1+) Neuro: COMMON NORMALS: patient oriented x3 and moves all extremities S ENSORIUM/ORIENTATION: Yes alert Skin: COMMON NORMALS: no rashes or lesions noted GENERAL SKIN EXAM: no rashes or lesions noted Urinary Catheter Management: Estrella Latex: Cath Placed During This Visit: yes Urinary Catheter Date of Insertion: 07/04/24 Data 07/05/24 03:16 07/05/24 03:16 A&P Assessment and plan (1) Respiratory failure: Stayed on BiPAP overnight. Repeat ABG reviewed, showed improvement. This morning she is feeling more alert, stronger, breathing better. Oxygenating better. Discussed with nursing, RT, target O2 saturation 88-92%. Discussed with patient and . Continue treatment of CHF as well as with underlying severe emphysema/COPD. Discussed with public health epidemiologist. Reviewed cardiology note. Discussed with heel caser. Continue IV Bumex for decompensated CHF, monitor for risk of electrolyte deficiency, KIANA. Acute respiratory failure with hypoxia and hypercapnia, dyspnea on presentation, shallow breaths, tachypnea, denies chest pain. But noted tachycardia, heart rate transiently up in 130s with a possible atrial flutter/fibrillation, was started on amiodarone. Reviewed vitals, CBC, D-dimer, ABG, CMP, EKG, chest x- ray, ER note, discussed with ER provider, discussed with public health epidemiologist. With concern for decompensated systolic CHF, last EF 25-30%, she is given 60 mg IV Lasix, BiPAP is requested with acute hypercapnic respiratory failure. Monitor intake and output. Chest x-ray not suggestive of infection. She has been having some sneezing, will check respiratory viral panel. Monitor for risk of electrolyte deficiency, kidney dysfunction with IV diuretics. Complete troponin EKG series. Assess limited TTE. With elevated D-dimer pending CT assessment for PE, assess venous duplex. Clear liquid diet for now. Reported occasional episodes of aspiration, although no suggestion of aspiration pneumonia at current time. Has been seeing ST at [facility]. Continue speech therapy assessment and follow-up. DuoNebs scheduled and as needed for COPD. Budesonide nebs. Currently BiPAP. Discussed with RT. Hold clonazepam for now. (2) D-dimer, elevated: Reviewed CTA, venous duplex, no evidence of VTE. May be related to atrial flutter/fibrillation as noted on presentation (3) Tachycardia: So far without recurrence, likely related to respiratory failure, hypoxia, demand ischemia. Noted elevation of troponin, discussed with public health epidemiologist. Free of chest pain or pressure. Continue to monitor, continue medical therapies. Monitor telemetry with risk of arrhythmia. Reviewed potassium, magnesium. Repeat levels. Continue propranolol. Plan Adrenal insufficiency: With hypotension yesterday, as per prescription with patient and her was started on hydrocortisone. Will taper down, decrease dose to twice daily. Monitor for risk of hypertension, gastritis, encephalopathy, hyperglycemia with stress dose steroid. AICD: Continue CKD: Reviewed renal function, monitor. DM2: SSI. Consistent carb diet HTN: Continue propranolol, receiving Lasix. Monitor blood pressures. Continue valsartan. Smoking: Nicotine replacement as needed. Other medical problems Attestations 2 Medical Necessity Statement*: Continue admission for assessment and management of decompensated CHF, respiratory failure with hypoxia and hypercapnia. and High MDM includes amount and/or complexity of data reviewed/ordered [ previous or external records, resulted lab(s)/test(s), ordered lab(s)/test(s) and other healthcare professional discussion] and described risk of complication, morbidity or mortality of management as documented Diagnoses Respiratory failure J96.90 D-dimer, elevated R79.89 Tachycardia R00.0
[2024-07-05] MEDS: pantoprazole 40 mg SDV IVP (17:48)
[2024-07-05] MEDS: losartan 50 mg Tablet PO (17:49)
[2024-07-05] MEDS: sacubitril/valsartan 24-26 mg Tablet 1 EACH PO (17:50)
--- NOTE | 2024-07-05 18:45 | P.PN_ITS ---
Subjective 2 Subjective: Feeling much better patient diuresed well and BiPAP helped her she is talking in full sentences able to lay flat, she stayed in sinus rhythm Vitals/I&O/Wt Last Vital Signs Temp 98.5 F 07/05/24 18:00 Pulse 84 07/05/24 14:18 Resp 23 H 07/05/24 18:00 BP 134/58 07/05/24 18:00 Pulse Ox 93 07/05/24 18:00 O2 Del Method Room Air 07/05/24 14:18 O2 Flow Rate 1 07/05/24 12:00 FiO2 35 07/05/24 03:00 07/05/24 07/05/24 07/05/24 06:59 14:59 22:59 Intake Total 899.444 / 899.444 Output Total 975 / 1950 625 / 625 250 / 875 Balance -975 / -1729.444 274.444 / 274.444 -250 / 24.444 Weight last 48 hrs Weight 170 lb 13.732 oz Weight 181 lb Weight 181 lb Physical Exam 2 Const: OTHER: GENERAL: Alert awake oriented x 3 HEART: Regular but tachycardic S1-S2. LUNGS: Clear to auscultate bilaterally. CENTRAL NERVOUS SYSTEM: Grossly nonfocal. EXTREMITIES: Lower extremities with out edema bilaterally. Urinary Catheter Management: Estrella Latex: Cath Placed During This Visit: yes Reason for Continuing Indwelling Catheter: Accurate Measurement of Urinary Output in Critically Ill Patients Urinary Catheter Date of Insertion: 07/04/24 Data 07/05/24 03:16 07/05/24 03:16 A&P Assessment and plan (1) Respiratory failure: Combination of COPD exacerbation with decompensated systolic heart failure, will move patient to ICU, advise BiPAP IV Lasix 60 mg time 1 and breathing treatment. Check ABG, D-dimer was high CTA to rule out pulmonary embolism On today's visit patient is feeling much better, she had a combination of COPD exacerbation with CHF. She appeared to be well compensated CHF ambrose now we will back off on Bumex and switch her to p.o. Bumex 1 mg once a day from tomorrow. Qualifiers: Chronicity: acute on chronic Respiratory failure complication: h ypercapnia Qualified Code(s): J96.22 - Acute and chronic respiratory failure with hypercapnia (2) Atrial fibrillation: Switch to p.o. 200 mg amiodarone from tomorrow. Continue beta-yaz and anticoagulation Qualifiers: Atrial fibrillation type: paroxysmal Qualified Code(s): I48.0 - Paroxysmal atrial fibrillation (3) CHF exacerbation: As above switch to p.o. Bumex tomorrow morning to 1 mg once a day along with 20 mg of potassium once a day Qualifiers: Heart failure type: systolic Qualified Code(s): I50.23 - Acute on chronic systolic (congestive) heart failure (4) COPD exacerbation: As per medicine colleague (5) Cardiomyopathy: Plan to start Entresto from today. For severely depressed left ventricular ejection fraction. Qualifiers: Cardiomyopathy type: dilated Qualified Code(s): I42.0 - Dilated cardiomyopathy (6) Aortic stenosis: By echocardiogram performed today patient aortic stenosis is mild to moderate 1.4 cm care will continue to monitor every 6-month in the clinic by exam and yearly echo Qualifiers: Cardiac valve disease etiology: nonrheumatic Qualified Code(s): I35.0 - Nonrheumatic aortic (valve) stenosis Attestations 2 Medical Necessity Statement*: Patient require continuation hospitalization for above defined care Coding Level of Care Code Acute Code for [facility] Fwd Diagnoses Acute on chronic respiratory failure with hypercapnia J96.22 Chronicity: acute on chronic Respiratory failure complication: hypercapnia Paroxysmal atrial fibrillation I48.0 Atrial fibrillation type: paroxysmal Acute on chronic systolic congestive heart failure I50.23 Heart failure type: systolic COPD exacerbation J44.1 Dilated cardiomyopathy I42.0 Cardiomyopathy type: dilated Nonrheumatic aortic valve stenosis I35.0 Cardiac valve disease etiology: nonrheumatic
[2024-07-05] MEDS: mirtazapine 15 mg Tablet 30 MG PO (20:15)
[2024-07-05] MEDS: acetaminophen 325 mg Tablet 650 MG PO (21:53)
[2024-07-06] VITALS (31 sets, daily range): BP systolic 120–144; BP diastolic 49–63; PULSE 62–86; RESP 12–37; TEMP 36.5–37.3; O2SAT 92–100
[2024-07-06] MEDS: ipratropium-albuterol 3 mL Neb INHALATION ×4 (04:04→20:53)
[2024-07-06 04:10] LABS: Basophils % 0.2 %; Eosinophils % 0.1 %; Hematocrit 36.8 % (36-47); Lymphocytes % 12.2 %; Mean Corpuscular HGB Conc 33.7 g/dL (30-55); Mean Corpuscular Hemoglobin 31.3 pg (27-33); Mean Corpuscular Volume 92.9 fl (85-98); Monocytes # 1.4 10^3/uL (0.2-0.9); Monocytes % 8.6 %; Neutrophils # 12.87 10^3/uL (1.8-7.7); Neutrophils % 78.3 %; Nucleated Red Blood Cells % 0 %; Platelet Count 213 10^3/cmm (157-399); Red Blood Count 3.96 10^6/uL (3.85-5.65); Red Cell Distribution Width 13.4 % (12.1-15.1); White Blood Count 16.45 10^3/uL (3.29-11.43)
[2024-07-06 04:33] LABS: Magnesium 2.5 mg/dL (1.7-2.3)
[2024-07-06 04:34] LABS: Anion Gap 14.5 (5-19); Blood Urea Nitrogen 34 mg/dL (8-23); Calcium 8.1 mg/dL (8.5-10.5); Carbon Dioxide 26 mmol/L (22-29); Chloride 104 mmol/L (98-107); Creatinine Clr Calc Pharmacy 43.2308; Glucose 201 mg/dL (65-115); Osmolality Calculated 305 mOsm/kg (285-295); Potassium 3.5 mmol/L (3.5-5.1); Sodium 141 mmol/L (136-145)
[2024-07-06] MEDS: budesonide 0.5 mg/2 mL Neb INHALATION ×2 (07:38→20:53)
[2024-07-06] MEDS: clopidogrel 75 mg Tablet PO (08:50)
[2024-07-06] MEDS: sacubitril/valsartan 24-26 mg Tablet 1 EACH PO ×2 (08:50→17:14)
[2024-07-06] MEDS: hydrocortisone 100 mg/2 mL SDV IVP ×2 (08:50→17:14)
[2024-07-06] MEDS: bumetanide 0.25 mg/mL SDV 4 mL 1 MG IVP (08:50)
[2024-07-06] MEDS: aspirin 81 mg EC Tablet PO (08:51)
[2024-07-06] MEDS: losartan 50 mg Tablet PO ×2 (08:51→17:14)
[2024-07-06] MEDS: metoprolol succinate ER (24 HR) 25 mg Tablet 12.5 MG PO (08:51)
--- NOTE | 2024-07-06 09:27 | PC.SOCIAL ---
IMM Update pg 2 of IMM Updated and reviewed w/ patient. Copy provided and copy dated, initialed and placed in chart.
[2024-07-06] MEDS: nicotine 4 mg lozenge MUCOUS MEM ×2 (10:18→14:48)
--- NOTE | 2024-07-06 11:49 | P.PN_ITS ---
<Statement entered by Kenny Madrid M.D - 07/07/24 07:24> Patient was evaluated and cared for in conjunction with an advanced practice practitioner.? I personally examined the patient and reviewed the chart and all pertinent data including imaging, telemetry, and laboratory results.? I discussed the patient in detail with the advanced practice practitioner.? Please see? their note for complete progress note, testing, results and agreed upon plan of care for the patient. I agree with assessment and plan Patient still has shortness of breath. GENERAL: Patient is alert, awake and oriented x3. HEART: Regular S1 and S2 LUNGS: Has mild crackles CENTRAL NERVOUS SYSTEM: Grossly nonfocal. EXTREMITIES: Lower extremities with 1+ edema Assessment and plan CHF exacerbation COPD exacerbation Atrial fibrillation Continue IV bumex, can downtitrate the dose to 1mg BID. Monitor I and Os and renal function Switch IV amiodarone to PO amiodarone 200mg BID for 7 days and then 200 mg daily. Thank you for involving us with care of this patient. We will continue to follow. Please call with questions. Documented by User: Olesya Price NP 07/06/24 12:08 Subjective 2 Subjective: Patient is doing well. She has no shortness of breath or chest pain. Still has some lower extremity edema and bilateral lower lobes course crackles present. She wears BiPAP at night and O2 during the day. Creatinine slightly improved at 1.2. Overall, she has no complaints. Medications: Reviewed: Yes Vitals/I&O/Wt Last Vital Signs Temp 97.7 F 07/06/24 07:38 Pulse 74 07/06/24 07:38 Resp 20 H 07/06/24 07:38 BP 120/50 07/06/24 08:51 Pulse Ox 100 07/06/24 07:38 O2 Del Method BiPAP 07/06/24 07:38 O2 Flow Rate 1 07/05/24 12:00 FiO2 35 07/06/24 07:34 07/05/24 07/06/24 07/06/24 22:59 06:59 14:59 Intake Total 300 / 1199.444 Output Total 250 / 875 400 / 1275 Balance 50 / 324.444 -400 / -75.556 Weight last 48 hrs Weight 180 lb 9.6 oz Weight 170 lb 13.732 oz Weight 181 lb Physical Exam 2 Narrative: General: No apparent distress, healthy appearing, well nourished Neck: No carotid bruit bilaterally Muskuloskeletal: Full ROM Respiratory: Normal respiratory effort, coarse crackles bilateral lower lobes posteriorly, no use of accessory muscles Cardio: No JVD, regular rate, regular rhythm, S1 S2 normal, grade 3 out of 6 systolic murmur in the aortic space, peripheral pulses 2+ throughout, 1+ edema bilateral lower extremities Extremities: Full ROM, normal, normal capillary refill Neuro: Alert and oriented x4, no focal motor deficits Psych: Affect normal, denies suicidal ideation, mental status grossly normal Skin: No rashes or lesions noted, no wounds Urinary Catheter Management: Estrella Latex: Cath Placed During This Visit: yes Reason for Continuing Indwelling Catheter: Accurate Measurement of Urinary Output in Critically Ill Patients Urinary Catheter Date of Insertion: 07/04/24 Data 07/07/24 04:24 07/07/24 04:24 A&P Assessment and plan (1) Respiratory failure: Combination of COPD exacerbation with decompensated systolic heart failure EF of 30%, will continue BiPAP at night, IV Bumex decreased to 1 mg IV today, will start oral Bumex 1 mg daily tomorrow. Will give 20 meq potassium PO today. Will closely watch creat. Was at 1.2. Qualifiers: Chronicity: acute on chronic Respiratory failure complication: h ypercapnia Qualified Code(s): J96.22 - Acute and chronic respiratory failure with hypercapnia (2) Atrial fibrillation: Switch to p.o. 200 mg BID. Continue beta-yaz and anticoagulation. Qualifiers: Atrial fibrillation type: paroxysmal Qualified Code(s): I48.0 - Paroxysmal atrial fibrillation (3) CHF exacerbation: As above switch to p.o. Bumex tomorrow morning to 1 mg once a day along with 20 mg of potassium once a day Qualifiers: Heart failure type: systolic Qualified Code(s): I50.23 - Acute on chronic systolic (congestive) heart failure (4) COPD exacerbation: As per medicine colleague (5) Cardiomyopathy: Continue Entresto from today. For severely depressed left ventricular ejection fraction. Qualifiers: Cardiomyopathy type: dilated Qualified Code(s): I42.0 - Dilated cardiomyopathy (6) Aortic stenosis: By echocardiogram performed today patient aortic stenosis is mild to moderate 1.4 cm care will continue to monitor every 6-month in the clinic by exam and yearly echo Qualifiers: Cardiac valve disease etiology: nonrheumatic Qualified Code(s): I35.0 - Nonrheumatic aortic (valve) stenosis Plan The plan for this very pleasant 74-year-old female is to continue with diuresis. Patient received IV Bumex today 1 mg. We will start oral Bumex 1 mg tomorrow in the morning. Will add potassium 20 meq today. Continue to assess kidney function continue Entresto for systolic heart failure with severely reduced EF at 30%, continue beta-yaz Attestations 2 Medical Necessity Statement*: Patient require continuation hospitalization for above defined care Coding Level of Care Code Acute Code for g Fwd Diagnoses Acute on chronic respiratory failure with hypercapnia J96.22 Chronicity: acute on chronic Respiratory failure complication: hypercapnia Paroxysmal atrial fibrillation I48.0 Atrial fibrillation type: paroxysmal Acute on chronic systolic congestive heart failure I50.23 Heart failure type: systolic COPD exacerbation J44.1 Dilated cardiomyopathy I42.0 Cardiomyopathy type: dilated Nonrheumatic aortic valve stenosis I35.0 Cardiac valve disease etiology: nonrheumatic Documented by User: Kenny Madrid M.D 07/07/24 07:12 Physical Exam 2 Urinary Catheter Management: Estrella Latex: Cath Placed During This Visit: yes Data 07/07/24 04:24 07/07/24 04:24 A&P Assessment and plan (1) Respiratory failure: Qualifiers: Chronicity: acute on chronic Respiratory failure complication: h ypercapnia Qualified Code(s): J96.22 - Acute and chronic respiratory failure with hypercapnia (2) Atrial fibrillation: Qualifiers: Atrial fibrillation type: paroxysmal Qualified Code(s): I48.0 - Paroxysmal atrial fibrillation (3) CHF exacerbation: Qualifiers: Heart failure type: systolic Qualified Code(s): I50.23 - Acute on chronic systolic (congestive) heart failure (4) COPD exacerbation: (5) Cardiomyopathy: Qualifiers: Cardiomyopathy type: dilated Qualified Code(s): I42.0 - Dilated cardiomyopathy (6) Aortic stenosis: Qualifiers: Cardiac valve disease etiology: nonrheumatic Qualified Code(s): I35.0 - Nonrheumatic aortic (valve) stenosis Coding Level of Care Code Acute Code for Chg Fwd Diagnoses Acute on chronic respiratory failure with hypercapnia J96.22 Chronicity: acute on chronic Respiratory failure complication: hypercapnia Paroxysmal atrial fibrillation I48.0 Atrial fibrillation type: paroxysmal Acute on chronic systolic congestive heart failure I50.23 Heart failure type: systolic COPD exacerbation J44.1 Dilated cardiomyopathy I42.0 Cardiomyopathy type: dilated Nonrheumatic aortic valve stenosis I35.0 Cardiac valve disease etiology: nonrheumatic
[2024-07-06] MEDS: pantoprazole 40 mg SDV IVP (17:14)
[2024-07-06] MEDS: amiodarone 200 mg Tablet PO (17:14)
[2024-07-06] MEDS: benzonatate 100 mg Capsule 200 MG PO (17:16)
--- NOTE | 2024-07-06 17:43 | P.PN_ITS ---
Subjective 2 Subjective: She is having bothersome dry cough. Feeling weaker today. Vitals/I&O/Wt Last Vital Signs Temp 98.0 F 07/06/24 16:00 Pulse 77 07/06/24 16:00 Resp 16 07/06/24 16:00 BP 144/54 07/06/24 17:14 Pulse Ox 96 07/06/24 16:00 O2 Del Method Nasal Cannula 07/06/24 16:00 O2 Flow Rate 2 07/06/24 16:00 FiO2 35 07/06/24 07:34 07/06/24 07/06/24 07/06/24 06:59 14:59 22:59 Intake Total 120 / 120 Output Total 400 / 1275 1750 / 1750 Balance -400 / -75.556 -1630 / -1630 Weight last 48 hrs Weight 81.919 kg Weight 77.5 kg Weight 82.1 kg Physical Exam 2 Const: COMMON NORMALS: patient oriented x3 and alert GENERAL APPEARANCE: c ooperative ORIENTATION/CONSCIOUSNESS: Yes awake HENMT: COMMON NORMALS: oropharynx normal Neck/C-Spine: COMMON NORMALS: no JVD Resp: COMMON NORMALS: normal respiratory effort and clear to auscultation bilaterally AUSCULTATION: clear to auscultation bilaterally Cardio: COMMON NORMALS: no JVD, regular rhythm, S1 normal heart sound present, S2 normal heart sound present and No murmurs present (Cardio) RHYTHM: regular rhythm HEART SOUNDS: S1 normal heart sound present and S2 normal heart sound present GI: COMMON NORMALS: Normal to inspection, nondistended, normoactive bowel sounds present, Soft to palpation and non-tender PALPATION: Yes Soft to palpation Extremity: COMMON NORMALS: no joint enlargement GENERAL: Yes edema (1+) Neuro: COMMON NORMALS: patient oriented x3 and moves all extremities S ENSORIUM/ORIENTATION: Yes alert Skin: COMMON NORMALS: no rashes or lesions noted GENERAL SKIN EXAM: no rashes or lesions noted Urinary Catheter Management: Estrella Latex: Cath Placed During This Visit: yes Reason for Continuing Indwelling Catheter: Accurate Measurement of Urinary Output in Critically Ill Patients Urinary Catheter Date of Insertion: 07/04/24 Data 07/06/24 03:42 07/06/24 03:42 A&P Assessment and plan (1) Respiratory failure: Feeling more tired today. Bothersome dry cough. Requested Tessalon Perles. Still required intermittent BiPAP support particularly overnight. Discussed with shoe parts caser, will make a request to continue BiPAP after discharge at nursing facility. Decrease hydrocortisone dose. Reviewed cardiology note. Transitioning to oral Bumex. Continue medical management. Appreciate consultation. Continue BiPAP support as needed. Avoid hyperoxia, target oxygen saturation 92%. reviewed echocardiogram, EF 30%, moderate aortic stenosis. Moderate pulmonary regurgitation, trace MVR. Reviewed vitals, CBC, BMP. Noted worsening leukocytosis up to 16.45. Afebrile. Diet advanced. Appreciate ST follow-up, reviewed ST note, continue easy to chew diet regular liquids. DuoNebs scheduled and as needed for COPD. Budesonide nebs. Currently BiPAP. Hold clonazepam for now. (2) D-dimer, elevated: CTA, venous duplex, no evidence of VTE. May be related to atrial flutter/fibrillation as noted on presentation. (3) Tachycardia: So far without recurrence, likely related to respiratory failure, hypoxia, demand ischemia. Noted elevation of troponin, discussed with facility maintenance technician. Free of chest pain or pressure. Continue to monitor, continue medical therapies. Monitor telemetry with risk of arrhythmia. Reviewed potassium, magnesium. Repeat levels. Continue propranolol. Plan Adrenal insufficiency: Decrease hydrocortisone dose down to 50 mg. With hypotension yesterday, as per prescription with patient and her was started on hydrocortisone. Will taper down, decrease dose to twice daily. Monitor for risk of hypertension, gastritis, encephalopathy, hyperglycemia with stress dose steroid. AICD: Continue CKD: Reviewed renal function, monitor. DM2: SSI. Consistent carb diet HTN: Continue propranolol, receiving Lasix. Monitor blood pressures. Continue valsartan. Smoking: Nicotine replacement as needed. Other medical problems Attestations 2 Medical Necessity Statement*: Continue admission for assessment management of hypercapnic respiratory failure, CHF exacerbation, adrenal insufficiency, additional comorbidities. Post discharge planning and arrangements for BiPAP. and High MDM includes amount and/or complexity of data reviewed/ordered [ resulted lab(s)/test(s) and other healthcare professional discussion] and described risk of complication, morbidity or mortality of management as documented Diagnoses Respiratory failure J96.90 D-dimer, elevated R79.89 Tachycardia R00.0
[2024-07-06] MEDS: mirtazapine 15 mg Tablet 30 MG PO (20:47)
[2024-07-07] VITALS (18 sets, daily range): BP systolic 128–169; BP diastolic 49–76; PULSE 69–91; RESP 16–31; TEMP 36.4–37; O2SAT 90–99; BMI 29.1
[2024-07-07] MEDS: ipratropium-albuterol 3 mL Neb INHALATION ×4 (02:02→19:18)
[2024-07-07 05:26] LABS: Basophils % 0.1 %; Eosinophils % 0.1 %; Hematocrit 38.6 % (36-47); Lymphocytes # 2.1 10^3/uL (0.8-4.8); Lymphocytes % 14.4 %; Mean Corpuscular HGB Conc 33.9 g/dL (30-55); Mean Corpuscular Hemoglobin 31.9 pg (27-33); Mean Corpuscular Volume 93.9 fl (85-98); Mean Platelet Volume 10.1 fL (7.4-10.4); Monocytes # 1.2 10^3/uL (0.2-0.9); Neutrophils # 11.16 10^3/uL (1.8-7.7); Neutrophils % 77.1 %; Nucleated Red Blood Cells % 0 %; Platelet Count 213 10^3/cmm (157-399); Red Blood Count 4.11 10^6/uL (3.85-5.65); Red Cell Distribution Width 13.6 % (12.1-15.1); White Blood Count 14.49 10^3/uL (3.29-11.43)
[2024-07-07 05:42] LABS: Anion Gap 11.2 (5-19); Blood Urea Nitrogen 23 mg/dL (8-23); Calcium 8.7 mg/dL (8.5-10.5); Carbon Dioxide 28 mmol/L (22-29); Chloride 103 mmol/L (98-107); Creatinine Clr Calc Pharmacy 66.5677; Glucose 174 mg/dL (65-115); Osmolality Calculated 296 mOsm/kg (285-295); Potassium 3.2 mmol/L (3.5-5.1); Sodium 139 mmol/L (136-145)
[2024-07-07] MEDS: budesonide 0.5 mg/2 mL Neb INHALATION ×2 (07:22→19:18)
[2024-07-07] MEDS: potassium chloride ER 20 mEq Tablet 40 MEQ PO (08:27)
[2024-07-07] MEDS: bumetanide 1 mg Tablet PO (08:28)
[2024-07-07] MEDS: hydrocortisone 100 mg/2 mL SDV 50 MG IVP (08:28)
[2024-07-07] MEDS: clopidogrel 75 mg Tablet PO (08:28)
[2024-07-07] MEDS: sacubitril/valsartan 24-26 mg Tablet 1 EACH PO ×2 (08:28→17:22)
[2024-07-07] MEDS: amiodarone 200 mg Tablet PO ×2 (08:29→17:22)
[2024-07-07] MEDS: aspirin 81 mg EC Tablet PO (08:29)
[2024-07-07] MEDS: metoprolol succinate ER (24 HR) 25 mg Tablet 12.5 MG PO (08:29)
--- NOTE | 2024-07-07 09:05 | PC.NURSE ---
Patient takes clonazepam 1mg BID anxiety at home. She is asking for it, provider restarted this. Order placed.
--- NOTE | 2024-07-07 09:34 | PC.SLP ---
Nursing reported no difficulties with current diet. Pt reported no difficulties with current diet. Therapist encouraged the pt to let nursing know if she notices difficulty with swallowing. Follow up as needed/necessary.
[2024-07-07] MEDS: CLONazepam 1 mg Tablet PO ×2 (09:41→21:08)
--- NOTE | 2024-07-07 09:48 | P.PN_ITS ---
Subjective 2 Subjective: Patient doing well today. Her oxygen saturation is 96% on room air. She has been able to get up and walk with physical therapy yesterday. Blood pressure has been ok overall. She still continues to have a dry cough. Creatinint has improved to 0.7. Medications: Reviewed: Yes Vitals/I&O/Wt Last Vital Signs Temp 97.6 F 07/07/24 07:20 Pulse 75 07/07/24 07:37 Resp 16 07/07/24 07:23 BP 169/66 07/07/24 07:20 Pulse Ox 96 07/07/24 07:37 O2 Del Method Room Air 07/07/24 07:37 O2 Flow Rate 1 07/07/24 07:23 FiO2 35 07/06/24 07:34 07/06/24 07/07/24 07/07/24 22:59 06:59 14:59 Intake Total 440 / 560 Output Total 2025 / 3775 900 / 4675 Balance -1585 / -3215 -900 / -4115 Weight last 48 hrs Weight 180 lb 9.6 oz Weight 180 lb 9.6 oz Physical Exam 2 Narrative: General: No apparent distress, healthy appearing, well nourished Neck: No carotid bruit bilaterally Muskuloskeletal: Full ROM Lymphatic: no lymphedema noted Respiratory: Normal respiratory effort, left lower lobe fine crackles clear throughout all other lung nerique no use of accessory muscles Cardio: No JVD, regular rate, regular rhythm, S1 S2 normal, no murmurs, peripheral pulses 2+ throughout Extremities: Full ROM, normal, normal capillary refill, no cyanosis or edema Neuro: Alert and oriented x4, no focal motor deficits Psych: Affect normal, denies suicidal ideation, mental status grossly normal Skin: No rashes or lesions noted, no wounds Urinary Catheter Management: Estrella Latex: Cath Placed During This Visit: yes Reason for Continuing Indwelling Catheter: Accurate Measurement of Urinary Output in Critically Ill Patients Urinary Catheter Date of Insertion: 07/04/24 Data 07/07/24 04:24 07/07/24 04:24 A&P Assessment and plan (1) Respiratory failure: Combination of COPD exacerbation with decompensated systolic heart failure EF of 30%, will continue BiPAP at night, Continue Bumex 1 mg. Overall, patient appears euvolemic and at baseline. Will give 40 meq potassium PO today. Potassium was 3.2. Will closely watch creat. Has decreased to 0.7. Qualifiers: Chronicity: acute on chronic Respiratory failure complication: h ypercapnia Qualified Code(s): J96.22 - Acute and chronic respiratory failure with hypercapnia (2) Atrial fibrillation: Switched to p.o. 200 mg BID. Continue beta-yaz and anticoagulation. Qualifiers: Atrial fibrillation type: paroxysmal Qualified Code(s): I48.0 - Paroxysmal atrial fibrillation (3) CHF exacerbation: Bumex 1 mg once a day along with 40 mg of potassium today Qualifiers: Heart failure type: systolic Qualified Code(s): I50.23 - Acute on chronic systolic (congestive) heart failure (4) COPD exacerbation: As per medicine colleague (5) Cardiomyopathy: Continue Entresto from today. For severely depressed left ventricular ejection fraction. Patient has been on losartan at home. Will d/c that. Qualifiers: Cardiomyopathy type: dilated Qualified Code(s): I42.0 - Dilated cardiomyopathy (6) Aortic stenosis: By echocardiogram aortic stenosis is mild to moderate 1.4 cm care will continue to monitor every 6-month in the clinic by exam and yearly echo Qualifiers: Cardiac valve disease etiology: nonrheumatic Qualified Code(s): I35.0 - Nonrheumatic aortic (valve) stenosis Plan The plan for this very pleasant 74-year-old female is to continue with diuresis today and see how she does. Patient continues to improve. Continue to assess kidney function continue Entresto for systolic heart failure with severely reduced EF at 30%, continue beta-yaz Attestations 2 Medical Necessity Statement*: Patient require continuation hospitalization for above defined care Coding Level of Care Code Acute Code for Chg Fwd Diagnoses Acute on chronic respiratory failure with hypercapnia J96.22 Chronicity: acute on chronic Respiratory failure complication: hypercapnia Paroxysmal atrial fibrillation I48.0 Atrial fibrillation type: paroxysmal Acute on chronic systolic congestive heart failure I50.23 Heart failure type: systolic COPD exacerbation J44.1 Dilated cardiomyopathy I42.0 Cardiomyopathy type: dilated Nonrheumatic aortic valve stenosis I35.0 Cardiac valve disease etiology: nonrheumatic
[2024-07-07] MEDS: benzonatate 100 mg Capsule 200 MG PO ×2 (11:33→16:36)
--- NOTE | 2024-07-07 13:17 | PM.PN ---
Subjective Subjective: She could not sleep at night. She states her tremors have exacerbated with switch off of propranolol and made it difficult for her to get any sleep overnight. She states breathing was not a barrier. Vitals/I&O/Wt Last Vital Signs Temp 97.6 F 07/07/24 07:20 Pulse 84 07/07/24 12:00 Resp 19 H 07/07/24 12:00 BP 128/75 07/07/24 12:00 Pulse Ox 96 07/07/24 12:00 O2 Del Method Room Air 07/07/24 12:00 O2 Flow Rate 1 07/07/24 07:23 FiO2 35 07/06/24 07:34 07/06/24 07/07/24 07/07/24 22:59 06:59 14:59 Intake Total 440 / 560 700 / 700 Output Total 2025 / 3775 900 / 4675 1000 / 1000 Balance -1585 / -3215 -900 / -4115 -300 / -300 Weight last 48 hrs Weight 81.919 kg Weight 81.919 kg Physical Exam Const: COMMON NORMALS: patient oriented x3 and alert GENERAL APPEARANCE: cooperative ORIENTATION/CONSCIOUSNESS: Yes awake HENMT: COMMON NORMALS: oropharynx normal Neck/C-Spine: COMMON NORMALS: no JVD Resp: COMMON NORMALS: normal respiratory effort and clear to auscultation bilaterally AUSCULTATION: clear to auscultation bilaterally Cardio: COMMON NORMALS: no JVD, regular rhythm, S1 normal heart sound present, S2 normal heart sound present and No murmurs present (Cardio) RHYTHM: regular rhythm HEART SOUNDS: S1 normal heart sound present and S2 normal heart sound present GI: COMMON NORMALS: Normal to inspection, nondistended, normoactive bowel sounds present, Soft to palpation and non-tender PALPATION: Yes Soft to palpation Extremity: COMMON NORMALS: no joint enlargement GENERAL: Yes edema (1+) Neuro: COMMON NORMALS: patient oriented x3 and moves all extremities SENSORIUM/ORIENTATION: Yes alert Skin: COMMON NORMALS: no rashes or lesions noted GENERAL SKIN EXAM: no rashes or lesions noted Urinary Catheter Management: Estrella Latex: Cath Placed During This Visit: yes Reason for Continuing Indwelling Catheter: Accurate Measurement of Urinary Output in Critically Ill Patients Urinary Catheter Date of Insertion: 07/04/24 Data 07/07/24 04:24 07/07/24 04:24 A&P Assessment and plan (1) Respiratory failure: Overall gradually improving. Still bouts of cough, but with some response 20 to assess. Reviewed vitals, intake and output, CBC, BMP. As per cardiology assessment switched back to IV diuretic for now, additional diuresis for CHF exacerbation. Discussed with cardiology provider, reviewed cardiology note. Discussed with keycase assembler. Discharge deferred for now, reassess volume status, intake and output. Monitor for risk of electrolyte deficiency, KIANA. Noted potassium 3.2, supplementation as requested. Reviewed magnesium level from yesterday 2.5. Recheck chemistry requested. Will also add Robitussin to aid with cough in case Tessalon is inadequate. Discussed with keycase assembler, she also will have BiPAP available to continue at SNF. Feeling more tired today. Bothersome dry cough. Requested Tessalon Perles. Still required intermittent BiPAP support particularly overnight. Discussed with keycase assembler, will make a request to continue BiPAP after discharge at nursing facility. Decrease hydrocortisone dose. Reviewed cardiology note. Transitioning to oral Bumex. Continue medical management. Appreciate consultation. Continue BiPAP support as needed. Avoid hyperoxia, target oxygen saturation 92%. reviewed echocardiogram, EF 30%, moderate aortic stenosis. Moderate pulmonary regurgitation, trace MVR. Reviewed vitals, CBC, BMP. Noted worsening leukocytosis up to 16.45. Afebrile. Diet advanced. Appreciate ST follow-up, reviewed ST note, continue easy to chew diet regular liquids. DuoNebs scheduled and as needed for COPD. Budesonide nebs. Currently BiPAP. She has been requesting for clonazepam, resume. (2) D-dimer, elevated: CTA, venous duplex, no evidence of VTE. May be related to atrial flutter/fibrillation as noted on presentation. (3) Tachycardia: So far without recurrence, likely related to respiratory failure, hypoxia, demand ischemia. Noted elevation of troponin, discussed with derrick barge operator. Free of chest pain or pressure. Continue to monitor, continue medical therapies. Monitor telemetry with risk of arrhythmia. Reviewed potassium, magnesium. Repeat levels. Plan Adrenal insufficiency: Decrease hydrocortisone dose down to 25 mg. With hypotension yesterday, as per prescription with patient and her was started on hydrocortisone. Will taper down, decrease dose to twice daily. Monitor for risk of hypertension, gastritis, encephalopathy, hyperglycemia with stress dose steroid. Essential tremor: To help optimize cardiac status has been switched over to metoprolol by cardiology. However, this has exacerbated her tremor and made it difficult for her to sleep last night. Cardiology team will discuss and consider whether can resume propranolol instead. AICD: Continue CKD: Reviewed renal function, monitor. DM2: SSI. Consistent carb diet HTN: Continue propranolol, receiving Lasix. Monitor blood pressures. Continue valsartan. Smoking: Nicotine replacement as needed. Other medical problems Attestations Medical Necessity Statement*: Continue admission for management of decompensated CHF, additional IV diuresis, optimization of volume and respiratory status, reassessment for possible discharge. and High MDM includes amount and/or complexity of data reviewed/ordered [ previous or external records, resulted lab(s)/test(s), ordered lab(s)/test(s) and other healthcare professional discussion] and described risk of complication, morbidity or mortality of management as documented Diagnoses Respiratory failure J96.90 D-dimer, elevated R79.89 Tachycardia R00.0
--- NOTE | 2024-07-07 15:43 | PC.NURSE ---
Provider is updated that patient is having trouble with constipation. She had a very small hard BM today. She is requesting something for constipation. Provider ordered milk of mag. Order placed.
[2024-07-07] MEDS: pantoprazole 40 mg SDV IVP (17:22)
[2024-07-07] MEDS: hydrocortisone 100 mg/2 mL SDV 25 MG IVP (17:22)
[2024-07-07] MEDS: magnesium hydroxide 30 mL UDC PO (17:23)
[2024-07-07] MEDS: guaiFENesin-dextromethorphan UDC 10 mL 5 ML PO ×2 (17:23→21:08)
[2024-07-07] MEDS: mirtazapine 15 mg Tablet 30 MG PO (21:08)
[2024-07-08] VITALS (9 sets, daily range): BP systolic 122–154; BP diastolic 48–61; PULSE 67–83; RESP 13–28; TEMP 36.6–37.1; O2SAT 88–93
[2024-07-08 04:51] LABS: Basophils # 0.1 10^3/uL (0.0-0.1); Basophils % 0.6 %; Eosinophils # 0.2 10^3/uL (0.0-0.8); Eosinophils % 1.3 %; Lymphocytes # 3.4 10^3/uL (0.8-4.8); Lymphocytes % 24.8 %; Mean Corpuscular HGB Conc 33.7 g/dL (30-55); Mean Corpuscular Hemoglobin 32.1 pg (27-33); Mean Corpuscular Volume 95.2 fl (85-98); Mean Platelet Volume 9.9 fL (7.4-10.4); Monocytes # 1.2 10^3/uL (0.2-0.9); Monocytes % 8.7 %; Neutrophils # 8.74 10^3/uL (1.8-7.7); Neutrophils % 64.1 %; Nucleated Red Blood Cells % 0 %; Platelet Count 210 10^3/cmm (157-399); Red Blood Count 3.99 10^6/uL (3.85-5.65); Red Cell Distribution Width 13.7 % (12.1-15.1); White Blood Count 13.64 10^3/uL (3.29-11.43)
[2024-07-08] MEDS: guaiFENesin-dextromethorphan UDC 10 mL 5 ML PO ×2 (05:05→09:03)
[2024-07-08] MEDS: benzonatate 100 mg Capsule 200 MG PO (05:05)
[2024-07-08 05:13] LABS: Anion Gap 11.5 (5-19); Blood Urea Nitrogen 23 mg/dL (8-23); Calcium 8.4 mg/dL (8.5-10.5); Carbon Dioxide 29 mmol/L (22-29); Chloride 104 mmol/L (98-107); Creatinine Clr Calc Pharmacy 66.5677; Glucose 150 mg/dL (65-115); Osmolality Calculated 299 mOsm/kg (285-295); Potassium 3.5 mmol/L (3.5-5.1); Sodium 141 mmol/L (136-145)
[2024-07-08] MEDS: acetaminophen 325 mg Tablet 650 MG PO (07:39)
[2024-07-08] MEDS: clopidogrel 75 mg Tablet PO (08:22)
[2024-07-08] MEDS: metoprolol succinate ER (24 HR) 25 mg Tablet 12.5 MG PO (08:22)
[2024-07-08] MEDS: amiodarone 200 mg Tablet PO (08:22)
[2024-07-08] MEDS: bumetanide 1 mg Tablet PO (08:22)
[2024-07-08] MEDS: sacubitril/valsartan 24-26 mg Tablet 1 EACH PO (08:22)
[2024-07-08] MEDS: hydrocortisone 100 mg/2 mL SDV 25 MG IVP (08:22)
[2024-07-08] MEDS: aspirin 81 mg EC Tablet PO (08:23)
[2024-07-08] MEDS: potassium chloride ER 20 mEq Tablet PO (09:03)
[2024-07-08] MEDS: ipratropium-albuterol 3 mL Neb INHALATION (09:31)
[2024-07-08] MEDS: budesonide 0.5 mg/2 mL Neb INHALATION (09:31)
--- NOTE | 2024-07-08 10:02 | P.PN_ITS ---
<Statement entered by Kenny Madrid M.D - 07/08/24 14:49> Patient was evaluated and cared for in conjunction with an advanced practice practitioner.? I personally examined the patient and reviewed the chart and all pertinent data including imaging, telemetry, and laboratory results.? I discussed the patient in detail with the advanced practice practitioner.? Please see? their note for complete H&P testing result and agreed upon plan of care for the patient. Patient is feeling well. No chest pain. GENERAL: Patient is alert, awake and oriented x3. HEART: Regular S1 and S2 LUNGS: Clear to auscultate bilaterally. CENTRAL NERVOUS SYSTEM: Grossly nonfocal. EXTREMITIES: Lower extremities with out edema bilaterally. CHF exacerbation COPD exacerbation Atrial fibrillation Continue PO Bumex. Continue eliquis and Plavix. Continue amiodarone Thank you for involving us with care of this patient. Please call with questions. Documented by User: Olesya Price NP 07/08/24 10:06 Subjective 2 Subjective: Patient doing well overall. She still has a dry cough. Overall she is clear no edema. Vital signs are stable. Medications: Reviewed: Yes Vitals/I&O/Wt Last Vital Signs Temp 97.8 F 07/08/24 07:53 Pulse 70 07/08/24 09:35 Resp 16 07/08/24 09:28 BP 154/60 07/08/24 07:53 Pulse Ox 92 07/08/24 09:28 O2 Del Method Nasal Cannula 07/08/24 09:28 O2 Flow Rate 1 07/08/24 09:28 FiO2 35 07/06/24 07:34 07/07/24 07/08/24 07/08/24 22:59 06:59 14:59 Intake Total 480 / 1180 240 / 240 Output Total 340 / 2340 250 / 2590 Balance -340 / -1640 230 / -1410 240 / 240 Weight last 48 hrs Weight 180 lb 9.6 oz Weight 180 lb 9.6 oz Physical Exam 2 Narrative: General: No apparent distress, healthy appearing, well nourished HENMT: normoceophalic Lymphatic: no lymphedema noted Respiratory: Normal respiratory effort, clear to auscultation bilaterally throughout all lung enrique, no use of accessory muscles Cardio: No JVD, regular rate, regular rhythm, S1 S2 normal, no murmurs, peripheral pulses 2+ radial palpated bilaterally GI: Normal to inspection, nondistended Extremities: Full ROM, normal, normal capillary refill, no cyanosis or edema Neuro: Alert and oriented x4, no focal motor deficits Psych: Affect normal, denies suicidal ideation, mental status grossly normal Skin: No rashes or lesions noted, no wounds Urinary Catheter Management: Estrella Latex: Cath Placed During This Visit: yes Reason for Continuing Indwelling Catheter: Accurate Measurement of Urinary Output in Critically Ill Patients Urinary Catheter Date of Insertion: 07/04/24 Data 07/08/24 04:10 07/08/24 04:10 A&P Assessment and plan (1) Respiratory failure: Combination of COPD exacerbation with decompensated systolic heart failure EF of 30%, will continue BiPAP at night, Continue Bumex 1 mg PO. Overall, patient appears euvolemic and at baseline. She has responded well to this. Creatinine is stable. GDMT should be continued and titrated accordingly. Qualifiers: Chronicity: acute on chronic Respiratory failure complication: h ypercapnia Qualified Code(s): J96.22 - Acute and chronic respiratory failure with hypercapnia (2) Atrial fibrillation: Switched to p.o. 200 mg BID. Continue this x1 week, then go to 200 mg daily. Continue beta-yaz and anticoagulation. Qualifiers: Atrial fibrillation type: paroxysmal Qualified Code(s): I48.0 - Paroxysmal atrial fibrillation (3) CHF exacerbation: Bumex 1 mg daily with potassium. As stated above. Continue Entresto, titrate up as patient tolerates. Qualifiers: Heart failure type: systolic Qualified Code(s): I50.23 - Acute on chronic systolic (congestive) heart failure (4) COPD exacerbation: As per medicine colleague (5) Cardiomyopathy: Continue Entresto from today. For severely depressed left ventricular ejection fraction. Qualifiers: Cardiomyopathy type: dilated Qualified Code(s): I42.0 - Dilated cardiomyopathy (6) Aortic stenosis: By echocardiogram aortic stenosis is mild to moderate 1.4 cm care will continue to monitor every 6-month in the clinic by exam and yearly echo Qualifiers: Cardiac valve disease etiology: nonrheumatic Qualified Code(s): I35.0 - Nonrheumatic aortic (valve) stenosis Plan Patient continues to improve. Continue to assess kidney function continue Entresto for systolic heart failure with severely reduced EF at 30%, continue beta-yaz. From a cardiology standpoint, she is stable. Attestations 2 Medical Necessity Statement*: Reassess for possible discharge today. Coding Level of Care Code Acute Code for Chg Fwd Diagnoses Acute on chronic respiratory failure with hypercapnia J96.22 Chronicity: acute on chronic Respiratory failure complication: hypercapnia Paroxysmal atrial fibrillation I48.0 Atrial fibrillation type: paroxysmal Acute on chronic systolic congestive heart failure I50.23 Heart failure type: systolic COPD exacerbation J44.1 Dilated cardiomyopathy I42.0 Cardiomyopathy type: dilated Nonrheumatic aortic valve stenosis I35.0 Cardiac valve disease etiology: nonrheumatic Documented by User: Kenny Madrid M.D 07/08/24 14:40 Physical Exam 2 Urinary Catheter Management: Estrella Latex: Cath Placed During This Visit: yes Data 07/08/24 04:10 07/08/24 04:10 A&P Assessment and plan (1) Respiratory failure: Qualifiers: Chronicity: acute on chronic Respiratory failure complication: h ypercapnia Qualified Code(s): J96.22 - Acute and chronic respiratory failure with hypercapnia (2) Atrial fibrillation: Qualifiers: Atrial fibrillation type: paroxysmal Qualified Code(s): I48.0 - Paroxysmal atrial fibrillation (3) CHF exacerbation: Qualifiers: Heart failure type: systolic Qualified Code(s): I50.23 - Acute on chronic systolic (congestive) heart failure (4) COPD exacerbation: (5) Cardiomyopathy: Qualifiers: Cardiomyopathy type: dilated Qualified Code(s): I42.0 - Dilated cardiomyopathy (6) Aortic stenosis: Qualifiers: Cardiac valve disease etiology: nonrheumatic Qualified Code(s): I35.0 - Nonrheumatic aortic (valve) stenosis Coding Level of Care Code Acute Code for Chg Fwd Diagnoses Acute on chronic respiratory failure with hypercapnia J96.22 Chronicity: acute on chronic Respiratory failure complication: hypercapnia Paroxysmal atrial fibrillation I48.0 Atrial fibrillation type: paroxysmal Acute on chronic systolic congestive heart failure I50.23 Heart failure type: systolic COPD exacerbation J44.1 Dilated cardiomyopathy I42.0 Cardiomyopathy type: dilated Nonrheumatic aortic valve stenosis I35.0 Cardiac valve disease etiology: nonrheumatic
--- NOTE | 2024-07-08 10:22 | PC.SOCIAL ---
IMM Update pg 2 of IMM Updated and reviewed w/ patient. Copy provided and copy dated, initialed and placed in chart.
--- NOTE | 2024-07-08 11:32 | P.DS_ITS ---
Discharge Providers Date of Admission: 07/04/24 15:31 Date of Discharge: July 08, 2024 Attending Provider at Admission: Aris Orozco Attending Provider at Discharge: Aris Orozco Primary Care Provider: Marv Andrews MD Diagnoses at Discharge Discharge Diagnosis (1) Respiratory failure: Status: Acute Qualifiers: Chronicity: acute on chronic Respiratory failure complication: hypercapnia Qualified Code(s): J96.22 - Acute and chronic respiratory failure with hypercapnia (2) Atrial fibrillation: Status: Acute Qualifiers: Atrial fibrillation type: paroxysmal Qualified Code(s): I48.0 - Paroxysmal atrial fibrillation (3) CHF exacerbation: Status: Acute Qualifiers: Heart failure type: systolic Qualified Code(s): I50.23 - Acute on chronic systolic (congestive) heart failure (4) COPD exacerbation: Status: Acute (5) Cardiomyopathy: Status: Acute Qualifiers: Cardiomyopathy type: dilated Qualified Code(s): I42.0 - Dilated cardiomyopathy (6) Aortic stenosis: Status: Acute Qualifiers: Cardiac valve disease etiology: nonrheumatic Qualified Code(s): I35.0 - Nonrheumatic aortic (valve) stenosis Reason for Visit 2 Reason for Visit: SOB Brief History: Pleasant 74-year-old lady with history of HFrEF, in April EF 25-30%, with LifeVest, aortic stenosis, COPD, CKD, DM 2, smoking, other medical problems admitted undergoing rehabilitation at SNF after recent hospitalization with CHF and COPD exacerbation was going to have a follow-up appointment with cardiology today, but has been getting short of breath and was too short of breath/weak today to attend her appointment. Was brought into ER for evaluation. In the ER she is found newly requiring 3 L nasal cannula oxygen. Dyspnea, generally weak. Also found to have tachycardia up into 130s found to be atrial flutter/atrial fibrillation. Has been started on amiodarone drip. Patient and Her deny any AICD discharge. She has been having some runny nose and sneezing. Denies having much cough. Does occasionally choke up on food. Has been followed by speech therapy at the custodial. Hospital Course Hospital Course She was admitted and treated for acute respiratory failure with CHF deco mpensation, with underlying COPD, required BiPAP support, received treatment with IV diuresis, echocardiogram obtained, showing EF 30%, moderate aortic stenosis, moderate pulmonary regurgitation, trace MVR. On presentation with atrial fibrillation, responded to treatment with amiodarone. As per discussion with her and cardiology medications changed to continue on Plavix and Eliquis for stroke risk reduction, discussed bleeding risk with her. Hospitalization complicated by adrenal insufficiency for which she received stress dose steroids and wean down with improvement with resolving acute illness. She qualified for BiPAP to be continued at nursing after discharge. Physical Exam Const: COMMON NORMALS: patient oriented x3 and alert GENERAL APPEARANCE: cooperative ORIENTATION/CONSCIOUSNESS: Yes awake HENMT: COMMON NORMALS: oropharynx normal Neck/C-Spine: COMMON NORMALS: no JVD Resp: COMMON NORMALS: normal respiratory effort and clear to auscultation bilaterally AUSCULTATION: clear to auscultation bilaterally Cardio: COMMON NORMALS: no JVD, regular rhythm, S1 normal heart sound present, S2 normal heart sound present and No murmurs present (Cardio) RHYTHM: regular rhythm HEART SOUNDS: S1 normal heart sound present and S2 normal heart sound present GI: COMMON NORMALS: Normal to inspection, nondistended, normoactive bowel sounds present, Soft to palpation and non-tender PALPATION: Yes Soft to palpation Extremity: COMMON NORMALS: no joint enlargement GENERAL: No edema Neuro: COMMON NORMALS: patient oriented x3 and moves all extremities SENSORIUM/ORIENTATION: Yes alert Skin: COMMON NORMALS: no rashes or lesions noted GENERAL SKIN EXAM: no rashes or lesions noted Urinary Catheter Management: Estrella Latex: Cath Placed During This Visit: yes Reason for Continuing Indwelling Catheter: Accurate Measurement of Urinary Output in Critically Ill Patients Urinary Catheter Date of Insertion: 07/04/24 Discharge Data Studies Completed and Pending Completed Studies During Hospitalization Category Date Time Status CT angio chest PE protcl [id number] Stat Cat Scan 07/04/24 16:52 Completed XR chest 1V portable [id number] Stat Exams 07/04/24 11:52 [place] [id number] Routine Ultrasound 07/04/24 18:10 Completed CV. echo limited [id number] Routine Ultrasound 07/04/24 18:10 Completed Pending at discharge Category Date Time Status Basic Metabolic Panel AM LABS Lab 07/09/24 04:00 Ordered Basic Metabolic Panel AM LABS Lab 07/10/24 04:00 Ordered Complete Blood Count w/Auto AM LABS Lab 07/09/24 04:00 Ordered Complete Blood Count w/Auto AM LABS Lab 07/10/24 04:00 Ordered Radiology Impressions Chest X-Ray 07/04/24 11:52 IMPRESSION: 1. No acute cardiopulmonary finding. Chest CTA 07/04/24 16:52 IMPRESSION: 1. No evidence of pulmonary embolism. 2. [id number] cardiomegaly and interlobular septal thickening may indicate a component of CHF. 3. Moderate emphysema . Diffuse bronchial wall thickening/inflammation without focal consolidation. Please correlate clinically for any evidence of COPD exacerbation. Other chronic findings detailed above. COMMENTS: The presence of pulmonary emphysema on CT is an independent risk factor for lung cancer. In the absence of a history or active diagnosis of lung cancer, it is recommended that this patient with emphysema be evaluated for enrollment in a low dose CT lung cancer screening program. Laboratory Results WBC 13.64 10^3/uL (3.29-11.43) H 07/08/24 04:10 RBC 3.99 10^6/uL (3.85-5.65) 07/08/24 04:10 Hgb 12.80 g/dL (11.27-16.99) 07/08/24 04:10 Hct 38.0 % (36-47) 07/08/24 04:10 MCV 95.2 fl (85-98) 07/08/24 04:10 MCH 32.1 pg (27-33) 07/08/24 04:10 MCHC 33.7 g/dL (30-55) 07/08/24 04:10 RDW 13.7 % (12.1-15.1) 07/08/24 04:10 Plt Count 210 10^3/cmm (157-399) 07/08/24 04:10 MPV 9.9 fL (7.4-10.4) 07/08/24 04:10 Neut % (Auto) 64.1 % 07/08/24 04:10 Lymph % (Auto) 24.8 % 07/08/24 04:10 [place] % (Auto) 8.7 % 07/08/24 04:10 Eos % (Auto) 1.3 % 07/08/24 04:10 Baso % (Auto) 0.6 % 07/08/24 04:10 Neut # (Auto) 8.74 10^3/uL (1.8-7.7) H 07/08/24 04:10 Lymph # (Auto) 3.4 10^3/uL (0.8-4.8) 07/08/24 04:10 [place] # (Auto) 1.2 10^3/uL (0.2-0.9) H 07/08/24 04:10 Eos # (Auto) 0.2 10^3/uL (0.0-0.8) 07/08/24 04:10 Baso # (Auto) 0.1 10^3/uL (0.0-0.1) 07/08/24 04:10 Nucleated RBC % (auto) 0 % 07/08/24 04:10 Nucleated RBCs # 0.0 /100WBC 07/08/24 04:10 D-Dimer 4.89 ug/mLFEU (0-0.59) H 07/04/24 12:27 Specimen Type Arterial 07/04/24 21:11 Sample Site Brachial, right 07/04/24 21:11 ABG pH 7.32 (7.35-7.45) L 07/04/24 21:11 ABG pCO2 50.6 mmHg (35-45) H 07/04/24 21:11 ABG pO2 85.6 mmHg (80.0-100.0) 07/04/24 21:11 ABG PO2/FiO2 Ratio 244 07/04/24 21:11 ABG HCO3 25.8 mmol/L (22-26) 07/04/24 21:11 ABG O2 Saturation 93.1 07/04/24 17:02 ABG Base Excess -1.0 mmol/L (-2.0-2.0) 07/04/24 21:11 John Test N/a 07/04/24 21:11 A-a O2 Gradient 9.8 mmHg (5-10) 07/04/24 17:02 Hematocrit 41.5 % (37-47) 07/04/24 21:11 Hgb O2 Saturation 91.3 % (95-100) L 07/04/24 17:02 Carboxyhemoglobin 0.9 %THgb (0.4-20.1) 07/04/24 17:02 Methemoglobin 1.0 % (0.4-1.5) 07/04/24 17:02 Total Hemoglobin 15.1 g/dL (12-16) 07/04/24 17:02 Sodium 133.0 mmol/L (131-143) 07/04/24 17:02 Potassium 5.5 mmol/L (3.5-5.0) H 07/04/24 17:02 Glucose 299.0 mg/dL (70-115) H 07/04/24 17:02 Ionized Calcium 1.3 mmol/L (1.1-1.4) 07/04/24 17:02 O2 Delivery Device Bipap 07/04/24 21:11 O2 Liters/Min 4.0 % 07/04/24 17:02 FiO2 35.0 % 07/04/24 21:11 Horse Rancher ID Arun 07/04/24 21:11 Sodium 141 mmol/L (136-145) 07/08/24 04:10 Potassium 3.5 mmol/L (3.5-5.1) 07/08/24 04:10 Chloride 104 mmol/L (98-107) 07/08/24 04:10 Carbon Dioxide 29 mmol/L (22-29) 07/08/24 04:10 Anion Gap 11.5 (5-19) 07/08/24 04:10 BUN 23 mg/dL (8-23) 07/08/24 04:10 Creatinine 0.8 mg/dL (0.5-0.9) 07/08/24 04:10 GFR Calculation Not Reportable 07/08/24 04:10 Glucose 150 mg/dL (65-115) H 07/08/24 04:10 Calculated Osmolality 299 mOsm/kg (285-295) H 07/08/24 04:10 Calcium 8.4 mg/dL (8.5-10.5) L 07/08/24 04:10 Magnesium 2.5 mg/dL (1.7-2.3) H 07/06/24 03:42 Total Bilirubin 0.4 mg/dL (0.15-1.2) 07/04/24 12:27 AST 17 U/L (0-32) 07/04/24 12:27 ALT 10 U/L (0-33) 07/04/24 12:27 Alkaline Phosphatase 84 U/L (35-105) 07/04/24 12:27 Troponin T Baseline 30 ng/L (0-10) H 07/04/24 12:27 Troponin T 120 Minute 28.86 ng/L (0-10) H 07/04/24 14:34 Delta Troponin T -1.14 ABS# (0-10) L 07/04/24 14:34 Troponin T Hi Sens 6Hr 90.69 ng/L (0-10) H 07/04/24 18:47 Troponin T Hi Sens 6Hr Delta 60.69 ng/L (0-12) H* 07/04/24 18:47 NT-Pro-B Natriuret Pep 4214 pg/mL (0-125) H 07/04/24 12:27 Total Protein 6.7 g/dL (6.6-8.7) 07/04/24 12:27 Albumin 4.2 g/dL (3.5-5.2) 07/04/24 12:27 Globulin 2.5 g/dL (1.3-4.6) 07/04/24 12:27 TSH 2.57 uIU/mL (0.27-4.20) 07/04/24 12:27 Adenovirus (PCR) Not detected (NOT DETECT) 07/05/24 07:53 C. pneumoniae DNA (PCR) Not detected (NOT DETECT) 07/05/24 07:53 Coronavirus 229E (PCR) Not detected (NOT DETECT) 07/05/24 07:53 Human Metapneumovir PCR Not detected (NOT DETECT) 07/05/24 07:53 Influenza A (H1) PCR Not detected (NOT DETECT) 07/05/24 07:53 Influ A (H1/09) PCR Not detected (NOT DETECT) 07/05/24 07:53 Influenza A (H3) PCR Not detected (NOT DETECT) 07/05/24 07:53 Influenza Type A (PCR) Not detected (NOT DETECT) 07/05/24 07:53 Influenza Type B (PCR) Not detected (NOT DETECT) 07/05/24 07:53 M. pneumoniae (PCR) Not detected (NOT DETECT) 07/05/24 07:53 Parainfluenza 1 (PCR) Not detected (NOT DETECT) 07/05/24 07:53 Parainfluenza 2 (PCR) Not detected (NOT DETECT) 07/05/24 07:53 Parainfluenza 3 (PCR) Not detected (NOT DETECT) 07/05/24 07:53 Parainfluenza 4 (PCR) Not detected (NOT DETECT) 07/05/24 07:53 RSV Type A (PCR) Not detected (NOT DETECT) 07/05/24 07:53 RSV Type B (PCR) Not detected (NOT DETECT) 07/05/24 07:53 Entero/Rhino (PCR) Not detected (NOT DETECT) 07/05/24 07:53 SARS-CoV-2 (PCR) Not detected (NOT DETECT) 07/05/24 07:53 Vitals Last Vital Signs Temp 98.7 F 07/08/24 10:36 Pulse 67 07/08/24 10:36 Resp 28 H 07/08/24 10:36 BP 154/60 07/08/24 10:36 Pulse Ox 91 07/08/24 10:36 O2 Del Method Nasal Cannula 07/08/24 09:28 O2 Flow Rate 1 07/08/24 09:28 FiO2 35 07/06/24 07:34 Discharge Plan Discharge Patient Disposition: Xfer SNF Condition: Stable Prescriptions: New amiodarone [Pacerone] 200 mg Tablet 200 mg PO BID Qty: 90 0RF Rx Instructions: 200mg BID for 3 days, then 100mg BID dextromethorphan-guaifenesin 10-100 mg/5 mL Syrup 5 ml PO Q4H PRN (Reason: Cough) Qty: 237 0RF polyethylene glycol 3350 17 gram Powder In Packet 17 g PO DAILY Qty: 30 0RF Entresto 24-26 mg Tablet 1 tab PO BID Qty: 180 0RF Eliquis 5 mg tablet 5 mg PO BID Qty: 180 0RF Continued (DME) elastic stocking above knees See Rx Instructions .Route .MEDSUPPLY Qty: 2 0RF Rx Instructions: As directed daily propranolol 10 mg tablet 10 mg PO BID Qty: 60 5RF Rx Instructions: Hold for bp <100/60 or P <60 clonazepam 1 mg tablet 1 mg PO BID Qty: 60 3RF glipizide 10 mg tablet 10 mg PO BID Qty: 60 5RF mirtazapine [Remeron] 30 mg tablet 30 mg PO BEDTIME budesonide-formoterol [Symbicort] 160-4.5 mcg/actuation HFA aerosol inhaler 2 puff inhalation BID guaifenesin 600 mg tablet extended release 12hr 600 mg PO BID PRN (Reason: congestion/cough) diphenhydramine HCl [Benadryl] 25 mg Capsule 25 mg PO TID PRN (Reason: allergies) clopidogrel 75 mg Tablet 75 mg PO DAILY Qty: 90 0RF nicotine 21 mg/24 hr Patch 24 Hour 1 patch transdermal DAILY Qty: 90 0RF cyanocobalamin (vitamin B-12) [Vitamin B-12] 1,000 mcg Tablet 1,000 mcg PO DAILY Qty: 90 0RF sennosides [Senokot] 8.6 mg Tablet 8.6 mg PO BID acetaminophen [Tylenol] 325 mg Tablet 325 mg PO Q4H PRN (Reason: Pain) albuterol sulfate 2.5 mg /3 mL (0.083 %) Solution For Nebulization 2.5 mg INHALATION Q4H PRN (Reason: Shortness Of Breath) sertraline 25 mg Tablet 25 mg PO DAILY budesonide 0.5 mg/2 mL Suspension For Nebulization 0.25 mg INHALATION BID MDD until Symbicort comes in bisacodyl 5 mg Tablet 5 mg PO DAILY PRN (Reason: Constipation) meclizine 12.5 mg tablet 12.5 mg PO Q8H PRN (Reason: dizziness) bumetanide 1 mg tablet 1 mg PO QAM albuterol sulfate [Ventolin HFA] 90 mcg/actuation HFA aerosol inhaler 2 puff INHALATION Q4H PRN (Reason: copd ) Discontinued aspirin 81 mg Tablet,Delayed Release (Dr/Ec) 81 mg PO DAILY Qty: 90 0RF valsartan 40 mg tablet 20 mg PO BID Qty: 180 0RF Discharge Orders: Discharge Order (Routine); Ordered 07/08/24 Ordered By: Aris Orozco Referrals: CARDIOLOGY [Provider Group] - 1 week (We have notified your physician's clinic of the need for a follow-up appointment to be scheduled. If you have not heard from them within the next 2 business days, please call them directly. ) [facility] [Outside] Marv Andrews MD [Primary Care Provider] - 4-7 days (Phone call placed to [facility] to set up appointment for patient to be seen within one week. ) Discharge Diet: As Directed, Cardiac and Diabetic Discharge Activity: Oxygen as instructed and Cpap/Bipap as instructed Patient Instructions: Opioid Safety Activity Restrictions/Additional Instructions: Continue dysphagia diet level 7, easy to chew foods. Continue to target oxygen saturation 88-92%. Avoid overly high oxygen saturation above 92% as that may contribute to retaining carbon dioxide. Wear BiPAP at night. Continue diuretics for congestive heart failure. Follow-up with primary provider and cardiology for reassessment. Limit fluid intake to 1500 mL in a day Seek medical attention in case of any worsening or new concerning symptoms. Discharge Attestations Time Spent in Discharge Care*: greater than 30 min Quality Metrics Clinical Quality Measures [ No reported AMI, CVA or VTE this stay] Coding Level of Care Code 34976 Total time (in minutes) for Discharge: 40 Diagnoses Acute on chronic respiratory failure with hypercapnia J96.22 Chronicity: acute on chronic Respiratory failure complication: hypercapnia Paroxysmal atrial fibrillation I48.0 Atrial fibrillation type: paroxysmal Acute on chronic systolic congestive heart failure I50.23 Heart failure type: systolic COPD exacerbation J44.1 Dilated cardiomyopathy I42.0 Cardiomyopathy type: dilated Nonrheumatic aortic valve stenosis I35.0 Cardiac valve disease etiology: nonrheumatic
--- NOTE | 2024-07-08 12:06 | PC.NURSE ---
yuen removed at 1204pm.
--- NOTE | 2024-07-08 12:24 | PC.NURSE ---
attempted to call [facility] at 1224. Voicemail to call back left.
--- NOTE | 2024-07-08 12:41 | PC.NURSE ---
report called to LAZARO Craig at 1240 at [facility].
== END 2024-07-08 14:37 | disposition skilled nursing facility (03) | DRG 291 ==
LOC: ER 14:38 → CSU 15:31 → ICU 22:06 → CSU 07-05 13:56
PROVIDERS: Emergency Medicine; Internal Medicine Cardiovascular Disease; Admitting Provider Internal Medicine; Emergency Provider Family Medicine; PCP Family Medicine Adult Medicine; Visit Provider Internal Medicine
DX: I13.0 Hypertensive heart and chronic kidney disease with heart failure and stage 1 through stage 4 chronic kidney disease, or unspecified chronic kidney disease (principal); I50.23 Acute on chronic systolic (congestive) heart failure; J96.02 Acute respiratory failure with hypercapnia; J96.01 Acute respiratory failure with hypoxia; J44.1 Chronic obstructive pulmonary disease with (acute) exacerbation; E27.40 Unspecified adrenocortical insufficiency; F33.1 Major depressive disorder, recurrent, moderate; N18.2 Chronic kidney disease, stage 2 (mild); E11.22 Type 2 diabetes mellitus with diabetic chronic kidney disease; I35.0 Nonrheumatic aortic (valve) stenosis; F17.200 Nicotine dependence, unspecified, uncomplicated; R00.0 Tachycardia, unspecified; I48.0 Paroxysmal atrial fibrillation; E11.51 Type 2 diabetes mellitus with diabetic peripheral angiopathy without gangrene; E11.42 Type 2 diabetes mellitus with diabetic polyneuropathy; M17.0 Bilateral primary osteoarthritis of knee; G25.0 Essential tremor; E78.5 Hyperlipidemia, unspecified; I95.9 Hypotension, unspecified; I42.0 Dilated cardiomyopathy; F41.1 Generalized anxiety disorder; N39.46 Mixed incontinence; Z11.52 Encounter for screening for COVID-19; Z95.810 Presence of automatic (implantable) cardiac defibrillator; Z79.84 Long term (current) use of oral hypoglycemic drugs; Z79.82 Long term (current) use of aspirin; Z79.02 Long term (current) use of antithrombotics/antiplatelets; Z79.51 Long term (current) use of inhaled steroids; Z83.3 Family history of diabetes mellitus
CPT/HCPCS: 36415; 36600; 51702; 71045; 71275; 80048; 80051; 80053; 82330; 82803; 82805; 83735; 83880; 84443; 84484; 85025; 85378; 87486; 87581; 87633; 92523; 92610; 93005; 93308; 93970; 94640; 94660; 96365; 96366; 96372; 96375; 97110; 97116; 97161; 97530; 99285; J0283; J1650; J1720; J1940; J2470; J3490; J7613; J7626

== ENCOUNTER → 2024-07-12 14:22 | Outpatient (BNVA) | payer MEDICARE, SELFPAY | PROVIDERS: PCP Family Medicine Adult Medicine; Visit Provider Nurse Practitioner Family | DX: I13.0 Hypertensive heart and chronic kidney disease with heart failure and stage 1 through stage 4 chronic kidney disease, or unspecified chronic kidney disease (principal); E11.22 Type 2 diabetes mellitus with diabetic chronic kidney disease; N18.2 Chronic kidney disease, stage 2 (mild); I50.21 Acute systolic (congestive) heart failure; I73.9 Peripheral vascular disease, unspecified; I35.0 Nonrheumatic aortic (valve) stenosis; Z87.891 Personal history of nicotine dependence | CPT/HCPCS: 99214 ==

== ENCOUNTER 2024-08-12 00:11 | Emergency (ER) | payer MEDICARE, SELFPAY ==
[2024-08-12] VITALS (9 sets, daily range): BP systolic 114–158; BP diastolic 37–101; PULSE 58–98; RESP 20; TEMP 36.4; O2SAT 63–97; BMI 27.2
--- NOTE | 2024-08-12 00:20 | ED_ITS ---
HPI - Abdominal Pain 2 General: Chief Complaint: Abdominal Pain Stated Complaint: abd pain Time Seen by Provider: 08/12/24 00:16 History of Present Illness: Patient presents to the ER with complaints of upper abdominal pain and nausea for 1 week. Patient says more in epigastric area. Patient does have COPD and is oxygen dependent. She is on Eliquis and amiodarone Bumex for her CHF, Related Data Home Medications Medication Instructions Recorded Confirmed budesonide-formoterol HFA 160 2 puff inhalation BID 04/21/24 07/12/24 mcg-4.5 mcg/actuation aerosol inhaler (Symbicort) diphenhydramine HCl 25 mg capsule 25 mg PO TID PRN allergies 04/21/24 07/12/24 (Benadryl) guaifenesin 600 mg tablet, 600 mg PO BID PRN congestion/cough 04/21/24 07/12/24 extended release 12 hr mirtazapine 30 mg tablet (Remeron) 30 mg PO BEDTIME 04/21/24 07/12/24 acetaminophen 325 mg tablet 325 mg PO Q4H PRN Pain 07/05/24 07/12/24 (Tylenol) albuterol sulfate 2.5 mg/3 mL 2.5 mg inhalation Q4H PRN 07/05/24 07/12/24 (0.083 %) solution for nebulization Shortness Of Breath albuterol sulfate 90 mcg/actuation 2 puff inhalation Q4H PRN copd 07/05/24 07/12/24 aerosol inhaler (Ventolin HFA) bisacodyl 5 mg tablet 5 mg PO DAILY PRN Constipation 07/05/24 07/12/24 budesonide 0.5 mg/2 mL suspension 0.25 mg inhalation BID 07/05/24 07/12/24 for nebulization bumetanide 1 mg tablet 1 mg PO QAM 07/05/24 07/12/24 meclizine 12.5 mg tablet 12.5 mg PO Q8H PRN dizziness 07/05/24 07/12/24 sennosides 8.6 mg tablet (Senokot) 8.6 mg PO BID 07/05/24 07/12/24 sertraline 25 mg tablet 25 mg PO DAILY 07/05/24 07/12/24 Previous Rx's Medication Instructions Recorded propranolol 10 mg tablet 10 mg PO BID tremor #60 tabs 09/29/23 elastic stocking above knees #2 ea 11/05/23 clonazepam 1 mg tablet 1 mg PO BID anxiety #60 tabs 01/19/24 glipizide 10 mg tablet 10 mg PO BID diabetes #60 tabs 03/16/24 clopidogrel 75 mg tablet 75 mg PO DAILY #90 tabs 04/27/24 cyanocobalamin (vitamin B-12) 1,000 mcg PO DAILY #90 tabs 04/27/24 1,000 mcg tablet (Vitamin B-12) nicotine 21 mg/24 hr daily 1 patch transdermal DAILY #90 ea 04/27/24 transdermal patch amiodarone 200 mg tablet (Pacerone) 200 mg PO BID #90 tabs 07/08/24 apixaban 5 mg tablet (Eliquis) 5 mg PO BID #180 tabs 07/08/24 dextromethorphan-guaifenesin 10 5 ml PO Q4H PRN Cough #237 mL 07/08/24 mg-100 mg/5 mL oral syrup polyethylene glycol 3350 17 gram 17 g PO DAILY #30 ea 07/08/24 oral powder packet sacubitril 24 mg-valsartan 26 mg 1 tab PO BID #180 tabs 07/08/24 tablet (Entresto) empagliflozin 10 mg tablet 10 mg PO DAILY #90 tabs 07/12/24 (Jardiance) Allergies Allergy/AdvReac Type Severity Reaction Status Date / Time loratadine [From Claritin] AdvReac headache/difficulty Verified 07/12/24 14:39 breathing Review of Systems 2 General: Reports: 10 or more systems reviewed and unremarkable except in HPI and below PFSH ED 2 PFSH: Medical History Aortic stenosis Cardiomyopathy Snoring Somnolence, daytime Elevated blood pressure reading in office with diagnosis of hypertension Pain and swelling of left lower leg Fall (on)(from) incline, initial encounter Bilateral edema of lower extremity Dizziness and giddiness Intertrigo Diabetes mellitus type 2 in nonobese Allergic rhinitis due to allergen Acute sinusitis CKD (chronic kidney disease) stage 2, GFR 60-89 ml/min Dysphagia Smoker Peripheral neuropathy Osteoarthritis of knees, bilateral Essential tremor COPD (chronic obstructive pulmonary disease) case management patient HTN (hypertension) Hyperlipidemia due to type 2 diabetes mellitus Mixed stress and urge urinary incontinence Aortic stenosis Peripheral Vascular Disease Bladder prolapse Generalized anxiety disorder Major depressive disorder, recurrent episode, moderate with anxious distress Surgical History Hx of angioplasty S/P hysterectomy S/P tonsillectomy Family History Mother Diabetes Denies family history of CAD (coronary artery disease) Hyperlipidemia Chronic kidney disease (CKD) Cancer Hypertension Thyroid disease Stroke Social History Smoking and tobacco/nicotine status: former use of tobacco/nicotine (Has not smoked for 12 days) Quit status (tobacco/nicotine): not considering quitting Second hand smoke exposure: Yes Alcohol intake: never Substance/Drug Use: never Caregiver/support person: No Lives independently: Yes Household members: spouse Housing: House Marital status: Number of children: 1 Highest education level completed: Some College, No Degree service: No Current occupational status: retired Pets and animals: Yes (1 cat) Do you think of yourself as: Straight/Heterosexual Current gender identity: Female Physical Exam 2 Const: COMMON NORMALS: no acute distress, average body habitus, patient oriented x3, no limitations, healthy appearing, alert and well nourished HENMT: COMMON NORMALS: normocephalic, atraumatic, hearing grossly normal bilaterally, external ears normal, Normal external nose present and moist oral mucous membranes HEAD & SCALP: normocephalic and atraumatic NOSE: Normal external nose present EXTERNAL EAR: Yes external ears normal Neck/C-Spine: COMMON NORMALS: no JVD Chest: COMMONS NORMALS: normal inspection of the chest and normal palpation of entire chest wall Resp: COMMON NORMALS: normal respiratory effort, No retractions, No use of accessory muscles and clear to auscultation bilaterally AUSCULTATION: clear to auscultation bilaterally Cardio: COMMON NORMALS: no JVD, regular rate, regular rhythm, S1 normal heart sound present, S2 normal heart sound present, No gallops present (Cardio), No clicks present (Cardio), No murmurs present (Cardio) and No rub (Cardio) R ATE: regular rate RHYTHM: regular rhythm HEART SOUNDS: S1 normal heart sound present and S2 normal heart sound present GI: COMMON NORMALS: Normal to inspection, nondistended, normoactive bowel sounds present, Soft to palpation, No hepatosplenomegaly present and no masses; negative for non-tender (Mildly tender to palpate epigastric area) PALPATION: Yes Soft to palpation and Yes No hepatosplenomegaly present Neuro: COMMON NORMALS: patient oriented x3 SENSORIUM/ORIENTATION: Yes alert Course 2 Vital Signs: Vital signs: Vital Signs Temperature 97.5 F L 08/12/24 00:13 Pulse Rate 98 08/12/24 00:13 Respiratory Rate 20 H 08/12/24 00:13 Blood Pressure 152/52 08/12/24 00:13 Pulse Oximetry 63 L 08/12/24 00:13 MDM - Abdominal Pain Medical Decision Making Lab work was obtained showed a mild decrease in hemoglobin to 10.4, and 3+ glucose in urine with trace blood. He was also discussed with the patient. Patient be discharged back home to follow-up with her primary care. Medical Records I reviewed the patient's medical records. Lab Data I reviewed the patient's lab results. 08/12/24 00:30 08/12/24 00:30 Labs/Radiology: Laboratory Results WBC 7.96 10^3/uL (3.29-11.43) 08/12/24 00:30 RBC 3.29 10^6/uL (3.85-5.65) L 08/12/24 00:30 Hgb 10.40 g/dL (11.27-16.99) L 08/12/24 00:30 Hct 31.5 % (36-47) L 08/12/24 00:30 MCV 95.7 fl (85-98) 08/12/24 00:30 MCH 31.6 pg (27-33) 08/12/24 00:30 MCHC 33.0 g/dL (30-55) 08/12/24 00:30 RDW 12.4 % (12.1-15.1) 08/12/24 00:30 Plt Count 184 10^3/cmm (157-399) 08/12/24 00:30 MPV 9.9 fL (7.4-10.4) 08/12/24 00:30 Neut % (Auto) 59.5 % 08/12/24 00:30 Lymph % (Auto) 22.6 % 08/12/24 00:30 Gillespie % (Auto) 12.9 % 08/12/24 00:30 Eos % (Auto) 4.1 % 08/12/24 00:30 Baso % (Auto) 0.6 % 08/12/24 00:30 Neut # (Auto) 4.73 10^3/uL (1.8-7.7) 08/12/24 00:30 Lymph # (Auto) 1.8 10^3/uL (0.8-4.8) 08/12/24 00:30 Gillespie # (Auto) 1.0 10^3/uL (0.2-0.9) H 08/12/24 00:30 Eos # (Auto) 0.3 10^3/uL (0.0-0.8) 08/12/24 00:30 Baso # (Auto) 0.1 10^3/uL (0.0-0.1) 08/12/24 00:30 Nucleated RBC % (auto) 0 % 08/12/24 00:30 Nucleated RBCs # 0.0 /100WBC 08/12/24 00:30 Sodium 134 mmol/L (136-145) L 08/12/24 00:30 Potassium 4.0 mmol/L (3.5-5.1) 08/12/24 00:30 Chloride 98 mmol/L (98-107) 08/12/24 00:30 Carbon Dioxide 25 mmol/L (22-29) 08/12/24 00:30 Anion Gap 15.0 (5-19) 08/12/24 00:30 BUN 21 mg/dL (8-23) 08/12/24 00:30 Creatinine 1.1 mg/dL (0.5-0.9) H 08/12/24 00:30 GFR Calculation Not Reportable 08/12/24 00:30 Glucose 121 mg/dL (65-115) H 08/12/24 00:30 Calculated Osmolality 282 mOsm/kg (285-295) L 08/12/24 00:30 Calcium 8.9 mg/dL (8.5-10.5) 08/12/24 00:30 Magnesium 2.2 mg/dL (1.7-2.3) 08/12/24 00:30 Total Bilirubin 0.4 mg/dL (0.15-1.2) 08/12/24 00:30 AST 19 U/L (0-32) 08/12/24 00:30 ALT 15 U/L (0-33) 08/12/24 00:30 Alkaline Phosphatase 84 U/L (35-105) 08/12/24 00:30 Total Protein 6.3 g/dL (6.6-8.7) L 08/12/24 00:30 Albumin 3.3 g/dL (3.5-5.2) L 08/12/24 00:30 Globulin 3.0 g/dL (1.3-4.6) 08/12/24 00: Lipase 22 U/L (13-60) 08/12/24 00:30 Urine Color Yellow (Yellow) 08/12/24 00:30 Urine Appearance Clear (CLEAR) 08/12/24: Urine pH 6.5 (5-7) 08/12/24 00:30 Ur Specific [place] 1.016 (1.005-1.030) 08/12/24 00: Urine Protein Negative (Negative) 08/12/24 00:30 Urine Glucose (UA) 3+ (Normal) H 08/12/24 00:30 Urine Ketones Negative (Negative) 08/12/24 00: Urine Blood Trace (Negative) A 08/12/24 00: Urine Nitrate Negative (Negative) 08/12/24 00:30 Urine Bilirubin Negative (Negative) 08/12/24 00: Urine Urobilinogen 1.0 mg/dL (Negative) 08/12/24 00: Ur Leukocyte Esterase Negative (Negative) 08/12/24 00: Urine RBC 3-5 /hpf (0-2) 08/12/24 00:30 Urine WBC 0-5 /hpf (0-5) 08/12/24 00:30 Ur Squamous Epith Cells 0-5 /hpf (0-5) 08/12/24 00: Amorphous Sediment Not Reportable 08/12/24 00: Urine Bacteria None seen /hpf (NONE) 08/12/24 00:30 Hyaline Casts 0-4 /lpf H 08/12/24 00:30 All radiology interpretation(s) finalized by discharge Discharge Plan Discharge Patient Disposition: Home Clinical Impression: Abdominal pain Qualifiers: Abdominal location: epigastric Qualified Code(s): R10.13 - Epigastric pain Condition: Stable Prescriptions: No Action Jardiance 10 mg tablet 10 mg PO DAILY Qty: 90 3RF (DME) elastic stocking above knees See Rx Instructions .Route .MEDSUPPLY Qty: 2 0RF Rx Instructions: As directed daily propranolol 10 mg tablet 10 mg PO BID Qty: 60 5RF Rx Instructions: Hold for bp <100/60 or P <60 clonazepam 1 mg tablet 1 mg PO BID Qty: 60 3RF glipizide 10 mg tablet 10 mg PO BID Qty: 60 5RF mirtazapine [Remeron] 30 mg tablet 30 mg PO BEDTIME budesonide-formoterol [Symbicort] 160-4.5 mcg/actuation HFA aerosol inhaler 2 puff inhalation BID guaifenesin 600 mg tablet extended release 12hr 600 mg PO BID PRN (Reason: congestion/cough) diphenhydramine HCl [Benadryl] 25 mg Capsule 25 mg PO TID PRN (Reason: allergies) clopidogrel 75 mg Tablet 75 mg PO DAILY Qty: 90 0RF nicotine 21 mg/24 hr Patch 24 Hour 1 patch transdermal DAILY Qty: 90 0RF cyanocobalamin (vitamin B-12) [Vitamin B-12] 1,000 mcg Tablet 1,000 mcg PO DAILY Qty: 90 0RF sennosides [Senokot] 8.6 mg Tablet 8.6 mg PO BID acetaminophen [Tylenol] 325 mg Tablet 325 mg PO Q4H PRN (Reason: Pain) albuterol sulfate 2.5 mg /3 mL (0.083 %) Solution For Nebulization 2.5 mg INHALATION Q4H PRN (Reason: Shortness Of Breath) sertraline 25 mg Tablet 25 mg PO DAILY budesonide 0.5 mg/2 mL Suspension For Nebulization 0.25 mg INHALATION BID MDD until Symbicort comes in bisacodyl 5 mg Tablet 5 mg PO DAILY PRN (Reason: Constipation) meclizine 12.5 mg tablet 12.5 mg PO Q8H PRN (Reason: dizziness) bumetanide 1 mg tablet 1 mg PO QAM albuterol sulfate [Ventolin HFA] 90 mcg/actuation HFA aerosol inhaler 2 puff INHALATION Q4H PRN (Reason: copd ) amiodarone [Pacerone] 200 mg Tablet 200 mg PO BID Qty: 90 0RF Rx Instructions: 200mg BID for 3 days, then 100mg BID dextromethorphan-guaifenesin 10-100 mg/5 mL Syrup 5 ml PO Q4H PRN (Reason: Cough) Qty: 237 0RF polyethylene glycol 3350 17 gram Powder In Packet 17 g PO DAILY Qty: 30 0RF Entresto 24-26 mg Tablet 1 tab PO BID Qty: 180 0RF Eliquis 5 mg tablet 5 mg PO BID Qty: 180 0RF Discharge Orders: Discharge ED (Routine); Ordered 08/12/24 Ordered By: Vinay Kimball Referrals: aMrv Andrews MD [Primary Care Provider] - 1 week Patient Instructions: Abdominal Pain (ED) Activity Restrictions/Additional Instructions: Thank you for choosing [facility] for your healthcare needs today. Please realize that you were seen in the emergency department and that we are providing you with an emergency medical screening exam and this may not be a complete and all exclusive of all testing and/or medical workup we may need to determine your element or severity of your illness. It is very important that you follow-up as instructed with your primary care provider or specialist for the additional evaluation and to discuss your medical treatment plan. You may return to the emergency department should you have concerns or if your condition changes or worsens in any way. Coding Level of Care Code ED Train Clerk for Tim Valle
[2024-08-12 00:36] LABS: Basophils # 0.1 10^3/uL (0.0-0.1); Basophils % 0.6 %; Eosinophils # 0.3 10^3/uL (0.0-0.8); Eosinophils % 4.1 %; Hematocrit 31.5 % (36-47); Lymphocytes # 1.8 10^3/uL (0.8-4.8); Lymphocytes % 22.6 %; Mean Corpuscular Hemoglobin 31.6 pg (27-33); Mean Corpuscular Volume 95.7 fl (85-98); Mean Platelet Volume 9.9 fL (7.4-10.4); Monocytes % 12.9 %; Neutrophils # 4.73 10^3/uL (1.8-7.7); Neutrophils % 59.5 %; Nucleated Red Blood Cells % 0 %; Platelet Count 184 10^3/cmm (157-399); Red Blood Count 3.29 10^6/uL (3.85-5.65); Red Cell Distribution Width 12.4 % (12.1-15.1); White Blood Count 7.96 10^3/uL (3.29-11.43)
[2024-08-12 00:50] LABS: Alanine Aminotransferase 15 U/L (0-33); Albumin Level 3.3 g/dL (3.5-5.2); Alkaline Phosphatase 84 U/L (35-105); Aspartate Amino Transferase 19 U/L (0-32); Blood Urea Nitrogen 21 mg/dL (8-23); Calcium 8.9 mg/dL (8.5-10.5); Carbon Dioxide 25 mmol/L (22-29); Chloride 98 mmol/L (98-107); Glucose 121 mg/dL (65-115); Lipase 22 U/L (13-60); Magnesium 2.2 mg/dL (1.7-2.3); Osmolality Calculated 282 mOsm/kg (285-295); Sodium 134 mmol/L (136-145); Total Bilirubin 0.4 mg/dL (0.15-1.2); Total Protein 6.3 g/dL (6.6-8.7)
[2024-08-12 00:56] LABS: Bilirubin Urine Negative (Negative); Blood Urine Trace (Negative); Glucose Urine UA 3+ (Normal); Ketones Urine Negative (Negative); Leukocyte Esterase Urine Negative (Negative); Nitrate Urine Negative (Negative); Protein Urine Negative (Negative); Specific Gravity, Urine 1.016 (1.005-1.030); Urine Appearance Clear (CLEAR); Urine Color Yellow (Yellow); pH Urine 6.5 (5-7)
[2024-08-12 01:01] LABS: Add Urine Microscopic? YES; Bacteria Urine None Seen /hpf; Hyaline Casts Urine 0-4 /lpf; Squamous Epithelial Cell Urine 0-5 /hpf (0-5); WBC Urine 0-5 /hpf (0-5)
--- NOTE | 2024-08-12 05:27 | PC.NURSE ---
This nurse called report to [place] Lexy Bender. Denied further questions. Attempted to contact significant other several time for transportation. No answer at this time.
--- NOTE | 2024-08-12 07:24 | PC.PHAR ---
Pt is from [facility]
== END 2024-08-12 09:58 | disposition home or self-care (01) ==
PROVIDERS: Emergency Provider Emergency Medicine; PCP Family Medicine Adult Medicine
DX: R10.13 Epigastric pain (principal); Z79.02 Long term (current) use of antithrombotics/antiplatelets; Z79.01 Long term (current) use of anticoagulants; Z87.891 Personal history of nicotine dependence; E78.5 Hyperlipidemia, unspecified; E11.22 Type 2 diabetes mellitus with diabetic chronic kidney disease; I13.0 Hypertensive heart and chronic kidney disease with heart failure and stage 1 through stage 4 chronic kidney disease, or unspecified chronic kidney disease; N18.2 Chronic kidney disease, stage 2 (mild); I50.9 Heart failure, unspecified; J44.9 Chronic obstructive pulmonary disease, unspecified; Z99.81 Dependence on supplemental oxygen
CPT/HCPCS: 36415; 80053; 81001; 83690; 83735; 85025; 99283

== ENCOUNTER 2024-08-14 09:04 | Emergency (ER) | payer MEDICARE, SELFPAY ==
[2024-08-14] VITALS (7 sets, daily range): BP systolic 103–154; BP diastolic 41–56; PULSE 57–62; RESP 17–18; TEMP 36.5; O2SAT 92–100; BMI 27.2
--- NOTE | 2024-08-14 09:33 | CTR_ITS ---
PROCEDURE INFORMATION: Exam: CT Abdomen And Pelvis With Contrast Exam date and time: 08/14/2024 11:39 AM Age: 74 years old Clinical indication: Abdominal pain; Localized; Right lower quadrant (rlq); Prior surgery; Surgery date: 6+ months; Surgery type: Hyster; Additional info: Right flank pain, right sided abd pain, ttp rlq TECHNIQUE: Imaging protocol: Computed tomography of the abdomen and pelvis with contrast. Radiation optimization: All CT scans at this facility use at least one of these dose optimization techniques: automated exposure control; mA and/or kV adjustment per patient size (includes targeted exams where dose is matched to clinical indication); or iterative reconstruction. Contrast material: OMNIPAQUE 350; Contrast volume: 100 ml; Contrast route: INTRAVENOUS (IV); COMPARISON: CT abdomen pelvis wo con [id number] 04/23/2024 2:59 PM RADIATION DOSE METRICS: Total DLP (mGy-cm): 644.3 FINDINGS: Lungs: Lung bases are clear. No pleural effusion. Liver: Normal. No mass. Gallbladder and biliary ducts: Normal. No calcified stones. No ductal dilation. Pancreas: Normal. No ductal dilation. Spleen: Normal. No splenomegaly. Adrenal glands: Normal. No mass. Kidneys and ureters: Normal. No hydronephrosis. Stomach and bowel: Unremarkable. No obstruction. No mucosal thickening. Appendix: The appendix is clearly identified and is unremarkable. Intraperitoneal space: Unremarkable. No free air. No significant fluid collection. Vasculature: Unremarkable. No abdominal aortic aneurysm. Lymph nodes: Unremarkable. No enlarged lymph nodes. Urinary bladder: Unremarkable as visualized. Reproductive: Unremarkable as visualized. Bones/joints: Unremarkable. No acute fracture. Soft tissues: Unremarkable. CT/CT abdomen pelvis w con* [id number] IMPRESSION: No acute findings.
--- NOTE | 2024-08-14 09:35 | W.ED.BACK ---
HPI - Back Pain/Injury General: Chief Complaint: Back Pain/Injury Stated Complaint: back pain Time Seen by Provider: 08/14/24 09:24 History of Present Illness: 74-year-old female presents emergency department complaining of back pain and abdominal pain. Patient reports she has had intermittent nausea along with some anterior abdominal pain in the right upper right mid and right lower abdomen for about 1 week. It seems to be coming and going. She reports she had 1 dark stool (she is not sure if she is taking iron). Patient reports yesterday she started having back pain. She is currently living in a long-term and has been pretty inactive. She is not sure if this is muscle fatigue from inactivity or whether it is something else. She was here in the emergency department a few days ago and was found to have some microscopic hematuria. Imaging was not performed at that time. Patient reports that she has not had any dysuria, urinary frequency or urgency. She does not endorse any fever or chills. She does still have her appendix and her gallbladder but states she has had a total hysterectomy. Patient has multiple comorbidities including an EF of 30%, history of peripheral arterial disease with stents, history of constipation, diabetes, multiple other comorbid conditions. Associated symptoms: Deny chills, fever(s) or syncope Related Data Home Medications Medication Instructions Recorded Confirmed budesonide-formoterol HFA 160 2 puff inhalation BID 04/21/24 08/14/24 mcg-4.5 mcg/actuation aerosol inhaler (Symbicort) diphenhydramine HCl 25 mg capsule 25 mg PO TID PRN allergies 04/21/24 08/14/24 (Benadryl) guaifenesin 600 mg tablet, 600 mg PO BID PRN congestion/cough 04/21/24 08/14/24 extended release 12 hr mirtazapine 30 mg tablet (Remeron) 30 mg PO BEDTIME 04/21/24 08/14/24 acetaminophen 325 mg tablet 650 mg PO Q4H PRN Pain 07/05/24 08/14/24 (Tylenol) albuterol sulfate 2.5 mg/3 mL 2.5 mg inhalation Q4H PRN 07/05/24 08/14/24 (0.083 %) solution for nebulization Shortness Of Breath albuterol sulfate 90 mcg/actuation 2 puff inhalation Q4H PRN copd 07/05/24 08/14/24 aerosol inhaler (Ventolin HFA) bisacodyl 5 mg tablet 5 mg PO DAILY PRN Constipation 07/05/24 08/14/24 budesonide 0.5 mg/2 mL suspension 0.25 mg inhalation BID 07/05/24 08/14/24 for nebulization bumetanide 1 mg tablet 1 mg PO QAM 07/05/24 08/14/24 meclizine 12.5 mg tablet 12.5 mg PO Q8H PRN dizziness 07/05/24 08/14/24 sennosides 8.6 mg tablet (Senokot) 8.6 mg PO BID 07/05/24 08/14/24 sertraline 25 mg tablet 25 mg PO DAILY 07/05/24 08/14/24 amiodarone 100 mg tablet (Pacerone) 100 mg PO BID 08/12/24 08/14/24 cetirizine 10 mg tablet (Zyrtec) 10 mg PO DAILY PRN allergies 08/12/24 08/14/24 melatonin 1 mg tablet 1 mg PO BEDTIME 08/12/24 08/14/24 sodium chloride-aloe vera nasal 2 spray intranasal BID dry nares 08/12/24 08/14/24 spray ([place] Saline Gel nasal spray) aluminum-mag hydroxide-simethicone 30 ml PO Q6H PRN Indigestion 08/14/24 08/14/24 400 mg-400 mg-40 mg/5 mL oral susp (Mylanta Maximum Strength) Previous Rx's Medication Instructions Recorded propranolol 10 mg tablet 10 mg PO BID tremor #60 tabs 09/29/23 elastic stocking above knees #2 ea 11/05/23 clonazepam 1 mg tablet 1 mg PO BID anxiety #60 tabs 01/19/24 glipizide 10 mg tablet 10 mg PO BID diabetes #60 tabs 03/16/24 clopidogrel 75 mg tablet 75 mg PO DAILY #90 tabs 04/27/24 cyanocobalamin (vitamin B-12) 1,000 mcg PO DAILY #90 tabs 04/27/24 1,000 mcg tablet (Vitamin B-12) nicotine 21 mg/24 hr daily 1 patch transdermal DAILY #90 ea 04/27/24 transdermal patch apixaban 5 mg tablet (Eliquis) 5 mg PO BID #180 tabs 07/08/24 dextromethorphan-guaifenesin 10 5 ml PO Q4H PRN Cough #237 mL 07/08/24 mg-100 mg/5 mL oral syrup polyethylene glycol 3350 17 gram 17 g PO DAILY #30 ea 07/08/24 oral powder packet sacubitril 24 mg-valsartan 26 mg 1 tab PO BID #180 tabs 07/08/24 tablet (Entresto) empagliflozin 10 mg tablet 10 mg PO DAILY #90 tabs 07/12/24 (Jardiance) Allergies Allergy/AdvReac Type Severity Reaction Status Date / Time loratadine [From Claritin] AdvReac headache/difficulty Verified 07/12/24 14:39 breathing Review of Systems General: Reports: 10 or more systems reviewed and unremarkable except in HPI and below Narrative: Right-sided back pain, right-sided abdominal pain, intermittent constipation Const: Denies: fever(s), chills or body aches Eyes: Denies: change in vision ENMT: Denies: throat pain Card: Denies: chest pain, edema or syncope Resp: Denies: dyspnea or productive cough GI: Denies: diarrhea Musc: Denies: neck pain, back pain, extremity pain or extremity swelling Skin/Breast: Denies: rash or erythema Neuro: Denies: headache(s), numbness in extremities or lack of coordination PFSH ED PFSH: Medical History Aortic stenosis Cardiomyopathy Snoring Somnolence, daytime Elevated blood pressure reading in office with diagnosis of hypertension Pain and swelling of left lower leg Fall (on)(from) incline, initial encounter Bilateral edema of lower extremity Dizziness and giddiness Intertrigo Diabetes mellitus type 2 in nonobese Allergic rhinitis due to allergen Acute sinusitis CKD (chronic kidney disease) stage 2, GFR 60-89 ml/min Dysphagia Smoker Peripheral neuropathy Osteoarthritis of knees, bilateral Essential tremor COPD (chronic obstructive pulmonary disease) case management patient HTN (hypertension) Hyperlipidemia due to type 2 diabetes mellitus Mixed stress and urge urinary incontinence Aortic stenosis Peripheral Vascular Disease Bladder prolapse Generalized anxiety disorder Major depressive disorder, recurrent episode, moderate with anxious distress Surgical History Hx of angioplasty S/P hysterectomy S/P tonsillectomy Family History Mother Diabetes Denies family history of CAD (coronary artery disease) Hyperlipidemia Chronic kidney disease (CKD) Cancer Hypertension Thyroid disease Stroke Social History Smoking and tobacco/nicotine status: former use of tobacco/nicotine (Has not smoked for 12 days) Quit status (tobacco/nicotine): not considering quitting Second hand smoke exposure: Yes Alcohol intake: never Substance/Drug Use: never Caregiver/support person: No Lives independently: Yes Household members: spouse Housing: House Marital status: Number of children: 1 Highest education level completed: Some College, No Degree service: No Current occupational status: retired Pets and animals: Yes (1 cat) Do you think of yourself as: Straight/Heterosexual Current gender identity: Female Physical Exam Narrative: EXAM NARRATIVE: Appears stated age. Deconditioned. Nontoxic appearing. Alert and oriented. Conversational. Calm and cooperative. Abdomen soft without distention. Bowel sounds are normal. Tenderness to light palpation in the right lower quadrant, right mid abdomen and right upper abdomen. Tenderness to light touch in the right flank and lumbar region as well. No bony tenderness appreciated. Straight leg raise negative bilaterally. No lower extremity swelling pain or redness. Difficult to differentiate whether she truly has CVA percussion tenderness because light touch causes pain. Const: COMMON NORMALS: no limitations, alert and well nourished EXAM LIMITATIONS: no altered mental status HENMT: COMMON NORMALS: normocephalic, atraumatic and external ears normal HEAD & SCALP: normocephalic and atraumatic EXTERNAL EAR: Yes external ears normal MOUTH: no muffled voice Eye: COMMON NORMALS: EOMs intact bilaterally, conjunctivae normal and no scleral icterus CONJUNCTIVA: Yes conjunctivae normal Neck/C-Spine: COMMON NORMALS: no JVD GENERAL: Yes normal visual inspection and Yes trachea midline Resp: COMMON NORMALS: normal respiratory effort, No use of accessory muscles and clear to auscultation bilaterally AUSCULTATION: clear to auscultation bilaterally Cardio: COMMON NORMALS: no JVD and regular rate RATE: regular rate GI: COMMON NORMALS: Soft to palpation PALPATION: Yes Soft to palpation Extremity: COMMON NORMALS: normal to inspection Neuro: COMMON NORMALS: moves all extremities, no focal motor deficits and no sensory deficits noted SENSORIUM/ORIENTATION: Yes alert SPEECH: speech normal Psych: COMMON NORMALS: mental status grossly normal, Normal thought process present, cooperative, normal affect and speech normal SPEECH: Yes normal speech THOUGHT PROCESS: Normal thought process present Skin: COMMON NORMALS: no rashes or lesions noted, turgor normal and no jaundice GENERAL SKIN EXAM: no rashes or lesions noted and turgor normal Course Vital Signs: Vital signs: Vital Signs Temperature 97.7 F 08/14/24 09:05 Pulse Rate 60 08/14/24 12:00 Respiratory Rate 18 08/14/24 11:30 Blood Pressure 125/42 08/14/24 12:00 Pulse Oximetry 98 08/14/24 12:00 Oxygen Delivery Me thod Nasal Cannula 08/14/24 12:00 Oxygen Flow Rate 3 08/14/24 12:00 MDM - Back Pain/Injury Medical Decision Making Differential diagnosis includes musculoskeletal/myofascial pain, UTI, pyelonephritis, nephrolithiasis, ureterolithiasis, appendicitis, diverticulitis, colitis, unlikely cholecystitis, unlikely AAA, unlikely mesenteric ischemia, unlikely intra-abdominal abscess or hollow viscus perforation. Given patient's persistent symptoms and risk factors, will proceed with CT scan of the abdomen pelvis today. Will also repeat her labs and urine analysis for evaluation of the after mentioned differential diagnosis. UPDATE 1225 UA with glucose but no blood/infeciton. CBC w/ diff notable for hgb 9.4 which is trending down. MCV borderline elevated. Will place on iron and have f/u outpatient. ? losing small amounts of blood in stool? CMP with mildly elevated glucose w/o DKA; otherwise unremarkable. CT abd/pelv w/ contrast neg for any findings to explain pain. I think the pretest suspicion of musculoskeletal and myofascial pain is still the most likely. Patient can be discharged with supportive care, pain medication and instructions to increase her mobility, flexibility, strength in her back and in general become more active to reduce pain Labs 08/14/24 09:56 08/14/24 09:56 Radiology Impressions Abdomen/Pelvis CT 08/14/24 09:33 IMPRESSION: No acute findings. Laboratory Results WBC 6.96 10^3/uL (3.29-11.43) 08/14/24 09:56 RBC 2.96 10^6/uL (3.85-5.65) L 08/14/24 09:56 Hgb 9.40 g/dL (11.27-16.99) L 08/14/24 09:56 Hct 28.2 % (36-47) L 08/14/24 09:56 MCV 95.3 fl (85-98) 08/14/24 09:56 MCH 31.8 pg (27-33) 08/14/24 09:56 MCHC 33.3 g/dL (30-55) 08/14/24 09:56 RDW 12.5 % (12.1-15.1) 08/14/24 09:56 Plt Count 213 10^3/cmm (157-399) 08/14/24 09:56 MPV 9.7 fL (7.4-10.4) 08/14/24 09:56 Neut % (Auto) 62.6 % 08/14/24 09:56 Lymph % (Auto) 25.0 % 08/14/24 09:56 [place] % (Auto) 8.8 % 08/14/24 09:56 Eos % (Auto) 2.3 % 08/14/24 09:56 Baso % (Auto) 0.7 % 08/14/24 09:56 Neut # (Auto) 4.36 10^3/uL (1.8-7.7) 08/14/24 09:56 Lymph # (Auto) 1.7 10^3/uL (0.8-4.8) 08/14/24 09:56 [place] # (Auto) 0.6 10^3/uL (0.2-0.9) 08/14/24 09:56 Eos # (Auto) 0.2 10^3/uL (0.0-0.8) 08/14/24 09:56 Baso # (Auto) 0.1 10^3/uL (0.0-0.1) 08/14/24 09:56 Nucleated RBC % (auto) 0 % 08/14/24 09:56 Nucleated RBCs # 0.0 /100WBC 08/14/24 09:56 Sodium 136 mmol/L (136-145) 08/14/24 09:56 Potassium 4.1 mmol/L (3.5-5.1) 08/14/24 09:56 Chloride 99 mmol/L (98-107) 08/14/24 09:56 Carbon Dioxide 27 mmol/L (22-29) 08/14/24 09:56 Anion Gap 14.1 (5-19) 08/14/24 09:56 BUN 15 mg/dL (8-23) 08/14/24 09:56 Creatinine 1.0 mg/dL (0.5-0.9) H 08/14/24 09:56 GFR Calculation Not Reportable 08/14/24 09:56 Glucose 150 mg/dL (65-115) H 08/14/24 09:56 Calculated Osmolality 286 mOsm/kg (285-295) 08/14/24 09:56 Calcium 8.8 mg/dL (8.5-10.5) 08/14/24 09:56 Total Bilirubin 0.3 mg/dL (0.15-1.2) 08/14/24 09:56 AST 14 U/L (0-32) 08/14/24 09:56 ALT 13 U/L (0-33) 08/14/24 09:56 Alkaline Phosphatase 72 U/L (35-105) 08/14/24 09:56 Total Protein 6.2 g/dL (6.6-8.7) L 08/14/24 09:56 Albumin 3.3 g/dL (3.5-5.2) L 08/14/24 09:56 Globulin 2.9 g/dL (1.3-4.6) 08/14/24 09:56 Lipase 10 U/L (13-60) L 08/14/24 09:56 Urine Color Yellow (Yellow) 08/14/24 10:25 Urine Appearance Clear (CLEAR) 08/14/24 10:25 Urine pH 6.5 (5-7) 08/14/24 10:25 Ur Specific [place] 1.023 (1.005-1.030) 08/14/24 10:25 Urine Protein Negative (Negative) 08/14/24 10:25 Urine Glucose (UA) 3+ (Normal) H 08/14/24 10:25 Urine Ketones Negative (Negative) 08/14/24 10:25 Urine Blood Negative (Negative) 08/14/24 10:25 Urine Nitrate Negative (Negative) 08/14/24 10:25 Urine Bilirubin Negative (Negative) 08/14/24 10:25 Urine Urobilinogen 1.0 mg/dL (Negative) 08/14/24 10:25 Ur Leukocyte Esterase Negative (Negative) 08/14/24 10:25 Urine RBC 0-2 /hpf (0-2) 08/14/24 10:25 Urine WBC 0-5 /hpf (0-5) 08/14/24 10:25 Ur Squamous Epith Cells 0-5 /hpf (0-5) 08/14/24 10:25 Amorphous Sediment Not Reportable 08/14/24 10:25 Urine Bacteria None seen /hpf (NONE) 08/14/24 10:25 Hyaline Casts 0.40 /lpf 08/14/24 10:25 All radiology interpretation(s) finalized by discharge Discharge Plan Discharge Patient Disposition: Home Clinical Impression: Myofascial low back pain, Abdominal tenderness without rebound tenderness, Sedentary lifestyle Condition: Stable Prescriptions: No Action Jardiance 10 mg tablet 10 mg PO DAILY Qty: 90 3RF (DME) elastic stocking above knees See Rx Instructions .Route .MEDSUPPLY Qty: 2 0RF Rx Instructions: As directed daily propranolol 10 mg tablet 10 mg PO BID Qty: 60 5RF Rx Instructions: Hold for bp <100/60 or P <60 clonazepam 1 mg tablet 1 mg PO BID Qty: 60 3RF glipizide 10 mg tablet 10 mg PO BID Qty: 60 5RF mirtazapine [Remeron] 30 mg tablet 30 mg PO BEDTIME budesonide-formoterol [Symbicort] 160-4.5 mcg/actuation HFA aerosol inhaler 2 puff inhalation BID guaifenesin 600 mg tablet extended release 12hr 600 mg PO BID PRN (Reason: congestion/cough) diphenhydramine HCl [Benadryl] 25 mg Capsule 25 mg PO TID PRN (Reason: allergies) clopidogrel 75 mg Tablet 75 mg PO DAILY Qty: 90 0RF nicotine 21 mg/24 hr Patch 24 Hour 1 patch transdermal DAILY Qty: 90 0RF cyanocobalamin (vitamin B-12) [Vitamin B-12] 1,000 mcg Tablet 1,000 mcg PO DAILY Qty: 90 0RF cetirizine [Zyrtec] 10 mg Tablet 10 mg PO DAILY PRN (Reason: allergies) melatonin 1 mg Tablet 1 mg PO BEDTIME amiodarone [Pacerone] 100 mg Tablet 100 mg PO BID [place] Saline Gel [place],Non-Aerosol 2 spray INTRANASAL BID alum-mag hydroxide-simeth [Mylanta Maximum Strength] 400-400-40 mg/5 mL Suspension 30 ml PO Q6H PRN (Reason: Indigestion) sennosides [Senokot] 8.6 mg Tablet 8.6 mg PO BID acetaminophen [Tylenol] 325 mg Tablet 650 mg PO Q4H PRN (Reason: Pain) albuterol sulfate 2.5 mg /3 mL (0.083 %) Solution For Nebulization 2.5 mg INHALATION Q4H PRN (Reason: Shortness Of Breath) sertraline 25 mg Tablet 25 mg PO DAILY budesonide 0.5 mg/2 mL Suspension For Nebulization 0.25 mg INHALATION BID MDD until Symbicort comes in bisacodyl 5 mg Tablet 5 mg PO DAILY PRN (Reason: Constipation) meclizine 12.5 mg tablet 12.5 mg PO Q8H PRN (Reason: dizziness) bumetanide 1 mg tablet 1 mg PO QAM albuterol sulfate [Ventolin HFA] 90 mcg/actuation HFA aerosol inhaler 2 puff INHALATION Q4H PRN (Reason: copd ) dextromethorphan-guaifenesin 10-100 mg/5 mL Syrup 5 ml PO Q4H PRN (Reason: Cough) Qty: 237 0RF polyethylene glycol 3350 17 gram Powder In Packet 17 g PO DAILY Qty: 30 0RF sacubitril-valsartan [Entresto] 24-26 mg Tablet 1 tab PO BID Qty: 180 0RF Eliquis 5 mg tablet 5 mg PO BID Qty: 180 0RF Discharge Orders: Discharge ED (Routine); Ordered 08/14/24 Ordered By: Peter Faulkner Referrals: Marv Andrews MD [Primary Care Provider] - Discharge Activity: Increase activity as tolerated Patient Instructions: Pain Management Activity Restrictions/Additional Instructions: You did not have any sign of urinary tract infection, obstructive kidney stone, appendicitis, colitis, or any other intra-abdominal explanation for your pain. We suspected even before the testing that this was musculoskeletal or myofascial in origin. Unfortunately due to your heart condition you have a sedentary lifestyle. Sedentary lifestyle leads to decreased muscle bulk, flexibility, and strain due to being in the same position for long periods of time. This can lead to chronic pain. Please do your best to increase physical activity. Start small and work your way up. You may use muscle rubs, Lidoderm patches, Tylenol as needed for pain. If you need structured therapy, please talk to your primary care physician about prescribing or adapting your physical therapy Return to the emergency department if you have fever, weakness, numbness, inability to urinate or defecate, or other emergencies. Coding Level of Care Code ED Waste Handling Technician for Tim Valle
[2024-08-14] MEDS: morphine 4 mg/mL SDV 1 mL IVP (09:42)
[2024-08-14] MEDS: ondansetron 2 mg/ML SDV 2 mL 4 MG IVP (09:42)
[2024-08-14] MEDS: acetaminophen 325 mg Tablet 650 MG PO (09:42)
--- NOTE | 2024-08-14 09:43 | PC.PHAR ---
patient is from [facility]
--- NOTE | 2024-08-14 09:45 | PC.NURSE ---
PT PLACED BACK ON BASELINE HOME OXYGEN, 3L.
[2024-08-14 10:03] LABS: Basophils # 0.1 10^3/uL (0.0-0.1); Basophils % 0.7 %; Eosinophils # 0.2 10^3/uL (0.0-0.8); Eosinophils % 2.3 %; Hematocrit 28.2 % (36-47); Lymphocytes # 1.7 10^3/uL (0.8-4.8); Mean Corpuscular HGB Conc 33.3 g/dL (30-55); Mean Corpuscular Hemoglobin 31.8 pg (27-33); Mean Corpuscular Volume 95.3 fl (85-98); Mean Platelet Volume 9.7 fL (7.4-10.4); Monocytes # 0.6 10^3/uL (0.2-0.9); Monocytes % 8.8 %; Neutrophils # 4.36 10^3/uL (1.8-7.7); Neutrophils % 62.6 %; Nucleated Red Blood Cells % 0 %; Platelet Count 213 10^3/cmm (157-399); Red Blood Count 2.96 10^6/uL (3.85-5.65); Red Cell Distribution Width 12.5 % (12.1-15.1); White Blood Count 6.96 10^3/uL (3.29-11.43)
[2024-08-14 10:16] LABS: Slide Review Slide Review Perform
[2024-08-14 10:29] LABS: Alanine Aminotransferase 13 U/L (0-33); Albumin Level 3.3 g/dL (3.5-5.2); Alkaline Phosphatase 72 U/L (35-105); Anion Gap 14.1 (5-19); Aspartate Amino Transferase 14 U/L (0-32); Blood Urea Nitrogen 15 mg/dL (8-23); Calcium 8.8 mg/dL (8.5-10.5); Carbon Dioxide 27 mmol/L (22-29); Chloride 99 mmol/L (98-107); Creatinine Clr Calc Pharmacy 51.6142; Globulin 2.9 g/dL (1.3-4.6); Glucose 150 mg/dL (65-115); Lipase 10 U/L (13-60); Osmolality Calculated 286 mOsm/kg (285-295); Potassium 4.1 mmol/L (3.5-5.1); Sodium 136 mmol/L (136-145); Total Bilirubin 0.3 mg/dL (0.15-1.2); Total Protein 6.2 g/dL (6.6-8.7)
[2024-08-14 10:31] LABS: Bilirubin Urine Negative (Negative); Blood Urine Negative (Negative); Glucose Urine UA 3+ (Normal); Ketones Urine Negative (Negative); Leukocyte Esterase Urine Negative (Negative); Nitrate Urine Negative (Negative); Protein Urine Negative (Negative); Specific Gravity, Urine 1.023 (1.005-1.030); Urine Appearance Clear (CLEAR); Urine Color Yellow (Yellow); pH Urine 6.5 (5-7)
[2024-08-14 10:33] LABS: Add Urine Microscopic? YES; Bacteria Urine None Seen /hpf; RBC Urine 0-2 /hpf (0-2); Squamous Epithelial Cell Urine 0-5 /hpf (0-5); WBC Urine 0-5 /hpf (0-5)
[2024-08-14] MEDS: iohexol 350 mg/mL 500 mL Btl (per mL) IV (11:42)
--- NOTE | 2024-08-14 13:03 | PC.NURSE ---
PT REPORT CALLED BACK TO [facility]. ACCEPTING NURSE VERBALIZED UNDERSTANDING. PER LONG TERM, PT IS SUPPOSED TO CALL SIGNIFICANT OTHER FOR TRANSPORTATION BACK TO FACILITY DUE TO THE LONG TERM HAVING NO TRANSPORTATION.
== END 2024-08-14 14:50 | disposition home or self-care (01) ==
PROVIDERS: Emergency Provider Emergency Medicine; PCP Family Medicine Adult Medicine
DX: M54.50 Low back pain, unspecified (principal); R10.9 Unspecified abdominal pain; Z79.01 Long term (current) use of anticoagulants; Z87.891 Personal history of nicotine dependence; J44.9 Chronic obstructive pulmonary disease, unspecified; E11.22 Type 2 diabetes mellitus with diabetic chronic kidney disease; I12.9 Hypertensive chronic kidney disease with stage 1 through stage 4 chronic kidney disease, or unspecified chronic kidney disease; N18.2 Chronic kidney disease, stage 2 (mild)
CPT/HCPCS: 36415; 74177; 80053; 81001; 83690; 85025; 96374; 96375; 99285; J2270; J2405

== ENCOUNTER → 2024-11-03 12:25 | Outpatient (BNVA) | payer MEDICARE, MEDICAID, SELFPAY | PROVIDERS: PCP Family Medicine Adult Medicine; Visit Provider Internal Medicine | DX: I10 Essential (primary) hypertension (principal); I73.9 Peripheral vascular disease, unspecified; I35.0 Nonrheumatic aortic (valve) stenosis; Z13.6 Encounter for screening for cardiovascular disorders; I42.8 Other cardiomyopathies | CPT/HCPCS: 99214 ==

== ENCOUNTER 2024-12-16 13:41 | Outpatient (CLI) | payer MEDICARE, MEDICAID, SELFPAY ==
--- NOTE | 2024-12-16 14:15 | USCV_ITS ---
Santa Baez Age: 74 Gender: F : 1950 Exam Date: 12/16/2024 14:22 Ordering Phys: Kenny Madrid M.D ([email or web address]) Technologist: MERY Exam Location: [facility] [place] Indication: EF assessment BP: 118 / 62 HR: Rhythm: Sinus Technical Quality: Adequate MEASUREMENTS (Male / Female) Normal Values 2D ECHO LV Diastolic Diameter PLAX 5.9 cm 4.2 - 5.9 / 3.9 - 5.3 cm IVS Diastolic Thickness 1.0 cm 0.6 - 1.0 / 0.6 - 0.9 cm IVS Systolic Thickness 1.2 cm LVPW Diastolic Thickness 1.8 cm 0.6 - 1.0 / 0.6 - 0.9 cm LVPW Systolic Thickness 2.4 cm LVOT Diameter 2.1 cm LV Ejection Fraction 2D Teich 53.3 % LV Ejection Fraction MOD 4C 53.7 % LV Ejection Fraction MOD 2C 52.7 % LV Ejection Fraction 2C AL 53.0 % LA Diameter 3.1 cm RA Systolic Volume 4C AL 28.7 ml RA Systolic Volume 4C MOD 27.9 ml LA Sys Volume AL 42.6 cm cubed LA Sys Volume Index AL 22.9 cm cubed/m squared Aorta at Sinotubular Diameter 2.4 cm IVC Diameter 1.6 cm M-MODE LA Ao Ratio MM 1.1 AV Cusp Separation MM 1.3 cm FINDINGS Left Ventricle Right Ventricle Right Atrium Left Atrium Mitral Valve Aortic Valve Tricuspid Valve Pulmonic Valve Pericardium Aorta IVC CONCLUSIONS Limited echocardiogram performed to assess LV systolic function LV systolic function is normal with EF of 50-55%. No regional wall motion abnormalities seen Compared to prior echcoardiogram from 2023, LV systolic function has improved signficantly and is normal now. Kenny Madrid MD (Electronically Signed) Final Date: 18 Dec 2024 22:39 S
== END 2024-12-16 13:42 | disposition home or self-care (01) ==
PROVIDERS: PCP Family Medicine Adult Medicine; Visit Provider Internal Medicine
DX: R06.02 Shortness of breath (principal); R93.1 Abnormal findings on diagnostic imaging of heart and coronary circulation
CPT/HCPCS: 93308

== ENCOUNTER → 2025-05-11 14:01 | Outpatient (BNVA) | payer MEDICARE, MEDICAID, SELFPAY | PROVIDERS: PCP Electrodiagnostic Medicine; Visit Provider Internal Medicine | DX: I12.9 Hypertensive chronic kidney disease with stage 1 through stage 4 chronic kidney disease, or unspecified chronic kidney disease (principal); E11.22 Type 2 diabetes mellitus with diabetic chronic kidney disease; N18.2 Chronic kidney disease, stage 2 (mild); Z87.891 Personal history of nicotine dependence; Z79.84 Long term (current) use of oral hypoglycemic drugs; I35.0 Nonrheumatic aortic (valve) stenosis; I42.8 Other cardiomyopathies; E11.51 Type 2 diabetes mellitus with diabetic peripheral angiopathy without gangrene | CPT/HCPCS: 99214 ==